=== PATIENT | male | born 1950 | race Caucasian/White ===

== ENCOUNTER → 2016-09-12 | Outpatient (CLI) | payer OTHER, BC | END | disposition home or self-care (01) | LOC: C.PATHSPEC 11:48 | PROVIDERS: ATTEND Dentist Endodontics | DX: K04.90 Unspecified diseases of pulp and periapical tissues (principal) ==

== ENCOUNTER → 2017-01-23 | Day surgery (SDC) | payer OTHER, BC ==
[2017-01-15 10:35] VITALS: BMI 19.0
[~2017-01-23] VITALS: Ht 175.3 cm; Wt 59.1 kg
[~2017-01-23] MED LIST: ASPCH81X PO; ATOR-26 PO; FERR1TAB23 PO; FURO20TA PO; LIDOCAINE HCL 2% 2 ML VIAL (20MG/ML) ONE; LOSA1TAB PO; METH2.5T PO; METO25TA56 PO; POTA10TA PO; PROPOFOL IV EMULSION 10 MG/ML 20 ML VIAL IV ONE; TAMS0.4C38 PO
[2017-01-23 13:07] VITALS: Ht 175.3 cm; Wt 59.1 kg
--- NOTE | 2017-01-23 14:59 | Endo History and Physical ---
History & Physical Date of Service: Jan 23, 2017. Chief Complaint: HX OF POLYPS Referring Physician: DR. JENNIFFER GUTIERREZ History of Present Illness h/o polyps Past Surgical History Hx Cardiac Surgery: No (HEART CATH-NO STENTS, CABG-4 VESSELS, AVR) Hx Internal Defibrillator: No Hx Pacemaker: No Hx Abdominal Surgery: No Hx of Implantable Prosthesis: No Hx Post-Op Nausea and Vomiting: No Hx Cancer Surgery: No Hx Thoracic Surgery: No Hx Orthopedic: No Hx Urinary Tract Surgery: No Family History None Social History Smoking Status: Current Every Day Smoker Hx Substance Use: No Hx Alcohol Use: Yes (OCCASIONALLY) Allergies Coded Allergies: No Known Allergies (Unverified , 01/15/17) Current Medications Reported Home Medications Medications Dose Route/Sig Max Daily Dose Days Date Category Aspirin Chewable (Aspirin) 81 Mg Chew 81 Mg PO QAM 01/15/17 Reported Iron (Ferrous Sulfate) 325 Mg Tab 1 Tab PO QAM 01/15/17 Reported Lasix (Furosemide) 20 Mg Tab 20 Mg PO QAM 01/15/17 Reported Lopressor (Metoprolol Tartrate) 25 Mg Tab 25 Mg PO BID 01/15/17 Reported Cozaar (Losartan Potassium) 25 Mg Tab 25 Mg PO QAM 01/15/17 Reported Methotrexate 2.5 Mg Tab 2.5 Tab PO WK 01/15/17 Reported K-Tabs (Potassium Chloride) 10 Meq Tab 1 Tab PO BID 01/15/17 Reported Flomax (Tamsulosin Hcl) 0.4 Mg Cap 0.4 Mg PO QAM 01/15/17 Reported Lipitor (Atorvastatin Calcium) 80 Mg Tab 80 Mg PO DAILY AFTERNOON 01/15/17 Reported Vital Signs Weight (Kilograms): 59.09 Height (Feet): 5 Height (Inches): 9 Date Time Temp Pulse Resp B/P (MAP) Pulse Ox O2 Delivery O2 Flow Rate FiO2 01/23/17 13:25 36.6 76 18 153/78 (103) 94 Room Air Physical Exam General Appearance: no apparent distress Respiratory/Chest: Auscultation: breath sounds normal Cardiovascular: Heart Auscultation: RRR Abdomen: Bowel Sounds: normal Assessment and Plan H/o polyps - cscopy
--- NOTE | 2017-01-23 15:43 | Anesthesiology Progress Note ---
Anesthesia Post Op Note Date & Time Jan 23, 2017 at 15:43 Vital Signs Pain Intensity: 0 Vital Signs Past 12 Hours Date Time Temp Pulse Resp B/P (MAP) Pulse Ox O2 Delivery O2 Flow Rate FiO2 01/23/17 13:25 36.6 76 18 153/78 (103) 94 Room Air Notes Mental Status: alert / awake / arousable, participated in evaluation Pt Amnestic to Procedure: Yes Nausea / Vomiting: adequately controlled Pain: adequately controlled Airway Patency, RR, SpO2: stable & adequate BP & HR: stable & adequate Hydration State: stable & adequate Anesthetic Complications: no major complications apparent
--- NOTE | 2017-01-23 15:58 | GI REPORT ---
Procedure Date: 01/23/2017 3:07 PM Procedure: Colonoscopy Indications: High risk colon cancer surveillance: Personal history of colonic polyps Medicines: See the Anesthesia note for documentation of the administered medications Complications: No immediate complications. Estimated Blood Loss: Estimated blood loss: none. Procedure: Pre-Anesthesia Assessment: - ASA Grade Assessment: II - A patient with mild systemic disease. After I obtained informed consent, the scope was passed under direct vision. Throughout the procedure, the patient's blood pressure, pulse, and oxygen saturations were monitored continuously. The scope was introduced through the anus and advanced to the terminal ileum. The colonoscopy was performed without difficulty. The patient tolerated the procedure well. The quality of the bowel preparation was good. Findings: The perianal and digital rectal examinations were normal. A 3 mm polyp was found in the rectum. The polyp was sessile. The polyp was removed with a cold snare. Resection and retrieval were complete. The exam was otherwise without abnormality. Impression: - One 3 mm polyp in the rectum, removed with a cold snare. Resected and retrieved. - The examination was otherwise normal. Recommendation: Repeat exam in 3 years. - Discharge patient to home. Cecille Middleton M.D. Cecille Middleton MD 01/23/2017 3:57:50 PM This report has been signed electronically. Note Initiated On: 01/23/2017 3:07 PM I attest to the content of the Intraoperative Record and orders documented therein, exceptions below
--- NOTE | 2017-01-23 15:59 | Discharge Instructions ---
Endoscopy Patient Instructions Date / Procedure(s) Performed Jan 23, 2017. Colonoscopy Allergy Information Coded Allergies: No Known Allergies (Unverified , 01/15/17) Discharge Date / Findings Jan 23, 2017. Diminutive polyp Medication Instructions Stopped Medication(s): IRON Restart Stopped Medication(s): Resume iron today Provider Instructions Activity Restrictions - No exercising or heavy lifting for 24 hours. - Do not drink alcohol the day of the procedure. - Do not drive a car or operate machinery until the day after the procedure. - Do not make any important decisions or sign important papers in 24 hours after the procedure. Following Day: - Return to full activity which may include returning to work/school. Diet Start your diet with liquids and light foods (jello, soup, juice, toast). Then eat your usual diet if not nauseated. Treatment For Common After Affects For mild abdominal pain, bloating, or excessive gas: - Rest - Eat lightly - Lie on right side Follow-Up Information Follow-up with DR. JENNIFFER GUTIERREZ as scheduled Anesthesia Information What You Should Know You have had a procedure that required some medicine to reduce anxiety and discomfort. This treatment is called moderate sedation. After receiving the treatment, you may be sleepy, but you will be able to breathe on your own. The effects of the treatment may last for several hours. Follow these instructions along with Activity/Diet recommendations noted above: * Do NOT do anything where dizziness or clumsiness would be dangerous. * Rest quietly at home today, then you can be up and about tomorrow. * Have a responsible person stay with you the rest of today. * You may have had an I.V. today. If so, you may take the dressing off later today. Recommendations Call your doctor if: * Trouble breathing * Continuous vomiting for more than 24 hours * Temperature above 101 degrees * Severe abdominal pain or bloating * Pain not relieved by pain medicine ordered * There is increased drainage or redness from any incision * A large amount of rectal bleeding greater than 2-3 tablespoons. (If you had a polyp/s removed or have hemorrhoids, a small amount of blood - from the rectum is to be expected.) * You have any unanswered questions or concerns. IN THE EVENT OF A SERIOUS EMERGENCY, GO TO THE NEAREST EMERGENCY ROOM Your discharge instructions were prepared by provider Cecille Lewis. Patient Instructions Signature Page Tarik Sales Patient (or Guardian) Signature/Date: I have read and understand the instructions given to me by my caregivers. Caregiver/RN/Doctor Signature/Date: The above-named patient and/or guardian has received patient instructions on this date. + Original Patient Signature Page (only) stays with chart. Please make copy for patient.
[2017-01-23 16:10] VITALS: BP 111/74; PULSE 73; O2SAT 100
== END | disposition home or self-care (01) ==
LOC: C.GI 12:22
PROVIDERS: ATTEND Internal Medicine Gastroenterology
DX: Z12.11 Encounter for screening for malignant neoplasm of colon (principal); K62.1 Rectal polyp; Z86.010 Personal history of colon polyps; F17.200 Nicotine dependence, unspecified, uncomplicated; Z79.82 Long term (current) use of aspirin; Z79.899 Other long term (current) drug therapy

== ENCOUNTER 2018-12-30 19:30 | Inpatient (IN) ==
--- OUTSIDE RECORDS SUMMARY | 2018-12-30 19:35 | External Medical Summary | Continuity of Care Document ---
:1950 Author Name Jose Villalpando, Provider Address Unavailable Unavailable , Care Team Providers Name Role Phone Patric Villalpando, [email or web address] Problems HTN (hypertension) (401.9) (I10) Tobacco use (305.1) (Z72.0) PAD (peripheral artery disease) (443.9) (I73.9) Dyslipidemia (272.4) (E78.5) Collagen disease (710.9) (M35.9) Weight loss (783.21) (R63.4) Diastolic dysfunction (429.9) (I51.89) Raynaud disease (443.0) (I73.00) Bicuspid aortic valve (746.4) (Q23.1) COPD (chronic obstructive pulmonary disease) (496) (J44.9) Periodontitis (523.40) (K05.30) Allergies and Adverse Reactions No Known Drug Allergies (Allergy) Medications Furosemide 20 MG Oral Tablet; 2 tablets (40mg) MWF , 1 table t all other days Refills: 0 Arava 10 MG Oral Tablet; Take 1 tablet daily Refills: 0 Methotrexate 2.5 MG Oral Tablet; 6 pills together once a wee k Refills: 0 dilTIAZem HCl ER 180 MG Oral Capsule Ext ended Release 24 Hour; TAKE 1 CAPSULE Daily Refills: 0 Folic Acid 1 MG Oral Tablet; 1 tablet da cornelia but not on the day methotrexate is taken Refills: 0 Atorvastatin Calcium 10 MG Oral Tablet; Take 1 tablet daily Refills: 0 Omeprazole 20 MG Oral Capsule Delayed Release; TAKE 1 CAPSUL E EVERY DAY Refills: 0 Aspirin 81 MG TABS; Take 1 tablet daily Refills: 0 Procedures Procedures not documented Immunizations Immunizations not documented Family History Unknown Family Member Family history of coronary artery disease Status: Active Comments: Family History (V17.3) (Z82.49) Mother No pertinent family history (V49.89) (Z78.9) Status: Active Social History - Smoking Status Current every day smoker Plan of Treatment Planned Observations Planned Goals not documented Results No Known Results Results not documented Encounters Appointment; Vascular, Studies SC1 07-Feb-2018 10:15 Encounter Diagnosis: Problem not documented
[2018-12-30] MEDS ORDERED: SODIUM CHLORIDE 0.65% NA SOLN 45 ML (OCEAN) ONE (19:42)
[2018-12-30] MEDS ORDERED: OXYMETAZOLINE 0.05% 30 ML BTL ONE (19:43)
[2018-12-30 20:52] LABS: Hematocrit (blood only) 21.2 % (42-52); Hemoglobin 7.1 g/dL (14.0-18.0); Immature Granulocytes # (auto) 0.02 K/uL (0.00-0.02); Immature Granulocytes % (auto) 0.5 %; Lymphocytes # (auto) 0.34 K/uL (1.2-3.4); Lymphocytes % (auto) 8.6 %; Mean Corpuscular Hemoglobin 30.6 pg (25-34); Mean Corpuscular Hgb Conc 33.5 g/dL (32-36); Mean Corpuscular Volume 91.4 fL (80-100); Mean Platelet Volume 9.3 fL (7.4-10.4); Monocytes # (auto) 0.02 K/uL (0.11-0.59); Monocytes % (auto) 0.5 %; Neutrophils # (auto) 3.57 K/uL (1.4-6.5); Neutrophils % (auto) 90.4 %; Platelet Count 122 K/uL (130-400); RDW Coefficient of Variation 13.3 % (11.5-14.5); RDW Standard Deviation 44.5 fL (36.4-46.3); Red Blood Count 2.32 M/uL (4.7-6.1); White Blood Count 3.95 K/uL (4.8-10.8)
[2018-12-30 21:07] LABS: INR 1.1 (0.9-1.1); Partial Thromboplastin Time 27.5 Seconds (21.0-31.0); Prothrombin Time 11.4 Seconds (9.0-12.0)
[2018-12-30 21:11] LABS: Albumin Level 2.1 gm/dl (3.4-5.0); BUN Creatinine Ratio 21.5 (10-20); Calcium 8.1 mg/dl (8.5-10.1); Creatinine Clr Calc Pharmacy 24.9 ml/min; Est GFR (African American) 29.8; Est GFR (Non-African American) 25.7; Potassium 4.9 mmol/L (3.5-5.1)
[2018-12-30 21:14] LABS: Albumin Globulin Ratio 0.4 (0.9-2); Bilirubin,Total 0.8 mg/dl (0.2-1); Globulin 4.8 gm/dl (2.5-4.0); Total Protein 6.9 gm/dl (6.4-8.2)
[2018-12-30] MEDS ORDERED: SODIUM CHLORIDE 0.9% 250 ML IV PRN (21:25)
--- NOTE | 2018-12-30 21:47 | XRay Report ---
SINGLE VIEW CHEST CLINICAL HISTORY: Dyspnea. FINDINGS: 2 AP, portable, upright chest radiographs are obtained. No prior studies are available for comparison at the time of dictation. The examination is degraded by portable technique and patient ro tation. The patient is status post midline sternotomy there is evidence of cardiac valve surgery. The heart is enlarged noting atherosclerotic calcification of the thoracic aorta. The pulmonary vasculat ure is noncongested. There is mild bibasilar scarring/atelectasis. No airspace consolidation or large pleural effusion is identified. No pneumothorax is seen. The skeletal structures are osteopenic. The re are healed left-sided rib fractures. IMPRESSION: Cardiomegaly with no acute cardiopulmonary abnormality. Electronically signed by: Jeremie Leal M.D. 12/30/2018 9:46 PM
[2018-12-30 22:01] LABS: Troponin I 0.04 ng/ml (0-0.045)
[2018-12-30] MEDS ORDERED: DOXYCYCLINE HYCLATE 100 MG CAP PO STA (22:27)
[2018-12-30] MEDS ORDERED: SODIUM CHLORIDE 0.9% 1000ML 500 ML IV ONE (22:31)
--- NOTE | 2018-12-31 00:20 | Emergency Department Note ---
Entered by Rhett Roberts acting as a scribe for History of Present Illness General Chief complaint: Nose Bleed (Minor) Stated complaint: NOSE BLEED Time Seen by Provider: 12/30/18 20:01 Source: patient History of Present Illness Onset (ago): day(s) 3 Location: face (nostril) and right Pain Consistency: + intermittent Quality: + other (bleeding) Associated symptoms: + denies other symptoms (fevers, bloody stools, black stools) and + other (increased swelling to his legs, cold legs, spots on his legs and feet); no chest pain The patient is a 68 y/o male who presents to the ED w/ CC of intermittent left sided nose bleeds beginning three days ago. The patient denies picking his nose and being sick recently. He notes for the past few months he would notice small spots of blood on the tissue after blowing his nose. The patient reports he is only on aspirin and is short of breath when queried. The patient states for the past week he has had increases swelling to his legs and cold feet, and for the past two weeks he has developed spots on his feet and lower legs. He reports he has been seeing the wound clinic for an infection on his leg previously but no longer sees them. He denies fevers, chest pain, black stool, bloody stool. The patient notes a history of a pig valve replacement and a CABGx4. Home Medications Home Medications Medication Instructions Recorded Confirmed Type aspirin 81 mg chewable tablet 81 mg PO DAILY 01/28/18 12/30/18 History atorvastatin 80 mg tablet 80 mg PO DAILY 01/28/18 12/30/18 History ferrous sulfate 325 mg (65 mg 325 mg PO BID tab 01/28/18 12/30/18 History iron) tablet folic acid 1 mg tablet 1 mg PO DAILY 01/28/18 12/30/18 History furosemide 20 mg tablet 20 mg PO DAILY 01/28/18 12/30/18 History losartan 25 mg tablet 25 mg PO DAILY 01/28/18 12/30/18 History metoprolol tartrate 50 mg tablet 25 mg PO BID tab 01/28/18 12/30/18 History potassium chloride ER 10 mEq 10 meq PO BID 01/28/18 12/30/18 History capsule,extended release tamsulosin 0.4 mg capsule 0.4 mg PO DAILY 01/28/18 12/30/18 History triamcinolone acetonide 0.5 % 1 appln TOP TID PRN 01/28/18 12/30/18 History topical cream methotrexate sodium 7.5 mg PO UD 12/30/18 12/30/18 History Allergies Allergy/AdvReac Type Severity Reaction Status Date / Time No Known Allergies Allergy Mild Unverified 12/30/18 22:39 Past Med/Surg History Medical History Anemia (Chronic) Anemia (Chronic) Aortic valve, bicuspid (Chronic) CAD (coronary artery disease) of artery bypass graft (Chronic) COPD (chronic obstructive pulmonary disease) (Chronic) Dyslipidemia (Chronic) HTN, goal to be determined (Chronic) Mitral valve regurgitation (Chronic) PAD (peripheral artery disease) (Chronic) Raynaud disease (Chronic) Surgical History S/P CABG x 4 (Chronic) S/P aortic valve replacement (Chronic) S/P tonsillectomy (Chronic) Family History Other Family history non-contributory Social History Preferred Language: [place] Visual Impairment: Diminished Hearing Ability: Normal Beliefs That Will Affect Care: None marital status: Current Living Situation: Spouse current occupational status: retired Feels Safe at Home: Yes Smoking Status: Current some day smoker Tobacco Type: cigarettes ; Cigarettes Per Day: 4 ; Hx Alcohol Use: No Hx Substance Use: No Review of Systems See HPI for pertinent positives & negatives. and A total of 10 systems reviewed and were otherwise negative Physical Exam Vital Signs Vital Signs - 24 hr 12/30/18 19:18 12/30/18 20:50 12/30/18 21:25 Temperature 35.1 C L 35.2 C L 36.1 C L Temperature Source Rectal Rectal Rectal Sepsis Recent Fever Within 48 Hours No Sepsis New/Unexplained Change in Mental Status No Sepsis Action Taken by Nursing No Action Required Pulse Rate 120 H Pulse Rate [Right Ear Lobe] 111 H 109 H Pulse Strength Respiratory Rate 14 17 23 Respiratory Effort / Characteristics Non-Labored Spontaneous Non-Labored Spontaneous Non-Labored Spontaneous Respiratory Depth Normal Normal Normal Respiratory Pattern Regular Regular Blood Pressure 135/89 Blood Pressure [Left Arm] 92/50 L 111/61 Blood Pressure Mean 104 Blood Pressure Mean [Left Arm] 64 77 Blood Pressure Position Lying Blood Pressure Position [Left Arm] Lying Lying Pulse Oximetry 81 L 100 100 Oxygen Delivery Method Room Air Oxymask Room Air Oxygen Flow Rate 5 12/30/18 22:38 12/30/18 22:48 12/30/18 23:06 Temperature 36.1 C L 36.8 C 36.5 C Temperature Source Oral Oral Oral Sepsis Recent Fever Within 48 Hours Sepsis New/Unexplained Change in Mental Status Sepsis Action Taken by Nursing Pulse Rate 109 H 106 H Pulse Rate [Right Ear Lobe] 110 H Pulse Strength Normal Respiratory Rate 20 14 20 Respiratory Effort / Characteristics Non-Labored Spontaneous Respiratory Depth Normal Respiratory Pattern Blood Pressure 99/40 L 108/62 Blood Pressure [Left Arm] 109/59 L Blood Pressure Mean 59 77 Blood Pressure Mean [Left Arm] 75 Blood Pressure Position Lying Blood Pressure Position [Left Arm] Lying Pulse Oximetry 100 100 100 Oxygen Delivery Method Room Air Oxygen Flow Rate 12/30/18 23:24 12/30/18 23:30 12/30/18 23:45 Temperature Temperature Source Sepsis Recent Fever Within 48 Hours Sepsis New/Unexplained Change in Mental Status Sepsis Action Taken by Nursing Pulse Rate 98 H 97 H Pulse Rate [Right Ear Lobe] 101 H Pulse Strength Respiratory Rate 16 4 L 2 L Respiratory Effort / Characteristics Respiratory Depth Respiratory Pattern Blood Pressure 111/56 L 124/57 L Blood Pressure [Left Arm] 111/46 L Blood Pressure Mean 74 79 Blood Pressure Mean [Left Arm] 67 Blood Pressure Position Blood Pressure Position [Left Arm] Pulse Oximetry 100 100 100 Oxygen Delivery Method Room Air Oxygen Flow Rate 12/31/18 00:00 Temperature Temperature Source Sepsis Recent Fever Within 48 Hours Sepsis New/Unexplained Change in Mental Status Sepsis Action Taken by Nursing Pulse Rate 94 H Pulse Rate [Right Ear Lobe] Pulse Strength Respiratory Rate 11 L Respiratory Effort / Characteristics Respiratory Depth Respiratory Pattern Blood Pressure 116/59 L Blood Pressure [Left Arm] Blood Pressure Mean 78 Blood Pressure Mean [Left Arm] Blood Pressure Position Blood Pressure Position [Left Arm] Pulse Oximetry 100 Oxygen Delivery Method Oxygen Flow Rate Constitutional: Vital signs reviewed. Eyes: Pupils are equal round reactive to light. Conjunctiva are noninjected. ENT: Pharynx is clear without erythema or exudate. Mucous membranes are moist. Neck supple without meningeal signs. Bleeding from the left nostril. Respiratory: Clear to auscultation bilaterally. Breath sounds are equal bilaterally. Cardiovascular: Tachycardic rate and regular rhythm. No rubs or gallops. GI: Soft, nondistended and nontender. Bowel sounds are present. Tick in the abdomen that appeared engorged. Rectal: Guaiac negative. Brown stool. Musculoskeletal: No peripheral edema. No lower extremity tenderness. Pallor and coolness to both feet with detectable pulses via Doppler. Petechia to the lower extremities bilaterally. Integumentary: No cyanosis. Neurological: The patient is awake and alert. No focal deficits. Psychiatric: Normal affect. Course 2002: Past medical records reviewed. The patient was evaluated in room A11B. A complete history and physical exam was performed. 2043: The nurse was able to get a distal pulse in both feet using a Doppler. 2056: The patient's O2Sat is now 100 on RA. His temperature went up 1 degree while on a CHAYO hugger. 2123: The patient stopped bleeding from the nose. While dabbing it with a tissue, the patient noted it is starting to bleed a little. I give the patient Afrin and put a clamp in place. I updated him of his current test results. 2133: The patient was briefly hypotensive. I performed a rectal exam. I informed the patient of the risk and benefits of a blood transfusion and obtained written consent for a transfusion of two units. The nurse discovered a tick in the abdomen that appeared engorged. It was removed with a tick twister. All of the tick was removed. There are no remaining parts of the tick. 2202: The nasal clamp was removed. There is no active bleeding. 2216: There is no active bleeding after removal of the clamp. 2227: I reevaluated the patient. He is still slightly tachycardic. His blood pressure is stable. We are still waiting for his pRBC's. He is agreeable with doxycycline for prophylactic treatment for the tick bite. 2232: I reviewed the patient's case with Dr. Parsons, [facility] Hospitalist. He will evaluate the patient for further management. Administered Medications Sodium Chloride (Nss) 250 mls @ 15 mls/hr IV .[id number] PRN PRN Reason: For Transfusion Stop: 01/29/19 21:24 Last Admin: 12/30/18 22:52 Dose: 15 mls/hr Documented by: [id number] Discontinued Medications Doxycycline Hyclate (Vibramycin) 200 mg PO NOW STA Stop: 12/30/18 22:28 Last Admin: 12/30/18 22:52 Dose: 200 mg Documented by: [id number] Sodium Chloride (Nss 1000ml) 500 mls @ 999 mls/hr IV .Q31M ONE Stop: 12/30/18 23:01 Last Infusion: 12/31/18 00:01 Dose: 0 mls/hr Documented by: [id number] Admin: 12/30/18 23:22 Dose: 999 mls/hr Documented by: [id number] Oxymetazoline HCl (Afrin 0.05%) Confirm Administered Dose 150 sprays .ROUTE .STK-MED ONE Stop: 12/30/18 19:44 Last Admin: 12/30/18 20:47 Dose: 150 sprays Documented by: [id number] Sodium Chloride (Faulk Nasal) Confirm Administered Dose 225 sprays .ROUTE .STK- MED ONE Stop: 12/30/18 19:43 Last Admin: 12/30/18 20:47 Dose: Not Given Documented by: [id number] Medical Decision Making Differential Diagnosis Differential diagnosis includes: epistaxis, thrombocytopenia, sinusitis, arterial insufficiency, anemia. Medical Records Attestation: I reviewed the patient's medical records. I did perform a limited focused review of portions of the patient's old chart on the electronic medical record. The patient was evaluated at the wound care clinic in May. He had an ischemic ulcer secondary to arterial insufficiency. Home Medications Current Medication List: was personally reviewed by me Laboratory Data Attestation: I reviewed the patient's lab results. Result diagrams: 12/30/18 20:38 12/30/18 20:38 Lab Results 12/30/18 12/30/18 12/30/18 Range/Units 20:38 20:38 20:38 WBC 3.95 L (4.8-10.8) K/uL RBC 2.32 L (4.7-6.1) M/uL Hgb 7.1 L (14.0-18.0) g/dL Hct 21.2 L (42-52) % MCV 91.4 (80-100) fL MCH 30.6 (25-34) pg MCHC 33.5 (32-36) g/dL RDW Std Deviation 44.5 (36.4-46.3) fL RDW Coeff of Renato 13.3 (11.5-14.5) % Plt Count 122 L (130-400) K/uL MPV 9.3 (7.4-10.4) fL Immature Gran % (Auto) 0.5 % Neut % (Auto) 90.4 % Lymph % (Auto) 8.6 % Gilchrist % (Auto) 0.5 % Eos % (Auto) 0.0 % Baso % (Auto) 0.0 % Immature Gran # (Auto) 0.02 (0.00-0.02) K/uL Neut # (Auto) 3.57 (1.4-6.5) K/uL Lymph # (Auto) 0.34 L (1.2-3.4) K/uL Gilchrist # (Auto) 0.02 L (0.11-0.59) K/uL Eos # (Auto) 0.00 (0-0.5) K/uL Baso # (Auto) 0.00 (0-0.2) K/uL PT 11.4 (9.0-12.0) Seconds INR 1.1 (0.9-1.1) APTT 27.5 (21.0-31.0) Seconds PTT Ratio 1.0 Sodium 139 (136-145) mmol/L Potassium 4.9 (3.5-5.1) mmol/L Chloride 106 (98-107) mmol/L Carbon Dioxide 22 (21-32) mmol/L Anion Gap 11.0 (3-11) BUN 53 H (7-18) mg/dl Creatinine 2.46 H (0.6-1.4) mg/dl Est Cr Clr Drug Dosing 24.9 ml/min Est GFR ( Amer) 29.8 Est GFR (Non-Af Amer) 25.7 BUN/Creatinine Ratio 21.5 H (10-20) Glucose 126 H (70-99) mg/dl Lactate (0.4-2.0) mmol/L Calcium 8.1 L (8.5-10.1) mg/dl Total Bilirubin 0.8 (0.2-1) mg/dl AST 113 H (15-37) U/L ALT 66 (12-78) U/L Alkaline Phosphatase 260 H (45-117) U/L Troponin I 0.040 (0-0.045) ng/ml Total Protein 6.9 (6.4-8.2) gm/dl Albumin 2.1 L (3.4-5.0) gm/dl Globulin 4.8 H (2.5-4.0) gm/dl Albumin/Globulin Ratio 0.4 L (0.9-2) Blood Type Blood Type Recheck Antibody Screen Crossmatch 12/30/18 12/30/18 12/30/18 Range/Units 20:38 20:41 21:42 WBC (4.8-10.8) K/uL RBC (4.7-6.1) M/uL Hgb (14.0-18.0) g/dL Hct (42-52) % MCV (80-100) fL MCH (25-34) pg MCHC (32-36) g/dL RDW Std Deviation (36.4-46.3) fL RDW Coeff of Renato (11.5-14.5) % Plt Count (130-400) K/uL MPV (7.4-10.4) fL Immature Gran % (Auto) % Neut % (Auto) % Lymph % (Auto) % Gilchrist % (Auto) % Eos % (Auto) % Baso % (Auto) % Immature Gran # (Auto) (0.00-0.02) K/uL Neut # (Auto) (1.4-6.5) K/uL Lymph # (Auto) (1.2-3.4) K/uL Gilchrist # (Auto) (0.11-0.59) K/uL Eos # (Auto) (0-0.5) K/uL Baso # (Auto) (0-0.2) K/uL PT (9.0-12.0) Seconds INR (0.9-1.1) APTT (21.0-31.0) Seconds PTT Ratio Sodium (136-145) mmol/L Potassium (3.5-5.1) mmol/L Chloride (98-107) mmol/L Carbon Dioxide (21-32) mmol/L Anion Gap (3-11) BUN (7-18) mg/dl Creatinine (0.6-1.4) mg/dl Est Cr Clr Drug Dosing ml/min Est GFR ( Amer) Est GFR (Non-Af Amer) BUN/Creatinine Ratio (10-20) Glucose (70-99) mg/dl Lactate 5.3 H* (0.4-2.0) mmol/L Calcium (8.5-10.1) mg/dl Total Bilirubin (0.2-1) mg/dl AST (15-37) U/L ALT (12-78) U/L Alkaline Phosphatase (45-117) U/L Troponin I (0-0.045) ng/ml Total Protein (6.4-8.2) gm/dl Albumin (3.4-5.0) gm/dl Globulin (2.5-4.0) gm/dl Albumin/Globulin Ratio (0.9-2) Blood Type O Positive Blood Type Recheck O Positive Antibody Screen NEGATIVE Crossmatch See Detail Imaging Data Radiologist's Impression: Radiology results as stated below per my review and the radiologist's interpretation: SINGLE VIEW CHEST CLINICAL HISTORY: Dyspnea. FINDINGS: 2 AP, portable, upright chest radiographs are obtained. No prior studies are available for comparison at the time of dictation. The examination i s degraded by portable technique and patient rotation. The patient is status post midline sternotomy there is evidence of cardiac valve surgery. The heart is enlarged noting atherosclerotic calcification of the thoracic aorta. The pulmonary vasculature is noncongested. There is mild bibasilar scarri ng/atelectasis. No airspace consolidation or large pleural effusion is identified. No pneumothorax is seen. The skeletal structures are osteopenic. There are healed left-sided rib fractures. IMPRESSION: Cardiomegaly with no acute cardiopulmonary abnormality. Electronically signed by: Jeremie Leal M.D. 12/30/2018 9:46 PM ECG Data Attestation: I personally reviewed and interpreted this ECG as follows: Indication: + SOB/dyspnea Rate (beats per minute): 110 Rhythm: + sinus tachycardia ECG ST segments: + ST depression (Inferior - slight); no ST elevation ECG Findings: no PVCs Comparison ECG Date: from (04/2017) Change: no significant change Blood Pressure Blood Pressure Findings: Elevated blood pressure Blood Pressure Disposition: elevated BP felt to be situational MDM Narrative I did evaluate the patient as noted above. The patient came here for an intermittent nosebleed from his left nare. On my examination he is very cool to touch and was found to be hypothermic on rectal temperature. His O2 saturations were low but he has very cool and pale extremities. He also has petechiae to his lower extremities. We were able to get pulses using a bedside Doppler. He does have a prior history of arterial insufficiency. He was placed on a chayo hugger. His nosebleed was controlled with Afrin and his nasal clamp. Rectal examination showed guaiac negative brown stool. IV access was established. The patient was placed on a continuous monitoring coordinator. I did order and personally review the patient's 12-lead EKG as described above. He has no evidence of acute ischemia. He does have ST depressions inferiorly but they were present from April 2017. I did order and personally reviewed the images of the patient's chest x-ray as described above. He has cardiomegaly but no evidence of effusion or infiltrate. I did order a urine analysis. I did order and review the patient's blood work as noted in the electronic medical record. He is anemic with a hemoglobin of 7.1. He also has acute kidney injury with a cr eatinine over 2. Troponin is negative. Lactic acid is 5.3. His white blood cell count is 3.9. Platelet count is 122. I did recommend transfusion as he is symptomatic with shortness of breath and a history of CABG and arterial insufficiency. I did order 2 units of packed RBCs after obtaining informed consent. He did develop some hypotension here and was given a normal saline bolus. Transfusion of packed RBCs was started here. Of note he did have a tick on his left abdomen which I easily removed in its entirety. He was given doxycycline 200 mg for Lyme disease prophylaxis. There is no evidence of rash. His body temperature improved with the bear hugger. His blood pressure remained stable and his tachycardia improved as well. I did discuss the case with the hospitalist and telehealth case manager. Impression & Plan MARANDA (acute kidney injury), Symptomatic anemia, Thrombocytopenia, Hypothermia, Acute anterior epistaxis, Tick bite, Leukopenia Critical Care Time Critical Care Time: Yes Total Critical Care Time: 42 I have personally spent 42 minutes of critical care time in the direct management of this patient. This includes bedside care, interpretation of diagnostic studies, and testing, discussion with consultants, patient, and family members, and other required patient management activities. This 42 minutes is in excess of all separately billable procedures. Discharge Plan Visit Data Chief Complaint: Nose Bleed (Minor) Stated Complaint: NOSE BLEED ED Provider: Douglas Young Discharge Problem: MARANDA (acute kidney injury), Symptomatic anemia, Thrombocytopenia, Hypothermia, Acute anterior epistaxis, Tick bite, Leukopenia Patient Disposition: Being Evaluated by Hospitalist Forms Stand Alone Forms: My [facility] Prescriptions Prescriptions: No Action aspirin 81 mg tablet,chewable 81 mg PO DAILY RF: 0 atorvastatin [Lipitor] 80 mg tablet 80 mg PO DAILY RF: 0 ferrous sulfate 325 mg (65 mg iron) tablet 325 mg PO BID RF: 0 furosemide [Lasix] 20 mg tablet 20 mg PO DAILY RF: 0 losartan [Cozaar] 25 mg tablet 25 mg PO DAILY RF: 0 metoprolol tartrate [Lopressor] 50 mg tablet 25 mg PO BID RF: 0 potassium chloride 10 mEq capsule, extended release 10 meq PO BID RF: 0 tamsulosin [Flomax] 0.4 mg capsule 0.4 mg PO DAILY RF: 0 folic acid 1 mg tablet 1 mg PO DAILY RF: 0 triamcinolone acetonide 0.5 % cream 1 appln TOP TID PRN (Reason: flare ups) RF: 0 methotrexate sodium 2.5 mg tablet 7.5 mg PO UD RF: 0 Referrals Referrals: Ana Carpenter DO [Primary Care Provider] - Discharge Problem: Hypothermia Qualifiers: Encounter type: initial encounter Qualified Code(s): T68.XXXA - Hypothermia, initial encounter Tick bite Qualifiers: Encounter type: initial encounter Qualified Code(s): W57.XXXA - Bitten or stung by nonvenomous insect and other nonvenomous arthropods, initial encounter Leukopenia Qualifiers: Leukopenia type: unspecified Qualified Code(s): D72.819 - Decreased white blood cell count, unspecified The scribe's documentation has been prepared under my direction and personally reviewed by me in its entirety. I confirm that the note above accurately reflects all work, treatment, procedures, and medical decision making performed by me.
[2018-12-31] MEDS ORDERED: POLYETHYLENE (MIRALAX) 17 GM PACK PO PRN (02:06)
[2018-12-31] MEDS ORDERED: NITROGLYCERIN SL 0.4 MG/TAB TAB SL PRN (02:06)
[2018-12-31] MEDS ORDERED: TRIAMCINOLONE ACET 0.5% CR 15 GM TUBE TOP PRN (02:06)
[2018-12-31] MEDS ORDERED: ONDANSETRON INJ 2 MG/ML 2 ML VIAL IV PRN (02:06)
[2018-12-31] MEDS ORDERED: ACETAMINOPHEN 325 MG TAB PO PRN (02:06)
[2018-12-31] MEDS ORDERED: PIPERACILL/TAZOBAC CONSULT ACTIVE PRN (02:06)
[2018-12-31] MEDS ORDERED: SODIUM CHLORIDE 0.9% 250 ML IV PRN ×3 (02:06→19:44)
[2018-12-31] MEDS ORDERED: SODIUM CHLORIDE 0.9% 1000ML 1,000 ML IV SCH (02:06)
[2018-12-31] MEDS ORDERED: VANCOMYCIN CONSULT ACTIVE PRN (02:06)
[2018-12-31] MEDS ORDERED: PIPERACILLIN/TAZOBACTAM 4.5 GM in DEXTROSE 5% 100 ML IV STA (02:21)
[2018-12-31] MEDS ORDERED: VANCOMYCIN HCL 1,500 MG in SODIUM CHLORIDE 0.9% 500 ML IV ONE (03:00)
--- NOTE | 2018-12-31 04:21 | History and Physical Report ---
DATE OF ADMISSION: 12/31/2018 CHIEF COMPLAINT: Epistaxis. HISTORY OF PRESENT ILLNESS: This is a 68-year-old male with past medical history significant for COPD, moderate peripheral artery disease, history of carotid arteries bilaterally, history of Raynaud's syndrome, history of aortic valve, bicuspid, status post aortic valve replacement with bioprosthetic valve, mitral regurgitation, hypertension, CAD, protein-calorie malnutrition, undifferentiated connective tissue disease, history of anemia, presents with epistaxis. The patient says since last 3 days, he was having left side nose bleeding, significant bleeding on and off, he thought it would stop by itself, but it was not getting better, so his called the ambulance and brought him here. He got Afrin spray and nasal clamp placed in Er His labs showed pancytopenia with hemoglobin of 7.1, platelets 122, white count of 3.9. His lactic acid came as 5.3. Troponin is negative. Creatinine was 2.4. In the ER, engorged tick was taken out from left abdomen. Denies any fever, chills. No headache, no dizziness, no blurred visions, no earache, no sore throat, no difficulty swallowing. Appetite is okay. No recent weight gain or weight loss, no night sweats. Sleeps okay. Was nauseous earlier, but okay now. No vomiting, no abdominal pain, no blood in the stools or black stools, no hematuria, no burning micturition. He has chronic swelling in the legs. Has petechial rash seen in the legs. hypothermic and extremities were cold when he came in Doppler done in the ER was positive for pulse and his Hemoccult stool was negative. In the ER, he was currently on Marybeth-Hugger temperature improved.. The patient is also on methotrexate for connective tissue disease. The patient is on methotrexate for 2 years. It was stopped recently, but again restarted about a month ago. ALLERGIES: No known drug allergies. PAST MEDICAL HISTORY: As mentioned above. PAST SURGICAL HISTORY: Aortic valve replacement and prosthetic valve, CABG, colonoscopy, CAD, tonsillectomy. MEDICATIONS: The patient is currently on methotrexate 2.5 mg 3 tablets with lunch and 3 tablets with dinner on Mondays only, Flomax 0.4 mg daily, folic acid 2 mg daily, ferrous sulfate 325 mg p.o. b.i.d., Lopressor 25 mg p.o. b.i.d., Lipitor 80 mg p.o. daily, Klor-Con 10 mEq p.o. b.i.d., Lasix 20 mg p.o. daily, amoxicillin 2 grams 1 hour prior to dental appointment, losartan 25 mg p.o. daily, vitamin B12 500 mcg daily, aspirin 81 mg p.o. daily. FAMILY HISTORY: Significant for: Mother had cancer. Father had [place], at 54. Paternal grandfather had heart disorder. SOCIAL HISTORY: Lives with his . Smokes half pack a day for 40 years. Alcohol rarely. No drug use. REVIEW OF SYMPTOMS: As per HPI. Rest of review of systems is negative. PHYSICAL EXAMINATION: GENERAL: The patient is thinly built, not in acute distress. VITAL SIGNS: Temperature 37, when he came in, it was 35.1, currently 37.1. Respiratory rate 20, blood pressure 112/67, pulse 97. HEENT: No pallor, no icterus. Pupils equal, round, reactive to light. Nasal clamp. NECK: No JVD, no neck masses. No carotid bruits. CARDIOVASCULAR: S1, S2 heard, regular rate and rhythm, no murmur. RESPIRATORY SYSTEM: Normal AP diameter. Diminished breath sounds. No wheezing, no crackles. ABDOMEN: Soft, bowel sounds present, nontender. No distention. CENTRAL NERVOUS SYSTEM: Alert and oriented, not in acute distress. Moves extremities. EXTREMITIES: Bilateral lower extremity edema present and some petechial rash seen in the lower extremity. LABORATORIES DATA: WBC 3.9, hemoglobin 7.1, hematocrit 21.2, platelets 122. PT 11.4, INR 1.1, APTT 27.5. Sodium 139, potassium 4.9, chloride 106, bicarbonate 22, BUN 53, creatinine 2.4, serum glucose 126, lactate 5.3, calcium 8.1, total bilirubin 0.8, AST 113, ALT 66, alkaline phosphatase 260. Chest x-ray: Cardiomegaly with no acute cardiopulmonary abnormalities seen. EKG: Sinus tachycardia, rate of 110, left axis deviation, nonspecific ST abnormalities seen. ASSESSMENT AND PLAN: This is a 68-year-old male who presents with epistaxis found to have pancytopenia, hypothermia, elevated lactic acid, elevated AST and alkaline phosphatase and acute kidney injury. 1. Epistaxis, possible from thrombocytopenia, Afrin spray and nasal clamp was done in the ER which he will continue, hold his aspirin and consult ENT in a.m. for further recommendations. 2. Pancytopenia. Labs were okay in 10/24/2018 as outpatient. At that time, his white count was 5.3, hemoglobin 10.8, platelets 263. Today, his platelets are 122, white count 3.95, hemoglobin is 7.1. He was on methotrexate for 2 years, but it was held recently and restarted a month ago. It could be the possible cause of his pancytopenia. Also, tick was found on his belly and he says that he had not noticed it in the past and denies any fevers, but apart from pancytopenia, he has also had elevated alkaline phosphatase and AST and also acute kidney injury, possible tick-borne diseases We will send lab work for anaplasmosis/ehrlichiosis . Lyme screen. peripheral smear. Empirically, started on doxycycline, getting 2 units of PRBC now. His Hemoccult was negative. We will also consult hematology/oncology for further opinion. Follow the labs. 3. Sepsis? Elevated lactic acid. Lactic acid of 5.3, probably from hypoperfusion from his anemia, was also hypothermic when he came in. We will empirically start on IV vancomycin and IV Zosyn with 48-hour stop and follow the cultures. Follow the repeat lactic acid. Also getting CT of the chest, abdomen and pelvis to rule out any underlying disease. 4. Acute kidney injury, baseline creatinine of 1-1.3, presented with creatinine of 2.4. Getting PRBC transfusions and fluids. Holding Lasix and Cozaar. We will follow the labs in a.m. 5. Coronary artery disease status post coronary artery bypass graft. Continue statin, metoprolol. Holding the aspirin. 6. Bicuspid aortic valve, status post aortic valve replacement with prosthetic valve. Has a plan for echocardiogram. We will get echocardiogram in the hospital. 7. Lower extremity edema. The patient has peripheral vascular disease. if any concerns will get arterial we will get ultrasound. We will also get echocardiogram. 8. Petechial rash, possibly from thrombocytopenia. We will monitor. 9. History of anemia. Hemoglobin baseline around 10, on iron supplements. 10. History of diffuse connective tissue disease, Raynaud's syndrome. Follows with rheumatology on methotrexate.Holding methotrexate. Question of methotrexate, possible cause of his pancytopenia. Consult rheumatology. 12. Hyperlipidemia, on statin. 13. Hypertension, Lopressor with holding parameters. Hold Cozaar. Monitor the blood pressure. 14. Tick bite. Started on doxycycline. Consult ID. 14. Deep venous thrombosis prophylaxis, sequential compression devices for now. 15. Disposition: Admit to tele floor. Expect to discharge home and follow with family doctor. Level 1 full code. MTDD
[2018-12-31] MEDS ORDERED: OXYMETAZOLINE 0.05% 30 ML BTL NAE PRN (04:58)
[2018-12-31] MEDS: DOXYCYCLINE HYCLATE 100 MG CAP PO SCH ×2 (05:15→17:00)
[2018-12-31 05:33] LABS: Hematocrit (blood only) 22.8 % (42-52); Hemoglobin 8.3 g/dL (14.0-18.0); Mean Corpuscular Hgb Conc 36.4 g/dL (32-36); RDW Coefficient of Variation 13.2 % (11.5-14.5); RDW Standard Deviation 42.6 fL (36.4-46.3); Red Blood Count 2.59 M/uL (4.7-6.1); White Blood Count 2.62 K/uL (4.8-10.8)
[2018-12-31] MEDS ORDERED: ACETAMINOPHEN 325 MG TAB PO STA (05:38)
[2018-12-31] MEDS ORDERED: PNEUMOCOCCAL ADMINISTRATION CHARGE ONE (05:45)
[2018-12-31] MEDS ORDERED: PNEUMOCOCCAL POLYSACCHARIDES 25 MCG/0.5 ML VIAL/SYR IM ONE (05:45)
[2018-12-31] MEDS ORDERED: INFLUENZA VACCINE HIGH DOSE 65+ 0.5 ML SYR IM ONE (05:45)
[2018-12-31] MEDS ORDERED: INFLUENZA ADMINISTRATION CHARGE ONE (05:45)
[2018-12-31 05:53] LABS: Mean Platelet Volume 9.5 fL (7.4-10.4); Platelet Count 86 K/uL (130-400)
[2018-12-31 06:01] LABS: Basophils # (auto) 0.01 K/uL (0-0.2); Basophils % (auto) 0.4 %; Eosinophils # (auto) 0.01 K/uL (0-0.5); Eosinophils % (auto) 0.4 %; Immature Granulocytes # (auto) 0.01 K/uL (0.00-0.02); Immature Granulocytes % (auto) 0.4 %; Lymphocytes # (auto) 0.46 K/uL (1.2-3.4); Lymphocytes % (auto) 17.6 %; Neutrophils # (auto) 2.13 K/uL (1.4-6.5); Neutrophils % (auto) 81.2 %; Platelet Estimate Decreased (Normal)
[2018-12-31 06:02] LABS: BUN Creatinine Ratio 25.8 (10-20); Calcium 7.4 mg/dl (8.5-10.1); Est GFR (Non-African American) 31.9; Magnesium 1.7 mg/dl (1.8-2.4); Potassium 4.2 mmol/L (3.5-5.1)
[2018-12-31 06:18] LABS: Lyme Ab IgG w/WB Rflx Negative (Negative)
[2018-12-31 06:19] LABS: Albumin Level 1.7 gm/dl (3.4-5.0); Bilirubin Direct 0.3 mg/dl (0-0.2); Bilirubin,Total 0.7 mg/dl (0.2-1); Total Protein 5.7 gm/dl (6.4-8.2)
--- NOTE | 2018-12-31 06:33 | CT Scan Report ---
CT SCAN OF THE ABDOMEN AND PELVIS WITHOUT CONTRAST CLINICAL HISTORY: Elevated lactic acid. Possible bowel ischemia. COMPARISON STUDY: No previous studies for comparison. TECHNIQUE: CT scan of the abdomen and pelvis was performed from the lung bases to the proximal femurs . Images are reviewed in the axial, sagittal, and coronal planes. IV contrast was not administered fo r this examination. A dose lowering technique was utilized adhering to the principles of ALARA. CT DOSE: 493.57 mGy.cm FINDINGS: Lower chest: There is mild basilar interstitial thickening. There are trace pleural effusions. There is small hiatal hernia Liver: The unenhanced liver is normal in size, contour, and attenuation. There is no intrahepatic herbert iary ductal dilatation. Gallbladder: Cholelithiasis versus gallbladder sludge. Spleen: There are multiple splenic granulomas. The spleen is normal in size. Pancreas: Unremarkable. Adrenal glands: Unremarkable. Kidneys: There is bilateral perinephric stranding. There are vascular calcifications. There is no hyd ronephrosis. There are bilateral renal cysts the largest of which measures 38 mm. Bowel: There are no transition zones indicate bowel obstruction. There is no acute diverticulitis. Th ere are no findings to indicate acute appendicitis given the limitations of the study performed witho ut intravenous or oral contrast. Peritoneum: There is trace fluid in the right paracolic gutter. There is mild diffuse mesenteric elder a. Small fat-containing left inguinal hernia. Vasculature: There is no evidence for abdominal aortic aneurysm. There are diffuse atheromatous guerra es present in the aorta and iliac vessels Adenopathy: There are calcified lilly hepatis lymph nodes. There are no enlarged lymph nodes. As susp icious for neoplasm. Pelvic viscera: There are bilateral hydroceles. No pathologic pelvic masses are visualized. Skeletal structures: There is mild generalized soft tissue edema. No destructive skeletal lesions are visualized IMPRESSION: 1. No evidence of bowel obstruction. No evidence of free air 2. Fluid-filled nondilated small bowel loops without evidence for significant wall thickening 3. No acute inflammatory changes. Electronically signed by: Jose Rodriguez M.D. 12/31/2018 6:31 AM
[2018-12-31 06:40] LABS: Lyme Ab IgM w/WB Rflx Equivocal (Negative)
--- NOTE | 2018-12-31 06:57 | XRay Report ---
XR chest 1V portable CLINICAL HISTORY: congestion dyspnea COMPARISON STUDY: 12/30/2018 FINDINGS: Prior median sternotomy. Mild stable cardiomegaly. Lungs are clear. Diaphragms are smooth. Several old left-sided rib fractures. IMPRESSION: No acute process. Lungs are considered clear. The above report was generated using voice recognition software. It may contain grammatical, syntax or spelling errors. Electronically signed by: Ramone Bartlett M.D. 12/31/2018 6:56 AM
[2018-12-31] MEDS ORDERED: MAGNESIUM SULFATE / D5W 1 GM/100 ML BAG IV ONE (07:00)
--- NOTE | 2018-12-31 07:08 | CT Scan Report ---
CT chest wo con CLINICAL HISTORY: 68 years-old Male presenting with elevated lactic acid etiology unclear? Sepsis?. TECHNIQUE: Multidetector CT imaging of the chest was performed without the use of intravenous contras t. IV contrast: None. One or more dose lowering techniques were used consistent with the principles o f ALARA (as low as reasonably achievable), including automatic exposure control, mA or kV adjustment to individual patient size, and/or use of iterative reconstruction. COMPARISON: None. CT DOSE (mGy.cm): The estimated cumulative dose is 493.57. FINDINGS: Local Tanker Truck Driver topogram: Median sternotomy wires, prosthetic aortic valve and coronary artery bypass graft rin gs. Soft tissues: Normal thyroid and thoracic inlet. Scattered calcified mediastinal and bilateral hilar lymph nodes likely indicates a history of granulomatous disease. No pathologically enlarged lymph nod es on the current exam. Scattered prominent bilateral axillary lymph nodes, nonspecific. Atherosclero sis of the aorta. Postsurgical changes of the ascending aorta with prior aortic valve replacement. Me chiquis sternotomy with coronary artery bypass grafting suspected. Patency of graft vessels cannot be as sessed. Coronary artery calcification. Papillary muscle calcification may also be present. Normal hea rt size. Trace pericardial thickening likely postsurgical. No pleural effusion. Calcifications within the spleen and upper abdominal calcified lymph nodes also relate to history of granulomatous disease . The lateral renal cysts noted. Small sliding type hiatal hernia. Mild hepatic steatosis. Lungs and airways: No pneumothorax. Minimal debris within the lower trachea. Mild diffuse bronchial w all thickening primarily in the lower lobes. Moderate centrilobular emphysema. Pulmonary arteries are not significantly enlarged relative to adjacent bronchi. No interlobular septal thickening. Mild nod ular thickening of the fissures. Minimal bibasilar opacities dependently likely atelectasis. No other focal nodule or infiltrate. Musculoskeletal: Degenerative changes of the spine. IMPRESSION: 1. No acute intrathoracic pathology. 2. Evidence of old granulomatous disease. 3. Smoking-related lung injury with emphysema and bronchitis. 4. Minimal debris in the lower trachea may represent secretions. Postsurgical changes of CABG and ao rtic valve replacement. 5. Additional findings as above. Electronically signed by: Eduardo Polk M.D. 12/31/2018 7:07 AM
[2018-12-31] MEDS: FERROUS SULFATE 325 MG TAB PO SCH ×2 (07:46→20:05)
[2018-12-31] MEDS: METOPROLOL TARTRATE 25 MG TAB PO SCH ×2 (07:47→20:06)
[2018-12-31] MEDS: TAMSULOSIN HCL 0.4 MG CAP PO SCH (07:47)
[2018-12-31] MEDS: FOLIC ACID 1 MG TAB PO SCH (07:47)
[2018-12-31] MEDS: ATORVASTATIN 40 MG TAB PO SCH (07:47)
[2018-12-31] MEDS: PIPERACILLIN/TAZOBACTAM 3.375 GM in DEXTROSE 5% 100 ML IV SCH ×3 (08:53→23:41)
--- NOTE | 2018-12-31 09:09 | Pharmacy Report ---
Pharmacy Abx Dose Short Note - Date of Service December 31, 2018 - Assessment & Plan Assessment 68 year old M receiving vancomycin and zosyn for empiric treatment X 48 hours. A loading dose was given at 0300 this morning. Will repeat a maintenance dose this evening, approximating when vancomycin level will fall between 15-20 based on current PKs. If renal function dramatically changes and/or therapy continues past 48 hours, will order vancomycin level. Day # 1 of antimicrobial therapy. Plan Vancomycin * Loading dose of 1500mg X 1 @ 0300 this morning * Redose with 1000 mg IV this evening @ 2200 * Goal trough level: 15 to 20 mcg/mL * Trough or random level will be ordered if therapy to continue past 48 hours Pharmacy will continue to follow and will adjust dose/frequency as necessary. Thank you.
[2018-12-31] MEDS ORDERED: FUROSEMIDE 20 MG in SYRINGE 0 ML IV STA (09:14)
[2018-12-31 09:57] LABS: Appearance Urine Cloudy (Clear); Bacteria Urine Automated Negative (Negative); Bilirubin Urine Negative (Negative); Blood Urine 3+ (Negative); Color Urine Dark Yellow; Glucose Urine UA Negative (Negative); Ketones Urine Negative (Negative); Leukocyte Esterase Urine 1+ (Negative); Nitrite Urine Negative (Negative); Protein Urine 2+ (Negative); RBC Urine Automated >30 /hpf (0-4); Specific Gravity Urine 1.018 (1.000-1.030); Urobilinogen Urine Negative (Negative)
--- NOTE | 2018-12-31 13:13 | Infectious Disease Consult ---
Date of Consultation December 31, 2018 Assessment & Plan (1) Pancytopenia: 68-year-old male with persistent epistaxis found to have pancytopenia as well as engorged tick on his abdomen. Certainly infection with Anaplasma in the differential diagnosis, and may not see inclusions on peripheral smear. Await PCR testing. Pancytopenia may also relate to recent use of methotrexate. Agree with empiric doxycycline, especially given equivocal Lyme serology as well. Length of doxycycline therapy yet to be determined. Will continue other antibiotics pending final culture results. Will follow. (2) Tick bite: History of Present Illness Reason for Consultation: Tick bite Attending Physician: Suri Chao MD History of Present Illness 68-year-old male with history of connective tissue disease, ray nodes, coronary artery disease, hypertension, hyperlipidemia, COPD, who was admitted to the hospital with 3-day history of persistent epistaxis. He was found to have significant pancytopenia, and was also found to have an engorged tick on his abdomen, subsequently removed. Review of peripheral smear shows no obvious inclusions consistent with Anaplasma infection. He has had had any significant fever, chills, or worsening body aches or abdominal pain. He has been started on broad-spectrum antibiotics as well as oral doxycycline,Lyme serology has returned positive for an equivocal IgM screening test. Western blot is pending. Anaplasma serology also pending as his PCR. He continues with compressive the rapy for his epistaxis, otherwise offers no major new specific complaints.Blood and urine cultures are pending. Allergies Allergy/AdvReac Type Severity Reaction Status Date / Time No Known Allergies Allergy Mild Unverified 12/30/18 22:39 Home Medications Home Medications Medication Instructions Recorded Confirmed Type aspirin 81 mg chewable tablet 81 mg PO DAILY 01/28/18 12/30/18 History atorvastatin 80 mg tablet 80 mg PO DAILY 01/28/18 12/30/18 History ferrous sulfate 325 mg (65 mg 325 mg PO BID tab 01/28/18 12/30/18 History iron) tablet folic acid 1 mg tablet 1 mg PO DAILY 01/28/18 12/30/18 History furosemide 20 mg tablet 20 mg PO DAILY 01/28/18 12/30/18 History losartan 25 mg tablet 25 mg PO DAILY 01/28/18 12/30/18 History metoprolol tartrate 50 mg tablet 25 mg PO BID tab 01/28/18 12/30/18 History potassium chloride ER 10 mEq 10 meq PO BID 01/28/18 12/30/18 History capsule,extended release tamsulosin 0.4 mg capsule 0.4 mg PO DAILY 01/28/18 12/30/18 History triamcinolone acetonide 0.5 % 1 appln TOP TID PRN 01/28/18 12/30/18 History topical cream methotrexate sodium 7.5 mg PO UD 12/30/18 12/30/18 History Patient History Medical History Anemia (Chronic) Anemia (Chronic) Aortic valve, bicuspid (Chronic) CAD (coronary artery disease) of artery bypass graft (Chronic) COPD (chronic obstructive pulmonary disease) (Chronic) Dyslipidemia (Chronic) HTN, goal to be determined (Chronic) Mitral valve regurgitation (Chronic) PAD (peripheral artery disease) (Chronic) Raynaud disease (Chronic) Surgical History S/P CABG x 4 (Chronic) S/P aortic valve replacement (Chronic) S/P tonsillectomy (Chronic) Family History Other Family history non-contributory Social History Preferred Language: Swiss Communication Ability: Effective Visual Impairment: Diminished Hearing Ability: Normal 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 Beliefs That Will Affect Care: None marital status: Current Living Situation: Spouse current occupational status: retired Feels Safe at Home: Yes Safety Concerns: Feels Safe At This Time Smoking Status: Current every day smoker Tobacco Type: cigarettes ; Cigarettes Per Day: 5 ; Do You Dip or Chew Tobacco: No ; Hx Alcohol Use: No Hx Substance Use: No Review of Systems Review of Systems: All systems reviewed & are unremarkable except as noted in HPI & below Physical Exam Constitutional: WD/WN, vitals as above + thin and comfortable; no acute distress Eyes: PERRL, conjunctivae normal, anicteric sclerae ENMT: Ears: no external ear abnormality Nose: + epistaxis Mouth: no oropharynx abnormality Neck: trachea midline, no thyromegaly neck nontender Respiratory: normal percussion; no respiratory distress, no labored breathing and does not use accessory muscles Auscultation: + diminished lung sounds Cardiovascular: Rate/Rhythm: regular rate and regular rhythm Heart Sounds: normal S1 and normal S2; no gallop, no murmur and no cardiac rub Vessels: normal peripheral pulses; no JVD Very diminished peripheral pulses Gastrointestinal (Abdomen): normal bowel sounds, soft, nontender, no hepatosplenomegaly Musculoskeletal: no cyanosis or clubbing, extremities motor strength 5/5 Spine: thoracic spine normal to inspection and lumbar spine normal to inspection; no cervical spinal tenderness Skin: no rashes, warm and dry normal turgor; no lesions Neurologic: patellar DTR's 2+ bilat, sensation intact no focal motor deficits Psychiatric: A+Ox3, euthymic affect Orientation: cooperative Lymphatic: no cervical or axillary lymphadenopathy no inguinal lymphadenopathy Results & Data Vital Signs (Past 12 Hours) Vital Signs Temp Pulse Pulse Resp BP BP Pulse Ox 12/31/18 09:18 36.7 C 100 H 18 124/78 100 12/31/18 08:14 36.6 C 102 H 16 119/70 99 12/31/18 07:14 36.5 C 113 H 18 124/67 99 12/31/18 06:44 36.6 C 110 H 16 126/72 99 12/31/18 06:29 36.6 C 108 H 18 124/69 100 12/31/18 06:13 36.4 C L 106 H 17 138/70 100 12/31/18 03:33 37 C 88 17 136/70 100 12/31/18 02:45 36.6 C 85 18 137/72 100 12/31/18 02:16 86 16 150/77 H 100 12/31/18 02:07 36.6 C 88 16 152/79 H 100 12/31/18 02:00 36.6 C 88 20 152/79 H 100 12/31/18 01:46 36.6 C 95 H 17 133/66 95 12/31/18 01:31 36.7 C 95 H 17 133/66 97 12/31/18 01:30 36.9 C 97 H 20 127/64 100 12/31/18 01:16 36.7 C 93 H 24 112/56 L 100 12/31/18 01:15 36.7 C 93 H 23 112/56 L 100 Laboratory Results Short CBC 12/30/18 12/31/18 Range/Units 20:38 05:08 WBC 3.95 L 2.62 L (4.8-10.8) K/uL Hgb 7.1 L 8.3 L (14.0-18.0) g/dL Hct 21.2 L 22.8 L (42-52) % Plt Count 122 L 86 L (130-400) K/uL BMP 12/30/18 12/31/18 20:38 05:08 Sodium 139 138 Potassium 4.9 4.2 Chloride 106 107 Carbon Dioxide 22 24 BUN 53 H 53 H Creatinine 2.46 H 2.06 H D Glucose 126 H 94 Calcium 8.1 L 7.4 L Cardiac Enzymes 12/30/18 Range/Units 20:38 Troponin I 0.040 (0-0.045) ng/ml Liver Function 12/30/18 12/31/18 Range/Units 20:38 05:08 Total Bilirubin 0.8 0.7 (0.2-1) mg/dl Direct Bilirubin 0.3 H (0-0.2) mg/dl AST 113 H 101 H (15-37) U/L ALT 66 57 (12-78) U/L Alkaline Phosphatase 260 H 200 H (45-117) U/L Albumin 2.1 L 1.7 L (3.4-5.0) gm/dl Urine 12/31/18 Range/Units 09:45 Urine Color Dark Yellow Urine Appearance Cloudy A (Clear) Urine pH 5.0 (4.5-7.5) Ur Specific [place] 1.018 (1.000-1.030) Urine Protein 2+ H (Negative) Urine Glucose (UA) Negative (Negative) PG Care Time/CCT Total # of Minutes Spent Total Time Spent with Patient: Total time spent is greater than 50% in coordination of care (as documented) at patient's floor/unit and/or counseling patient: (1) Tick bite Encounter type: initial encounter Qualified Code(s): W57.XXXA - Bitten or stung by nonvenomous insect and other nonvenomous arthropods, initial encounter
--- NOTE | 2018-12-31 13:26 | Communication Note ---
Date of Service: December 31, 2018 Pt was seen and examined Lying in bed with no distress Nurse said that he just had minimal nose bleeding Denies any chest pain, palpitation, dizziness and SOB EXAM General- No acute distress Head- atraumatic Eyes- PERRL, EOMI, ENT- Nose clamp Neck- supple, no JVD Lungs- clear to auscultation Heart- regular rhythm; no murmur Abdomen- normal bowel sounds, soft, nontender Extremities- no calf tenderness Neuro- alert, oriented x 3; PERRL, EOMI; no facial palsy; no dysarthria Skin- warm & dry A/P Epistaxis Mostly due to thrombocytopenia Continue Nasal clamp and Afrin ENT consult pending Continue monitor Monitor H/H Pancytopenia. Thrombocytopenia and anemia Possible related to Methotrexate vs tick borne pathogen Platelet on admission 122 then dropped 86 hemoglobin on admission 7.1, then increased to 8.3 after 2 units PRBC labs in 10/24/2018 as outpatient showed WBC was 5.3, hemoglobin 10.8, platelets 263. Peripheral smear done showed no abnormal finding Transfused 3 units PRBC Will discuss case with hematology Dr. Lucero Monitor CBC Elevated Lactic acid Doubt about sepsis Lactic acid 5.3 on admission, then normalize Blood cx pending ID on board Continue IV vancomycin and IV Zosyn, will d/c if cx negative Continue Doxycycline for now . Acute kidney injury Creatinine on admission above 2, baseline creatinine of 1-1.3 Received 3 unit PRBC Will continue to hold lasix Monitor BMP Coronary artery disease status post coronary artery bypass graft. Continue statin, metoprolol. Continue to holding the aspirin due to epistaxis Bicuspid aortic valve Status post aortic valve replacement with prosthetic valve. stable History of diffuse connective tissue disease Raynaud's syndrome. Methotrexate on hold for now Rheumatology consult DVT px on SCDs CODE STATUS FULL CODE
[2018-12-31 18:14] LABS: Hematocrit (blood only) 21.7 % (42-52); Hemoglobin 7.5 g/dL (14.0-18.0); Mean Corpuscular Hemoglobin 30.4 pg (25-34); Mean Corpuscular Volume 87.9 fL (80-100); RDW Coefficient of Variation 13.5 % (11.5-14.5); RDW Standard Deviation 43.6 fL (36.4-46.3); Red Blood Count 2.47 M/uL (4.7-6.1); White Blood Count 2.41 K/uL (4.8-10.8)
[2018-12-31 18:15] LABS: Mean Corpuscular Hgb Conc 34.6 g/dL (32-36); Mean Platelet Volume 9.2 fL (7.4-10.4); Platelet Count 67 K/uL (130-400)
--- NOTE | 2018-12-31 18:31 | Rheumatology Consultation ---
Rheumatology Consultation DOS December 31, 2018 Assessment & Plan (1) Pancytopenia: He has taken one dose of methotrexate which certainly could have contributed to his pancytopenia. -Recommend holding methotrexate during this acute process. Will likely have to find another immunosuppressive agent as an outpatient. - he can follow-up with me upon discharge. 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 He is followed by [facility] rheumatology and has been treated with methotrexate since 2013. He was last seen in clinic by me on 12/15/18 and had been off methotrexate for several months because he was treated for an MRSA infection of his left leg. Methotrexate had been discontinued in April 2018. His most recent labs from [facility] were on 10/24/18 and he had normal platelets and white cells. His hemoglobin was 10.8 and creatinine 1.3. He was advised to resume methotrexate due to increase joint pain and stiffness. He was admitted yesterday because of uncontrolled nosebleed that started spontaneously. Admission labs were notable for pancytopenia and acute on chroni c kidney injury and transaminitis. He informs me that he had only taken one dose of methotrexate. He and his who was present informed me that a tick had been removed from his abdomen in the ED. They have an indoor and outdoor cat who may have brought in the tick. He reports ongoing stiffness in his ankles and increase swelling of his legs. He has some dyspnea on exertion. He has not had any fevers, chills, chest pain, or noted any new rashes. He is schedule to have an echo done next week. Allergies Allergy/AdvReac Type Severity Reaction Status Date / Time No Known Allergies Allergy Mild Unverified 12/30/18 22:39 Home Medications Home Medications Medication Instructions Recorded Confirmed Type aspirin 81 mg chewable tablet 81 mg PO DAILY 01/28/18 12/30/18 History atorvastatin 80 mg tablet 80 mg PO DAILY 01/28/18 12/30/18 History ferrous sulfate 325 mg (65 mg 325 mg PO BID tab 01/28/18 12/30/18 History iron) tablet folic acid 1 mg tablet 1 mg PO DAILY 01/28/18 12/30/18 History furosemide 20 mg tablet 20 mg PO DAILY 01/28/18 12/30/18 History losartan 25 mg tablet 25 mg PO DAILY 01/28/18 12/30/18 History metoprolol tartrate 50 mg tablet 25 mg PO BID tab 01/28/18 12/30/18 History potassium chloride ER 10 mEq 10 meq PO BID 01/28/18 12/30/18 History capsule,extended release tamsulosin 0.4 mg capsule 0.4 mg PO DAILY 01/28/18 12/30/18 History triamcinolone acetonide 0.5 % 1 appln TOP TID PRN 01/28/18 12/30/18 History topical cream methotrexate sodium 7.5 mg PO UD 12/30/18 12/30/18 History Patient History Medical History Anemia (Chronic) Anemia (Chronic) Aortic valve, bicuspid (Chronic) CAD (coronary artery disease) of artery bypass graft (Chronic) COPD (chronic obstructive pulmonary disease) (Chronic) Dyslipidemia (Chronic) HTN, goal to be determined (Chronic) Mitral valve regurgitation (Chronic) PAD (peripheral artery disease) (Chronic) Raynaud disease (Chronic) Surgical History S/P CABG x 4 (Chronic) S/P aortic valve replacement (Chronic) S/P tonsillectomy (Chronic) Family History Other Family history non-contributory Social History Preferred Language: Indonesian Communication Ability: Effective Visual Impairment: Diminished Hearing Ability: Normal Crib Pad Maker Required: No Beliefs That Will Affect Care: None marital status: Current Living Situation: Spouse current occupational status: retired Feels Safe at Home: Yes Safety Concerns: Feels Safe At This Time Smoking Status: Current every day smoker Tobacco Type: cigarettes ; Cigarettes Per Day: 5 ; Do You Dip or Chew Tobacco: No ; Hx Alcohol Use: No Hx Substance Use: No Review of Systems Review of Systems: All systems reviewed & are unremarkable except as noted in HPI & below Physical Exam Constitutional: + ill appearing and comfortable Eyes: PERRL, conjunctivae normal, anicteric sclerae ENMT: dried blood in both nostrils and around his lips Neck: trachea midline, no thyromegaly Respiratory: normal respiratory effort, lungs clear to auscultation Cardiovascular: Rate/Rhythm: regular rate and regular rhythm Extremities: + pedal edema Gastrointestinal (Abdomen): Percussion/Palpation: abdomen soft and + abdomen firm Musculoskeletal: pitting LE edema Skin: scattered erythematous macules on lower legs Psychiatric: A+Ox3, euthymic affect Orientation: cooperative Results & Data Vital Signs (Past 12 Hours) Vital Signs Temp Pulse Pulse Resp BP BP Pulse Ox 12/31/18 15:32 36.6 C 70 18 102/57 L 91 12/31/18 09:18 36.7 C 100 H 18 124/78 100 12/31/18 08:14 36.6 C 102 H 16 119/70 99 12/31/18 07:14 36.5 C 113 H 18 124/67 99 12/31/18 06:44 36.6 C 110 H 16 126/72 99 12/31/18 06:29 36.6 C 108 H 18 124/69 100
--- NOTE | 2018-12-31 21:12 | Consultation Report ---
DATE OF CONSULTATION: 12/31/2018 I have been asked by Dr. Parsons to evaluate this patient with epistaxis. HISTORY OF PRESENT ILLNESS: The patient is a 68-year-old male who was admitted to [facility] from the Emergency Room yesterday with pancytopenia as well as intermittent left epistaxis. While he was in the Emergency Room, they were able to stop the epistaxis with Afrin and direct pressure with a nasal clamp. The patient reports a 3-4 day history of intermittent left-sided epistaxis as well as bloody postnasal drip and he had a hard time controlling it and went to the Emergency Room. He was only on baby aspirin as a blood thinner. He just recently started methotrexate several weeks ago which maybe the cause of his pancytopenia. He was found on laboratory examination to be anemic with a hematocrit of 21.2 and also had thrombocytopenia with a platelet count of 122. Due to his pancytopenia as well as other issues including a tick bite and possible Lyme disease and acute renal insufficiency, the patient was admitted to the hospitalist service. He states that since he has been admitted, he has had a nasal clamp on for the majority of the time and he has only had intermittent mild epistaxis and bloody postnasal drip. He states that over the past 1 hour, he has not had any bleeding. He has no prior history of easy bruising or bleeding. Despite 2 units of packed red blood cells, his hematocrit only went from 21.2 to 22.8. His platelets have actually decreased from 122 to 86 on today's examination. Coagulation profile was normal with a normal PT and PTT as well as INR. ALLERGIES: No known drug allergies. HOME MEDICATIONS: Baby aspirin, Lipitor, iron sulfate, folic acid, Lasix, Cozaar, methotrexate, metoprolol, potassium chloride, Flomax and triamcinolone cream p.r.n. PAST MEDICAL HISTORY: Chronic obstructive pulmonary disease, peripheral artery disease, coronary artery disease, Raynaud's phenomenon, aortic valve regurgitation, status post replacement with bioprosthetic valve, mitral regurgitation, hypertension, malnutrition, anemia, and undiagnosed and undifferentiated connective tissue disease. PAST SURGICAL HISTORY: 1. Status post coronary artery bypass grafting. 2. Status post aortic valve replacement. 3. Status post tonsillectomy and adenoidectomy. 4. Status post colonoscopy. FAMILY HISTORY: Noncontributory. No bleeding disorders or malignant hyperthermia. SOCIAL HISTORY: The patient lives with his . He currently smokes one half pack of cigarettes per day and has done so for 40 years. He drinks alcohol socially. He denies any illicit drug use. REVIEW OF SYSTEMS: The patient has had intermittent left-sided epistaxis and bloody postnasal drip. He denies any nasal airway obstruction. He does have some lightheadedness and dizziness, but no true rotational vertigo. He denies any shortness of breath or chest pain. PHYSICAL EXAMINATION: GENERAL: This is a thin, frail elderly white male, in no acute distress. HEENT: He has a nasal clamp that is not on properly and it is on the bridge of his nose rather than on his nostrils. There is some dried blood involving the left nasal vestibule laterally along the lateral nasal ala. The clamp was removed. He has a right septal deviation. There is no active bleeding. There are no prominent blood vessels. Oral cavity and oropharyngeal examination reveals dried blood coating his palate and posterior pharyngeal wall with no active bleeding. NECK: Reveals no lymphadenopathy, thyroid nodularity or masses. NEUROLOGIC: Cranial nerves II through XII are grossly intact. He is awake, alert and oriented x3. LUNGS: He has a normal respiratory effort with no audible wheezing. VITAL SIGNS: Currently show a blood pressure of 102/57, pulse of 70, respiratory rate of 18, oxygen saturation on room air of 91% and temperature of 36.6 degrees Celsius. LABORATORY DATA: After verbally obtaining informed consent, Fibrillar was placed into the anterior nasal cavity on the left hand side followed by topical Afrin and lidocaine. This was done because he has had intermittent oozing from what I think is the left lateral nasal ala. He admits to picking and scratching his nose. IMPRESSION AND RECOMMENDATIONS: The patient with pancytopenia with unknown etiology, but possibly from methotrexate. He is anemic, thrombocytopenic and leukopenic. I have placed an absorbable packing material name Fibrillar and I have administered Afrin and lidocaine. He should only use a nasal clamp or his fingers to close off his nostrils as needed if he has nosebleeds. I would recommend transfusion of both red blood cells and possibly platelets to help with this patient's bleeding. I would like to see this patient back in 2 weeks in my office for followup but sooner if there are any problems. If he has uncontrolled epistaxis that you cannot stop with Afrin and direct pressure, please do not hesitate to contact me.
[2018-12-31] MEDS ORDERED: VANCOMYCIN HCL 1,000 MG in SODIUM CHLORIDE 0.9% 250 ML IV SCH (22:00)
[2019-01-01] MEDS: DOXYCYCLINE HYCLATE 100 MG CAP PO SCH ×2 (05:21→17:48)
[2019-01-01 06:43] LABS: Hematocrit (blood only) 22.9 % (42-52); Hemoglobin 8.1 g/dL (14.0-18.0); Mean Corpuscular Hemoglobin 30.8 pg (25-34); Mean Corpuscular Hgb Conc 35.4 g/dL (32-36); Mean Corpuscular Volume 87.1 fL (80-100); RDW Coefficient of Variation 13.9 % (11.5-14.5); RDW Standard Deviation 44.6 fL (36.4-46.3); Red Blood Count 2.63 M/uL (4.7-6.1); White Blood Count 1.45 K/uL (4.8-10.8)
[2019-01-01 07:08] LABS: Albumin Level 1.7 gm/dl (3.4-5.0); BUN Creatinine Ratio 40.1 (10-20); Calcium 7.7 mg/dl (8.5-10.1); Creatinine Clr Calc Pharmacy 29.2 ml/min; Est GFR (Non-African American) 31.9; Mean Platelet Volume 8.8 fL (7.4-10.4); Platelet Count 55 K/uL (130-400); Platelet Estimate Decreased (Normal); Potassium 4.3 mmol/L (3.5-5.1)
[2019-01-01 07:10] LABS: Albumin Globulin Ratio 0.4 (0.9-2); Bilirubin,Total 0.6 mg/dl (0.2-1); Globulin 3.8 gm/dl (2.5-4.0); Total Protein 5.5 gm/dl (6.4-8.2)
[2019-01-01] MEDS: ATORVASTATIN 40 MG TAB PO SCH (09:20)
[2019-01-01] MEDS: METOPROLOL TARTRATE 25 MG TAB PO SCH ×2 (09:20→20:19)
[2019-01-01] MEDS: TAMSULOSIN HCL 0.4 MG CAP PO SCH (09:20)
[2019-01-01] MEDS: FERROUS SULFATE 325 MG TAB PO SCH ×2 (09:21→20:19)
[2019-01-01] MEDS: FOLIC ACID 1 MG TAB PO SCH (09:21)
[2019-01-01] MEDS: PIPERACILLIN/TAZOBACTAM 3.375 GM in DEXTROSE 5% 100 ML IV SCH ×3 (09:29→23:41)
[2019-01-01] MEDS ORDERED: SODIUM CHLORIDE 0.9% 1000ML 1,000 ML IV SCH (10:15)
--- NOTE | 2019-01-01 18:28 | Hospitalist Progress Note ---
Date of Service January 01, 2019 Assessment & Plan (1) Epistaxis: Mostly due to thrombocytopenia Continue Nasal clamp and Afrin ENT on board placed an absorbable packing on 12/31 ENT recommended If bleeding reoccurs to apply pressure and use Afrin Follow up with ENT in 2 weeks outpatient Stable Pancytopenia. Thrombocytopenia and anemia Possible related to Methotrexate vs tick borne pathogen Platelet on admission 122 then dropped 86 hemoglobin on admission 7.1, then increased to 8.1 after received 4 units PRBC yesterday labs in 10/24/2018 as outpatient showed WBC was 5.3, hemoglobin 10.8, platelets 263. Peripheral smear done showed no abnormal finding Case discussed hematology Dr. Lucero recommended to continue current management If platelet drops bellow 50 and pt develops any bleeding to transfuse platelet product Continue monitor CBC Elevated Lactic acid Doubt about sepsis Lactic acid 5.3 on admission, then normalize Blood cx no growth ID on board On IV vancomycin and IV Zosyn, will d/c after 48hrs if cx remain negative Continue Doxycycline for now . Acute kidney injury Creatinine on admission above 2.4, baseline creatinine of 1-1.3 Creatinine 2.06 today Will continue to hold lasix Will give gentle IVF Monitor BMP Coronary artery disease status post coronary artery bypass graft. Continue statin, metoprolol. Continue to holding the aspirin due to epistaxis Bicuspid aortic valve Status post aortic valve replacement with prosthetic valve. stable History of diffuse connective tissue disease Raynaud's syndrome. Methotrexate on hold for now Case discussed with Rheumatology recommended not to resume Methotrexate on discharge Follow up with Rheum on 01/16/19 DVT px on SCDs CODE STATUS FULL CODE Subjective Pt was seen and examined Lying in bed with no distress Pt said that his breathing improves Denies any chest pain, palpitation, dizziness and SOB Physical Exam Physical Exam: General- No acute distress Head- atraumatic Eyes- PERRL, EOMI, ENT- Nose clamp Neck- supple, no JVD Lungs- clear to auscultation Heart- regular rhythm; no murmur Abdomen- normal bowel sounds, soft, nontender Extremities- no calf tenderness Neuro- alert, oriented x 3; PERRL, EOMI; no facial palsy; no dysarthria Skin- warm & dry Results & Data Vital Signs (Past 12 Hours) Vital Signs Temp Pulse Pulse Resp BP Pulse Ox 01/01/19 15:32 36.8 C 73 18 135/61 92 01/01/19 11:02 36 C L 72 20 123/66 100 01/01/19 09:09 101 H 01/01/19 07:17 36.5 C 87 18 131/67 100
[2019-01-01 18:48] LABS: Hematocrit (blood only) 22.6 % (42-52); Hemoglobin 7.9 g/dL (14.0-18.0); Mean Corpuscular Hemoglobin 30.4 pg (25-34); Mean Corpuscular Volume 86.9 fL (80-100); RDW Coefficient of Variation 14.2 % (11.5-14.5); RDW Standard Deviation 45.3 fL (36.4-46.3); White Blood Count 1.56 K/uL (4.8-10.8)
[2019-01-01 18:54] LABS: Mean Platelet Volume 9.8 fL (7.4-10.4); Platelet Count 50 K/uL (130-400)
[2019-01-02] MEDS: DOXYCYCLINE HYCLATE 100 MG CAP PO SCH ×2 (05:27→17:20)
[2019-01-02 06:38] LABS: Albumin Globulin Ratio 0.4 (0.9-2); Albumin Level 1.5 gm/dl (3.4-5.0); BUN Creatinine Ratio 32.7 (10-20); Bilirubin,Total 0.6 mg/dl (0.2-1); Calcium 7.4 mg/dl (8.5-10.1); Creatinine Clr Calc Pharmacy 28.5 ml/min; Est GFR (African American) 34.5; Est GFR (Non-African American) 29.8; Globulin 3.5 gm/dl (2.5-4.0); Potassium 3.5 mmol/L (3.5-5.1)
[2019-01-02 09:30] LABS: 18KDIGG Band NONREACTIVE (NONREACTIVE); 23KDIGG Band NONREACTIVE (NONREACTIVE); 23KDIGM Band NONREACTIVE (NONREACTIVE); 28KDIGG Band NONREACTIVE (NONREACTIVE); 30KDIGG Band NONREACTIVE (NONREACTIVE); 39KDIGG Band NONREACTIVE (NONREACTIVE); 39KDIGM Band NONREACTIVE (NONREACTIVE); 41KDIGG Band NONREACTIVE (NONREACTIVE); 41KDIGM Band NONREACTIVE (NONREACTIVE); 45KDIGG Band NONREACTIVE (NONREACTIVE); 58KDIGG Band NONREACTIVE (NONREACTIVE); 66KDIGG Band NONREACTIVE (NONREACTIVE); 93KDIGG Band NONREACTIVE (NONREACTIVE); Lyme Antibodies, WB IgG NEGATIVE (NEGATIVE); Lyme Antibodies, WB IgM NEGATIVE (NEGATIVE)
[2019-01-02] MEDS: FERROUS SULFATE 325 MG TAB PO SCH ×2 (09:51→20:25)
[2019-01-02] MEDS: ATORVASTATIN 40 MG TAB PO SCH (09:52)
[2019-01-02] MEDS: METOPROLOL TARTRATE 25 MG TAB PO SCH ×2 (09:52→20:25)
[2019-01-02] MEDS: TAMSULOSIN HCL 0.4 MG CAP PO SCH (09:52)
[2019-01-02] MEDS: FOLIC ACID 1 MG TAB PO SCH (09:52)
[2019-01-02] MEDS: PIPERACILLIN/TAZOBACTAM 3.375 GM in DEXTROSE 5% 100 ML IV SCH (10:00)
[2019-01-02 10:52] LABS: Hematocrit (blood only) 18.3 % (42-52); Hemoglobin 6.5 g/dL (14.0-18.0); Mean Corpuscular Hemoglobin 30.8 pg (25-34); Mean Corpuscular Hgb Conc 35.5 g/dL (32-36); Mean Corpuscular Volume 86.7 fL (80-100); Mean Platelet Volume 9.9 fL (7.4-10.4); Platelet Count 44 K/uL (130-400); RDW Coefficient of Variation 14.2 % (11.5-14.5); Red Blood Count 2.11 M/uL (4.7-6.1)
[2019-01-02] MEDS ORDERED: SODIUM CHLORIDE 0.9% 250 ML IV PRN (11:08)
[2019-01-02 11:25] LABS: Basophils # (auto) 0.01 K/uL (0-0.2); Basophils % (auto) 0.9 %; Eosinophils # (auto) 0.02 K/uL (0-0.5); Eosinophils % (auto) 1.8 %; Lymphocytes # (auto) 0.31 K/uL (1.2-3.4); Lymphocytes % (auto) 28.2 %; Monocytes # (auto) 0.01 K/uL (0.11-0.59); Monocytes % (auto) 0.9 %; Neutrophils # (auto) 0.75 K/uL (1.4-6.5); Neutrophils % (auto) 68.2 %
[2019-01-02 12:55] LABS: Reticulocyte % < 0.5 % (0.5-2.0); Reticulocytes # < 0.02 10^6/uL (0.02-0.10)
[2019-01-02 12:57] LABS: RBC Morphology Unremarkable
--- NOTE | 2019-01-02 14:29 | Infectious Disease Progress Nt ---
Date of Service January 02, 2019 Assessment & Plan (1) Anaplasmosis: Patient with presumed Anaplasma infection with worsening pancytopenia. It is highly unusual for pancytopenia to progress over so many days after starting doxycycline, some concerned about other etiology for this process.? Developing aplastic anemia. Would recommend hematology consult. Will discuss further with all involved. (2) Pancytopenia: Subjective Patient seen in follow-up for probable Anaplasma infection. Despite doxycycline, pancytopenia continues to worsen. No new specific complaints. Cultures remain negative. Review of Systems Review of Systems: All systems reviewed & are unremarkable except as noted in HPI & below Physical Exam Constitutional: WD/WN, vitals as above + thin and comfortable; no acute distress Eyes: PERRL, conjunctivae normal, anicteric sclerae ENMT: Ears: no external ear abnormality Nose: + epistaxis Mouth: no oropharynx abnormality Neck: trachea midline, no thyromegaly neck nontender Respiratory: normal percussion; no respiratory distress, no labored breathing and does not use accessory muscles Auscultation: + diminished lung sounds Cardiovascular: Rate/Rhythm: regular rate and regular rhythm Heart Sounds: normal S1 and normal S2; no gallop, no murmur and no cardiac rub Vessels: nor mal peripheral pulses; no JVD Gastrointestinal (Abdomen): normal bowel sounds, soft, nontender, no hepatosplenomegaly Musculoskeletal: no cyanosis or clubbing, extremities motor strength 5/5 Spine: thoracic spine normal to inspection and lumbar spine normal to inspection; no cervical spinal tenderness Skin: no rashes, warm and dry normal turgor; no lesions Neurologic: patellar DTR's 2+ bilat, sensation intact no focal motor deficits Psychiatric: A+Ox3, euthymic affect Orientation: cooperative Lymphatic: no cervical or axillary lymphadenopathy no inguinal lymphadenopathy Results & Data Vital Signs (Past 12 Hours) Vital Signs Temp Pulse Pulse Pulse Resp BP BP 01/02/19 14:12 36.4 C L 69 16 123/66 01/02/19 13:42 36.3 C L 73 16 108/55 L 01/02/19 13:27 36.4 C L 71 16 109/52 L 01/02/19 13:09 36.3 C L 67 16 108/58 L 01/02/19 12:20 36.3 C L 82 18 113/81 01/02/19 07:11 36.6 C 74 17 121/59 L 01/02/19 03:19 36.6 C 70 19 108/54 L Pulse Ox 01/02/19 14:12 98 01/02/19 13:42 99 01/02/19 13:27 01/02/19 13:09 01/02/19 12:20 92 01/02/19 07:11 97 01/02/19 03:19 96 Laboratory Results Short CBC 01/01/19 01/02/19 Range/Units 18:38 05:27 WBC 1.56 L 1.10 L (4.8-10.8) K/uL Hgb 7.9 L 6.5 L* (14.0-18.0) g/dL Hct 22.6 L 18.3 L* (42-52) % Plt Count 50 L 44 L (130-400) K/uL BMP 01/02/19 05:24 Sodium 139 Potassium 3.5 D Chloride 110 H Carbon Dioxide 21 BUN 71 H Creatinine 2.18 H Glucose 79 Calcium 7.4 L Liver Function 01/02/19 Range/Units 05:24 Total Bilirubin 0.6 (0.2-1) mg/dl AST 90 H (15-37) U/L ALT 53 (12-78) U/L Alkaline Phosphatase 184 H (45-117) U/L Albumin 1.5 L (3.4-5.0) gm/dl PG Care Time/CCT Total # of Minutes Spent Total Time Spent with Patient: Total time spent is greater than 50% in coordination of care (as documented) at patient's floor/unit and/or counseling patient:
--- NOTE | 2019-01-02 15:13 | Hospitalist Progress Note ---
Date of Service January 02, 2019 Assessment & Plan (1) Pancytopenia: Pancytopenia. Thrombocytopenia and anemia Possible related to Methotrexate vs tick borne pathogen Platelet on admission 122 then dropped 44 today hemoglobin on admission 7.1, Hemoglobin 6.5 today (Recieved 4 units PRBC ) labs in 10/24/2018 as outpatient showed WBC was 5.3, hemoglobin 10.8, platelets 263. Will transfuse 2 unit PRBC today LDH 283, reticulocyte count <0.02 Peripheral smear done showed no abnormal finding, repeat peripheral smear pending Case discussed hematology Dr. Lucero today recommended to check LDH, Reticulocyte count, peripheral smear, Amadou 13 and Haptoglobin If platelet drops below 50 and pt develops any bleeding, will transfuse platelet product as per Hematology Continue monitor CBC (2) Epistaxis: Mostly due to thrombocytopenia Continue Nasal clamp and Afrin ENT on board placed an absorbable packing on 12/31 ENT recommended If bleeding reoccurs to apply pressure and use Afrin Follow up with ENT in 2 weeks outpatient Stable Elevated Lactic acid Doubt about sepsis Lactic acid 5.3 on admission, then normalize Blood cx no growth ID on board case discussed with ID and OK to discharge IV Vanco and Zosyn Continue Doxycycline for now . Acute kidney injury Creatinine on admission above 2.4, baseline creatinine of 1-1.3 Creatinine bumped to 2.18 CT abd/pelvis showed bilateral perinephric stranding of kidney. There are vascular calcifications. There is no hydronephrosis. There are bilateral renal cysts the largest of which measures 38 mm. Nephrology consult Will continue to hold lasix Monitor BMP Will transfuse 2 unit PRBC Will consider to start on gentle hydration after PRBC transfusion Coronary artery disease status post coronary artery bypass graft. Continue statin, metoprolol. Continue to holding the aspirin due to epistaxis/low platelet and hgb Bicuspid aortic valve Status post aortic valve replacement with prosthetic valve. stable History of diffuse connective tissue disease Raynaud's syndrome. Methotrexate on hold for now Case discussed with Rheumatology recommended not to resume Methotrexate on discharge Follow up with Rheum on 01/16/19 DVT px on SCDs CODE STATUS FULL CODE Subjective Pt was seen and examined Lying in bed with no distress Pt seems a little confuse today He said that he feels the same No episode of bleeding yesterday and today Denies any chest pain, palpitation, dizziness and fever Physical Exam Physical Exam: General- No acute distress Head- atraumatic Eyes- PERRL, EOMI, ENT- Nose clamp Neck- supple, no JVD Lungs- clear to auscultation Heart- regular rhythm; no murmur Abdomen- normal bowel sounds, soft, nontender Extremities- no calf tenderness Neuro- alert, oriented x 3; PERRL, EOMI; no facial palsy; no dysarthria Skin- Petechia Results & Data Vital Signs (Past 12 Hours) Vital Signs Temp Pulse Pulse Pulse Resp BP BP 01/02/19 15:04 36.4 C L 66 16 112/64 01/02/19 14:12 36.4 C L 69 16 123/66 01/02/19 13:42 36.3 C L 73 16 108/55 L 01/02/19 13:27 36.4 C L 71 16 109/52 L 01/02/19 13:09 36.3 C L 67 16 108/58 L 01/02/19 12:20 36.3 C L 82 18 113/81 01/02/19 07:11 36.6 C 74 17 121/59 L 01/02/19 03:19 36.6 C 70 19 108/54 L Pulse Ox 01/02/19 15:04 100 01/02/19 14:12 98 01/02/19 13:42 99 01/02/19 13:27 01/02/19 13:09 01/02/19 12:20 92 01/02/19 07:11 97 01/02/19 03:19 96
--- NOTE | 2019-01-02 19:28 | Nephrology Consultation ---
Date of Consultation January 02, 2019 Assessment & Plan (1) MARANDA (acute kidney injury): MARANDA w/ acceptable chemistries, volume status (though he does have some pedal edema). chemistries acceptable (though mag a bit low). no ramesh anatomic abnormalities on imaging, no obstruction or oliguria. he is about 3.5L positive since admission but minimal improvement in renal function. urine concentrated w/ blood and protein as well as budding yeast; no infection > possibly a nephritic sediment (could be c/w lupus); interstitial nephritis also a consideration. he was on losartan and daily lasix prior to admission in addition to one MTX dose; all of these have of course been held. urine sediment not c/w ATN particularly -will repeat uacm; get prot/creat; consider proteinuria w/u if indicated -will check hep B profile; HCV negative -check CPK given mm weakness -in the setting of low platelets and anemia, differential is broad though w/o evidence of hemolysis this narrows somewhat (see below) Present on Admission?: Yes (2) Pancytopenia: -getting 2 units pRBC today and platelets -no clear cause; but no evidence of hemolysis >> none on smear; LDH minimally elevated; indir bili wnl; haptoglobin pending -index of suspicion for TTP low (otherwise would need to consider urgent plasma exchange) but [id number] pending -eval for immune driven pancytopenia > will test for SLE (c3, c4, SANTI, anti DS DNA, anti histone), and (less likely) for Felty's syndrome (SANTI, antihistone; hold off on ANCA unless proteinuric); check ESR -consider blood cxs for fungus given urine findings -consider CMV, HIV testing -consider aplastic anemia -further per primary service and per heme Present on Admission?: Yes History of Present Illness Reason for Consultation: MARANDA Requesting Physician: Dr Chao Attending Physician: Suri Chao MD History of Present Illness 68 y/o M whom I'm asked to evaluate for MARANDA admitted here 12/31 w/ presumptive anaplasma infection and pancytopenia after he presented w/ a severe nosebleed. His presenting creatinine was 2.5; creatinine has been 2.1-2.2 ever since, the latter this am. CBC admission > today: WBC 4>1.1; hgb 7.1>6.5; plts 122>44. Peripheral smear w/o schistocytes; otherwise as below. Admission blood, urine cxs negative. Not oliguric. No F, no labile hemodynamics. PMH includes PAD, CAD s/p 4VCABG and AVR, active tobacco abuse, COPD, BL carotid disease, diffuse connective tissue disease, chronic anemia. 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 since being off MTX, few checks of renal function. baseline creatinine 1.0 x years through 05/2018; then next check is 10/24/18>> creat 1.3, K 5.9; K suppls were held and K improved; no f/u creatinine. 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 Allergies Allergy/AdvReac Type Severity Reaction Status Date / Time No Known Allergies Allergy Mild Unverified 12/30/18 22:39 Home Medications Home Medications Medication Instructions Recorded Confirmed Type aspirin 81 mg chewable tablet 81 mg PO DAILY 01/28/18 12/30/18 History atorvastatin 80 mg tablet 80 mg PO DAILY 01/28/18 12/30/18 History ferrous sulfate 325 mg (65 mg 325 mg PO BID tab 01/28/18 12/30/18 History iron) tablet folic acid 1 mg tablet 1 mg PO DAILY 01/28/18 12/30/18 History furosemide 20 mg tablet 20 mg PO DAILY 01/28/18 12/30/18 History losartan 25 mg tablet 25 mg PO DAILY 01/28/18 12/30/18 History metoprolol tartrate 50 mg tablet 25 mg PO BID tab 01/28/18 12/30/18 History potassium chloride ER 10 mEq 10 meq PO BID 01/28/18 12/30/18 History capsule,extended release tamsulosin 0.4 mg capsule 0.4 mg PO DAILY 01/28/18 12/30/18 History triamcinolone acetonide 0.5 % 1 appln TOP TID PRN 01/28/18 12/30/18 History topical cream methotrexate sodium 7.5 mg PO UD 12/30/18 12/30/18 History Patient History Medical History Anemia (Chronic) Anemia (Chronic) Aortic valve, bicuspid (Chronic) CAD (coronary artery disease) of artery bypass graft (Chronic) COPD (chronic obstructive pulmonary disease) (Chronic) Dyslipidemia (Chronic) HTN, goal to be determined (Chronic) Mitral valve regurgitation (Chronic) PAD (peripheral artery disease) (Chronic) Raynaud disease (Chronic) Surgical History S/P CABG x 4 (Chronic) S/P aortic valve replacement (Chronic) S/P tonsillectomy (Chronic) Family History Other Family history non-contributory Social History Preferred Language: Setswana Communication Ability: Effective Visual Impairment: Diminished Hearing Ability: Normal 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 Beliefs That Will Affect Care: None marital status: Current Living Situation: Spouse current occupational status: retired Feels Safe at Home: Yes Safety Concerns: Feels Safe At This Time Smoking Status: Current every day smoker Tobacco Type: cigarettes ; Cigarettes Per Day: 5 ; Do You Dip or Chew Tobacco: No ; Hx Alcohol Use: No Hx Substance Use: No Review of Systems Review of Systems: All systems reviewed & are unremarkable except as noted in HPI & below Constitutional: + weakness (generalized/ large mm); no fever, no anorexia, no weight loss and no weight gain Eyes: no worsening vision Ear, Nose, Mouth, Throat: no dry mouth and no dysphagia Respiratory: no cough Cardiovascular: + edema; no chest pain, no dyspnea and no palpitations Gastrointestinal: no abdominal pain, no early satiety, no vomiting and no diarrhea/loose stools Genitourinary: no dysuria, no urinary frequency, no urinary hesitancy and no hematuria Musculoskeletal: + joint pain, + stiffness and + muscle weakness Integumentary: + non-healing lesions and + changing lesions; no new lesions Neurologic: + localized weakness (large mm weakness "trouble getting up" x 6 mos) and + memory loss (see below); no paresthesia Psychiatric: + problem reported (saw pcp for memory problems late summer) Endocrine: no polyuria Hematologic / Lymphatic: + easy bleeding Physical Exam Constitutional: well developed, + thin and cooperative; no acute distress Eyes: EOM intact bilaterally ENMT: Ears: no external ear abnormality Nose: + nare abnormality (dried blood L nares); no external nose abnormality Mouth: + dry oral mucous membranes Neck: no nuchal rigidity Respiratory: normal respiratory effort and + cough (w/ deep insp) Auscultation: + diminished lung sounds and + crackles (bibasilar) Cardiovascular: Rate/Rhythm: regular rate and regular rhythm Extremities: + edema (3+ pedal, 1-2+ distal BLE); + abnormal capillary refill (whiter finger tips) Gastrointestinal (Abdomen): Inspection/Auscultation: normal bowel sounds Percussion/Palpation: abdomen soft; abdomen nontender Musculoskeletal: Extremities: + abnormal strength (needs help to sit up) and + clubbing Skin: no rashes, warm and dry + lesion (healed mostly L medial malleolus) and + ulcer (multiple small ? vascular insufficiency ulcers) jose macules BL legs Neurologic: gonzales, fluent but peculiarly mannered speech, no tremor Psychiatric: Orientation: alert and oriented x 3 Eye Contact: + fair eye contact (looks away a good bit) Speech: normal rate/rhythm/volume of speech Thought Process: + looseness of associations Insight: good insight Results & Data Vital Signs (Past 12 Hours) Vital Signs Temp Pulse Pulse Resp BP BP Pulse Ox 01/02/19 19:00 69 01/02/19 18:45 76 18 135/72 01/02/19 18:30 36.4 C L 75 16 145/80 H 01/02/19 18:15 70 20 146/81 H 01/02/19 18:00 36.4 C L 78 16 141/81 H 01/02/19 17:45 78 01/02/19 17:30 36.4 C L 74 16 118/72 99 01/02/19 17:15 36.4 C L 78 16 144/75 H 99 01/02/19 17:11 36.4 C L 89 16 127/64 99 01/02/19 17:00 79 01/02/19 16:45 88 01/02/19 16:30 74 01/02/19 16:15 36.9 C 66 16 118/59 L 99 01/02/19 16:00 75 134/63 01/02/19 15:45 81 01/02/19 15:30 36.9 C 66 16 119/55 L 99 01/02/19 15:04 36.4 C L 66 16 112/64 100 01/02/19 15:00 73 01/02/19 14:12 36.4 C L 69 16 123/66 98 01/02/19 13:42 36.3 C L 73 16 108/55 L 99 01/02/19 13:27 36.4 C L 71 16 109/52 L 01/02/19 13:09 36.3 C L 67 16 108/58 L 01/02/19 12:20 36.3 C L 82 18 113/81 92 Laboratory Results 01/02/19 01/02/19 01/02/19 Range/Units 18:15 12:16 12:16 WBC (4.8-10.8) K/uL RBC (4.7-6.1) M/uL Hgb (14.0-18.0) g/dL Hct (42-52) % MCV (80-100) fL MCH (25-34) pg MCHC (32-36) g/dL RDW Std Deviation (36.4-46.3) fL RDW Coeff of Renato (11.5-14.5) % Plt Count (130-400) K/uL MPV (7.4-10.4) fL Immature Gran % (Auto) % Neut % (Auto) % Lymph % (Auto) % [place] % (Auto) % Eos % (Auto) % Baso % (Auto) % Reticulocyte % (Auto) (0.5-2.0) % Immature Gran # (Auto) (0.00-0.02) K/uL Neut # (Auto) (1.4-6.5) K/uL Lymph # (Auto) (1.2-3.4) K/uL [place] # (Auto) (0.11-0.59) K/uL Eos # (Auto) (0-0.5) K/uL Baso # (Auto) (0-0.2) K/uL Reticulocyte # (0.02-0.10) 10^6/uL Absolute Nucleated RBC (0-0) K/uL Nucleated RBC % (auto) % RBC Morphology Peripher Smr Path Cons Haptoglobin Pending vWF Cleav Pro [id number] Pending Sodium (136-145) mmol/L Potassium (3.5-5.1) mmol/L Chloride (98-107) mmol/L Carbon Dioxide (21-32) mmol/L Anion Gap (3-11) BUN (7-18) mg/dl Creatinine (0.6-1.4) mg/dl Est Cr Clr Drug Dosing ml/min Est GFR ( Amer) Est GFR (Non-Af Amer) BUN/Creatinine Ratio (10-20) Glucose (70-99) mg/dl Calcium (8.5-10.1) mg/dl Total Bilirubin (0.2-1) mg/dl AST (15-37) U/L ALT (12-78) U/L Alkaline Phosphatase (45-117) U/L Lactate Dehydrogenase 283 H (87-241) U/L Total Protein (6.4-8.2) gm/dl Albumin (3.4-5.0) gm/dl Globulin (2.5-4.0) gm/dl Albumin/Globulin Ratio (0.9-2) Stool Occult Bld Scrn Positive A (Negative) Lyme IgG (Western Blot) (NEGATIVE) Lyme IgG 18 kDa Band (NONREACTIVE) Lyme IgG 23 kDa Band (NONREACTIVE) Lyme IgG 28 kDa Band (NONREACTIVE) Lyme IgG 30 kDa Band (NONREACTIVE) Lyme IgG 39 kDa Band (NONREACTIVE) Lyme IgG 41 kDa Band (NONREACTIVE) Lyme IgG 45 kDa Band (NONREACTIVE) Lyme IgG 58 kDa Band (NONREACTIVE) Lyme IgG 66 kDa Band (NONREACTIVE) Lyme IgG 93 kDa Band (NONREACTIVE) Lyme IgM (Western Blot) (NEGATIVE) Lyme IgM 23 kDa Band (NONREACTIVE) Lyme IgM 39 kDa Band (NONREACTIVE) Lyme IgM 41 kDa Band (NONREACTIVE) Blood Type Antibody Screen Crossmatch 01/02/19 01/02/19 01/02/19 Range/Units 12:16 11:27 05:27 WBC 1.10 L (4.8-10.8) K/uL RBC 2.11 L (4.7-6.1) M/uL Hgb 6.5 L* (14.0-18.0) g/dL Hct 18.3 L* (42-52) % MCV 86.7 (80-100) fL MCH 30.8 (25-34) pg MCHC 35.5 (32-36) g/dL RDW Std Deviation 45.0 (36.4-46.3) fL RDW Coeff of Renato 14.2 (11.5-14.5) % Plt Count 44 L (130-400) K/uL MPV 9.9 (7.4-10.4) fL Immature Gran % (Auto) 0.0 % Neut % (Auto) 68.2 % Lymph % (Auto) 28.2 % [place] % (Auto) 0.9 % Eos % (Auto) 1.8 % Baso % (Auto) 0.9 % Reticulocyte % (Auto) Cancelled < 0.5 L (0.5-2.0) % Immature Gran # (Auto) 0.00 (0.00-0.02) K/uL Neut # (Auto) 0.75 L* (1.4-6.5) K/uL Lymph # (Auto) 0.31 L (1.2-3.4) K/uL [place] # (Auto) 0.01 L (0.11-0.59) K/uL Eos # (Auto) 0.02 (0-0.5) K/uL Baso # (Auto) 0.01 (0-0.2) K/uL Reticulocyte # Cancelled < 0.02 L (0.02-0.10) 10^6/uL Absolute Nucleated RBC 0.00 (0-0) K/uL Nucleated RBC % (auto) 0.0 % RBC Morphology Unremarkable Peripher Smr Path Cons Cancelled Haptoglobin vWF Cleav Pro [id number] Sodium (136-145) mmol/L Potassium (3.5-5.1) mmol/L Chloride (98-107) mmol/L Carbon Dioxide (21-32) mmol/L Anion Gap (3-11) BUN (7-18) mg/dl Creatinine (0.6-1.4) mg/dl Est Cr Clr Drug Dosing ml/min Est GFR ( Amer) Est GFR (Non-Af Amer) BUN/Creatinine Ratio (10-20) Glucose (70-99) mg/dl Calcium (8.5-10.1) mg/dl Total Bilirubin (0.2-1) mg/dl AST (15-37) U/L ALT (12-78) U/L Alkaline Phosphatase (45-117) U/L Lactate Dehydrogenase (87-241) U/L Total Protein (6.4-8.2) gm/dl Albumin (3.4-5.0) gm/dl Globulin (2.5-4.0) gm/dl Albumin/Globulin Ratio (0.9-2) Stool Occult Bld Scrn (Negative) Lyme IgG (Western Blot) (NEGATIVE) Lyme IgG 18 kDa Band (NONREACTIVE) Lyme IgG 23 kDa Band (NONREACTIVE) Lyme IgG 28 kDa Band (NONREACTIVE) Lyme IgG 30 kDa Band (NONREACTIVE) Lyme IgG 39 kDa Band (NONREACTIVE) Lyme IgG 41 kDa Band (NONREACTIVE) Lyme IgG 45 kDa Band (NONREACTIVE) Lyme IgG 58 kDa Band (NONREACTIVE) Lyme IgG 66 kDa Band (NONREACTIVE) Lyme IgG 93 kDa Band (NONREACTIVE) Lyme IgM (Western Blot) (NEGATIVE) Lyme IgM 23 kDa Band (NONREACTIVE) Lyme IgM 39 kDa Band (NONREACTIVE) Lyme IgM 41 kDa Band (NONREACTIVE) Blood Type O Positive Antibody Screen NEGATIVE Crossmatch See Detail 01/02/19 12/31/18 Range/Units 05:24 05:08 WBC (4.8-10.8) K/uL RBC (4.7-6.1) M/uL Hgb (14.0-18.0) g/dL Hct (42-52) % MCV (80-100) fL MCH (25-34) pg MCHC (32-36) g/dL RDW Std Deviation (36.4-46.3) fL RDW Coeff of Renato (11.5-14.5) % Plt Count (130-400) K/uL MPV (7.4-10.4) fL Immature Gran % (Auto) % Neut % (Auto) % Lymph % (Auto) % [place] % (Auto) % Eos % (Auto) % Baso % (Auto) % Reticulocyte % (Auto) (0.5-2.0) % Immature Gran # (Auto) (0.00-0.02) K/uL Neut # (Auto) (1.4-6.5) K/uL Lymph # (Auto) (1.2-3.4) K/uL [place] # (Auto) (0.11-0.59) K/uL Eos # (Auto) (0-0.5) K/uL Baso # (Auto) (0-0.2) K/uL Reticulocyte # (0.02-0.10) 10^6/uL Absolute Nucleated RBC (0-0) K/uL Nucleated RBC % (auto) % RBC Morphology Peripher Smr Path Cons Haptoglobin vWF Cleav Pro [id number] Sodium 139 (136-145) mmol/L Potassium 3.5 D (3.5-5.1) mmol/L Chloride 110 H (98-107) mmol/L Carbon Dioxide 21 (21-32) mmol/L Anion Gap 8.0 (3-11) BUN 71 H (7-18) mg/dl Creatinine 2.18 H (0.6-1.4) mg/dl Est Cr Clr Drug Dosing 28.5 ml/min Est GFR ( Amer) 34.5 Est GFR (Non-Af Amer) 29.8 BUN/Creatinine Ratio 32.7 H (10-20) Glucose 79 (70-99) mg/dl Calcium 7.4 L (8.5-10.1) mg/dl Total Bilirubin 0.6 (0.2-1) mg/dl AST 90 H (15-37) U/L ALT 53 (12-78) U/L Alkaline Phosphatase 184 H (45-117) U/L Lactate Dehydrogenase (87-241) U/L Total Protein 5.0 L (6.4-8.2) gm/dl Albumin 1.5 L (3.4-5.0) gm/dl Globulin 3.5 (2.5-4.0) gm/dl Albumin/Globulin Ratio 0.4 L (0.9-2) Stool Occult Bld Scrn (Negative) Lyme IgG (Western Blot) NEGATIVE (NEGATIVE) Lyme IgG 18 kDa Band NONREACTIVE (NONREACTIVE) Lyme IgG 23 kDa Band NONREACTIVE (NONREACTIVE) Lyme IgG 28 kDa Band NONREACTIVE (NONREACTIVE) Lyme IgG 30 kDa Band NONREACTIVE (NONREACTIVE) Lyme IgG 39 kDa Band NONREACTIVE (NONREACTIVE) Lyme IgG 41 kDa Band NONREACTIVE (NONREACTIVE) Lyme IgG 45 kDa Band NONREACTIVE (NONREACTIVE) Lyme IgG 58 kDa Band NONREACTIVE (NONREACTIVE) Lyme IgG 66 kDa Band NONREACTIVE (NONREACTIVE) Lyme IgG 93 kDa Band NONREACTIVE (NONREACTIVE) Lyme IgM (Western Blot) NEGATIVE (NEGATIVE) Lyme IgM 23 kDa Band NONREACTIVE (NONREACTIVE) Lyme IgM 39 kDa Band NONREACTIVE (NONREACTIVE) Lyme IgM 41 kDa Band NONREACTIVE (NONREACTIVE) Blood Type Antibody Screen Crossmatch haptoglobin pending; LDH 283; alb 1.5 anaplasma / lyme panel negative; ehrlichiosis panel in process [facility] admission > dark yellow, 1018, 2+ prot, 3+ blood; yeast, > 30 RBC, 5-10 epis, 1+ LE Diagnostic Findings CT abd/pelvis non con Lower chest: There is mild basilar interstitial thickening. There are trace pleural effusions. There is small hiatal hernia Liver: The unenhanced liver is normal in size, contour, and attenuation. There is no intrahepatic biliary ductal dilatation. Gallbladder: Cholelithiasis versus gallbladder sludge. Spleen: There are multiple splenic granulomas. The spleen is normal in size. Pancreas: Unremarkable. Adrenal glands: Unremarkable. Kidneys: There is bilateral perinephric stranding. There are vascular calcifications. There is no hydronephrosis. There are bilateral renal cysts the largest of which measures 38 mm. Bowel: There are no transition zones indicate bowel obstruction. There is no acute diverticulitis. There are no findings to indicate acute appendicitis given the limitations of the study performed without intravenous or oral contrast. Peritoneum: There is trace fluid in the right paracolic gutter. There is mild diffuse mesenteric edema. Small fat-containing left inguinal hernia. Vasculature: There is no evidence for abdominal aortic aneurysm. There are diffuse atheromatous changes present in the aorta and iliac vessels Adenopathy: There are calcified lilly hepatis lymph nodes. There are no enlarged lymph nodes. As suspicious for neoplasm. Pelvic viscera: There are bilateral hydroceles. No pathologic pelvic masses are visualized. Skeletal structures: There is mild generalized soft tissue edema. No destructive skeletal lesions are visualized IMPRESSION: 1. No evidence of bowel obstruction. No evidence of free air 2. Fluid-filled nondilated small bowel loops without evidence for significant wall thickening 3. No acute inflammatory changes. CT CHest noncon Soft tissues: Normal thyroid and thoracic inlet. Scattered calcified mediastinal and bilateral hilar lymph nodes likely indicates a history of granulomatous disease. No pathologically enlarged lymph nodes on the current exam. Scattered prominent bilateral axillary lymph nodes, nonspecific. Atherosclerosis of the aorta. Postsurgical changes of the ascending aorta with prior aortic valve replacement. Median sternotomy with coronary artery bypass grafting suspected. Patency of graft vessels cannot be assessed. Coronary artery calcification. Papillary muscle calcification may also be present. Normal heart size. Trace pericardial thickening likely postsurgical. No pleural effusion. Calcifications within the spleen and upper abdominal calcified lymph nodes also relate to history of granulomatous disease. The lateral renal cysts noted. Small sliding type hiatal hernia. Mild hepatic steatosis. Lungs and airways: No pneumothorax. Minimal debris within the lower trachea. Mild diffuse bronchial wall thickening primarily in the lower lobes. Moderate centrilobular emphysema. Pulmonary arteries are not significantly enlarged relative to adjacent bronchi. No interlobular septal thickening. Mild nodular thickening of the fissures. Minimal bibasilar opacities dependently likely atelectasis. No other focal nodule or infiltrate. Musculoskeletal: Degenerative changes of the spine. IMPRESSION: 1. No acute intrathoracic pathology. 2. Evidence of old granulomatous disease. 3. Smoking-related lung injury with emphysema and bronchitis. 4. Minimal debris in the lower trachea may represent secretions. Postsurgical changes of CABG and aortic valve replacement. CXR admission Cardiomegaly with no acute cardiopulmonary abnormality. peripheral smear > normocytic/normochromic RBC, decreased # WBC seen; no blasts or schistocytes; no sgns of sepsis; no inclusions of erlichiosis or anaplasmosis
[2019-01-02 22:19] LABS: Appearance Urine Turbid (Clear); Bacteria Urine Automated Negative (Negative); Bilirubin Urine Negative (Negative); Blood Urine 3+ (Negative); Cast Urine Automated 0 /lpf (0-5); Color Urine Yellow; Epithelial Cell Urine Auto 0-5 /lpf (0-5); Glucose Urine UA Negative (Negative); Ketones Urine Negative (Negative); Leukocyte Esterase Urine Trace (Negative); Nitrite Urine Negative (Negative); Protein Urine 2+ (Negative); RBC Urine Automated >30 /hpf (0-4); Specific Gravity Urine 1.022 (1.000-1.030); Urobilinogen Urine Negative (Negative)
[2019-01-02 22:33] LABS: Creatinine Urine Random 76.5 mg/dl; Protein Creatinine Ratio Urine 1.6 (0-0.2); Total Protein Urine Random 120.2 mg/dl (0-11.9)
[2019-01-03 00:25] LABS: Hematocrit (blood only) 25.6 % (42-52); Hemoglobin 8.9 g/dL (14.0-18.0); Mean Corpuscular Hgb Conc 34.8 g/dL (32-36); Mean Corpuscular Volume 86.2 fL (80-100); RDW Coefficient of Variation 13.7 % (11.5-14.5); RDW Standard Deviation 42.9 fL (36.4-46.3); Red Blood Count 2.97 M/uL (4.7-6.1); White Blood Count 1.66 K/uL (4.8-10.8)
[2019-01-03 01:00] LABS: Platelet Count 57 K/uL (130-400)
[2019-01-03 02:31] LABS: Ehrlichia chaff DNA Bld Not Detected (Not Detected); Ehrlichia chaff IgG Ab <1:64 (<1:64); Ehrlichia chaff IgM Ab <1:20 (<1:20)
[2019-01-03] MEDS: DOXYCYCLINE HYCLATE 100 MG CAP PO SCH ×2 (05:49→17:06)
[2019-01-03 06:46] LABS: Hematocrit (blood only) 27.6 % (42-52); Hemoglobin 9.5 g/dL (14.0-18.0); Mean Corpuscular Hemoglobin 29.8 pg (25-34); Mean Corpuscular Hgb Conc 34.4 g/dL (32-36); Mean Corpuscular Volume 86.5 fL (80-100); RDW Coefficient of Variation 13.8 % (11.5-14.5); RDW Standard Deviation 43.8 fL (36.4-46.3); Red Blood Count 3.19 M/uL (4.7-6.1); White Blood Count 1.73 K/uL (4.8-10.8)
[2019-01-03 07:22] LABS: Albumin Level 1.7 gm/dl (3.4-5.0); Calcium 7.9 mg/dl (8.5-10.1); Creatinine Clr Calc Pharmacy 25.8 ml/min; Est GFR (African American) 31.1; Est GFR (Non-African American) 26.8; Potassium 3.4 mmol/L (3.5-5.1)
[2019-01-03 07:25] LABS: Albumin Globulin Ratio 0.4 (0.9-2); Bilirubin,Total 0.5 mg/dl (0.2-1); Globulin 4.1 gm/dl (2.5-4.0); Total Protein 5.8 gm/dl (6.4-8.2)
[2019-01-03 07:29] LABS: Mean Platelet Volume 9.2 fL (7.4-10.4); Platelet Count 55 K/uL (130-400)
[2019-01-03 07:30] LABS: Echinocytes 1+; Eosinophils # (auto) 0.04 K/uL (0-0.5); Eosinophils % (auto) 2.3 %; Immature Granulocytes # (auto) 0.01 K/uL (0.00-0.02); Immature Granulocytes % (auto) 0.6 %; Lymphocytes # (auto) 0.29 K/uL (1.2-3.4); Lymphocytes % (auto) 16.8 %; Monocytes # (auto) 0.01 K/uL (0.11-0.59); Monocytes % (auto) 0.6 %; Neutrophils # (auto) 1.38 K/uL (1.4-6.5); Neutrophils % (auto) 79.7 %
[2019-01-03] MEDS ORDERED: POTASSIUM CHLORIDE 20 MEQ TABCR PO ONE (08:15)
[2019-01-03] MEDS: METOPROLOL TARTRATE 25 MG TAB PO SCH ×2 (08:42→20:15)
[2019-01-03] MEDS: ATORVASTATIN 40 MG TAB PO SCH (08:42)
[2019-01-03] MEDS: FOLIC ACID 1 MG TAB PO SCH (08:42)
[2019-01-03] MEDS: TAMSULOSIN HCL 0.4 MG CAP PO SCH (08:42)
[2019-01-03] MEDS: FERROUS SULFATE 325 MG TAB PO SCH ×2 (08:43→21:59)
--- NOTE | 2019-01-03 13:19 | Nephrology Progress Note ---
Date of Service January 03, 2019 Assessment & Plan (1) MARANDA (acute kidney injury): MARANDA w/ acceptable chemistries, volume status (though he does have some pedal edema). chemistries acceptable (though mag a bit low). no ramesh anatomic abnormalities on imaging, no obstruction or oliguria. he is about 3.5L positive since admission but minimal improvement in renal function. urine concentrated w/ blood and protein as well as budding yeast; no infection > possibly a nephritic sediment (could be c/w lupus); interstitial nephritis also a consideration. he was on losartan and daily lasix prior to admission in addition to one MTX dose; all of these have of course been held. urine sediment not c/w ATN particularly. CK negative -1.6 gm proteinuria again on very concentrated urine w/ nephritic sediment >> though some microhematuria not surprising w/ thrombocytopenia -HBV, HCV negative; C', SANTI, anti DS DNA, antihistone pending; will add ANCA -in the setting of low platelets and anemia, differential is broad though w/o evidence of hemolysis this narrows somewhat (see below) -he is 10 L positive by I/O in past 72 hrs, though note ongoing very concentrated urine: no hypotension; consider albumin but defer for now -daily bmp (2) Pancytopenia: -on 01/02 had 2 units pRBC today and platelets -no clear cause; but no evidence of hemolysis >> none on smear; LDH minimally elevated; indir bili wnl; haptoglobin pending -index of suspicion for TTP low (otherwise would need to consider urgent plasma exchange) but [id number] pending -eval for immune driven pancytopenia > will test for SLE (c3, c4, SANTI, anti DS DNA, anti histone), and (less likely) for Felty's syndrome (SANTI, antihistone; hold off on ANCA unless proteinuric); check ESR -consider blood cxs for fungus given urine findings -consider CMV, HIV testing -consider aplastic anemia -further per primary service and per heme Subjective restless, anxious for d/c; no sob, no further bleeding; tolerating po; unchanged edema and curious about mechanism for this Review of Systems Review of Systems: All systems reviewed & are unremarkable except as noted in HPI & below Physical Exam Constitutional: well developed, + thin and cooperative; no acute distress Eyes: EOM intact bilaterally ENMT: Ears: no external ear abnormality Nose: no external nose abnormality Mouth: + dry oral mucous membranes Neck: no nuchal rigidity Respiratory: normal respiratory effort and + cough (w/ deep insp) Auscultation: + crackles (bibasilar) Cardiovascular: Rate/Rhythm: regular rate and regular rhythm Extremities: + edema (3+ pedal, 1-2+ distal BLE); + abnormal capillary refill (whiter finger tips) Gastrointestinal (Abdomen): Inspection/Auscultation: normal bowel sounds Percussion/Palpation: abdomen soft; abdomen nontender Musculoskeletal: Extremities: + abnormal strength (needs help to sit up/transfers tentatively) and + clubbing Skin: no rashes, warm and dry + lesion (healed mostly L medial malleolus) and + ulcer (multiple small ? vascular insufficiency ulcers) Psychiatric: Orientation: alert and oriented x 3 Eye Contact: + fair eye contact (looks away a good bit) Speech: normal rate/rhythm/volume of speech Thought Process: + looseness of associations Insight: good insight Results & Data Vital Signs (Past 12 Hours) Vital Signs Temp Pulse Pulse Pulse Resp BP Pulse Ox 01/03/19 10:52 36.8 C 60 18 131/75 99 01/03/19 09:00 66 01/03/19 07:13 36.8 C 73 22 135/85 96 01/03/19 03:26 36.7 C 74 19 156/92 H 97 Laboratory Results 01/03/19 06:32 01/03/19 06:32
--- NOTE | 2019-01-03 14:32 | Gastrointestinal Consultation ---
Date of Consultation January 03, 2019 Assessment & Plan (1) Symptomatic anemia: improving, likely 2/2 epistaxis. Currently feels well. Regarding his positive FOBT, given his unclear history of colon cancer screening, he could benefit from a screening colonoscopy as an outpatient. I do not think he needs urgent endoscopic intervention at this time. Dark stools likely from iron therapy. Recs: --trend H/H, supportive care, transfuse prn hgb <7 --if hgb continues to improve, would recommend that patient follow up with me in the outpatient GI clinic in 2 weeks and can discuss outpatient colonoscopy for FOBT and for CRC screening purposes --will continue to follow with you Thank you for allowing me to participate in the care of this patient History of Present Illness Attending Physician: Suri Chao MD 68 yo male with hx CAD, COPD, CABG and aortic valve replacement here with anemia/epistaxis and MARANDA. GI consulted for positive FOBT. Patient notes having significant epistaxis prior to arriving to hospital, he was treated and it has since stopped. He is noted to be pancytopenic, hgb was as low as 6.5, required multiple units of PRBC transfusion, now improved to 9.5. He notes black stools but also says he is on iron therapy. Denies n/v, hematemesis, hematochezia. CT A/P done here without significant findings. He notes that he had a colonoscopy once in the past but cannot recall when nor what the findings were. Currently he says he feels fine. Allergies Allergy/AdvReac Type Severity Reaction Status Date / Time No Known Allergies Allergy Mild Unverified 12/30/18 22:39 Home Medications Home Medications Medication Instructions Recorded Confirmed Type aspirin 81 mg chewable tablet 81 mg PO DAILY 01/28/18 12/30/18 History atorvastatin 80 mg tablet 80 mg PO DAILY 01/28/18 12/30/18 History ferrous sulfate 325 mg (65 mg 325 mg PO BID tab 01/28/18 12/30/18 History iron) tablet folic acid 1 mg tablet 1 mg PO DAILY 01/28/18 12/30/18 History furosemide 20 mg tablet 20 mg PO DAILY 01/28/18 12/30/18 History losartan 25 mg tablet 25 mg PO DAILY 01/28/18 12/30/18 History metoprolol tartrate 50 mg tablet 25 mg PO BID tab 01/28/18 12/30/18 History potassium chloride ER 10 mEq 10 meq PO BID 01/28/18 12/30/18 History capsule,extended release tamsulosin 0.4 mg capsule 0.4 mg PO DAILY 01/28/18 12/30/18 History triamcinolone acetonide 0.5 % 1 appln TOP TID PRN 01/28/18 12/30/18 History topical cream methotrexate sodium 7.5 mg PO UD 12/30/18 12/30/18 History Patient History Medical History Anemia (Chronic) Anemia (Chronic) Aortic valve, bicuspid (Chronic) CAD (coronary artery disease) of artery bypass graft (Chronic) COPD (chronic obstructive pulmonary disease) (Chronic) Dyslipidemia (Chronic) HTN, goal to be determined (Chronic) Mitral valve regurgitation (Chronic) PAD (peripheral artery disease) (Chronic) Raynaud disease (Chronic) Surgical History S/P CABG x 4 (Chronic) S/P aortic valve replacement (Chronic) S/P tonsillectomy (Chronic) Family History Other Family history non-contributory Social History Preferred Language: [place]raini Communication Ability: Effective Visual Impairment: Diminished Hearing Ability: Normal Licensing Services Clerk Required: No Beliefs That Will Affect Care: None marital status: Current Living Situation: Spouse current occupational status: retired Feels Safe at Home: Yes Safety Concerns: Feels Safe At This Time Smoking Status: Current every day smoker Tobacco Type: cigarettes ; Cigarettes Per Day: 5 ; Do You Dip or Chew Tobacco: No ; Hx Alcohol Use: No Hx Substance Use: No Review of Systems Constitutional: no fever, no chills and no weight loss Eyes: as per Subjective / HPI Ear, Nose, Mouth, Throat: as per Subjective / HPI Respiratory: no dyspnea and no dyspnea on exertion Cardiovascular: no chest pain and no palpitations Gastrointestinal: as per Subjective / HPI Musculoskeletal: no joint pain and no swelling Integumentary: no rash and no lesions Neurologic: no numbness and no paresthesia Psychiatric: no depression and no anxiety Endocrine: no fatigue Hematologic / Lymphatic: no easy bleeding and no easy bruising Physical Exam Constitutional: WD/WN, vitals as above Eyes: EOM intact bilaterally Neck: normal visual inspection Respiratory: normal respiratory effort, lungs clear to auscultation Cardiovascular: RRR, no murmur, no edema Gastrointestinal (Abdomen): Inspection/Auscultation: abdomen normal to inspection; abdomen not distended Percussion/Palpation: abdomen soft; abdomen nontender and no hepatosplenomegaly Musculoskeletal: Extremities: no cyanosis Gait: normal gait Skin: no rashes, warm and dry Neurologic: moves all extremities Psychiatric: A+Ox3, euthymic affect Results & Data Vital Signs (Past 12 Hours) Vital Signs Temp Pulse Pulse Pulse Resp BP Pulse Ox 01/03/19 10:52 36.8 C 60 18 131/75 99 01/03/19 09:00 66 01/03/19 07:13 36.8 C 73 22 135/85 96 01/03/19 03:26 36.7 C 74 19 156/92 H 97 PG Care Time/CCT Total # of Minutes Spent Total Time Spent with Patient: Total time spent is greater than 50% in coordination of care (as documented) at patient's floor/unit and/or counseling patient:
--- NOTE | 2019-01-03 19:06 | Hospitalist Progress Note ---
Date of Service January 03, 2019 Assessment & Plan (1) Pancytopenia: Pancytopenia. Thrombocytopenia and anemia Possible aplastic anemia Possible related to Methotrexate vs tick borne pathogen Platelet on admission 122 then dropped 44 today hemoglobin on admission 7.1, Hemoglobin 6.5 today (Recieved 4 units PRBC ) labs in 10/24/2018 as outpatient showed WBC was 5.3, hemoglobin 10.8, platelets 263. Will transfuse 2 unit PRBC today LDH 283, reticulocyte count <0.02 Peripheral smear done showed no abnormal finding, repeat peripheral smear pending Case discussed hematology Dr. Lucero today recommended to check LDH, Reticulocyte count, peripheral smear, Amadou 13 and Haptoglobin If platelet drops below 50 and pt develops any bleeding, will transfuse platelet product as per Hematology LDH 283, ESR 26, Plt 55, Hgb 9.5 Continue Monitor CBC (2) Epistaxis: Mostly due to thrombocytopenia Continue Nasal clamp and Afrin ENT on board placed an absorbable packing on 12/31 ENT recommended If bleeding reoccurs to apply pressure and use Afrin Follow up with ENT in 2 weeks outpatient No nose bleeding since packing was done Stable Elevated Lactic acid Doubt about sepsis Lactic acid 5.3 on admission, then normalize Blood cx no growth ID on board case discussed with ID and OK to discharge IV Vanco and Zosyn Continue Doxycycline for now . Acute kidney injury Creatinine on admission above 2.4, baseline creatinine of 1-1.3 Creatinine bumped to 2.3 CT abd/pelvis showed bilateral perinephric stranding of kidney. There are vascular calcifications. There is no hydronephrosis. There are bilateral renal cysts the largest of which measures 38 mm. Nephrology consult Continue to hold lasix, methotrexate and Losartan HBV, HCV negative; C', SANTI, anti DS DNA, antihistone, ANCA pending Monitor BMP daily GI bleed +FOBT Possible related from swallowing blood due to the nose bleeding GI on board recommended outpatient Colonoscopy Hgb stable today Monitor CBC Coronary artery disease status post coronary artery bypass graft. Continue statin, metoprolol. Continue to holding the aspirin due to epistaxis/low platelet and hgb Bicuspid aortic valve Status post aortic valve replacement with prosthetic valve. stable History of diffuse connective tissue disease Raynaud's syndrome. Methotrexate on hold for now Case discussed with Rheumatology recommended not to resume Methotrexate on discharge Follow up with Rheum on 01/16/19 DVT px on SCDs CODE STATUS FULL CODE Subjective Pt was seen and examined Lying in bed with no distress Denies any nose bleeding He said that his stool had dark stool His hemoglobin stable today Denies any chest pain, palpitation and SOB Physical Exam Physical Exam: General- No acute distress Head- atraumatic Eyes- PERRL, EOMI, ENT- No nose bleeding Neck- supple, no JVD Lungs- clear to auscultation Heart- regular rhythm; no murmur Abdomen- normal bowel sounds, soft, nontender Extremities- no calf tenderness Neuro- alert, oriented x 3; PERRL, EOMI; no facial palsy; no dysarthria Skin- Petechia Results & Data Vital Signs (Past 12 Hours) Vital Signs Temp Pulse Pulse Resp BP BP Pulse Ox 01/03/19 16:00 66 01/03/19 15:19 36.3 C L 60 22 161/76 H 98 01/03/19 10:52 36.8 C 60 18 131/75 99 01/03/19 09:00 66 01/03/19 07:13 36.8 C 73 22 135/85 96
[2019-01-03 23:02] LABS: Hematocrit (blood only) 28.6 % (42-52); Hemoglobin 9.9 g/dL (14.0-18.0); Mean Corpuscular Hemoglobin 30.2 pg (25-34); Mean Corpuscular Hgb Conc 34.6 g/dL (32-36); Mean Corpuscular Volume 87.2 fL (80-100); RDW Standard Deviation 44.7 fL (36.4-46.3); Red Blood Count 3.28 M/uL (4.7-6.1)
[2019-01-03] MEDS ORDERED: LORazepam 0.25 MG/0.5 ML VIAL IV PRN (23:02)
[2019-01-03 23:10] LABS: Mean Platelet Volume 8.2 fL (7.4-10.4); Platelet Count 53 K/uL (130-400)
[2019-01-03 23:24] LABS: Eosinophils # (auto) 0.08 K/uL (0-0.5); Eosinophils % (auto) 2.5 %; Immature Granulocytes # (auto) 0.02 K/uL (0.00-0.02); Immature Granulocytes % (auto) 0.6 %; Lymphocytes # (auto) 0.45 K/uL (1.2-3.4); Lymphocytes % (auto) 14.1 %; Neutrophils # (auto) 2.65 K/uL (1.4-6.5); Neutrophils % (auto) 82.8 %
[2019-01-04] MEDS: NICOTINE 7 MG/24 HR TDSY TD SCH ×2 (00:04→07:47)
[2019-01-04] MEDS ORDERED: HydrALAZINE HCL 20 MG/ML VIAL ONE (00:08)
[2019-01-04] MEDS ORDERED: HydrALAZINE HCL 20 MG/ML VIAL IV ONE (02:41)
[2019-01-04 04:24] LABS: Hematocrit (blood only) 24.6 % (42-52); Hemoglobin 8.5 g/dL (14.0-18.0); Mean Corpuscular Hgb Conc 34.6 g/dL (32-36); Mean Corpuscular Volume 86.9 fL (80-100); Mean Platelet Volume 7.9 fL (7.4-10.4); Platelet Count 83 K/uL (130-400); RDW Coefficient of Variation 13.9 % (11.5-14.5); RDW Standard Deviation 44.4 fL (36.4-46.3); Red Blood Count 2.83 M/uL (4.7-6.1); White Blood Count 2.52 K/uL (4.8-10.8)
[2019-01-04 04:45] LABS: BUN Creatinine Ratio 36.3 (10-20); Calcium 7.7 mg/dl (8.5-10.1); Creatinine Clr Calc Pharmacy 29.2 ml/min; Est GFR (African American) 36.1; Est GFR (Non-African American) 31.2; Potassium 4.1 mmol/L (3.5-5.1)
[2019-01-04] MEDS ORDERED: SODIUM CHLORIDE 0.9% 250 ML IV PRN (04:54)
[2019-01-04 04:56] LABS: Basophils # (auto) 0.01 K/uL (0-0.2); Basophils % (auto) 0.4 %; Eosinophils # (auto) 0.08 K/uL (0-0.5); Eosinophils % (auto) 3.2 %; Immature Granulocytes # (auto) 0.02 K/uL (0.00-0.02); Immature Granulocytes % (auto) 0.8 %; Lymphocytes # (auto) 0.37 K/uL (1.2-3.4); Lymphocytes % (auto) 14.7 %; Monocytes # (auto) 0.01 K/uL (0.11-0.59); Monocytes % (auto) 0.4 %; Neutrophils # (auto) 2.03 K/uL (1.4-6.5); Neutrophils % (auto) 80.5 %
[2019-01-04] MEDS: METOPROLOL TARTRATE 25 MG TAB PO SCH ×2 (05:34→20:40)
[2019-01-04] MEDS: DOXYCYCLINE HYCLATE 100 MG CAP PO SCH ×2 (05:34→16:57)
--- NOTE | 2019-01-04 05:48 | Consultation Report ---
DATE OF CONSULTATION: 01/03/2019 OTOLARYNGOLOGY, HEAD AND NECK SURGERY CONSULTATION FOLLOWUP I have been asked by the nursing personnel, specifically Dr. Laly Stroud to evaluate this patient with recurrent epistaxis. I saw this patient in consultation on 12/31/2018. The patient has pancytopenia related to either methotrexate use and/or tick-borne disease and he has received 6 units of packed red blood cells and 1 unit of platelets since I saw him. His last hematocrit was 28.6 and his last platelet count was 53. His hematocrit has been as low as 18.3 and his platelets have been as low as 44. He reportedly blew his nose this evening despite being counseled to refrain from blowing or instrumenting his nose and he developed left greater than right epistaxis. They appropriately administered Afrin and direct pressure, but he still had some significant bleeding and asked for my help. Upon my arrival to the room, the patient had significant blood on a towel as well as on his bed sheets. Estimated blood loss was 1 cup. He had a large clot within the left nasal cavity. He has a right septal deviation with no oozing from the right side initially. After administration of topical lidocaine and Afrin to the bilateral nasal cavities, the large clot was removed from the left nasal cavity using a 12 Wray suction. Further Afrin and lidocaine was administered. An absorbable Gelfoam pack reinforced with fibrillar was administered into the left nasal cavity. Fibrillar was also placed into the right nasal cavity. Further Afrin and lidocaine was then administered and I applied direct pressure for 10 minutes. This resulted in cessation of the epistaxis. He did have some dried bloody postnasal drip without any active bleeding after I had stopped the epistaxis. IMPRESSION AND RECOMMENDATIONS: A 68-year-old male with pancytopenia with unknown etiology at this time who has required 6 units of packed red blood cells and 1 unit of platelets. I implored him not to instrument his nose or blow his nose due to the severity of his condition. There is no identifiable bleeding source, but more of a diffuse ooze likely related to his thrombocytopenia. The above-mentioned measures resulted in cessation of bleeding. Assuming that he has no other significant epistaxis as explained before, I would like to see him in follow up as an outpatient in approximately 2 weeks after discharge. If you have any further assistance in this patient, please do not hesitate to contact me.
--- NOTE | 2019-01-04 05:53 | Consultation Report ---
DATE OF CONSULTATION: 01/04/2019 OTOLARYNGOLOGY, HEAD AND NECK SURGERY CONSULTATION FOLLOWUP I have been asked by nurse, Laly Stroud to evaluate this patient with recurrent epistaxis. The patient was just seen late last evening with recurrent epistaxis for which I placed Gelfoam and fibrillar as well as Afrin and lidocaine. Despite counseling, due to the patient's confusion, the patient unfortunately blew his nose several times and started to have some more bleeding. His nurse states that he has bled for several hours despite Afrin and direct pressure. His hematocrit dropped from 28.6-24.6. Upon my arrival, the patient was not actively bleeding. He had a blood clot within the left nasal cavity. There was some dried blood within his oral cavity and oropharynx. After administration of topical lidocaine and Afrin, the left nasal cavity was cleared of blood clot. The right nasal cavity was clear of any blood; however, there was no fibrillar that I placed last evening. Due to the recurrent epistaxis, an 8 cm Merocel sponge was then placed into the left nasal cavity followed by further Afrin and lidocaine. This was followed by direct pressure for 10 minutes. Hemostasis was confirmed. A sterile gauze dressing was placed as a nasal drip pad. Once again, the patient was counseled to refrain from instrumenting his nose or blowing his nose whatsoever. My plan is to keep this Merocel sponge in until Saturday as long as he does well clinically. Continue to provide blood products as necessary given his pancytopenia. Please do not hesitate to call me if he has any further problems prior to Saturday's pack removal.
[2019-01-04] MEDS: FOLIC ACID 1 MG TAB PO SCH (07:46)
[2019-01-04] MEDS: ATORVASTATIN 40 MG TAB PO SCH (07:46)
[2019-01-04] MEDS: TAMSULOSIN HCL 0.4 MG CAP PO SCH (07:46)
[2019-01-04] MEDS: FERROUS SULFATE 325 MG TAB PO SCH ×2 (07:47→20:40)
[2019-01-04] MEDS ORDERED: OXYMETAZOLINE 0.05% 30 ML BTL PRN (08:48)
[2019-01-04] MEDS ORDERED: OXYMETAZOLINE 0.05% 30 ML BTL ONE (09:00)
[2019-01-04 12:26] LABS: Hematocrit (blood only) 27.3 % (42-52); Hemoglobin 9.6 g/dL (14.0-18.0)
--- NOTE | 2019-01-04 17:59 | Hospitalist Progress Note ---
Date of Service January 04, 2019 Assessment & Plan (1) Pancytopenia: Pancytopenia. Thrombocytopenia and anemia Possible aplastic anemia Possible related to Methotrexate vs tick borne pathogen Platelet on admission 122 then dropped 44 today hemoglobin on admission 7.1, Hemoglobin 9.6 and platelet 83 today (Received a total of 7 units PRBC and 2 platelet ) Labs in 10/24/2018 as outpatient showed WBC was 5.3, hemoglobin 10.8, platelets 263. LDH 283, reticulocyte count <0.02 Peripheral smear done showed no abnormal finding, repeat peripheral smear pending Case discussed hematology Dr. Lucero today recommended to check LDH, Reticulocyte count, peripheral smear, Amadou 13 and Haptoglobin If platelet drops below 50 and pt develops any bleeding, will transfuse platelet product as per Hematology LDH 283, ESR 26, Plt 83, Hgb 9.6 Continue Monitor CBC (2) Epistaxis: Mostly due to thrombocytopenia Had recurrent nose bleeding last night after pt pulled the packing Continue Nose clamp and Afrin If bleeding reoccurs to apply pressure and use Afrin, if bleeding do not stop, please notify ENT Follow up with ENT in 2 weeks outpatient Stable Elevated Lactic acid Doubt about sepsis Lactic acid 5.3 on admission, then normalize Blood cx no growth ID on board case discussed with ID and OK to discharge IV Vanco and Zosyn Continue Doxycycline for now . Acute kidney injury Creatinine on admission above 2.4, baseline creatinine of 1-1.3 Creatinine slightly improved to 2.1 CT abd/pelvis showed bilateral perinephric stranding of kidney. There are vascular calcifications. There is no hydronephrosis. There are bilateral renal cysts the largest of which measures 38 mm. Nephrology consult Continue to hold lasix, methotrexate and Losartan HBV, HCV negative; C', SANTI, anti DS DNA, antihistone, ANCA pending Monitor BMP daily GI bleed +FOBT Possible related from swallowing blood due to the nose bleeding GI on board recommended outpatient Colonoscopy Hgb stable today Monitor CBC Coronary artery disease status post coronary artery bypass graft. Continue statin, metoprolol. Continue to holding the aspirin due to epistaxis/low platelet and hgb Bicuspid aortic valve Status post aortic valve replacement with prosthetic valve. stable History of diffuse connective tissue disease Raynaud's syndrome. Methotrexate on hold for now Case discussed with Rheumatology recommended not to resume Methotrexate on discharge Follow up with Rheum on 01/16/19 DVT px on SCDs CODE STATUS FULL CODE Subjective Pt was seen and examined. Lying in bed with no distress He had recurrent noise bleeding last night where ENT had to come twice to pack him He has been walking in the hallway with assistance Denies any chest pain, palpitation , dizziness and SOB Physical Exam Physical Exam: General- No acute distress Head- atraumatic Eyes- PERRL, EOMI, ENT- Nose Clamp Neck- supple, no JVD Lungs- clear to auscultation Heart- regular rhythm; no murmur Abdomen- normal bowel sounds, soft, nontender Extremities- no calf tenderness Neuro- alert, oriented x 3; PERRL, EOMI; no facial palsy; no dysarthria Skin- Petechia Results & Data Vital Signs (Past 12 Hours) Vital Signs Temp Pulse Pulse Pulse Resp BP BP 01/04/19 15:13 36.9 C 99 H 20 133/87 01/04/19 10:43 36.4 C L 80 15 136/79 01/04/19 06:31 80 20 169/92 H 01/04/19 06:01 36.4 C L 78 19 169/86 H Pulse Ox 01/04/19 15:13 98 01/04/19 10:43 100 01/04/19 06:31 99 01/04/19 06:01 100
[2019-01-04 18:13] LABS: Hematocrit (blood only) 24.7 % (42-52); Hemoglobin 8.9 g/dL (14.0-18.0)
--- NOTE | 2019-01-05 05:59 | Ears,Nose,Throat Progress Note ---
Date of Service January 05, 2019 Subjective OF 8AM ON 01/05/19, I AM NO LONGER WEIGHT RECORDER FOR ENT. IF THIS PATIENT REDEVELOPS SIGNIFICANT EPISTAXIS REQUIRING ENT ASSISTANCE AFTER 8AM TODAY, THEN PLEASE CALL DR. STEFF MENDOZA WHO IS WEIGHT RECORDER THIS WEEK. IN ADDITION, THIS PATIENT DOES NOT NEED TO SEE ME 2 WEEKS AFTER DISCHARGE SINCE ANY AND ALL PACKING PLACED (ABSORBABLE AND NON-ABSORBABLE) HAS BEEN REMOVED BY THIS PATIENT. HIGHLY SUGGEST THAT IF ENT IS CALLED ON THIS PATIENT AND HE REQUIRES PACKING, THAT HE BE PLACED IN RESTRAINTS FOR THE DURATION OF THE PACKING. SINCE HE PULLED OUT HIS LEFT MEROCEL SPONGE AROUND 8AM YESTERDAY MORNING, HE REPORTEDLY HAS NOT HAD ANY SEVERE EPISTAXIS BUT IF HE REDEVELOPS IT, THEN I WOULD RECOMMEND RESTRAINTS/SEDATION FOR THE DURATION OF THE PACKING. I WILL SIGN OFF ON THIS CONSULT OF 8AM TODAY. Results & Data Vital Signs (Past 12 Hours) Vital Signs Temp Pulse Resp BP BP Pulse Ox 01/05/19 03:08 36.5 C 78 22 140/62 98 01/04/19 23:20 36.7 C 71 22 167/76 H 97 01/04/19 20:14 36.9 C 74 20 147/99 H 98 PG Care Time/CCT Total # of Minutes Spent Total Time Spent with Patient: Total time spent is greater than 50% in coordination of care (as documented) at patient's floor/unit and/or counseling patient:
[2019-01-05 06:10] LABS: Hematocrit (blood only) 20.6 % (42-52); Hemoglobin 7.2 g/dL (14.0-18.0); Mean Corpuscular Hemoglobin 29.8 pg (25-34); Mean Corpuscular Volume 85.1 fL (80-100); Mean Platelet Volume 8.1 fL (7.4-10.4); Platelet Count 44 K/uL (130-400); RDW Coefficient of Variation 13.8 % (11.5-14.5); RDW Standard Deviation 43.2 fL (36.4-46.3); Red Blood Count 2.42 M/uL (4.7-6.1); White Blood Count 1.71 K/uL (4.8-10.8)
[2019-01-05 06:25] LABS: BUN Creatinine Ratio 46.3 (10-20); Calcium 7.7 mg/dl (8.5-10.1); Creatinine Clr Calc Pharmacy 32.4 ml/min; Est GFR (African American) 37.9; Est GFR (Non-African American) 32.7; Potassium 4.2 mmol/L (3.5-5.1)
[2019-01-05] MEDS ORDERED: SODIUM CHLORIDE 0.9% 250 ML IV PRN (06:43)
[2019-01-05] MEDS: DOXYCYCLINE HYCLATE 100 MG CAP PO SCH ×2 (06:50→18:42)
--- NOTE | 2019-01-05 08:23 | Nephrology Progress Note ---
Date of Service January 05, 2019 Assessment & Plan (1) MARANDA (acute kidney injury): MARANDA w/ acceptable chemistries, volume status (though he does have some pedal edema). chemistries acceptable (though mag a bit low). no ramesh anatomic abnormalities on imaging, no obstruction or oliguria. he is about 3.5L positive since admission but minimal improvement in renal function: non oliguric ATN stable in somewhat atypical case. urine concentrated w/ blood and protein as well as budding yeast; no infection > possibly a nephritic sediment (could be c/w lupus); interstitial nephritis also a consideration. he was on losartan and daily lasix prior to admission in addition to one MTX dose; all of these have of course been held. urine sediment not c/w ATN particularly. CK negative -1.6 gm proteinuria again on very concentrated urine w/ nephritic sediment >> though some microhematuria not surprising w/ thrombocytopenia -HBV, HCV negative; C', SANTI, anti DS DNA, antihistone pending; will add ANCA -in the setting of low platelets and anemia, differential is broad though w/o evidence of hemolysis this narrows somewhat (see below) -he is 10 L positive by I/O in past 72 hrs, though note ongoing very concentrated urine: no hypotension; consider albumin but defer for now -daily bmp -complete proteinuria w/u by checking ANCA; SANTI, C' pending; ESR, hepatitis panels essentially negative (2) Pancytopenia: -on 01/02 had 2 units pRBC and platelets; all 3 lines down some again today. ESR 26; -no clear cause; but no evidence of hemolysis >> none on smear; LDH minimally elevated; indir bili wnl; haptoglobin pending; heme recommends repeating these tests -index of suspicion for TTP low (otherwise would need to consider urgent plasma exchange) but [id number] pending -eval for immune driven pancytopenia > will test for SLE (c3, c4, SANTI, anti DS DNA, anti histone -- all still pending), and (less likely) for Felty's syndrome (SANTI, antihistone (still pending); hold off on ANCA unless proteinuric); -consider blood cxs for fungus given urine findings -consider CMV, HIV testing -consider anaplasma PCR if not already ordered -consider aplastic anemia -further per primary service and per heme Subjective put on 1:1 since he pulled out packing 3x and not eating. no sob, no change in edema per him. no uncontrolled pain. Review of Systems Review of Systems: All systems reviewed & are unremarkable except as noted in HPI & below Physical Exam Constitutional: well developed, + thin and cooperative; no acute distress Eyes: EOM intact bilaterally ENMT: Ears: no external ear abnormality Nose: no external nose abnormality Mouth: + dry oral mucous membranes Neck: no nuchal rigidity Respiratory: normal respiratory effort Auscultation: + diminished lung sounds Cardiovascular: Rate/Rhythm: regular rate and regular rhythm Extremities: + edema (3+ pedal, 1-2+ distal BLE); + abnormal capillary refill (whiter finger tips) Gastrointestinal (Abdomen): Inspection/Auscultation: normal bowel sounds Percussion/Palpation: abdomen soft; abdomen nontender Musculoskeletal: Extremities: + abnormal strength (needs help to sit up/transfers tentatively) and + clubbing Skin: no rashes, warm and dry + lesion (healed mostly L medial malleolus) and + ulcer (multiple small ? vascular insufficiency ulcers) Psychiatric: Orientation: alert and oriented x 3 Eye Contact: + fair eye contact (looks away a good bit) Speech: normal rate/rhythm/volume of speech Thought Process: + looseness of associations Results & Data Vital Signs (Past 12 Hours) Vital Signs Temp Pulse Resp BP Pulse Ox 01/05/19 03:08 36.5 C 78 22 140/62 98 01/04/19 23:20 36.7 C 71 22 167/76 H 97 Laboratory Results 01/05/19 05:22 01/05/19 05:22
[2019-01-05] MEDS: TAMSULOSIN HCL 0.4 MG CAP PO SCH (08:41)
[2019-01-05] MEDS: ATORVASTATIN 40 MG TAB PO SCH (08:41)
[2019-01-05] MEDS: METOPROLOL TARTRATE 25 MG TAB PO SCH ×2 (08:41→21:31)
[2019-01-05] MEDS: FERROUS SULFATE 325 MG TAB PO SCH ×2 (08:41→21:32)
[2019-01-05] MEDS: FOLIC ACID 1 MG TAB PO SCH (08:41)
[2019-01-05] MEDS: NICOTINE 7 MG/24 HR TDSY TD SCH (08:42)
[2019-01-05 11:05] LABS: Basophils # (auto) 0.01 K/uL (0-0.2); Basophils % (auto) 0.5 %; Lymphocytes # (auto) 0.51 K/uL (1.2-3.4); Lymphocytes % (auto) 27.3 %; Monocytes # (auto) 0.02 K/uL (0.11-0.59); Monocytes % (auto) 1.1 %; Neutrophils # (auto) 1.33 K/uL (1.4-6.5); Neutrophils % (auto) 71.1 %; RBC Morphology Unremarkable
[2019-01-05] MEDS ORDERED: Nursing to Pharmacy Communication ONE (12:22)
--- NOTE | 2019-01-05 15:02 | Infectious Disease Progress Nt ---
Date of Service January 05, 2019 Assessment & Plan (1) Pancytopenia: Patient with pancytopenia which failed to respond to doxycycline therapy making anaplasmosis unlikely. More likely from prior methotrexate therapy. Would hold further doxycycline, likely has received adequate course anyway. Discussed with hospitalist. Will follow. Subjective Patient seen in follow-up for possible diagnosis of Anaplasma infection. No obvious response to doxycycline therapy, platelets down to 44,000 today. Continues with epistaxis. Physical Exam Constitutional: + ill appearing and + thin; no acute distress Eyes: PERRL, conjunctivae normal, anicteric sclerae ENMT: Ears: no external ear abnormality Nose: + turbinate abnormality (Nasal packing in place) Mouth: no oropharynx abnormality Neck: trachea midline, no thyromegaly neck nontender Respiratory: normal respiratory effort, lungs clear to auscultation no respiratory distress Cardiovascular: Rate/Rhythm: regular rate Heart Sounds: normal S1 and normal S2; no murmur Extremities: + edema Gastrointestinal (Abdomen): normal bowel sounds, soft, nontender, no hepatosplenomegaly Percussion/Palpation: no abdominal mass Musculoskeletal: Head/Neck/Chest: normocephalic, head atraumatic and neck supple Skin: normal turgor and + ulcer (Few small superficial ulcerations lower extremity); no rashes Neurologic: moves all extremities and awake; no meningeal signs Psychiatric: Orientation: alert and oriented x 3 Lymphatic: no cervical or axillary lymphadenopathy + inguinal lymphadenopathy Results & Data Vital Signs (Past 12 Hours) Vital Signs Temp Pulse Pulse Resp BP BP Pulse Ox 01/05/19 13:31 36.9 C 71 16 158/74 H 98 01/05/19 12:31 36.7 C 68 16 148/72 H 97 01/05/19 11:31 36.5 C 70 16 133/69 98 01/05/19 10:31 36.8 C 65 16 134/66 98 01/05/19 09:31 36.6 C 69 16 138/70 98 01/05/19 09:01 36.7 C 70 16 121/62 98 01/05/19 08:46 36.8 C 69 99 H 139/69 16 L 01/05/19 08:30 36.9 C 75 18 150/77 H 98 01/05/19 03:08 36.5 C 78 22 140/62 98 Laboratory Results Short CBC 01/04/19 01/05/19 Range/Units 17:52 05:22 WBC 1.71 L (4.8-10.8) K/uL Hgb 8.9 L 7.2 L (14.0-18.0) g/dL Hct 24.7 L 20.6 L* (42-52) % Plt Count 44 L (130-400) K/uL BMP 01/05/19 05:22 Sodium 141 Potassium 4.2 Chloride 113 H Carbon Dioxide 20 L BUN 94 H Creatinine 2.02 H Glucose 87 Calcium 7.7 L Diagnostic Findings Microbiology 12/30/18 20:38 Blood Aerobic Blood Culture - Final No growth in Aerobic bottle after 5 days. 12/30/18 20:38 Blood Anaerobic Blood Culture - Final No growth in Anaerobic bottle after 5 days. 12/30/18 20:45 Blood Aerobic Blood Culture - Final No growth in Aerobic bottle after 5 days. 12/30/18 20:45 Blood Anaerobic Blood Culture - Final 12/31/18 09:45 Urine,Clean Catch Urine Culture - Final No growth - less than 1,000 colonies/mL. PG Care Time/CCT Total # of Minutes Spent Total Time Spent with Patient: Total time spent is greater than 50% in coordination of care (as documented) at patient's floor/unit and/or counseling patient:
[2019-01-05 18:19] LABS: Haptoglobin 222 MG/DL (43-212)
--- NOTE | 2019-01-05 18:24 | Hospitalist Progress Note ---
Date of Service January 05, 2019 Assessment & Plan (1) Pancytopenia: Pancytopenia. Thrombocytopenia and anemia Possible aplastic anemia Possible related to Methotrexate vs tick borne pathogen Platelet on admission 122 then dropped 44 today hemoglobin on admission 7.1 Hemoglobin dropped to 7.2 today and platelet 44 today. received 1 unit PRBC today (Received a total of 8 units PRBC and 2 platelet ) Labs in 10/24/2018 as outpatient showed WBC was 5.3, hemoglobin 10.8, platelets 263. LDH 283, reticulocyte count <0.02 Peripheral smear done showed no abnormal finding, repeat peripheral smear showed no schistocytes and anaplasmosis inclusion Amadou 13 assay within normal limit. Haptoglobin pending Case discussed hematology Dr. Lucero today recommended to check Methotrexate level If platelet drops below 50 and pt develops any bleeding, will transfuse platelet product as per Hematology Work up for SLE pending LDH 283, ESR 26, Plt 44 ang Hgb 7.1 Continue Monitor CBC (2) Epistaxis: Mostly due to thrombocytopenia Had recurrent nose bleeding last night after pt pulled the packing Continue Nose clamp and Afrin If bleeding reoccurs to apply pressure and use Afrin, if bleeding do not stop, please notify ENT ENT signed off because pt refused to keep packing in his nose Stable Elevated Lactic acid Doubt about sepsis Lactic acid 5.3 on admission, then normalize Blood cx no growth ID on board Case discussed with ID Will discontinue abx doxycycline. Vanco and Zosyn were d/c few days ago . Acute kidney injury Creatinine on admission above 2.4, baseline creatinine of 1-1.3 Creatinine slightly improved from 2.[address] abd/pelvis showed bilateral perinephric stranding of kidney. There are vascular calcifications. There is no hydronephrosis. There are bilateral renal cysts the largest of which measures 38 mm. Nephrology consult Continue to hold lasix, methotrexate and Losartan HBV negative, HCV negative; SANTI, anti DS DNA, antihistone, ANCA pending Monitor BMP daily GI bleed +FOBT Possible related from swallowing blood due to the nose bleeding GI on board recommended outpatient Colonoscopy Hgb stable today Monitor CBC Coronary artery disease status post coronary artery bypass graft. Continue statin, metoprolol. Continue to holding the aspirin due to epistaxis/low platelet and hgb Bicuspid aortic valve Status post aortic valve replacement with prosthetic valve. stable History of diffuse connective tissue disease Raynaud's syndrome. Methotrexate on hold for now Case discussed with Rheumatology recommended not to resume Methotrexate on discharge Follow up with Rheum on 01/16/19 DVT px on SCDs CODE STATUS FULL CODE Subjective Pt was seen and examined Lying in bed with no distress with at bedside Pt said that he feels ok He said that his stool is not dark anymore No nose bleeding today Update provided to the Denies any chest pain, palpitation dizziness and SOB Physical Exam Physical Exam: General- No acute distress Head- atraumatic Eyes- PERRL, EOMI, ENT- Nose Clamp Neck- supple, no JVD Lungs- clear to auscultation Heart- regular rhythm; no murmur Abdomen- normal bowel sounds, soft, nontender Extremities- no calf tenderness Neuro- alert, oriented x 3; PERRL, EOMI; no facial palsy; no dysarthria Skin- Petechia Results & Data Vital Signs (Past 12 Hours) Vital Signs Temp Pulse Pulse Resp BP BP Pulse Ox 01/05/19 17:22 80 01/05/19 15:47 36.9 C 77 18 140/65 94 01/05/19 13:31 36.9 C 71 16 158/74 H 98 01/05/19 12:31 36.7 C 68 16 148/72 H 97 01/05/19 11:31 36.5 C 70 16 133/69 98 01/05/19 10:31 36.8 C 65 16 134/66 98 01/05/19 09:31 36.6 C 69 16 138/70 98 01/05/19 09:01 36.7 C 70 16 121/62 98 01/05/19 08:46 36.8 C 69 99 H 139/69 16 L 01/05/19 08:30 36.9 C 75 18 150/77 H 98
[2019-01-05 18:44] LABS: Hematocrit (blood only) 25.2 % (42-52); Hemoglobin 8.8 g/dL (14.0-18.0); Mean Corpuscular Hemoglobin 29.2 pg (25-34); Mean Corpuscular Hgb Conc 34.9 g/dL (32-36); Mean Corpuscular Volume 83.7 fL (80-100); RDW Coefficient of Variation 15.5 % (11.5-14.5); RDW Standard Deviation 47.3 fL (36.4-46.3); Red Blood Count 3.01 M/uL (4.7-6.1); White Blood Count 1.72 K/uL (4.8-10.8)
[2019-01-05 18:58] LABS: Mean Platelet Volume 8.8 fL (7.4-10.4); Platelet Count 41 K/uL (130-400)
[2019-01-05 19:35] LABS: Platelet Estimate Decreased (Normal)
[2019-01-06 06:01] LABS: Hematocrit (blood only) 22.2 % (42-52); Mean Corpuscular Hemoglobin 29.9 pg (25-34); Mean Corpuscular Volume 82.8 fL (80-100); Mean Platelet Volume 8.1 fL (7.4-10.4); Platelet Count 37 K/uL (130-400); RDW Coefficient of Variation 15.8 % (11.5-14.5); Red Blood Count 2.68 M/uL (4.7-6.1); White Blood Count 1.39 K/uL (4.8-10.8)
[2019-01-06 06:11] LABS: Albumin Level 1.6 gm/dl (3.4-5.0); BUN Creatinine Ratio 38.7 (10-20); Calcium 7.8 mg/dl (8.5-10.1); Creatinine Clr Calc Pharmacy 30.7 ml/min; Est GFR (African American) 35.5; Est GFR (Non-African American) 30.6
[2019-01-06 06:14] LABS: Albumin Globulin Ratio 0.4 (0.9-2); Bilirubin,Total 0.5 mg/dl (0.2-1); Eosinophils # (auto) 0.09 K/uL (0-0.5); Eosinophils % (auto) 6.5 %; Globulin 3.6 gm/dl (2.5-4.0); Lymphocytes # (auto) 0.47 K/uL (1.2-3.4); Lymphocytes % (auto) 33.8 %; Monocytes # (auto) 0.03 K/uL (0.11-0.59); Monocytes % (auto) 2.2 %; Neutrophils % (auto) 57.5 %; Total Protein 5.2 gm/dl (6.4-8.2)
[2019-01-06] MEDS: TAMSULOSIN HCL 0.4 MG CAP PO SCH (08:34)
[2019-01-06] MEDS: FERROUS SULFATE 325 MG TAB PO SCH ×2 (08:34→20:50)
[2019-01-06] MEDS: FOLIC ACID 1 MG TAB PO SCH (08:35)
[2019-01-06] MEDS: METOPROLOL TARTRATE 25 MG TAB PO SCH ×2 (08:35→20:51)
[2019-01-06] MEDS: NICOTINE 7 MG/24 HR TDSY TD SCH (08:35)
[2019-01-06] MEDS: ATORVASTATIN 40 MG TAB PO SCH (08:35)
[2019-01-06] MEDS ORDERED: SODIUM CHLORIDE 0.9% 250 ML IV PRN (10:14)
--- NOTE | 2019-01-06 17:24 | Hospitalist Progress Note ---
Date of Service January 06, 2019 Assessment & Plan (1) Pancytopenia: Pancytopenia. Thrombocytopenia and anemia Possible aplastic anemia Possible related to Methotrexate vs tick borne pathogen Platelet on admission 122 then dropped 44 today hemoglobin on admission 7.1 Hemoglobin 8 and platelet 37 today. Received 1 unit PRBC and 1 unit platelet today (Received a total of 9 units PRBC and 3 platelet ) Labs in 10/24/2018 as outpatient showed WBC was 5.3, hemoglobin 10.8, platelets 263. LDH 283, reticulocyte count <0.02 Peripheral smear done showed no abnormal finding, repeat peripheral smear showed no schistocytes and anaplasmosis inclusion Amadou 13 assay within normal limit. Haptoglobin elevated at 222 Case has been discussed with hematology Dr. Lucero If platelet drops below 50 and pt develops any bleeding, will transfuse platelet product as per Hematology Work up for SLE and Methotrexate level pending LDH 283, ESR 26, Plt 37 and Hgb 8 Continue Monitor CBC (2) Epistaxis: Mostly due to thrombocytopenia Had recurrent nose bleeding last night after pt pulled the packing Continue Nose clamp and Afrin If bleeding reoccurs to apply pressure and use Afrin, if bleeding do not stop, please notify ENT ENT signed off because pt refused to keep packing in his nose Stable Elevated Lactic acid Doubt about sepsis Lactic acid 5.3 on admission, then normalize Blood cx no growth ID on board Case discussed with ID Will discontinue abx doxycycline. Vanco and Zosyn were d/c few days ago . Acute kidney injury Creatinine on admission above 2.4, baseline creatinine of 1-1.3 Creatinine slightly increased from 2.[address] abd/pelvis showed bilateral perinephric stranding of kidney. There are vascular calcifications. There is no hydronephrosis. There are bilateral renal cysts the largest of which measures 38 mm. Nephrology consult Continue to hold lasix, methotrexate and Losartan HBV negative, HCV negative; SANTI, anti DS DNA, antihistone, ANCA pending Monitor BMP daily GI bleed +FOBT Possible related from swallowing blood due to the nose bleeding GI on board recommended outpatient Colonoscopy Hgb stable today Monitor CBC Coronary artery disease status post coronary artery bypass graft. Continue statin, metoprolol. Continue to holding the aspirin due to epistaxis/low platelet and hgb Bicuspid aortic valve Status post aortic valve replacement with prosthetic valve. stable History of diffuse connective tissue disease Raynaud's syndrome. Methotrexate on hold for now Case discussed with Rheumatology recommended not to resume Methotrexate on discharge Follow up with Rheum on 01/16/19 DVT px on SCDs CODE STATUS FULL CODE Subjective Pt was seen and examined. Lying in bed with no distress Nurse said that early today pt had a brief episode of nose bleeding Nurse said that bleeding stopped shortly after applying the clamp on his nose Pt said that he did not put any finger in his nose He said that the only thing he did was to wipe his nose Denies any chest pain, palpitation and SOB Physical Exam Physical Exam: General- No acute distress Head- atraumatic Eyes- PERRL, EOMI, ENT- Nose Clamp Neck- supple, no JVD Lungs- clear to auscultation Heart- regular rhythm; no murmur Abdomen- normal bowel sounds, soft, nontender Extremities- no calf tenderness Neuro- alert, oriented x 3; PERRL, EOMI; no facial palsy; no dysarthria Skin- Petechia Results & Data Vital Signs (Past 12 Hours) Vital Signs Temp Pulse Pulse Resp BP BP BP 01/06/19 15:49 68 01/06/19 15:38 36.8 C 65 21 156/75 H 01/06/19 13:55 36.0 C L 72 16 157/75 H 01/06/19 12:55 36.8 C 66 16 142/77 H 01/06/19 12:25 36.8 C 75 16 136/88 01/06/19 12:10 36.5 C 68 16 138/70 01/06/19 11:54 36.4 C L 71 18 145/71 H 01/06/19 11:22 36.7 C 72 18 143/77 H 01/06/19 11:12 36.6 C 66 16 162/82 H 01/06/19 10:56 36.4 C L 72 20 162/82 H 01/06/19 08:14 36.9 C 66 18 164/75 H Pulse Ox 01/06/19 15:49 01/06/19 15:38 97 01/06/19 13:55 99 01/06/19 12:55 99 01/06/19 12:25 99 01/06/19 12:10 99 01/06/19 11:54 99 01/06/19 11:22 99 01/06/19 11:12 99 01/06/19 10:56 98 01/06/19 08:14 97
[2019-01-06 18:53] LABS: Hematocrit (blood only) 25.1 % (42-52); Mean Corpuscular Hemoglobin 29.7 pg (25-34); Mean Corpuscular Hgb Conc 35.9 g/dL (32-36); Mean Corpuscular Volume 82.8 fL (80-100); RDW Standard Deviation 45.7 fL (36.4-46.3); Red Blood Count 3.03 M/uL (4.7-6.1); White Blood Count 1.22 K/uL (4.8-10.8)
[2019-01-06 19:22] LABS: Mean Platelet Volume 8.3 fL (7.4-10.4); Platelet Count 42 K/uL (130-400); Platelet Estimate Decreased (Normal)
[2019-01-06] MEDS ORDERED: OXYMETAZOLINE 0.05% 30 ML BTL ONE (20:24)
[2019-01-07 07:39] LABS: Hematocrit (blood only) 25.2 % (42-52); Hemoglobin 8.8 g/dL (14.0-18.0); Mean Corpuscular Hgb Conc 34.9 g/dL (32-36); Mean Corpuscular Volume 83.2 fL (80-100); Mean Platelet Volume 8.2 fL (7.4-10.4); Platelet Count 87 K/uL (130-400); RDW Coefficient of Variation 15.1 % (11.5-14.5); RDW Standard Deviation 45.9 fL (36.4-46.3); Red Blood Count 3.03 M/uL (4.7-6.1); White Blood Count 1.06 K/uL (4.8-10.8)
[2019-01-07 07:55] LABS: Albumin Level 1.7 gm/dl (3.4-5.0); BUN Creatinine Ratio 38.9 (10-20); Calcium 8.2 mg/dl (8.5-10.1); Creatinine Clr Calc Pharmacy 33.2 ml/min; Est GFR (African American) 39.8; Est GFR (Non-African American) 34.3; Potassium 4.2 mmol/L (3.5-5.1)
[2019-01-07 07:58] LABS: Albumin Globulin Ratio 0.4 (0.9-2); Bilirubin,Total 0.5 mg/dl (0.2-1); Globulin 3.8 gm/dl (2.5-4.0); Total Protein 5.5 gm/dl (6.4-8.2)
[2019-01-07 08:07] LABS: Basophils # (auto) 0.01 K/uL (0-0.2); Basophils % (auto) 0.9 %; Eosinophils # (auto) 0.19 K/uL (0-0.5); Eosinophils % (auto) 17.9 %; Lymphocytes # (auto) 0.43 K/uL (1.2-3.4); Lymphocytes % (auto) 40.6 %; Monocytes # (auto) 0.06 K/uL (0.11-0.59); Monocytes % (auto) 5.7 %; Neutrophils # (auto) 0.37 K/uL (1.4-6.5); Neutrophils % (auto) 34.9 %
[2019-01-07] MEDS: FOLIC ACID 1 MG TAB PO SCH (08:29)
[2019-01-07] MEDS: ATORVASTATIN 40 MG TAB PO SCH (08:29)
[2019-01-07] MEDS: NICOTINE 7 MG/24 HR TDSY TD SCH (08:29)
[2019-01-07] MEDS: TAMSULOSIN HCL 0.4 MG CAP PO SCH (08:29)
[2019-01-07] MEDS: METOPROLOL TARTRATE 25 MG TAB PO SCH ×2 (08:29→20:40)
[2019-01-07] MEDS: FERROUS SULFATE 325 MG TAB PO SCH ×2 (08:29→20:40)
[2019-01-07 16:18] LABS: Anti Nuclear Antibody Screen POSITIVE (NEGATIVE); Anti-Histone Ab 3.4 U (<1.0); Anti-dsDNA Recombinant 1 IU/ML; Complement C3 29 MG/DL (82-185)
--- NOTE | 2019-01-07 16:48 | Hospitalist Progress Note ---
Date of Service January 07, 2019 Assessment & Plan (1) Pancytopenia: presented with symptomatic anemia , epistaxis due to profound low platelets Pancytopenia: Thrombocytopenia and anemia Possible related to Methotrexate ; appreciate input from Rheumatology MTx D/pancho Hemoglobin 8 and platelet improved to 87 Received a total of 9 units PRBC and 3 platelet Labs in 10/24/2018 as outpatient showed WBC was 5.3, hemoglobin 10.8, platelets 263. LDH 283, reticulocyte count <0.02 Peripheral smear done showed no abnormal finding, repeat peripheral smear showed no schistocytes and anaplasmosis inclusion Amadou 13 assay within normal limit( no evidence of TTP ) . Haptoglobin elevated at 222 Per Compare : Case has been discussed with hematology Dr. Lucero If platelet drops below 50 and pt develops any bleeding, will transfuse platelet product as per Hematology cont to monitor daily CBC tx for hb < 7 /platelet count < 50 cont Neutropenic precaution (2) Epistaxis: resolved, no further episode for past 2 days ( as per pt ) Mostly due to thrombocytopenia Elevated Lactic acid Doubt about sepsis Lactic acid 5.3 on admission, then normalize Blood cx no growth ID on board Case discussed with ID no evidence of infection or Tick bourne disease -Antibiotics d/pancho . Acute kidney injury Creatinine on admission above 2.4, baseline creatinine of 1-1.3 Creatinine slightly increased from 2.[address] abd/pelvis showed bilateral perinephric stranding of kidney. There are vascular calcifications. There is no hydronephrosis. There are bilateral renal cysts the largest of which measures 38 mm. Nephrology consult appreciated Continue to hold lasix, and Losartan GI bleed +FOBT Possible related from swallowing blood due to the nose bleeding GI on board recommended outpatient screening Colonoscopy -as no evidence of active GI bleed Coronary artery disease status post coronary artery bypass graft. Continue statin, metoprolol. Continue to holding the aspirin due to epistaxis/low platelet and hgb Bicuspid aortic valve Status post aortic valve replacement with prosthetic valve. History of diffuse connective tissue disease Raynaud's syndrome. Methotrexate discontinued due to pancytopenia Case discussed with Rheumatology recommended not to resume Methotrexate on discharge Follow up with Rheum on 01/16/19 DVT px on SCDs CODE STATUS FULL CODE DISPOSITION : expected to be discharged home when pancytopenia improves pt will need Heme Onc follow up on discharge Subjective has not had any nose bleeding for past 2 days no cough or fever or chills feels fine no blood in urine or stool no SOB , no chest pain , no nausea /vomiting or abdominal pain Physical Exam Constitutional: + ill appearing and + thin; no acute distress Eyes: PERRL, conjunctivae normal, anicteric sclerae ENMT: external ear and nose normal, oropharynx normal Neck: trachea midline, no thyromegaly Respiratory: no respiratory distress Auscultation: + crackles; no rales and no wheezes bibasilar Cardiovascular: RRR, no murmur, no edema Gastrointestinal (Abdomen): normal bowel sounds, soft, nontender, no hepatosplenomegaly Musculoskeletal: no cyanosis or clubbing, extremities motor strength 5/5 Skin: no rashes, warm and dry Neurologic: PERRL, EOMI, accommodation nl, no face palsy, no dysarthria Psychiatric: A+Ox3, euthymic affect Results & Data Vital Signs (Past 12 Hours) Vital Signs Temp Pulse Resp BP BP Pulse Ox 01/07/19 16:00 36.6 C 87 18 139/84 96 01/07/19 11:05 36.4 C L 89 20 141/68 H 93 01/07/19 07:53 37.0 C 85 21 137/75 91 01/07/19 04:50 36.6 C 66 20 145/97 H 93
--- NOTE | 2019-01-07 19:07 | Nephrology Progress Note ---
Date of Service January 07, 2019 Assessment & Plan (1) MARANDA (acute kidney injury): MARANDA w/ acceptable chemistries, volume status (though he does have some pedal edema). chemistries acceptable (though mag a bit low). no ramesh anatomic abnormalities on imaging, no obstruction or oliguria. after 4+ L fluid resuscitation, minimal improvement in renal function: non oliguric ATN stable in somewhat atypical case. urine concentrated w/ blood and protein as well as budding yeast; no infection > possibly a nephritic sediment (could be c/w lupus); interstitial nephritis also a consideration. he was on losartan and daily lasix prior to admission in addition to one MTX dose; all of these have of course been held. urine sediment not c/w ATN particularly. CK negative -1.6 gm proteinuria again on very concentrated urine w/ nephritic sediment >> though some microhematuria not surprising w/ thrombocytopenia -HBV, HCV negative; see below re complement, ABs; will add ANCA -in the setting of low platelets and anemia, differential is broad though w/o evidence of hemolysis this narrows somewhat (see below) -daily bmp -complete proteinuria w/u by checking ANCA; ESR, hepatitis panels essentially negative (2) Pancytopenia: -on 01/02 had 2 units pRBC and platelets; all 3 lines down some again today. ESR 26; -no clear cause; but no evidence of hemolysis >> none on smear; LDH minimally elevated; indir bili wnl; haptoglobin pending; heme recommends repeating these tests -index of suspicion for TTP low (otherwise would need to consider urgent plasma exchange) but [id number] pending -eval for immune driven pancytopenia > will test for SLE (C3, C4 both low; daniel screen + as is antihistone AB; f/u pending anti DS DNA), and (less likely) for Felty's syndrome (DANIEL, antihistone (still pending); will send ANCA in am -consider blood cxs for fungus given urine findings -consider CMV, HIV testing -consider anaplasma PCR if not already ordered -consider aplastic anemia -further per primary service and per heme Subjective no complaints except of still being in house. no sob, edema w/o much change ; denies difficulty voiding or gross hematuria; no cough; no further bleeding Review of Systems Review of Systems: All systems reviewed & are unremarkable except as noted in HPI & below Physical Exam Constitutional: well developed, + thin and cooperative; no acute distress Eyes: EOM intact bilaterally ENMT: Ears: no external ear abnormality Nose: no external nose abnormality Mouth: + dry oral mucous membranes Neck: no nuchal rigidity Respiratory: normal respiratory effort Auscultation: + diminished lung sounds Cardiovascular: Rate/Rhythm: regular rate and regular rhythm Extremities: + edema (2+ pedal, 1+ distal BLE); + abnormal capillary refill (whiter finger tips) Gastrointestinal (Abdomen): Inspection/Auscultation: normal bowel sounds Percussion/Palpation: abdomen soft; abdomen nontender Musculoskeletal: Extremities: + abnormal strength (needs help to sit up/transfers tentatively) and + clubbing Skin: no rashes, warm and dry + lesion (healed mostly L medial malleolus) and + ulcer (multiple small ? vascular insufficiency ulcers) Psychiatric: Orientation: alert and oriented x 3 Eye Contact: + fair eye contact (looks away a good bit) Speech: normal rate/rhythm/volume of speech Thought Process: + looseness of associations Insight: good insight Results & Data Vital Signs (Past 12 Hours) Vital Signs Temp Pulse Pulse Resp BP BP Pulse Ox 01/07/19 18:17 36.4 C L 71 18 156/82 H 96 01/07/19 16:00 36.6 C 87 18 139/84 96 01/07/19 11:05 36.4 C L 89 20 141/68 H 93 01/07/19 07:53 37.0 C 85 21 137/75 91 Laboratory Results 01/07/19 07:01 01/07/19 07:01
[2019-01-08 05:55] LABS: Hematocrit (blood only) 24.7 % (42-52); Hemoglobin 8.8 g/dL (14.0-18.0); Mean Corpuscular Hemoglobin 29.8 pg (25-34); Mean Corpuscular Hgb Conc 35.6 g/dL (32-36); Mean Corpuscular Volume 83.7 fL (80-100); Mean Platelet Volume 8.3 fL (7.4-10.4); Platelet Count 62 K/uL (130-400); RDW Coefficient of Variation 15.1 % (11.5-14.5); RDW Standard Deviation 46.5 fL (36.4-46.3); Red Blood Count 2.95 M/uL (4.7-6.1); White Blood Count 0.69 K/uL (4.8-10.8)
[2019-01-08] MEDS: FERROUS SULFATE 325 MG TAB PO SCH ×2 (08:17→21:32)
[2019-01-08] MEDS: TAMSULOSIN HCL 0.4 MG CAP PO SCH (08:18)
[2019-01-08] MEDS: FOLIC ACID 1 MG TAB PO SCH (08:18)
[2019-01-08] MEDS: ATORVASTATIN 40 MG TAB PO SCH (08:18)
[2019-01-08] MEDS: METOPROLOL TARTRATE 25 MG TAB PO SCH ×2 (08:18→20:45)
[2019-01-08] MEDS: NICOTINE 7 MG/24 HR TDSY TD SCH (08:20)
--- NOTE | 2019-01-08 17:12 | Hospitalist Progress Note ---
Date of Service January 08, 2019 Assessment & Plan (1) Pancytopenia: presented with symptomatic anemia , epistaxis due to profound low platelets Pancytopenia: Thrombocytopenia and anemia Possible related to Methotrexate ; appreciate input from Rheumatology MTx D/pancho Hemoglobin remains stable 8.8 and platelet 87 -62 Received a total of 9 units PRBC(received 4 units of PRBC transfusion on 12/30/2018, 3 units of PRBC on 01/02/2019 last transfusion was on 03/07/2018-2 un its of PRBC) and 3 units of platelet Labs in 10/24/2018 as outpatient showed WBC was 5.3, hemoglobin 10.8, platelets 263. Worsening of neutropenia WBC 1.060.69, ANC 0.37 2 panic precaution continued LDH 283, reticulocyte count <0.02 Peripheral smear done showed no abnormal finding, repeat peripheral smear showed no schistocytes and anaplasmosis inclusion Amadou 13 assay within normal limit( no evidence of TTP ) . Haptoglobin elevated at 222 Per Compare : Case has been discussed with hematology Dr. Lucero If platelet drops below 50 and pt develops any bleeding, will transfuse platelet product as per Hematology cont to monitor daily CBC tx for hb < 7 /platelet count < 50 cont Neutropenic precaution (2) Epistaxis: resolved, no further episode for past few days Mostly due to thrombocytopenia avoid antiplatelets and anticoagulants Elevated Lactic acid Doubt about sepsis Lactic acid 5.3 on admission, then normalize Blood cx no growth ID on board Case discussed with ID no evidence of infection or Tick bourne disease -Antibiotics d/pancho . Acute kidney injury Creatinine on admission above 2.4, baseline creatinine of 1-1.3 Creatinine 2.02 to 2.13->1.9 CT abd/pelvis showed bilateral perinephric stranding of kidney. There are vascular calcifications. There is no hydronephrosis. There are bilateral renal cysts the largest of which measures 38 mm. Nephrology consult appreciated Continue to hold lasix, and Losartan Ordered for repeat BMP in a.m. GI bleed +FOBT Possible related from swallowing blood due to the nose bleeding GI on board recommended outpatient screening Colonoscopy -as no evidence of active GI bleed Coronary artery disease status post coronary artery bypass graft. Continue statin, metoprolol. Continue to holding the aspirin due to epistaxis/low platelet and hgb Bicuspid aortic valve Status post aortic valve replacement with prosthetic valve. History of diffuse connective tissue disease Raynaud's syndrome. Methotrexate discontinued due to pancytopenia Case discussed with Rheumatology recommended not to resume Methotrexate on discharge Follow up with Rheum on 01/16/19 DVT px on SCDs CODE STATUS FULL CODE DISPOSITION : appreciate input from PT recommends rehab will update CM Subjective patient denies any discomfort, no fever or chills No further episode of nosebleed/epistaxis, No cough no shortness of breath, appetite fair Physical Exam Constitutional: + ill appearing and + thin; no acute distress Eyes: PERRL, conjunctivae normal, anicteric sclerae ENMT: external ear and nose normal, oropharynx normal Neck: trachea midline, no thyromegaly Respiratory: no respiratory distress Auscultation: + crackles; no rales and no wheezes Cardiovascular: RRR, no murmur, no edema Gastrointestinal (Abdomen): normal bowel sounds, soft, nontender, no hepatosplenomegaly Musculoskeletal: no cyanosis or clubbing, extremities motor strength 5/5 Skin: no rashes, warm and dry Neurologic: PERRL, EOMI, accommodation nl, no face palsy, no dysarthria Psychiatric: A+Ox3, euthymic affect Results & Data Vital Signs (Past 12 Hours) Vital Signs Temp Pulse Pulse Resp BP Pulse Ox 01/08/19 15:34 35.9 C L 67 18 149/75 H 98 01/08/19 11:24 36.3 C L 68 18 119/67 98 01/08/19 08:03 36.3 C L 64 18 163/73 H 99
[2019-01-09 00:31] LABS: Appearance Urine Clear (Clear); Bacteria Urine Automated Negative (Negative); Bilirubin Urine Negative (Negative); Blood Urine 3+ (Negative); Color Urine Yellow; Epithelial Cell Urine Auto 0-5 /lpf (0-5); Glucose Urine UA Negative (Negative); Ketones Urine Negative (Negative); Leukocyte Esterase Urine Negative (Negative); Nitrite Urine Negative (Negative); Protein Urine 2+ (Negative); Specific Gravity Urine 1.021 (1.000-1.030); Urobilinogen Urine Negative (Negative)
[2019-01-09 00:44] LABS: Sperm Urine Present (None Prsent)
[2019-01-09 00:45] LABS: RBC Urine Automated >30 /hpf (0-4)
[2019-01-09 00:52] LABS: Protein Creatinine Ratio Urine 1.9 (0-0.2); Total Protein Urine Random 124.3 mg/dl (0-11.9)
[2019-01-09 06:54] LABS: Hematocrit (blood only) 26.7 % (42-52); Hemoglobin 9.2 g/dL (14.0-18.0); Mean Corpuscular Hemoglobin 29.2 pg (25-34); Mean Corpuscular Hgb Conc 34.5 g/dL (32-36); Mean Corpuscular Volume 84.8 fL (80-100); Mean Platelet Volume 9.2 fL (7.4-10.4); Platelet Count 66 K/uL (130-400); RDW Coefficient of Variation 15.1 % (11.5-14.5); RDW Standard Deviation 46.4 fL (36.4-46.3); Red Blood Count 3.15 M/uL (4.7-6.1); White Blood Count 0.72 K/uL (4.8-10.8)
[2019-01-09 07:05] LABS: BUN Creatinine Ratio 32.3 (10-20); Calcium 8.6 mg/dl (8.5-10.1); Creatinine Clr Calc Pharmacy 33.1 ml/min; Est GFR (African American) 41.3; Est GFR (Non-African American) 35.6; Potassium 4.5 mmol/L (3.5-5.1)
[2019-01-09] MEDS: FERROUS SULFATE 325 MG TAB PO SCH ×2 (07:26→21:11)
[2019-01-09] MEDS: TAMSULOSIN HCL 0.4 MG CAP PO SCH (07:26)
[2019-01-09] MEDS: ATORVASTATIN 40 MG TAB PO SCH (07:27)
[2019-01-09] MEDS: METOPROLOL TARTRATE 25 MG TAB PO SCH ×2 (07:27→21:11)
[2019-01-09] MEDS: NICOTINE 7 MG/24 HR TDSY TD SCH (07:27)
[2019-01-09] MEDS: FOLIC ACID 1 MG TAB PO SCH (07:27)
--- NOTE | 2019-01-09 15:40 | Nephrology Progress Note ---
Date of Service January 09, 2019 Assessment & Plan (1) MARANDA (acute kidney injury): MARANDA w/ acceptable chemistries, volume status (though he does have some pedal edema). chemistries acceptable (though mag a bit low). no ramesh anatomic abnormalities on imaging, no obstruction or oliguria. after 4+ L fluid resuscitation, minimal improvement in renal function: non oliguric ATN stable in somewhat atypical case. not clear what his baseline is>> had been 1.0 x years as of 05/2018; then 09/2018 creat was 1.3 and no f/u lab until presentation w/ creatinine 2.5, hovering at about 2 ever since. urine concentrated w/ blood and protein as well as budding yeast; no infection > possibly a nephritic sediment (could be c/w lupus); interstitial nephritis also a consideration. he was on losartan and daily lasix prior to admission in addition to one MTX dose; all of these have of course been held. urine sediment not c/w ATN particularly. CK negative -1.6 - 1.9 gm proteinuria again on very concentrated urine w/ nephritic sediment >> though some microhematuria not surprising w/ thrombocytopenia -HBV, HCV negative; see below re complement, ABs; f/u pending ANCA -in the setting of low platelets and anemia, differential is broad though w/o evidence of hemolysis this narrows somewhat (see below) >> could in future consider renal bx but w/ steady renal function and plts at current levels would defer this -daily bmp -complete proteinuria w/u by checking ANCA; ESR, hepatitis panels essentially negative (2) Pancytopenia: -on 01/02 had 2 units pRBC and platelets; all 3 lines down some again today. ESR 26; on 01/09 w/ more bleeding -no clear cause; but no evidence of hemolysis >> none on smear; LDH minimally elevated; indir bili wnl; haptoglobin pending; heme recommends repeating these tests -index of suspicion for TTP low (otherwise would need to consider urgent plasma exchange) but [id number] pending -eval for immune driven pancytopenia > will test for SLE (C3, C4 both low; daniel screen + as is antihistone AB; negative for anti DS DNA>>>concern for drug induced lupus and would d/w rheum, w/ heme), and (less likely) for Felty's syndrome (DANIEL, antihistone (still pending); ANCA pending -consider blood cxs for fungus given urine findings -consider CMV, HIV testing -consider aplastic anemia -further per primary service and per heme Subjective seen this evening on rounds>> has nosebleed ongoing (per RN, Dr Helena bey); no sob, no new rash, no cough, no voiding issues no pain Review of Systems Review of Systems: All systems reviewed & are unremarkable except as noted in HPI & below Hematologic / Lymphatic: + easy bleeding Physical Exam Constitutional: well developed, + thin and cooperative; no acute distress (on RA ) Eyes: EOM intact bilaterally ENMT: Ears: no external ear abnormality Nose: + epistaxis; no external nose abnormality Mouth: + dry oral mucous membranes Neck: no nuchal rigidity Respiratory: normal respiratory effort Auscultation: + diminished lung sounds Cardiovascular: Rate/Rhythm: regular rate and regular rhythm Extremities: + edema (2+ pedal, 1+ distal BLE); + abnormal capillary refill (whiter finger tips) Gastrointestinal (Abdomen): Inspection/Auscultation: normal bowel sounds Percussion/Palpation: abdomen soft; abdomen nontender Musculoskeletal: Extremities: + clubbing Skin: no rashes, warm and dry + lesion (healed mostly L medial malleolus) and + ulcer (multiple small ? vascular insufficiency ulcers) Psychiatric: Orientation: alert and oriented x 3 Eye Contact: + fair eye contact (looks away a good bit) Speech: normal rate/rhythm/volume of speech Thought Process: + looseness of associations Insight: good insight Results & Data Vital Signs (Past 12 Hours) Vital Signs Temp Pulse Resp BP BP Pulse Ox 01/09/19 15:27 36.7 C 60 20 167/85 H 97 01/09/19 06:46 36.6 C 60 17 159/75 H 95 01/09/19 03:42 36.7 C 60 19 150/75 H 95 Laboratory Results 01/09/19 06:15 01/09/19 06:15
--- NOTE | 2019-01-09 16:29 | Hospitalist Progress Note ---
Date of Service January 09, 2019 Assessment & Plan (1) Epistaxis: secondary to thrombocytopenia Admitted on 12/31/18 with significant nosebleed/epistaxis for 3 days, Given Afrin spray and nasal clamp in ER ENT was consulted-nasal packing was placed /recommended continue on nasal packing and application of pressure pt was given Platelet transfusion given PRBC tx for acute blood loss anemia due to above last episode of significant Epistaxis was on 01/05/19 AM this Noon developed scant nose bleed , stopped after applying pressure platelets : 66 today cont to monitor if any episode of brisk epistaxis , will transfuse 1 unit of platelets -given the seriousness of Epistaxis on admission -requiring multiple PRBC transfusion Elevated Lactic acid: no evidence of sepsis possible due to low perfusion in setting of severe symptomatic anemia given multiple Units of PRBC transfusion Lactic acid 5.3 on admission-normalized after correction of anemia Blood cx no growth ID on board Case discussed with ID no evidence of infection or Tick bourne disease -Antibiotics d/pancho . Acute kidney injury improved Creatinine on admission above 2.4, baseline creatinine of 1-1.3 Creatinine 2.02 to 2.13->1.9 CT abd/pelvis showed bilateral perinephric stranding of kidney. There are vascular calcifications. There is no hydronephrosis. There are bilateral renal cysts the largest of which measures 38 mm. Nephrology consult appreciated Continue to hold lasix, and Losartan +FOBT Possible related from swallowing blood due to the nose bleeding GI on board recommended outpatient screening Colonoscopy -as no evidence of active GI bleed Coronary artery disease status post coronary artery bypass graft. Continue statin, metoprolol. Continue to holding the aspirin due to epistaxis/low platelet and hgb Bicuspid aortic valve Status post aortic valve replacement with prosthetic valve. (2) Pancytopenia: presented with symptomatic anemia , epistaxis due to profound low platelets Pancytopenia: Thrombocytopenia and anemia Possible related to Methotrexate ; appreciate input from Rheumatology MTx D/pancho Hemoglobin remains stable 8.8 and platelet 87 -62 Received a total of 9 units PRBC(received 4 units of PRBC transfusion on 12/30/2018, 3 units of PRBC on 01/02/2019 last transfusion was on 03/07/2018-2 units of PRBC) and 3 units of platelet Labs in 10/24/2018 as outpatient showed WBC was 5.3, hemoglobin 10.8, platelets 263. Worsening of neutropenia WBC 1.060.69, ANC 0.37 2 panic precaution continued LDH 283, reticulocyte count <0.02 Peripheral smear done showed no abnormal finding, repeat peripheral smear showed no schistocytes and anaplasmosis inclusion Amadou 13 assay within normal limit( no evidence of TTP ) . Haptoglobin elevated at [address] Compare : Case has been discussed with hematology Dr. Lucero If platelet drops below 50 and pt develops any bleeding, will transfuse platelet product as per Hematology cont to monitor daily CBC tx for hb < 7 /platelet count < 50 ( we may transfuse at at higher level ~60 if there is evidence of active bleeding /significant epistaxis cont Neutropenic precaution History of diffuse connective tissue disease Raynaud's syndrome. Methotrexate discontinued due to pancytopenia Case discussed with Rheumatology recommended not to resume Methotrexate on discharge Follow up with Rheum on 01/16/19 Per Nephrology note : -eval for immune driven pancytopenia :C3, C4 both low; daniel screen + as is antihistone AB; negative for anti DS DNA concern for SLE and (less likely) for Felty's syndrome (DANIEL, antihistone (still pending); ordered for ANCA in will Discuss lab findings with Rhumatology DVT px on SCDs no anticoagulation due to anemia /thrombocytopenia , bleeding risk CODE STATUS FULL CODE DISPOSITION : appreciate input from PT recommends rehab social service consulted for discharge planning Subjective Had episode of nosebleed around noon today, Pressure was applied, Nosebleed stopped after ice packs and nasal pressure Patient seen at bedside, No active epistaxis noted Reports of feeling fine No complaint of shortness of breath, no fever or chills, No report of hematuria, no melanotic stool No abdominal pain, no nausea vomiting tolerating diet Physical Exam Constitutional: + ill appearing and + thin; no acute distress Eyes: PERRL, conjunctivae normal, anicteric sclerae ENMT: external ear and nose normal, oropharynx normal Neck: trachea midline, no thyromegaly Respiratory: no respiratory distress Auscultation: + crackles; no rales and no wheezes Cardiovascular: RRR, no murmur, no edema Gastrointestinal (Abdomen): normal bowel sounds, soft, nontender, no hepatosplenomegaly Musculoskeletal: no cyanosis or clubbing, extremities motor strength 5/5 Skin: no rashes, warm and dry Neurologic: PERRL, EOMI, accommodation nl, no face palsy, no dysarthria Psychiatric: A+Ox3, euthymic affect Results & Data Vital Signs (Past 12 Hours) Vital Signs Temp Pulse Resp BP BP Pulse Ox 01/09/19 15:27 36.7 C 60 20 167/85 H 97 01/09/19 06:46 36.6 C 60 17 159/75 H 95
[2019-01-09] MEDS ORDERED: SODIUM CHLORIDE 0.9% 250 ML IV PRN (18:44)
[2019-01-10 06:48] LABS: Hematocrit (blood only) 24.1 % (42-52); Hemoglobin 8.4 g/dL (14.0-18.0); Mean Corpuscular Hemoglobin 29.9 pg (25-34); Mean Corpuscular Hgb Conc 34.9 g/dL (32-36); Mean Corpuscular Volume 85.8 fL (80-100); Mean Platelet Volume 9.3 fL (7.4-10.4); Platelet Count 112 K/uL (130-400); Red Blood Count 2.81 M/uL (4.7-6.1); White Blood Count 0.68 K/uL (4.8-10.8)
[2019-01-10 06:54] LABS: Creatinine Clr Calc Pharmacy 33.1 ml/min; Est GFR (African American) 40.3; Est GFR (Non-African American) 34.7
[2019-01-10 06:59] LABS: Eosinophils # (auto) 0.11 K/uL (0-0.5); Eosinophils % (auto) 16.2 %; Giant Platelets 1+; Lymphocytes # (auto) 0.29 K/uL (1.2-3.4); Lymphocytes % (auto) 42.6 %; Monocytes # (auto) 0.22 K/uL (0.11-0.59); Monocytes % (auto) 32.4 %; Neutrophils # (auto) 0.06 K/uL (1.4-6.5); Neutrophils % (auto) 8.8 %
[2019-01-10] MEDS: TAMSULOSIN HCL 0.4 MG CAP PO SCH (08:51)
[2019-01-10] MEDS: FERROUS SULFATE 325 MG TAB PO SCH ×2 (08:51→20:54)
[2019-01-10] MEDS: FOLIC ACID 1 MG TAB PO SCH (08:51)
[2019-01-10] MEDS: NICOTINE 7 MG/24 HR TDSY TD SCH (08:51)
[2019-01-10] MEDS: ATORVASTATIN 40 MG TAB PO SCH (08:52)
[2019-01-10] MEDS: METOPROLOL TARTRATE 25 MG TAB PO SCH ×2 (08:52→20:56)
--- NOTE | 2019-01-10 16:00 | Hospitalist Progress Note ---
Date of Service January 10, 2019 Assessment & Plan (1) Epistaxis: given 1 unit of platelet tx last night for episode of epistaxis Platelet count improved to 112 secondary to thrombocytopenia Admitted on 12/31/18 with significant nosebleed/epistaxis for 3 days, Given Afrin spray and nasal clamp in ER ENT was consulted-nasal packing was placed /recommended continue on nasal packing and application of pressure pt was given Platelet transfusion given PRBC tx for acute blood loss anemia due to above last episode of significant Epistaxis was on 01/05/19 AM Elevated Lactic acid: no evidence of sepsis possible due to low perfusion in setting of severe symptomatic anemia given multiple Units of PRBC transfusion Lactic acid 5.3 on admission-normalized after correction of anemia Blood cx no growth ID on board Case discussed with ID no evidence of infection or Tick bourne disease -Antibiotics d/pancho . Acute kidney injury improved Creatinine on admission above 2.4, baseline creatinine of 1-1.3 Creatinine 2.02 to 2.13->1.9 CT abd/pelvis showed bilateral perinephric stranding of kidney. There are vascular calcifications. There is no hydronephrosis. There are bilateral renal cysts the largest of which measures 38 mm. Nephrology consult appreciated Continue to hold lasix, and Losartan +FOBT Possible related from swallowing blood due to the nose bleeding GI on board recommended outpatient screening Colonoscopy -as no evidence of active GI bleed Coronary artery disease status post coronary artery bypass graft. Continue statin, metoprolol. Continue to holding the aspirin due to epistaxis/low platelet and hgb Bicuspid aortic valve Status post aortic valve replacement with prosthetic valve. (2) Pancytopenia: presented with symptomatic anemia , epistaxis due to profound low platelets Pancytopenia: Thrombocytopenia and anemia Possible related to Methotrexate ; appreciate input from Rheumatology MTx D/pancho Hemoglobin remains stable 8.8 and platelet 87 -62 Received a total of 9 units PRBC(received 4 units of PRBC transfusion on 12/30/2018, 3 units of PRBC on 01/02/2019 last transfusion was on 03/07/2018-2 units of PRBC) and 4 units of platelet Labs in 10/24/2018 as outpatient showed WBC was 5.3, hemoglobin 10.8, platelets 263. Worsening of neutropenia WBC 1.060.69, ANC 0.37 2 panic precaution continued LDH 283, reticulocyte count <0.02 Peripheral smear done showed no abnormal finding, repeat peripheral smear showed no schistocytes and anaplasmosis inclusion Amadou 13 assay within normal limit( no evidence of TTP ) . Haptoglobin elevated at [address] Compare : Case has been discussed with hematology Dr. Lucero If platelet drops below 50 and pt develops any bleeding, will transfuse platelet product as per Hematology cont to monitor daily CBC tx for hb < 7 /platelet count < 50 ( we may transfuse at at higher level ~60 if there is evidence of active bleeding /significant epistaxis cont Neutropenic precaution History of diffuse connective tissue disease Raynaud's syndrome. Methotrexate discontinued due to pancytopenia Case discussed with Rheumatology recommended not to resume Methotrexate on discharge Follow up with Rheum on 01/16/19 Per Nephrology note : -eval for immune driven pancytopenia :C3, C4 both low; daniel screen + as is antihistone AB; negative for anti DS DNA concern for SLE and (less likely) for Felty's syndrome (DANIEL, antihistone (still pending); ordered for ANCA in will Discuss lab findings with Rhumatology DVT px on SCDs no anticoagulation due to anemia /thrombocytopenia , bleeding risk CODE STATUS FULL CODE DISPOSITION : appreciate input from PT recommends rehab social service consulted for discharge planning Subjective no further episode of nose blood given 1 unit of Platelet transfusion yesterday no fever or chills offers no other complain Physical Exam Constitutional: + ill appearing and + thin; no acute distress Eyes: PERRL, conjunctivae normal, anicteric sclerae ENMT: external ear and nose normal, oropharynx normal Neck: trachea midline, no thyromegaly Respiratory: no respiratory distress Auscultation: + crackles; no rales and no wheezes Cardiovascular: RRR, no murmur, no edema Gastrointestinal (Abdomen): normal bowel sounds, soft, nontender, no hepatosplenomegaly Musculoskeletal: no cyanosis or clubbing, extremities motor strength 5/5 Skin: no rashes, warm and dry Neurologic: PERRL, EOMI, accommodation nl, no face palsy, no dysarthria Psychiatric: A+Ox3, euthymic affect Results & Data Vital Signs (Past 12 Hours) Vital Signs Temp Pulse Pulse Resp BP Pulse Ox 01/10/19 15:52 36.3 C L 71 18 142/84 H 97 01/10/19 07:17 36.4 C L 69 18 150/77 H 96 01/10/19 04:06 36.7 C 71 18 134/75 96
[2019-01-11 06:32] LABS: Hematocrit (blood only) 26.2 % (42-52); Hemoglobin 8.8 g/dL (14.0-18.0); Mean Corpuscular Hemoglobin 29.2 pg (25-34); Mean Corpuscular Hgb Conc 33.6 g/dL (32-36); Mean Platelet Volume 9.6 fL (7.4-10.4); Platelet Count 117 K/uL (130-400); RDW Coefficient of Variation 15.1 % (11.5-14.5); RDW Standard Deviation 47.6 fL (36.4-46.3); Red Blood Count 3.01 M/uL (4.7-6.1); White Blood Count 0.79 K/uL (4.8-10.8)
[2019-01-11 06:33] LABS: Basophils # (auto) 0.01 K/uL (0-0.2); Basophils % (auto) 1.3 %; Eosinophils # (auto) 0.13 K/uL (0-0.5); Eosinophils % (auto) 16.5 %; Lymphocytes # (auto) 0.34 K/uL (1.2-3.4); Monocytes # (auto) 0.23 K/uL (0.11-0.59); Monocytes % (auto) 29.1 %; Neutrophils # (auto) 0.08 K/uL (1.4-6.5); Neutrophils % (auto) 10.1 %
[2019-01-11 06:50] LABS: Creatinine Clr Calc Pharmacy 34.8 ml/min; Est GFR (African American) 42.7; Est GFR (Non-African American) 36.8
[2019-01-11] MEDS: ATORVASTATIN 40 MG TAB PO SCH (08:54)
[2019-01-11] MEDS: FOLIC ACID 1 MG TAB PO SCH (08:55)
[2019-01-11] MEDS: TAMSULOSIN HCL 0.4 MG CAP PO SCH (08:55)
[2019-01-11] MEDS: METOPROLOL TARTRATE 25 MG TAB PO SCH ×2 (08:55→21:32)
[2019-01-11] MEDS: FERROUS SULFATE 325 MG TAB PO SCH ×2 (08:55→21:32)
[2019-01-11] MEDS: NICOTINE 7 MG/24 HR TDSY TD SCH (08:55)
--- NOTE | 2019-01-11 10:59 | Hospitalist Progress Note ---
Date of Service January 11, 2019 Assessment & Plan (1) Epistaxis: no further episode of nose bleed given 1 unit of platelet tx on Saturday01/09/19 for episode of epistaxis Platelet count improved to 112 ->117 with no evidence of bleeding Admitted on 12/31/18 with significant nosebleed/epistaxis for 3 days, secondary to thrombocytopenia Given Afrin spray and nasal clamp in ER ENT was consulted-nasal packing was placed /recommended continue on nasal packing and application of pressure ACUTE BLOOD LOSS ANEMIA: due to severe epistaxis received multiple units of PRBC tx HB remains stable at 8.8 no further bleeding episode Elevated Lactic acid: resolved no evidence of sepsis possible due to low perfusion in setting of severe symptomatic anemia given multiple Units of PRBC transfusion Lactic acid 5.3 on admission-normalized after correction of anemia Blood cx no growth ID on board Case discussed with ID no evidence of infection or Tick bourne disease -Antibiotics d/pancho . Acute kidney injury resolved car at [facility] Creatinine on admission above 2.4, baseline creatinine of 1-1.3 Creatinine 2.02 to 2.13->1.9 CT abd/pelvis showed bilateral perinephric stranding of kidney. There are vascular calcifications. There is no hydronephrosis. There are bilateral renal cysts the largest of which measures 38 mm. Nephrology consult appreciated Continue to hold lasix, and Losartan +FOBT Possible related from swallowing blood due to the nose bleeding GI on board recommended outpatient screening Colonoscopy -as no evidence of active GI bleed Coronary artery disease status post coronary artery bypass graft. Continue statin, metoprolol. Continue to holding the aspirin due to epistaxis/low platelet and hgb Bicuspid aortic valve Status post aortic valve replacement with prosthetic valve. (2) Pancytopenia: presented with symptomatic anemia , epistaxis due to profound low platelets Pancytopenia: Thrombocytopenia and anemia Possible related to Methotrexate ; appreciate input from Rheumatology MTx D/pancho Hemoglobin remains stable 8.8 and platelet 87 -62 Received a total of 9 units PRBC(received 4 units of PRBC transfusion on 12/30/2018, 3 units of PRBC on 01/02/2019 last transfusion was on 03/07/2018-2 units of PRBC) and 4 units of platelet Labs in 10/24/2018 as outpatient showed WBC was 5.3, hemoglobin 10.8, platelets 263. Worsening of neutropenia WBC 1.060.69, ANC 0.37 2 panic precaution continued LDH 283, reticulocyte count <0.02 Peripheral smear done showed no abnormal finding, repeat peripheral smear showed no schistocytes and anaplasmosis inclusion Amadou 13 assay within normal limit( no evidence of TTP ) . Haptoglobin elevated at [address] Compare : Case has been discussed with hematology Dr. Lucero If platelet drops below 50 and pt develops any bleeding, will transfuse platelet product as per Hematology cont to monitor daily CBC tx for hb < 7 /platelet count < 50 ( we may transfuse at at higher level ~60 if there is evidence of active bleeding /significant epistaxis cont Neutropenic precaution History of diffuse connective tissue disease Raynaud's syndrome. Methotrexate discontinued due to pancytopenia Case discussed with Rheumatology recommended not to resume Methotrexate on discharge Follow up with Rheum on 01/16/19 Per Nephrology note : -eval for immune driven pancytopenia :C3, C4 both low; daniel screen + as is antihistone AB; negative for anti DS DNA concern for SLE and (less likely) for Felty's syndrome (DANIEL, antihistone (still pending); ordered for ANCA will Discuss lab findings with Rheumatology DVT px on SCDs no anticoagulation due to anemia /thrombocytopenia , bleeding risk CODE STATUS FULL CODE DISPOSITION : pt been ambulating independently at home spoke with pt and both of them feels strongly to return home with home health and Home PT plan to discharged home with services when medically stable Subjective feels fine , no nose bleed no cough or SOB comfortable ambulating independently in room complains of feeling tired and fatigued -but symptoms has improved since admission inquiring about when he can be discharged home no fever or chills Physical Exam Constitutional: + ill appearing and + thin; no acute distress Eyes: PERRL, conjunctivae normal, anicteric sclerae ENMT: external ear and nose normal, oropharynx normal Neck: trachea midline, no thyromegaly Respiratory: no respiratory distress Auscultation: + crackles; no rales and no wheezes Cardiovascular: RRR, no murmur, no edema Gastrointestinal (Abdomen): normal bowel sounds, soft, nontender, no hepatos plenomegaly Musculoskeletal: no cyanosis or clubbing, extremities motor strength 5/5 Skin: no rashes, warm and dry Neurologic: PERRL, EOMI, accommodation nl, no face palsy, no dysarthria Psychiatric: A+Ox3, euthymic affect Results & Data Vital Signs (Past 12 Hours) Vital Signs Temp Pulse Pulse Resp BP BP Pulse Ox 01/11/19 07:07 36.6 C 88 18 151/87 H 95 01/11/19 04:04 36.8 C 87 18 145/83 H 97 01/10/19 23:06 37.0 C 75 18 149/83 H
--- NOTE | 2019-01-12 07:00 | XRay Report ---
XR chest 1V portable CLINICAL HISTORY: sob dyspnea COMPARISON STUDY: 12/31/2018 FINDINGS: Myocardial megaly. Prior median sternotomy. Slight increase in prominence of pulmonary vasculature. A trace pleural effusion right lung base. Min imal right basilar atelectasis. IMPRESSION: Mild congestive heart failure. Small right pleural effusion. The above report was generated using voice recognition software. It may contain grammatical, syntax or spelling errors. Electronically signed by: Ramone Bartlett M.D. 01/12/2019 6:58 AM
--- NOTE | 2019-01-12 08:15 | CT Scan Report ---
CT head/brain wo con CLINICAL HISTORY: 68 years-old Male with changed mental status. Acutely altered mental status TECHNIQUE: Multiple axial CT images of the head were obtained without contrast. A dose lowering tech nique was utilized adhering to the principles of ALARA. CT DOSE: 537.48 mGy.cm COMPARISON: None. FINDINGS: No acute intracranial hemorrhage, midline shift, intracranial mass, hydrocephalus, territorial ischem ia or abnormal extra-axial collection. Age-related involutional changes with ex vacuo ventriculomegal y. Patchy white matter hypodensities suggest chronic microvascular ischemic disease. Senescent calcif ications of the lentiform nuclei are noted. The calvarium is intact. The paranasal sinuses, mastoid air cells, and middle ear cavities are clear . IMPRESSION: No acute intracranial abnormality. The above report was generated using voice recognition software. It may contain grammatical, syntax o r spelling errors. Electronically signed by: Christian Soto M.D. 01/12/2019 8:14 AM
[2019-01-12] MEDS: FERROUS SULFATE 325 MG TAB PO SCH ×2 (08:25→20:59)
[2019-01-12] MEDS: TAMSULOSIN HCL 0.4 MG CAP PO SCH (08:25)
[2019-01-12] MEDS: METOPROLOL TARTRATE 25 MG TAB PO SCH ×2 (08:26→20:59)
[2019-01-12] MEDS: ATORVASTATIN 40 MG TAB PO SCH (08:26)
[2019-01-12] MEDS: FOLIC ACID 1 MG TAB PO SCH (08:26)
[2019-01-12] MEDS: NICOTINE 7 MG/24 HR TDSY TD SCH (08:26)
[2019-01-12] MEDS ORDERED: methylPREDNISolone 1,000 MG in DEXTROSE 5% 250 ML IV STA (08:31)
[2019-01-12 09:04] LABS: Base Excess ABG -1.7 mEq/L (-9-1.8); HCO3 ABG 21 mmol/L (19-24); Oxygen Saturation ABG 96.3 % (90-95); PCO2 ABG 27 mmHg (35-46); PO2 ABG 88 mm/Hg (80-95)
[2019-01-12 09:05] LABS: Allen Test Pos (Pos)
[2019-01-12 09:07] LABS: Hematocrit (blood only) 26.5 % (42-52); Mean Corpuscular Hemoglobin 29.3 pg (25-34); Mean Corpuscular Volume 86.3 fL (80-100); Mean Platelet Volume 9.3 fL (7.4-10.4); Platelet Count 119 K/uL (130-400); RDW Coefficient of Variation 15.6 % (11.5-14.5); Red Blood Count 3.07 M/uL (4.7-6.1); White Blood Count 0.64 K/uL (4.8-10.8)
[2019-01-12 09:28] LABS: BUN Creatinine Ratio 23.9 (10-20); Calcium 8.5 mg/dl (8.5-10.1); Creatinine Clr Calc Pharmacy 31.7 ml/min; Est GFR (African American) 37.6; Est GFR (Non-African American) 32.5; Magnesium 1.6 mg/dl (1.8-2.4); Potassium 4.8 mmol/L (3.5-5.1)
[2019-01-12 09:31] LABS: Albumin Globulin Ratio 0.4 (0.9-2); Bilirubin,Total 0.5 mg/dl (0.2-1); Globulin 4.5 gm/dl (2.5-4.0); Total Protein 6.5 gm/dl (6.4-8.2)
[2019-01-12 09:44] LABS: Basophils # (auto) 0.02 K/uL (0-0.2); Basophils % (auto) 3.1 %; Eosinophils # (auto) 0.05 K/uL (0-0.5); Eosinophils % (auto) 7.8 %; Immature Granulocytes # (auto) 0.04 K/uL (0.00-0.02); Immature Granulocytes % (auto) 6.3 %; Lymphocytes # (auto) 0.27 K/uL (1.2-3.4); Lymphocytes % (auto) 42.2 %; Monocytes # (auto) 0.22 K/uL (0.11-0.59); Monocytes % (auto) 34.4 %; Neutrophils # (auto) 0.04 K/uL (1.4-6.5); Neutrophils % (auto) 6.2 %
[2019-01-12] MEDS ORDERED: MAGNESIUM SULFATE / D5W 1 GM/100 ML BAG IV ONE (09:45)
--- NOTE | 2019-01-12 11:52 | Hospitalist Progress Note ---
Date of Service January 12, 2019 Assessment & Plan (1) Epistaxis: ACUTE CONFUSIONAL STATE/METABOLIC ENCEPHALOPATHY: pt had acute change in mental status last evening and continued till this AM no acute CVA noted in CT head no evidence of infection , stable vitals D/w Rheumatology pts lab works suggestive of possible Drug induced Lupus does not feel pt has Neuro involvement of Lupus -causing the acute symptom _neuro Lupus ; usually presented with Seizure , brain imaging change -suggestive of vasculitis in agreement with high dose IV Solu Medrol : 1 gm daily X 3 days -which is standard for any form of Lupus flare added PO PPI for Gi prophylaxis pt clinically much improved later this day improvement of cognition resolution of delirium will cont to monitor pt is high risk for " sundowning " -delirium in the evening observe fall precaution , bed alarm q 15 mins Nursing check -can be changed to 1: 1 observation if indicated PRN low dose PO ativan ordered for anxiety /restlessness which could occur with high dose IV Solu Medrol DRUG INDUCED LUPUS : spoke with Rheumatololgy pts' Lab work /Immune studies suggestive of Drug induced Lupus : + anti Histone Ab( specific for drug induced Lupus ) with + SANTI , low C3/C4 which could be due to -Doxycycline pt was treated with IV Doxycycline on admission for suspicion of Lyme /Anaplasmosis causing pancytopenia /severe thrombocytopenia which can explain persisted Neutropenia , anemia , thrombocytopenia pt ordered IV Solu Medrol 1 gm daily for total 3 days ( will be treated like any SLE flare ) then transition to PO Prednisone 20 mg daily and follow up with Rheum in office DO NOT GIVE IV HYDRALAZINE -WILL PRECIPITATE DRUG INDUCED LUPUS EPISTAXIS no further episode of nose bleed given 1 unit of platelet tx on Saturday01/09/19 for episode of epistaxis Platelet count remains elevated > 100 K with no evidence of bleeding Admitted on 12/31/18 with significant nosebleed/epistaxis for 3 days, secondary to thrombocytopenia Given Afrin spray and nasal clamp in ER ENT was consulted-nasal packing was placed /recommended continue on nasal packing and application of pressure ACUTE BLOOD LOSS ANEMIA: due to severe epistaxis received multiple units of PRBC tx HB remains stable at 8.8 no further bleeding episode Elevated Lactic acid: resolved no evidence of sepsis possible due to low perfusion in setting of severe symptomatic anemia given multiple Units of PRBC transfusion Lactic acid 5.3 on admission-normalized after correction of anemia Blood cx no growth ID on board Case discussed with ID no evidence of infection or Tick bourne disease -Antibiotics d/pancho . Acute kidney injury Creatinine on admission above 2.4, baseline creatinine of 1-1.3 Creatinine 2.02 to 2.13->1.9 CT abd/pelvis showed bilateral perinephric stranding of kidney. There are vascular calcifications. There is no hydronephrosis. There are bilateral renal cysts the largest of which measures 38 mm. Nephrology consult appreciated Continue to hold lasix, and Losartan pt will need out clinic work for Lupus nephritis +FOBT Possible related from swallowing blood due to the nose bleeding GI on board recommended outpatient screening Colonoscopy -as no evidence of active GI bleed Coronary artery disease status post coronary artery bypass graft. Continue statin, metoprolol. Continue to hold the aspirin due to epistaxis/low platelet and hgb Bicuspid aortic valve Status post aortic valve replacement with prosthetic valve. Recent EDUAR shows normal functionin of valve (2) Pancytopenia: persistent Neutropenia due to Drug induced Lupus ? presented with symptomatic anemia , epistaxis due to profound low platelets Pancytopenia: Thrombocytopenia and anemia recent tx with Methotrexate ; appreciate input from Rheumatology MTx D/pancho Hemoglobin remains stable 8.8 and platelet improved > 100k Received a total of 9 units PRBC(received 4 units of PRBC transfusion on 2018, 3 units of PRBC on 01/02/2019 last transfusion was on 03/07/2018-2 units of PRBC) and 4 units of platelet Labs in 10/24/2018 as outpatient showed WBC was 5.3, hemoglobin 10.8, platelets 263. worsening of Neutropenia WBC in 0.69 cont neutropenic no evidence of hemolytic anemia : LDH 283, reticulocyte count <0.02 Peripheral smear done showed no abnormal finding, repeat peripheral smear showed no schistocytes and anaplasmosis inclusion Amadou 13 assay within normal limit( no evidence of TTP ) . Haptoglobin elevated at [address] Compare : Case has been discussed with hematology Dr. 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 Methotrexate discontinued due to pancytopenia Case discussed with Rheumatology started on high dose of IV SOlu Medrol for possible drug induced Lupus follow CBC closely Follow up appointment scheduled with Rheum on 01/16/19 DVT px on SCDs no anticoagulation due to anemia /thrombocytopenia , bleeding risk CODE STATUS FULL CODE DISPOSITION : cont Fall precaution PT/OT eval both of them feels strongly to return home with home health and Home PT plan to discharged home with services when medically stable Subjective pt was seen at 8 am -as nursing reports pt being confused ,agitated refused vitals and lab draw developed acute confusional state last evening disturbance in gait , urinary incontinence ( new ) confusion with delirium -was trying to eat plastic was noted to be hypoxic over night night speech therapist early intervention physician was updated -cxray shows mild pulm vascular congestion ABG shows alkalosis with low C02 suggestive of hyperventilation stat CT head done -shows no evidence of acute CVA ordered for fall precaution , bed alarm REVISIT AT 5 PM : pt is alert and awake , very pleasant no delirium or psychosis does not recall any events form last night or this AM Pt's present at bedside -updated regarding the events Physical Exam Constitutional: + ill appearing and + thin; no acute distress Eyes: PERRL, conjunctivae normal, anicteric sclerae ENMT: external ear and nose normal, oropharynx normal Neck: trachea midline, no thyromegaly Respiratory: no respiratory distress Auscultation: no crackles, no rales and no wheezes Cardiovascular: RRR, no murmur, no edema Gastrointestinal (Abdomen): normal bowel sounds, soft, nontender, no hepatosplenomegaly Musculoskeletal: no cyanosis or clubbing, extremities motor strength 5/5 Skin: no rashes, warm and dry Neurologic: PERRL, EOMI, accommodation nl, no face palsy, no dysarthria Psychiatric: Orientation: alert and oriented to person (very forgetful /no psychosis or delusion ) Results & Data Vital Signs (Past 12 Hours) Vital Signs Temp Pulse Pulse Resp BP Pulse Ox 01/12/19 11:10 37.4 C 75 18 114/64 95 01/12/19 07:42 36.6 C 100 H 22 171/80 H 91 01/12/19 04:11 37.4 C 87 22 173/73 H 100
[2019-01-12] MEDS ORDERED: LORazepam 0.5 MG TAB PO PRN (17:08)
[2019-01-12] MEDS: PANTOprazole 40 MG TAB PO SCH (17:51)
[2019-01-13 07:29] LABS: Hematocrit (blood only) 23.7 % (42-52); Mean Corpuscular Hemoglobin 29.1 pg (25-34); Mean Corpuscular Hgb Conc 33.8 g/dL (32-36); Mean Corpuscular Volume 86.2 fL (80-100); Mean Platelet Volume 10.6 fL (7.4-10.4); Platelet Count 129 K/uL (130-400); RDW Coefficient of Variation 15.6 % (11.5-14.5); RDW Standard Deviation 48.3 fL (36.4-46.3); Red Blood Count 2.75 M/uL (4.7-6.1); White Blood Count 0.73 K/uL (4.8-10.8)
[2019-01-13 07:43] LABS: Basophils # (auto) 0.01 K/uL (0-0.2); Basophils % (auto) 1.4 %; Immature Granulocytes # (auto) 0.07 K/uL (0.00-0.02); Immature Granulocytes % (auto) 9.6 %; Lymphocytes # (auto) 0.28 K/uL (1.2-3.4); Lymphocytes % (auto) 38.4 %; Monocytes # (auto) 0.17 K/uL (0.11-0.59); Monocytes % (auto) 23.3 %; Neutrophils % (auto) 27.3 %
[2019-01-13 07:47] LABS: Albumin Level 1.6 gm/dl (3.4-5.0); BUN Creatinine Ratio 24.9 (10-20); Calcium 7.7 mg/dl (8.5-10.1); Creatinine Clr Calc Pharmacy 27.8 ml/min; Est GFR (African American) 32.5; Est GFR (Non-African American) 28.1; Magnesium 1.8 mg/dl (1.8-2.4); Potassium 4.2 mmol/L (3.5-5.1)
[2019-01-13 07:50] LABS: Albumin Globulin Ratio 0.4 (0.9-2); Bilirubin,Total 0.3 mg/dl (0.2-1); Globulin 3.9 gm/dl (2.5-4.0); Total Protein 5.5 gm/dl (6.4-8.2)
[2019-01-13] MEDS: methylPREDNISolone 1,000 MG in DEXTROSE 5% 250 ML IV SCH (08:40)
[2019-01-13] MEDS: FOLIC ACID 1 MG TAB PO SCH (08:42)
[2019-01-13] MEDS: METOPROLOL TARTRATE 25 MG TAB PO SCH ×2 (08:42→20:11)
[2019-01-13] MEDS: TAMSULOSIN HCL 0.4 MG CAP PO SCH (08:42)
[2019-01-13] MEDS: ATORVASTATIN 40 MG TAB PO SCH (08:42)
[2019-01-13] MEDS: FERROUS SULFATE 325 MG TAB PO SCH ×2 (08:42→20:10)
[2019-01-13] MEDS: NICOTINE 7 MG/24 HR TDSY TD SCH (08:43)
[2019-01-13] MEDS: PANTOprazole 40 MG TAB PO SCH (08:43)
--- NOTE | 2019-01-13 11:55 | Hospitalist Progress Note ---
Date of Service January 13, 2019 Assessment & Plan (1) Epistaxis: ACUTE CONFUSIONAL STATE/METABOLIC ENCEPHALOPATHY: pt had acute change in mental status -improved , resolved after starting on high dose IV Solu Medrol no acute CVA noted in CT head no evidence of infection , stable vitals D/w Rheumatology Dr Garza pts lab works suggestive of possible Drug induced Lupus does not feel pt has Neuro involvement of Lupus -causing the acute symptom _neuro Lupus ; usually presented with Seizure , brain imaging change -suggestive of vasculitis in agreement with high dose IV Solu Medrol : 1 gm daily X 3 days -which is standard for any form of Lupus flare added PO PPI for Gi prophylaxis can be discharged on PO Prednisone daily scheduled to see Rheum in office on 01/16/19Saturday pt clinically improved improvement of cognition resolution of delirium will cont to monitor pt is high risk for " ing " -delirium in the evening observe fall precaution , bed alarm noted significant decline in gait and ambulation , will benefit with rehab DRUG INDUCED LUPUS : spoke with Rheumatololgy pts' Lab work /Immune studies suggestive of Drug induced Lupus : + anti Histone Ab( specific for drug induced Lupus ) with + SANTI , low C3/C4 which could be due to -Doxycycline pt was treated with IV Doxycycline on admission for suspicion of Lyme /Anaplasmosis causing pancytopenia /severe thr ombocytopenia which can explain persisted Neutropenia , anemia , thrombocytopenia pt ordered IV Solu Medrol 1 gm daily for total 3 days ( will be treated like any SLE flare ) then transition to PO Prednisone 20 mg daily and follow up with Rheum in office DO NOT GIVE IV HYDRALAZINE -WILL PRECIPITATE DRUG INDUCED LUPUS EPISTAXIS no further episode of nose bleed given 1 unit of platelet tx on Saturday01/09/19 for episode of epistaxis Platelet count remains elevated > 100 K with no evidence of bleeding Admitted on 12/31/18 with significant nosebleed/epistaxis for 3 days, secondary to thrombocytopenia Given Afrin spray and nasal clamp in ER ENT was consulted-nasal packing was placed /recommended continue on nasal packing and application of pressure ACUTE BLOOD LOSS ANEMIA: due to severe epistaxis received multiple units of PRBC tx HB remains stable at 8.8 no further bleeding episode Elevated Lactic acid: resolved no evidence of sepsis possible due to low perfusion in setting of severe symptomatic anemia given multiple Units of PRBC transfusion Lactic acid 5.3 on admission-normalized after correction of anemia Blood cx no growth ID on board Case discussed with ID no evidence of infection or Tick bourne disease -Antibiotics d/pancho . Acute kidney injury Creatinine on admission above 2.4, baseline creatinine of 1-1.3 Creatinine 2.02 to 2.13->1.9-> 2 CT abd/pelvis showed bilateral perinephric stranding of kidney. There are vascular calcifications. There is no hydronephrosis. There are bilateral renal cysts the largest of which measures 38 mm. Nephrology consult appreciated Continue to hold lasix, and Losartan pt will need out clinic work for Lupus nephritis +FOBT Possible related from swallowing blood due to the nose bleeding GI on board recommended outpatient screening Colonoscopy -as no evidence of active GI bleed Coronary artery disease status post coronary artery bypass graft. Continue statin, metoprolol. Continue to hold the aspirin due to epistaxis/low platelet and hgb Bicuspid aortic valve Status post aortic valve replacement with prosthetic valve. Recent EDUAR shows normal function of valve (2) Pancytopenia: persistent Neutropenia due to Drug induced Lupus ? presented with symptomatic anemia , epistaxis due to profound low platelets Pancytopenia: Thrombocytopenia and anemia-count remains stable and platelet count cont to improve recent tx with Methotrexate ; appreciate input from Rheumatology MTx D/pancho Hemoglobin remains stable 8.8 and platelet improved > 100k Received a total of 9 units PRBC(received 4 units of PRBC transfusion on 12/30/2018, 3 units of PRBC on 01/02/2019 last transfusion was on 03/07/2018-2 units of PRBC) and 4 units of platelet Labs in 10/24/2018 as outpatient showed WBC was 5.3, hemoglobin 10.8, platelets 263. worsening of Neutropenia WBC in 0.69 cont neutropenic precuation WBC 0.79 today no evidence of hemolytic anemia : LDH 283, reticulocyte count <0.02 Peripheral smear done showed no abnormal finding, repeat peripheral smear showed no schistocytes and anaplasmosis inclusion Amadou 13 assay within normal limit( no evidence of TTP ) . Haptoglobin elevated at [address] Rio : Case has been discussed with hematology Dr. Lucero If platelet drops below 50 and pt develops any bleeding, will transfuse platelet product as per Hematology cont to monitor daily CBC tx for hb < 7 /platelet count < 50 ( we may transfuse at at higher level ~60 if there is evidence of active bleeding /significant epistaxis cont Neutropenic precaution will need follow up with Hemeatology in clinic History of diffuse connective tissue disease with Raynaud's syndrome. Methotrexate discontinued due to pancytopenia Case discussed with Rheumatology started on high dose of IV SOlu Medrol for possible drug induced Lupus follow CBC closely Follow up appointment scheduled with Rheum on 01/16/19 DVT px on SCDs no anticoagulation due to anemia /thrombocytopenia , bleeding risk CODE STATUS FULL CODE DISPOSITION : cont Fall precaution PT/OT eval appreciated recommends rehab social service following for dc planning Subjective awake and alert appropriate no nose bleed , no fever of chills per nursing -pt noted have significant gait disturbance /weakness , requiring 1 person assistance with walker to walk to bathroom -which is significant decline from his baseline functional status at home pt remains high fall risk asked for PT/OT to re evaluate the pt today previously plan was to return home with support and home hela , home pt given pt's clinical decline -rehab would be appropriate Physical Exam Constitutional: + ill appearing and + thin; no acute distress Eyes: PERRL, conjunctivae normal, anicteric sclerae ENMT: external ear and nose normal, oropharynx normal Neck: trachea midline, no thyromegaly Respiratory: no respiratory distress Auscultation: no crackles, no rales and no wheezes Cardiovascular: RRR, no murmur, no edema Gastrointestinal (Abdomen): normal bowel sounds, soft, nontender, no hepatosplenomegaly Musculoskeletal: no cyanosis or clubbing, extremities motor strength 5/5 Skin: no rashes, warm and dry Neurologic: PERRL, EOMI, accommodation nl, no face palsy, no dysarthria Psychiatric: A+Ox3, euthymic affect Orientation: alert and oriented to person (very forgetful /no psychosis or delusion ) Results & Data Vital Signs (Past 12 Hours) Vital Signs Temp Pulse Resp BP Pulse Ox 01/13/19 10:48 60 20 118/64 96 01/13/19 09:32 36.0 C L 01/13/19 08:26 35.0 C L 54 L 16 162/83 H 98 01/13/19 03:39 36.3 C L 65 16 138/69 96
--- NOTE | 2019-01-13 15:38 | Nephrology Progress Note ---
Date of Service January 13, 2019 Assessment & Plan (1) MARANDA (acute kidney injury): MARANDA w/ acceptable chemistries, volume status (though he does have some pedal edema). chemistries acceptable (though new slight acidosis today). no ramesh anatomic abnormalities on imaging, no obstruction or oliguria. after 4+ L fluid resuscitation, minimal improvement in renal function: non oliguric ATN s table in somewhat atypical case. not clear what his baseline is>> had been 1.0 x years as of 05/2018; then 09/2018 creat was 1.3 and no f/u lab until presentation w/ creatinine 2.5, hovering at about 2 ever since. urine concentrated w/ blood and protein as well as budding yeast; no infection > possibly a nephritic sediment (could be c/w lupus); interstitial nephritis also a consideration. he was on losartan and daily lasix prior to admission in addition to one MTX dose; all of these have of course been held. urine sediment not c/w ATN particularly. CK negative -1.6 - 1.9 gm proteinuria again on very concentrated urine w/ nephritic sediment >> though some microhematuria not surprising w/ thrombocytopenia -HBV, HCV negative; see below re complement, ABs; f/u pending ANCA -in the setting of low platelets (though these are finally imporving) and anemia, differential is broad though w/o evidence of hemolysis this narrows somewhat (see below) >> could in future consider renal bx but w/ steady renal function and plts at current levels would defer this -daily bmp -complete proteinuria w/u by checking ANCA; ESR, hepatitis panels essentially negative (2) Pancytopenia: -on 01/02 had 2 units pRBC and platelets; anemia and plts improving but marked leukopenia persists. ESR 26; on 01/09 w/ more bleeding -no clear cause; but no evidence of hemolysis >> none on smear; LDH minimally elevated; indir bili wnl; haptoglobin pending; heme recommends repeating these tests -index of suspicion for TTP low (otherwise would need to consider urgent plasma exchange) but [id number] pending -eval for immune driven pancytopenia > will test for SLE (C3, C4 both low; daniel screen + as is antihistone AB; negative for anti DS DNA>>>concern for drug induced lupus and would d/w rheum, w/ heme), and (less likely) for Felty's syndrome (DANIEL, antihistone (still pending); ANCA and and anti kelley/seo professional abs pending>>AB c/w 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cycline (only had one dose hydralazine) >> however pt pancytopenic on arrival; after stopping doxy, plts improved, anemia stable; leukopenia celio neutropenia worsened; -consider blood cxs for fungus given urine findings -consider CMV, HIV testing -consider aplastic anemia -further per primary service and per heme/rheum Subjective seen on round sthis am > pleasant, appropriate; denies musculoskeletal pain, further bleeding, voiding difficulties; no abd pain; denies further bleeding Review of Systems Review of Systems: All systems reviewed & are unremarkable except as noted in HPI & below Physical Exam Constitutional: well developed, + thin and cooperative; no acute distress (on RA ) Eyes: EOM intact bilaterally ENMT: Ears: no external ear abnormality Nose: no external nose abnormality Mouth: + dry oral mucous membranes Neck: no nuchal rigidity Respiratory: normal respiratory effort Auscultation: + diminished lung sounds Cardiovascular: Rate/Rhythm: regular rate and regular rhythm Extremities: + edema (2+ pedal, 1+ distal BLE) Gastrointestinal (Abdomen): Inspection/Auscultation: normal bowel sounds Percussion/Palpation: abdomen soft; abdomen nontender Musculoskeletal: Extremities: + clubbing Skin: no rashes, warm and dry + lesion (healed mostly L medial malleolus) and + ulcer (multiple small ? vascular insufficiency ulcers) Neurologic: gonzales, fluen tspeech Psychiatric: Orientation: alert and oriented x 3 Eye Contact: + fair eye contact (looks away a good bit) Speech: normal rate/rhythm/volume of speech Thought Process: + looseness of associations Insight: + limited insight Judgement: + limited judgement Results & Data Vital Signs (Past 12 Hours) Vital Signs Temp Pulse Resp BP Pulse Ox 01/13/19 15:12 37.0 C 57 L 18 109/67 97 01/13/19 10:48 60 20 118/64 96 01/13/19 09:32 36.0 C L 01/13/19 08:26 35.0 C L 54 L 16 162/83 H 98 01/13/19 03:39 36.3 C L 65 16 138/69 96 Laboratory Results 01/13/19 06:57 01/13/19 06:57
[2019-01-14 06:13] LABS: Hematocrit (blood only) 24.9 % (42-52); Hemoglobin 8.4 g/dL (14.0-18.0); Mean Corpuscular Hemoglobin 29.1 pg (25-34); Mean Corpuscular Hgb Conc 33.7 g/dL (32-36); Mean Corpuscular Volume 86.2 fL (80-100); Mean Platelet Volume 11.1 fL (7.4-10.4); Platelet Count 154 K/uL (130-400); RDW Coefficient of Variation 15.5 % (11.5-14.5); RDW Standard Deviation 48.7 fL (36.4-46.3); Red Blood Count 2.89 M/uL (4.7-6.1); White Blood Count 1.53 K/uL (4.8-10.8)
[2019-01-14 06:42] LABS: BUN Creatinine Ratio 26.7 (10-20); Calcium 7.9 mg/dl (8.5-10.1); Creatinine Clr Calc Pharmacy 27.8 ml/min; Est GFR (African American) 31.9; Est GFR (Non-African American) 27.5; Potassium 4.8 mmol/L (3.5-5.1)
[2019-01-14 06:54] LABS: Basophils # (auto) 0.01 K/uL (0-0.2); Basophils % (auto) 0.7 %; Immature Granulocytes # (auto) 0.11 K/uL (0.00-0.02); Immature Granulocytes % (auto) 7.2 %; Lymphocytes # (auto) 0.22 K/uL (1.2-3.4); Lymphocytes % (auto) 14.4 %; Monocytes # (auto) 0.53 K/uL (0.11-0.59); Monocytes % (auto) 34.6 %; Neutrophils # (auto) 0.66 K/uL (1.4-6.5); Neutrophils % (auto) 43.1 %
[2019-01-14 06:55] LABS: Giant Platelets 1+
[2019-01-14] MEDS: FERROUS SULFATE 325 MG TAB PO SCH ×2 (07:51→20:54)
[2019-01-14] MEDS: METOPROLOL TARTRATE 25 MG TAB PO SCH ×2 (07:52→20:54)
[2019-01-14] MEDS: TAMSULOSIN HCL 0.4 MG CAP PO SCH (07:52)
[2019-01-14] MEDS: PANTOprazole 40 MG TAB PO SCH (07:52)
[2019-01-14] MEDS: ATORVASTATIN 40 MG TAB PO SCH (07:52)
[2019-01-14] MEDS: FOLIC ACID 1 MG TAB PO SCH (07:52)
[2019-01-14] MEDS: NICOTINE 7 MG/24 HR TDSY TD SCH (07:53)
[2019-01-14] MEDS: methylPREDNISolone 1,000 MG in DEXTROSE 5% 250 ML IV SCH (09:32)
--- NOTE | 2019-01-14 18:30 | Hospitalist Progress Note ---
Date of Service January 14, 2019 Assessment & Plan (1) Epistaxis: Acute Confusional State/Metabolic Encephalopathy CT head:No acute intracranial abnormality. ? Delirium Mental status improved Monitor Drug-induced lupus Pancytopenia Serological Work up : Positive SANTI, histone antibody, low C3, C4 Lyme Screen:Negative ? Could be due to Doxycycline Prior hospitalist discussed with rheumatology Dr Garza Received high dose IV Solu Medrol : 1 gm daily X 3 days Transition to prednisone 20 mg daily Has follow-up with rheumatology as outpatient on 01/16/19 Pancytopenia improving Monitor CBC Avoid medications which can precipitate drug-induced lupus (Eg:Hydralazine) Epistaxis ENT was consulted-nasal packing was placed /recommended continue on nasal packing and application of pressure--as per prior hospitalist Resolved S/P 1 unit of platelet tx on 01/09/19 for episode of epistaxis Platelet count improved monitor Acute Blood Loss Anemia due to severe epistaxis received multiple units of PRBCs Hb now stable Monitor Elevated Lactic acid: resolved possible due to Hypoperfusion in setting of severe symptomatic anemia Received multiple Units of PRBC transfusion Lactic acid normalized after correction of anemia Blood/Urine Cx: No growth Case discussed with ID by Prior Hospitalist Antibiotics discontinued Acute Kidney Injury Likely nonoliguric ATN ? Lupus nephritis Unclear baseline creatinine Received multiple blood transfusions CT abd/pelvis showed bilateral perinephric stranding of kidney. There are vascular calcifications. There is no hydronephrosis. There are bilateral renal cysts the largest of which measures 38 mm. Appreciate Nephrology Input Hold lasix, Losartan for now Needs follow up with Nephrology upon discharge Positive Fecal Occult Likely due to nose bleeding GI consulted Needs screening colonoscopy as outpatient CAD S/P CABG Continue statin, metoprolol. Aspirin held due to epistaxis/thrombocytopenia /anemia Bicuspid aortic valve S/P AVR with prosthetic valve. Recent EDUAR shows normal function of valve (2) Pancytopenia: Pancytopenia likely due to drug-induced lupus Recently received multiple blood transfusions and platelet transfusions Work-up negative for hemolytic anemia Management as above Monitor CBC Needs follow-up with hematology as outpatient As per Prior Hospitalist: no evidence of hemolytic anemia : LDH 283, reticulocyte count <0.02 Peripheral smear done showed no abnormal finding, repeat peripheral smear showed no schistocytes and anaplasmosis inclusion Amadou 13 assay within normal limit( no evidence of TTP ) Haptoglobin elevated at 222 Case has been discussed with hematology Dr. Nic Plan to transfuse if hemoglobin less than 7, platelet count less than 50 K/or active bleeding H/O diffuse connective tissue disease with ray nods syndrome Methotrexate discontinued secondary to pancytopenia Needs follow-up with rheumatology upon discharge DVT Px: SCDs Re: Anemia/thrombocytopenia/bleeding risk CODE STATUS FULL CODE DISPOSITION : Needs acute rehab placement Subjective Patient is seen and examined at bedside No bleeding issues Pancytopenia improving Has generalized weakness PT recommends rehab placement Denies any chest pain, shortness of breath, dizziness, nausea, abdominal pain No family at bedside Review of Systems Review of Systems: All systems reviewed & are unremarkable except as noted in HPI & below Physical Exam Physical Exam: Physical Exam: Vitals signs as noted above General Appearance: Chronically ill-appearing, no apparent distress Head: normocephalic, Atraumatic Eyes: normal inspection, EOMI Neck: supple, Trachea midline Respiratory/Chest: Decreased breath sounds, CTA Cardiovascular: S1, S2, No murmur Abdomen/GI:Soft, Non tender, Bowel sounds present Extremities/Musculoskelatal:normal inspection, B/L LE edema Neurologic/Psych:AAOX3, grossly no focal neurological deficits Skin: normal color, warm Results & Data Vital Signs (Past 12 Hours) Vital Signs Temp Pulse Resp BP BP Pulse Ox 01/14/19 15:38 36.5 C 01/14/19 15:12 57 L 16 107/58 L 96 01/14/19 07:16 36.3 C L 107 H 16 128/61 92 Laboratory Results Short CBC 01/14/19 Range/Units 05:50 WBC 1.53 L (4.8-10.8) K/uL Hgb 8.4 L (14.0-18.0) g/dL Hct 24.9 L (42-52) % Plt Count 154 (130-400) K/uL BMP 01/14/19 05:50 Sodium 139 Potassium 4.8 Chloride 111 H Carbon Dioxide 18 L BUN 62 H Creatinine 2.33 H Glucose 113 H Calcium 7.9 L
[2019-01-15 06:50] LABS: Hematocrit (blood only) 25.3 % (42-52); Hemoglobin 8.5 g/dL (14.0-18.0); Mean Corpuscular Hemoglobin 28.9 pg (25-34); Mean Corpuscular Hgb Conc 33.6 g/dL (32-36); Mean Corpuscular Volume 86.1 fL (80-100); Mean Platelet Volume 11.1 fL (7.4-10.4); Platelet Count 171 K/uL (130-400); RDW Coefficient of Variation 15.6 % (11.5-14.5); RDW Standard Deviation 48.2 fL (36.4-46.3); Red Blood Count 2.94 M/uL (4.7-6.1)
[2019-01-15 07:19] LABS: BUN Creatinine Ratio 32.7 (10-20); Calcium 7.9 mg/dl (8.5-10.1); Creatinine Clr Calc Pharmacy 29.1 ml/min; Est GFR (African American) 33.6; Potassium 4.8 mmol/L (3.5-5.1)
[2019-01-15 07:45] LABS: Basophils # (auto) 0.02 K/uL (0-0.2); Basophils % (auto) 0.8 %; Echinocytes 1+; Giant Platelets 1+; Immature Granulocytes # (auto) 0.17 K/uL (0.00-0.02); Immature Granulocytes % (auto) 6.8 %; Lymphocytes # (auto) 0.49 K/uL (1.2-3.4); Lymphocytes % (auto) 19.6 %; Monocytes # (auto) 0.28 K/uL (0.11-0.59); Monocytes % (auto) 11.2 %; Neutrophils # (auto) 1.54 K/uL (1.4-6.5); Neutrophils % (auto) 61.6 %
[2019-01-15] MEDS: PANTOprazole 40 MG TAB PO SCH (08:04)
[2019-01-15] MEDS: TAMSULOSIN HCL 0.4 MG CAP PO SCH (08:04)
[2019-01-15] MEDS: FOLIC ACID 1 MG TAB PO SCH (08:05)
[2019-01-15] MEDS: ATORVASTATIN 40 MG TAB PO SCH (08:05)
[2019-01-15] MEDS: FERROUS SULFATE 325 MG TAB PO SCH (08:05)
[2019-01-15] MEDS: NICOTINE 7 MG/24 HR TDSY TD SCH (08:06)
[2019-01-15] MEDS: METOPROLOL TARTRATE 25 MG TAB PO SCH (08:42)
[2019-01-15] MEDS ORDERED: predniSONE 20 MG TAB PO SCH (09:00)
--- NOTE | 2019-01-15 11:34 | Nephrology Progress Note ---
Date of Service January 15, 2019 Assessment & Plan (1) MARANDA (acute kidney injury): MARANDA w/ acceptable chemistries, volume status (though he does have some pedal edema). chemistries acceptable. no ramesh anatomic abnormalities on imaging (some simple cysts), no obstruction or oliguria. after 4+ L fluid resuscitation, minimal improvement in renal function: non oliguric ATN stable in somewhat atypical case versus drug induced lupus affecting kidney. not clear what his baseline is>> had been 1.0 x years as of 05/2018; then 09/2018 creat was 1.3 and no f/u lab until presentation w/ creatinine 2.5, hovering at about 2 ever since. urine concentrated w/ blood and protein as well as budding yeast; no infection > possibly a nephritic sediment (could be c/w lupus); interstitial nephritis also a consideration. he was on losartan and daily lasix prior to admission in addition to one MTX dose; all of these have of course been held. urine sediment not c/w ATN particularly. CK negative -1.6 - 1.9 gm proteinuria again on very concentrated urine w/ nephritic sediment >> though some microhematuria not surprising w/ thrombocytopenia -HBV, HCV negative; see below re complement, ABs; f/u pending ANCA -in the setting of low platelets (though these are finally imporving) and anemia, differential is broad though w/o evidence of hemolysis this narrows somewhat (see below) >> could in future consider renal bx but w/ steady renal function and plts at current levels would defer this -daily bmp -complete proteinuria w/u by checking ANCA; ESR, hepatitis panels essentially negative >>>>>needs weekly bmp, cbc/d at d/c x 4 and to see any nephro MD in 4-6 wks in [facility] [place] >> renal nurses placing lab orders, workign on appt (2) Pancytopenia: 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 to 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 >>>hydralazine (had only one dose of this) -no evidence of hemolysis >> none on smear; LDH minimally elevated; indir bili wnl; haptoglobin pending; heme recommends repeating these tests -index of suspicion for TTP low but [id number] pending -immune driven pancytopenia > most c/w drug induced lupus >> C3, C4 both low; daniel screen + as is antihistone AB; negative for anti DS DNA>>>concern (less likely) for Felty's syndrome (DANIEL, antihistone (still pending); ANCA and and anti kelley/pack puller abs pending>>AB c/w 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cycline (only had one dose hydralazine) >>>>>>however pt already pancytopenic on arrival; after stopping doxy, plts improved, anemia stable; leukopenia celio neutropenia worsened; -further per primary service and per heme/rheum Subjective feels better; eating, looking out window. no voiding concerns; BLE edema unchanged; no sob. no furthe rbleeding. sees rheum as OP tomorrow Review of Systems Review of Systems: All systems reviewed & are unremarkable except as noted in HPI & below Physical Exam Constitutional: well developed, + thin and cooperative; no acute distress (on RA sitting up in chair) Eyes: EOM intact bilaterally ENMT: Ears: no external ear abnormality Nose: no external nose abnormality Mouth: + dry oral mucous membranes Neck: no nuchal rigidity Respiratory: normal respiratory effort Auscultation: + diminished lung sounds Cardiovascular: Rate/Rhythm: regular rate and regular rhythm Extremities: + edema (2+ pedal, 1+ distal BLE) Gastrointestinal (Abdomen): Inspection/Auscultation: normal bowel sounds Percussion/Palpation: abdomen soft; abdomen nontender Musculoskeletal: Extremities: + clubbing Skin: no rashes, warm and dry + lesion (healed mostly L medial malleolus) and + ulcer (multiple small ? vascular insufficiency ulcers) Psychiatric: Orientation: alert and oriented x 3 Eye Contact: + fair eye contact (looks away a good bit) Speech: normal rate/rhythm/volume of speech Thought Process: + looseness of associations Insight: + limited insight Judgement: + limited judgement Results & Data Vital Signs (Past 12 Hours) Vital Signs Temp Pulse Resp BP Pulse Ox 01/15/19 08:31 36.4 C L 59 L 20 135/69 99 Laboratory Results 01/15/19 06:27 01/15/19 06:27
--- NOTE | 2019-01-15 14:28 | Hospitalist Progress Note ---
Date of Service January 15, 2019 Assessment & Plan (1) Epistaxis: Acute Confusional State/Metabolic Encephalopathy CT head:No acute intracranial abnormality. ? Delirium Mental status improved but not to baseline yet Monitor Drug-induced lupus Pancytopenia Serological Work up : Positive SANTI, histone antibody, low C3, C4 Lyme Screen:Negative ? Could be due to Doxycycline Prior hospitalist discussed with rheumatology Dr Garza Received high dose IV Solu Medrol : 1 gm daily X 3 days Transitioned to prednisone 20 mg daily Has follow-up with rheumatology as outpatient on 01/16/19 Pancytopenia improved Neutropenia resolved Monitor CBC Avoid medications which can precipitate drug-induced lupus (Eg:Hydralazine) Epistaxis ENT was consulted-nasal packing was placed /recommended continue on nasal packing and application of pressure--as per prior hospitalist Resolved S/P 1 unit of platelet tx on 01/09/19 for episode of epistaxis Platelet count improved monitor Acute Blood Loss Anemia due to severe epistaxis received multiple units of PRBCs Hb now stable Monitor Elevated Lactic acid: resolved possible due to Hypoperfusion in setting of severe symptomatic anemia Received multiple Units of PRBC transfusion Lactic acid normalized after correction of anemia Blood/Urine Cx: No growth Case discussed with ID by Prior Hospitalist Antibiotics discontinued Acute Kidney Injury Likely nonoliguric ATN ? Lupus nephritis Unclear baseline creatinine Received multiple blood transfusions CT abd/pelvis showed bilateral perinephric stranding of kidney. There are vascular calcifications. There is no hydronephrosis. There are bilateral renal cysts the largest of which measures 38 mm. Appreciate Nephrology Input Hold lasix, Losartan for now Needs follow up with Nephrology upon discharge Positive Fecal Occult Likely due to nose bleeding GI consulted Needs screening colonoscopy as outpatient CAD S/P CABG Continue statin, metoprolol. Aspirin held due to epistaxis/thrombocytopenia /anemia Bicuspid aortic valve S/P AVR with prosthetic valve. Recent EDUAR shows normal function of valve (2) Pancytopenia: Pancytopenia likely due to drug-induced lupus Recently received multiple blood transfusions and platelet transfusions Work-up negative for hemolytic anemia Management as above Monitor CBC Needs follow-up with hematology as outpatient As per Prior Hospitalist: no evidence of hemolytic anemia : LDH 283, reticulocyte count <0.02 Peripheral smear done showed no abnormal finding, repeat peripheral smear showed no schistocytes and anaplasmosis inclusion Amadou 13 assay within normal limit( no evidence of TTP ) Haptoglobin elevated at 222 Case has been discussed with hematology Dr. 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 Methotrexate discontinued secondary to pancytopenia Needs follow-up with rheumatology upon discharge DVT Px: SCDs Re: Anemia/thrombocytopenia/bleeding risk CODE STATUS FULL CODE DISPOSITION : Plan to discharge to Rehab Facility Subjective Patient is seen and examined at bedside Has intermittent confusion--unchanged No bleeding issues Pancytopenia improved Denies any chest pain, shortness of breath, dizziness, nausea, abdominal pain Plan to discharge to rehab facility today Review of Systems Review of Systems: All systems reviewed & are unremarkable except as noted in HPI & below Physical Exam Physical Exam: Physical Exam: Vitals signs as noted above General Appearance: Chronically ill-appearing, no apparent distress Head: normocephalic, Atraumatic Eyes: normal inspection, EOMI Neck: supple, Trachea midline Respiratory/Chest: Decreased breath sounds, CTA Cardiovascular: S1, S2, No murmur Abdomen/GI:Soft, Non tender, Bowel sounds present Extremities/Musculoskelatal:normal inspection, B/L LE edema Neurologic/Psych:AAOX3, grossly no focal neurological deficits Skin: normal color, warm Results & Data Vital Signs (Past 12 Hours) Vital Signs Temp Pulse Pulse Pulse Resp BP Pulse Ox 01/15/19 14:04 36.2 C L 100 H 20 126/64 97 01/15/19 12:30 36.2 C L 01/15/19 11:55 34.9 C L 54 L 20 126/64 97 01/15/19 08:31 36.4 C L 59 L 20 135/69 99 Laboratory Results Short CBC 01/15/19 Range/Units 06:27 WBC 2.50 L (4.8-10.8) K/uL Hgb 8.5 L (14.0-18.0) g/dL Hct 25.3 L (42-52) % Plt Count 171 (130-400) K/uL BMP 01/15/19 06:27 Sodium 138 Potassium 4.8 Chloride 110 H Carbon Dioxide 21 BUN 73 H Creatinine 2.23 H Glucose 100 H Calcium 7.9 L
--- NOTE | 2019-01-15 14:42 | Discharge Summary ---
Date of Service January 15, 2019 Admission HPI Per Admitting Provider CHIEF COMPLAINT: Epistaxis. HISTORY OF PRESENT ILLNESS: This is a 68-year-old male with past medical history significant for COPD, moderate peripheral artery disease, history of carotid arteries bilaterally, history of Raynaud's syndrome, history of aortic valve, bicuspid, status post aortic valve replacement with bioprosthetic valve, mitral regurgitation, hypertension, CAD, protein-calorie malnutrition, undifferentiated connective tissue disease, history of anemia, presents with epistaxis. The patient says since last 3 days, he was having left side nose bleeding, significant bleeding on and off, he thought it would stop by itself, but it was not getting better, so his called the ambulance and brought him here. He got Afrin spray and nasal clamp placed in Er His labs showed pancytopenia with hemoglobin of 7.1, platelets 122, white count of 3.9. His lactic acid came as 5.3. Troponin is negative. Creatinine was 2.4. In the ER, engorged tick was taken out from left abdomen. Denies any fever, chills. No headache, no dizziness, no blurred visions, no earache, no sore throat, no difficulty swallowing. Appetite is okay. No recent weight gain or weight loss, no night sweats. Sleeps okay. Was nauseous earlier, but okay now. No vomiting, no abdominal pain, no blood in the stools or black stools, no hematuria, no burning micturition. He has chronic swelling in the legs. Has petechial rash seen in the legs. hypothermic and extremities were cold when he came in Doppler done in the ER was positive for pulse and his Hemoccult stool was negative. In the ER, he was currently on Marybeth-Hugger temperature improved.. The patient is also on methotrexate for connective tissue disease. The patient is on methotrexate for 2 years. It was stopped recently, but again restarted about a month ago. Admission Exam Per Admitting Provider PHYSICAL EXAMINATION: GENERAL: The patient is thinly built, not in acute distress. VITAL SIGNS: Temperature 37, when he came in, it was 35.1, currently 37.1. Respiratory rate 20, blood pressure 112/67, pulse 97. HEENT: No pallor, no icterus. Pupils equal, round, reactive to light. Nasal clamp. NECK: No JVD, no neck masses. No carotid bruits. CARDIOVASCULAR: S1, S2 heard, regular rate and rhythm, no murmur. RESPIRATORY SYSTEM: Normal AP diameter. Diminished breath sounds. No wheezing, no crackles. ABDOMEN: Soft, bowel sounds present, nontender. No distention. CENTRAL NERVOUS SYSTEM: Alert and oriented, not in acute distress. Moves extremities. EXTREMITIES: Bilateral lower extremity edema present and some petechial rash seen in the lower extremity. Principal Diagnosis Drug-induced lupus Epistaxis Metabolic encephalopathy Acute blood loss anemia Acute kidney injury Pancytopenia Discharge Data Allergies Allergy/AdvReac Type Severity Reaction Status Date / Time doxycycline AdvReac Severe Unknown Verified 01/13/19 15:45 hydralazine AdvReac Intermediate Unknown Verified 01/13/19 15:45 Consultations 12/30/18 22:21 ED Decision to Admit Stat 12/31/18 02:06 Consult Case Management - Discharge Planning Routine 12/31/18 08:00 Consult Hematology Routine Consult Otolaryngology (Head and Neck) Routine Consult Rheumatology Routine 12/31/18 08:40 Consult Infectious Diseases Routine 01/02/19 10:19 Consult Nephrology Routine 01/02/19 19:54 Consult Gastroenterology Routine Procedures Performed CT head:No acute intracranial abnormality. CT ABD: 1. No evidence of bowel obstruction. No evidence of free air 2. Fluid-filled nondilated small bowel loops without evidence for significant wall thickening 3. No acute inflammatory changes. CXR: Cardiomegaly with no acute cardiopulmonary abnormality. CT Chest: 1. No acute intrathoracic pathology. 2. Evidence of old granulomatous disease. 3. Smoking-related lung injury with emphysema and bronchitis. 4. Minimal debris in the lower trachea may represent secretions. Postsurgical changes of CABG and aortic valve replacement. 5. Additional findings as above. Ordered Studies 12/31/18 00:37 CT abd pelvis wo con Urgent CT chest wo con Urgent 01/12/19 07:27 CT head/brain wo con Stat Hospital Course (1) Epistaxis: Acute Confusional State/Metabolic Encephalopathy CT head:No acute intracranial abnormality. ? Delirium Mental status improved but not to baseline yet Monitor Drug-induced lupus Pancytopenia Serological Work up : Positive SANTI, histone antibody, low C3, C4 Lyme Screen:Negative ? Could be due to Doxycycline Prior hospitalist discussed with rheumatology Dr Garza Received high dose IV Solu Medrol : 1 gm daily X 3 days Transitioned to prednisone 20 mg daily Has follow-up with rheumatology as outpatient on 01/16/19 Pancytopenia improved Neutropenia resolved Monitor CBC Avoid medications which can precipitate drug-induced lupus (Eg:Hydralazine) Epistaxis ENT was consulted-nasal packing was placed /recommended continue on nasal packing and application of pressure--as per prior hospitalist Resolved S/P 1 unit of platelet tx on 01/09/19 for episode of epistaxis Platelet count improved monitor Acute Blood Loss Anemia due to severe epistaxis received multiple units of PRBCs Hb now stable Monitor Elevated Lactic acid: resolved possible due to Hypoperfusion in setting of severe symptomatic anemia Received multiple Units of PRBC transfusion Lactic acid normalized after correction of anemia Blood/Urine Cx: No growth Case discussed with ID by Prior Hospitalist Antibiotics discontinued Acute Kidney Injury Likely nonoliguric ATN ? Lupus nephritis Unclear baseline creatinine Received multiple blood transfusions CT abd/pelvis showed bilateral perinephric stranding of kidney. There are vascular calcifications. There is no hydronephrosis. There are bilateral renal cysts the largest of which measures 38 mm. Appreciate Nephrology Input Hold lasix, Losartan for now Needs follow up with Nephrology upon discharge Positive Fecal Occult Likely due to nose bleeding GI consulted Needs screening colonoscopy as outpatient CAD S/P CABG Continue statin, metoprolol. Aspirin held due to epistaxis/thrombocytopenia /anemia Bicuspid aortic valve S/P AVR with prosthetic valve. Recent EDUAR shows normal function of valve (2) Pancytopenia: Pancytopenia likely due to drug-induced lupus Recently received multiple blood transfusions and platelet transfusions Work-up negative for hemolytic anemia Management as above Monitor CBC Needs follow-up with hematology as outpatient As per Prior Hospitalist: no evidence of hemolytic anemia : LDH 283, reticulocyte count <0.02 Peripheral smear done showed no abnormal finding, repeat peripheral smear showed no schistocytes and anaplasmosis inclusion Amadou 13 assay within normal limit( no evidence of TTP ) Haptoglobin elevated at 222 Case has been discussed with hematology Dr. 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 Methotrexate discontinued secondary to pancytopenia Needs follow-up with rheumatology upon discharge DVT Px: SCDs Re: Anemia/thrombocytopenia/bleeding risk CODE STATUS FULL CODE DISPOSITION : Plan to discharge to Rehab Facility Total Time Total Time Spent Total Time Spent (In Minutes): 45 Total Time Includes: Examination of the Patient, Discharge Planning, Medication Reconciliation, Communication With Other Providers and Other Discharge Plan Discharge Items Patient Disposition: Transfer Inpatient Rehab Fac Reason For Visit: NOSE BLEED Discharge Diagnosis: Drug-induced lupus Epistaxis Metabolic encephalopathy Acute blood loss anemia Acute kidney injury Pancytopenia Activity: Resume your previous activity Exercise/Sports: Gradually increase as tolerated Non-emergency contact: Primary Care Provider, Specialist and Hot Repairman Call non-emergency contact if: you have any medication questions, your symptoms worsen, your pain is not controlled, your pain is worsening and your pain is unusual for you Follow-up/Referrals: Germaine Foley MD, PhD [Physician] - Zara Mora [Physician] - Ana Carpenter DO [Primary Care Provider] - Sybil Kevin MD, PhD [Physician] - Tomas Corona MD [Hospitalist] - (FOLLOW UP IN 2-3 WEEKS ) Diet: Regular Ambulatory Orders: Basic Metabolic Panel (Routine) Timeframe: 1 Week Location: Determined by Patient Ordered By: Mary Escalera Complete Blood Count with Diff (Routine) Timeframe: 1 Week Location: Determined by Patient Ordered By: Mary Escalera Addtl Attending Provider Instructions: FOLLOW UP WITH HEMATOLOGY /ONCOLOGY DR CORONA IN 2 WEEK FOR LOW BLOOD COUNT ADVISED FOLLOW UP WITH RHEUMATOLOGY DR MOSHER on 01/16/19 SCHEDULED FOLLOW UP WITH GASTROENTEROLOGY AT [facility] TO SCHEDULE SCREENING COLONOSCOPY FOLLOW UP WITH KIDNEY SPECIALIST DR GOLDMAN FOR CHRONIC KIDNEY DISEASE IN 4-6 WEEKS FOLLOW UP WITH YOUR PRIMARY CARE PHYSICIAN IN 1 WEEK UPON DISCHARGE FROM REHAB FACILITY Take prednisone 20 mg daily as instructed by your pile driver operator. Duration of the course to be determined by your pile driver operator Dr. Mosher Get weekly blood test including complete blood count, basic metabolic panel and follow-up with the physician with results. Your Lasix, losartan is discontinued secondary to worsening renal function. Do not take these medications until further recommendations by your music composition teacher. Your methotrexate is discontinued secondary to low blood cell count. Further recommendations as per your pile driver operator. Do not take Aspirin FOR NOW -can cause you further bleeding and lower your platelet count. Further recommendations as per your primary care physician. DO NOT TAKE ADVIL, ALEVE , MOTRIN , MOBIC , NAPROXEN -THESE ARE THE OVER THE COUNTER PAIN MEDICATIONS CAN CAUSE YOU TO BLEED AND WORSEN YOUR KIDNEY FUNCTION Pending Studies at Discharge: Yes Studies:: LAB WORK : COMPLETE BLOOD COUNT /BASIC METABOLIC PANEL IN 1 WEEK /NEXT PHYSICIAN VISIT Stand-Alone Forms: My [facility] [email or web address], Smoking Cessation Skilled Items Patient informed of condition?: Yes DNR: No Discharge Level of Care: Acute rehab Communicable Disease: No Discharge Prognosis: Improving Lines: None Urinary Catheter: No Medications and DC Order Prescriptions: New prednisone 20 mg tablet 20 mg PO DAILY 7 Days Qty: 7 RF: 0 omeprazole 20 mg capsule,delayed release(DR/EC) 20 mg PO DAILY 28 Days Qty: 28 RF: 0 Continued atorvastatin [Lipitor] 80 mg tablet 80 mg PO DAILY RF: 0 ferrous sulfate 325 mg (65 mg iron) tablet 325 mg PO BID RF: 0 metoprolol tartrate [Lopressor] 50 mg tablet 25 mg PO BID RF: 0 tamsulosin [Flomax] 0.4 mg capsule 0.4 mg PO DAILY RF: 0 folic acid 1 mg tablet 1 mg PO DAILY RF: 0 triamcinolone acetonide 0.5 % cream 1 appln TOP TID PRN (Reason: flare ups) RF: 0 Discontinued aspirin 81 mg tablet,chewable 81 mg PO DAILY RF: 0 furosemide [Lasix] 20 mg tablet 20 mg PO DAILY RF: 0 losartan [Cozaar] 25 mg tablet 25 mg PO DAILY RF: 0 potassium chloride 10 mEq capsule, extended release 10 meq PO BID RF: 0 methotrexate sodium 2.5 mg tablet 7.5 mg PO UD RF: 0 Discharge Orders: Discharge Order (Routine); Ordered 01/15/19 Ordered By: Tavo Hilton Admission Data Admit Date/Time: 12/31/18 00:25 Attending Provider: Tavo Hilton Admit Provider: Kian Parsons Primary Care Provider: Ana Carpenter Other Providers: Kian Parsons ; José Warner ; Tomas Corona ; Luca Maguire ; Ari Villeda ; Abdelrahman Mccarthy ; Germaine Foley ; Roverto Bob ; [facility] Other Interventions: Discharge Summary Assessment (RN) Last Done: 01/15/19 14:04 DC Date/Time DO NOT enter until pt leaves facility: 01/15/19 16:29
[2019-01-16 18:47] LABS: B2 Glycoprotein IgA 21 SAU (<=20); B2 Glycoprotein IgG 49 SGU (<=20); B2 Glycoprotein IgM <9 SMU (<=20); Phosphatidylserine IgG 16 U/mL (<10); Phosphatidylserine IgM <25 U/mL (<25); Sm Antibody <1.0 NEG AI (<1.0 NEG)
== END 2019-01-15 16:29 | DRG 545 ==
LOC: ED 19:30 → 2E 12-31 00:25 → SUATTDRO 12-31 00:25 → 2E 12-31 01:46 → 4W 01-07 17:20

== ENCOUNTER 2019-01-23 22:58 | Inpatient (IN) ==
[2019-01-24 00:10] LABS: Mean Corpuscular Hemoglobin 29.4 pg (25-34); Mean Corpuscular Hgb Conc 33.3 g/dL (32-36); Mean Corpuscular Volume 88.2 fL (80-100); Platelet Count 209 K/uL (130-400); RDW Coefficient of Variation 17.3 % (11.5-14.5); RDW Standard Deviation 54.7 fL (36.4-46.3); Red Blood Count 2.72 M/uL (4.7-6.1); White Blood Count 15.61 K/uL (4.8-10.8)
[2019-01-24 00:12] LABS: HCO3 ABG 19 mmol/L (19-24); PCO2 ABG 30 mmHg (35-46); PO2 ABG 114 mm/Hg (80-95); pH ABG 7.43 (7.35-7.45)
[2019-01-24 00:24] LABS: INR 1.1 (0.9-1.1); Prothrombin Time 11.4 Seconds (9.0-12.0)
[2019-01-24 00:30] LABS: Alanine Aminotransferase 77 U/L (12-78); Albumin Level 2.1 gm/dl (3.4-5.0); Aspartate Aminotransferase 48 U/L (15-37); Blood Urea Nitrogen 80 mg/dl (7-18); Calcium 7.8 mg/dl (8.5-10.1); Carbon Dioxide 18 mmol/L (21-32); Chloride 110 mmol/L (98-107); Creatinine Clr Calc Pharmacy 24.4 ml/min; Est GFR (African American) 24.8; Est GFR (Non-African American) 21.4; Glucose 88 mg/dl (70-99); Lipase 660 U/L (73-393); Magnesium 1.3 mg/dl (1.8-2.4); Potassium 4.5 mmol/L (3.5-5.1); Sodium 138 mmol/L (136-145)
[2019-01-24 00:43] LABS: Albumin Globulin Ratio 0.5 (0.9-2); Alkaline Phosphatase 159 U/L (45-117); Bilirubin,Total 0.4 mg/dl (0.2-1); Globulin 3.9 gm/dl (2.5-4.0); NT Pro B Type Natriuretic Pept > 35000 pg/ml (0-900); Troponin I 0.134 ng/ml (0-0.045)
[2019-01-24 00:54] LABS: ALC (manual) 0.14 K/uL (1.2-3.4); Lymphocytes # (manual) 0.14 K/uL (1.2-3.4); Lymphocytes % (manual) 0.9 %; Metamyelocytes # (manual) 0.41 K/uL (0-0); Metamyelocytes % (manual) 2.6 %; Myelocytes # (manual) 0.27 K/uL (0-0); Myelocytes % (manual) 1.7 %; Neutrophils % (manual) 94.8 %; RBC Morphology Unremarkable
[2019-01-24 00:56] LABS: Allen Test Pos (Pos)
[2019-01-24 00:57] LABS: Phosphorus 4.2 mg/dl (2.5-4.9); T4 Free Thyroxine 1.05 ng/dl (0.8-1.6)
[2019-01-24] MEDS: MAGNESIUM SULFATE / D5W 1 GM/100 ML BAG IV SCH ×2 (01:47→03:31)
[2019-01-24] MEDS ORDERED: IPRATROPIUM BROMIDE NEB SOLN 0.02% 2.5 ML VIAL INH PRN ×2 (03:20→08:00)
[2019-01-24] MEDS ORDERED: TRIAMCINOLONE ACET 0.5% CR 15 GM TUBE TOP PRN (03:20)
[2019-01-24] MEDS ORDERED: DOCUSATE SODIUM/SENNA 50/8.6MG TAB PO PRN (03:20)
[2019-01-24] MEDS ORDERED: ONDANSETRON INJ 2 MG/ML 2 ML VIAL IV PRN (03:20)
[2019-01-24] MEDS ORDERED: VANCOMYCIN HCL 1,000 MG in SODIUM CHLORIDE 0.9% 250 ML IV SCH (03:20)
[2019-01-24] MEDS ORDERED: NITROGLYCERIN SL 0.4 MG/TAB TAB SL PRN (03:20)
[2019-01-24] MEDS ORDERED: VANCOMYCIN CONSULT ACTIVE PRN (03:20)
[2019-01-24] MEDS ORDERED: LEVALBUTEROL 1.25MG/0.5ML NEB INH PRN (03:20)
[2019-01-24] MEDS ORDERED: MAGNESIUM SULFATE / D5W 1 GM/100 ML BAG IV ONE (03:20)
[2019-01-24] MEDS ORDERED: TRAMADOL HCL 50 MG TABLET PO PRN (03:20)
[2019-01-24] MEDS ORDERED: XOPENEX/ATROVENT 1.25mg/0.5MG NEB COMBO NEB PRN ×2 (03:20→07:54)
[2019-01-24] MEDS ORDERED: POLYETHYLENE (MIRALAX) 17 GM PACK PO PRN (03:20)
[2019-01-24] MEDS ORDERED: ACETAMINOPHEN 325 MG TAB PO PRN (03:20)
[2019-01-24] MEDS ORDERED: LEVOFLOXACIN/D5W 750 MG/150 ML BAG IV SCH (04:00)
--- NOTE | 2019-01-24 05:05 | History and Physical Report ---
DATE OF ADMISSION: 01/24/2019 CHIEF COMPLAINT: Fall. HISTORY OF PRESENT ILLNESS: This is a 68-year-old male with past medical history significant for COPD, not on any inhalers, history of peripheral artery disease, history of carotid arteries bilaterally, history of Raynaud's syndrome, history of bicuspid aortic valve status post aortic valve replacement with bioprosthetic valve, mitral regurgitation, hypertension, CAD, protein-calorie malnutrition, undifferentiated diffuse connective disease. The patient was recently in the hospital, admitted on on 12/31/2018 with epistaxis and pancytopenia requiring several PRBC transfusions and platelet transfusions during that admission. There is also a question of tick bite, but the studies came back negative. Hemolytic Anemia studies came back negative. Initially, it was thought to be methotrexate induced, which is held and he was also started on antibiotics at that time for sepsis and later it was determined he l might have had possible doxycycline drug-induced lupus. We do not know his baseline creatinine, but it looks like his creatinine is above 2 during the hospitalization and discharge creatinine of 2.2. He was discharged on prednisone 20 mg daily and supposed to follow with rheumatology for further continuation and tapering of the steroids and also supposed to follow hematology/oncology, discharged to [facility]. As per [facility] looks like he is going to have appointments in January with rheumatology and hematology/oncology. Last admission, he was also seen by ID, ENT and nephrology. Currently at [facility] rehab, he was brought in because he had a fall and hit his head, no loss of consciousness. The patient says felt he was slightly dizzy. Initial CAT scan was unremarkable. Hemodynamics are okay. Currently, his white count is 15K and hemoglobin is 8 and his platelets are 209. ABGs are okay. Creatinine is 2.8, discharge creatinine was 2.2, BUN is 80, troponin is 0.134, BNP was greater than 35,000. TSH 8.3, but free T4 is normal. Lipase is 660. Currently resting comfortably and hemodynamically stable. The patient seemed somewhat confused. He thinks he went to [place] and came back 2-3 days ago, the body was not adjusted and that caused him dizziness and he fell today. He can tell his name, knows his date of , knows this is December but could not tell year and also could not tell that he is in the hospital, obeys simple commands. Alert and awake. Denies any headache, no blurred visions, no runny nose, no sore throat. Denies any cough, denies any fever or chills. Denies chest pain, no shortness of breath, no nausea, no vomiting, no abdominal pain. He says his bowels and bladder are moving okay. Denies any blood in the stools or hematuria. No swelling in the legs. He says that he ambulates okay. He says his appetite is okay. Denies any difficulty swallowing. ALLERGIES: DOXYCYCLINE, HYDRALAZINE. PAST MEDICAL HISTORY: As mentioned above. PAST SURGICAL HISTORY: Aortic valve replacement and bypass with allograft, porcelain heart valve, CABG, colonoscopy, colonoscopy with biopsy, CAD, tonsillectomy. MEDICATIONS: Currently, he is on medications, Tylenol 1000 mg p.o. t.i.d., atorvastatin 80 mg p.o. daily, Colace 100 mg p.o. b.i.d., ferrous sulfate 325 mg p.o. b.i.d., folic acid 1 mg p.o. daily, Lasix 20 mg p.o. daily, hydrochlorothiazide 12.5 mg p.o. daily, metoprolol tartrate 25 mg p.o. b.i.d., Protonix 40 mg p.o. daily, MiraLax 17 g daily p.r.n., Senokot-S 1 tablet p.o. daily p.r.n., Flomax 0.4 mg p.o. daily, tramadol 50 mg p.o. b.i.d. p.r.n., triamcinolone topical cream t.i.d. p.r.n. FAMILY HISTORY: Significant for: Father had ID at age 54, mother had cancer. Paternal grandfather had heart disorder. SOCIAL HISTORY: , currently living at [facility]. Smoker, last around quit was 2016. Smoked half pack a day for 40 years. Alcohol rarely. No drug use. REVIEW OF SYMPTOMS: As per HPI. Rest of review of symptoms is negative. PHYSICAL EXAMINATION: GENERAL: The patient is alert and oriented to name only, remote memory intact. VITAL SIGNS: Temperature 36.5, pulse 96, respiratory rate 16, blood pressure 142/95, oxygen 99% on 2 liters. HEENT: No pallor, no icterus. Pupils equal, round, and reactive to light. NECK: No JVD, no neck masses, no carotid bruits. CARDIOVASCULAR: S1, S2 heard, regular rate and rhythm, no murmur, no gallop. RESPIRATORY SYSTEM: Normal AP diameter. No accessory muscle use. Mild occasional wheezing, no crackles. ABDOMEN: Soft, bowel sounds present, nontender. No distention. CENTRAL NERVOUS SYSTEM: Cranial nerves II-XII grossly nonfocal. EXTREMITIES: Bilateral lower extremity +2 edema present, no erythema seen. LABORATORIES DATA: WBC 15.6, hemoglobin 8, hematocrit 24, platelets 209. PT 11.5, INR 1.1. ABG, pH 7.4, pCO2 of 30, pO2 of 114, bicarb 19, oxygen 98% on 2 liters. Sodium 138, potassium 4.5, chloride 110, bicarbonate 18, BUN 80, creatinine 2.87, serum glucose 88, lactate 0.8, calcium 7.8, phosphorus 4.2, magnesium 1.3, total bilirubin 0.4, AST 48, ALT 76, alkaline phosphatase is 159. Troponin I 0.134. BNP greater than 35,000. Lipase 650. TSH 8.3, free T4 1.05. IMAGING: Chest x-ray: No acute process seen. EKG: Normal sinus rhythm, rate of 85, poor quality EKG. ASSESSMENT AND PLAN: This 68-year-old male who presents with fall. 1. Fall, could be from deconditioning and hypoxia. The patient also was saturating 85% on room air when he came in, requiring 2 liters, has mild occasional wheezing on exam. Chest x-ray does not look like any volume overload. 2. History of chronic obstructive pulmonary disease, but not on any inhalers. We will follow the official reports of the CAT scan, so we will empirically place on continuous oxygen saturations. We will place him on nebs around the clock q. 8 hours and q. 4 hours p.r.n. May need 2-step study prior to discharge.Continue prednisone 20mg daily. 3. Encephalopathy, possibly metabolic. CT, no acute findings, Mental status not back to baseline at the time of discharge to [facility]?, possibly from drug-induced lupus or possibly from uremic encephalopathy. Consider neurology consultation. Monitor in the med/surg tele. 4. Acute kidney injury on chronic kidney disease stage III, baseline creatinine unclear, last discharge was 2.2, questionable lupus nephritis. Lasix and losartan was stopped at the time of discharge, but currently it looks like he is back on Lasix and hydrochlorothiazide which we will hold. We will consult nephrology in a.m. for further recommendations and follow the repeat labs. 5. History of pancytopenia, seemed to be resolved. Hemoglobin is stable at 8, platelets back to normal. White count is elevated, thought to be from drug-induced lupus. Follow the repeat labs. 6. 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 Supposed to follow with senior firmware engineer, Dr. Garza, supposed to follow in coming January. Received high-dose steroids iv 1 gram daily for 3 days last admission and transitioned to prednisone 20 mg daily, discharged for 1 week supply and supposed to follow with rheumatology for further duration of prednisone, but I think he was done with his prednisone for 1 week, so we will place him back on 20 daily, Can call rheumatology on Saturday for any guidance regarding the steroids. To avoid the drug which can precipitate the drug-induced lupus like hydralazine. 7. Coronary artery disease status post coronary artery bypass graft. Continue simvastatin, metoprolol, aspirin held for recent epistaxis, thrombocytopenia, anemia, may consider restarting it. 8. History of bicuspid valve status post AVR with prosthetic valve. Recent echo was fine. 9. History of diffuse connective tissue disease with Raynaud's syndrome. Methotrexate was stopped in last admission secondary to pancytopenia. Currently on prednisone. Needs to follow up with rheumatology. 10. Leukocytosis, possibly from steroid use. We will follow the repeat labs. Follow the imaging studies for any ongoing infectious process. 11. Lower extremity edema. From malnutrition? diastolic chf? Holding diuretics currently. Will follow Doppler. 12. Elevated lipase. Mostly non specific. Will follow repeat labs. 13. Mild elevation of troponin. Mostly demand ischemia from hypoxia. Will follow the trend. 14. Deep venous thrombosis prophylaxis, sequential compression devices for now. 15. Code status: Full code. 16. Disposition: To be determined. PT and OT prior to discharge. Social Service to help with discharge planning. Addendum: ct chest possible pneumonia. Started on iv Levaquin and iv vancomycin. follow cultures. MTDD
[2019-01-24] MEDS ORDERED: VANCOMYCIN HCL 1,500 MG in SODIUM CHLORIDE 0.9% 500 ML IV SCH (06:00)
--- NOTE | 2019-01-24 06:03 | CT Scan Report ---
CT head/brain wo con CT DOSE: HISTORY: Mental status change chi, trauma, ams TECHNIQUE: Multiaxial CT images of the head were performed without the use of intravenous contrast. A dose lowering technique was utilized adhering to the principles of ALARA. Comparison: 01/12/2019 Findings: The paranasal sinuses and mastoid air cells are clear. The calvarium and skull base are int act. The ventricles and sulci are within normal limits. There is no mass, hematoma, midline shift, or acute infarct. Impression: No acute intracranial abnormality. Age-related atrophy and chronic small vessel change The above report was generated using voice recognition software. It may contain grammatical, syntax or spelling errors. Electronically signed by: Ramone Bartlett M.D. 01/24/2019 6:02 AM
--- NOTE | 2019-01-24 06:08 | CT Scan Report ---
CT cervical spine wo con CT DOSE: 965.59 mGy.cm HISTORY: Trauma trauma TECHNIQUE: Multiaxial CT images of the cervical spine were performed and reformatted in the sagittal and coronal plane without the use of contrast. A dose lowering technique was utilized adhering to th e principles of ALARA. COMPARISON: None. FINDINGS: Moderate generalized degenerative change. Vertebral body stature is normal. No evidence for compression deformity. No significant subluxation. IMPRESSION: Moderate generalized degenerative change. No acute process. The above report was generated using voice recognition software. It may contain grammatical, syntax or spelling errors. Electronically signed by: Ramone Bartlett M.D. 01/24/2019 6:06 AM
--- NOTE | 2019-01-24 06:20 | XRay Report ---
XR pelvis 1-2V routine CLINICAL HISTORY: trauma pain COMPARISON: None. DISCUSSION: The bones and joint spaces appear intact. There is no evidence of fracture, dislocation o r bony disease. There is no evidence for soft tissue swelling. IMPRESSION: Negative study. The above report was generated using voice recognition software. It may contain grammatical, syntax or spelling errors. Electronically signed by: Ramone Bartlett M.D. 01/24/2019 6:18 AM
--- NOTE | 2019-01-24 06:22 | XRay Report ---
XR chest 1V portable CLINICAL HISTORY: trauma pain COMPARISON STUDY: 01/12/2019 FINDINGS: Mild cardiomegaly. Interstitial prominence and bronchovascular prominence bilaterally. This is unchanged. Trace bilateral pleural effusions. No evidence pneumothorax. IMPRESSION: Mild stable cardiomegaly. Pulmonary vascular congestion similar to the prior exam. The above report was generated using voice recognition software. It may contain grammatical, syntax or spelling errors. Electronically signed by: Ramone Bartlett M.D. 01/24/2019 6:21 AM
--- NOTE | 2019-01-24 06:23 | Emergency Department Note ---
Entered by Selina Quiros acting as a scribe for Hansa Zhao DO History of Present Illness General Chief complaint: Fall Stated complaint: FALL Time Seen by Provider: 01/23/19 23:12 Source: patient Mode of arrival: ambulatory Limitations: altered mental status History of Present Illness Onset (ago): hour(s) less than 1 Location: head Severity: similar to prior episodes Pain Consistency: + now resolved Associated symptoms: + denies other symptoms, + syncope and + other (double vision/spinning) Treatments prior to arrival: none The patient is a 68 year old male who presents to the Emergency Room after a fall for evaluation. The patient states that he experienced a dizzy spell tonight when he was watching TV. He notes that he was standing when this occurred, which caused him to fall. The patient states that this has happened before, and that it starts when he experiences double vision and spinning eyesight. The patient is not sure how he fell, and reports that he may have blacked out. He notes that he does not usually have this much fluid in his legs, but they are not painful no move. He denies chest pressure, sweating, palpitations. The patient reports that he is on a blood thinner, and that he does have a history of heart issues. He denies history of a blood clot. He has a history of Lupus, COPD, hypertension, and hyperlipidemia per [facility] records. Home Medications Home Medications Medication Instructions Recorded Confirmed Type atorvastatin 80 mg tablet 80 mg PO DAILY 01/28/18 01/23/19 History ferrous sulfate 325 mg (65 mg 325 mg PO BID tab 01/28/18 01/23/19 History iron) tablet folic acid 1 mg tablet 1 mg PO DAILY 01/28/18 01/23/19 History tamsulosin 0.4 mg capsule 0.4 mg PO DAILY 01/28/18 01/23/19 History triamcinolone acetonide 0.5 % 1 appln TOP TID PRN 01/28/18 01/23/19 History topical cream acetaminophen [Acetaminophen Extra 1,000 mg PO TID 01/23/19 01/23/19 History Strength] docusate sodium 100 mg PO BID 01/23/19 01/23/19 History furosemide 20 mg PO DAILY 01/23/19 01/23/19 History hydrochlorothiazide 12.5 mg PO DAILY 01/23/19 01/23/19 History metoprolol tartrate 25 mg PO Q12 01/23/19 01/23/19 History pantoprazole 40 mg PO DAILY 01/23/19 01/23/19 History polyethylene glycol 3350 [Miralax] 17 g PO QDL PRN 01/23/19 01/23/19 History sennosides-docusate sodium 1 tab-cap PO QDL PRN 01/23/19 01/23/19 History [Senokot-S] tramadol 50 mg PO Q12 PRN 01/23/19 01/23/19 History Allergies Allergy/AdvReac Type Severity Reaction Status Date / Time doxycycline AdvReac Severe Unknown Verified 01/23/19 23:27 hydralazine AdvReac Intermediate Unknown Verified 01/23/19 23:27 Past Med/Surg History Medical History Anemia (Chronic) Anemia (Chronic) Aortic valve, bicuspid (Chronic) CAD (coronary artery disease) of artery bypass graft (Chronic) COPD (chronic obstructive pulmonary disease) (Chronic) Dyslipidemia (Chronic) HTN, goal to be determined (Chronic) Mitral valve regurgitation (Chronic) PAD (peripheral artery disease) (Chronic) Raynaud disease (Chronic) Surgical History S/P aortic valve replacement (Chronic) S/P CABG x 4 (Chronic) S/P tonsillectomy (Chronic) Family History Other Family history non-contributory Social History Preferred Language: Hungarian Communication Ability: Effective Visual Impairment: Diminished Hearing Ability: Normal 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 and A total of 6 systems reviewed and were otherwise negative Physical Exam Vital Signs Vital Signs - 24 hr 01/23/19 23:03 01/23/19 23:07 01/23/19 23:08 Temperature Temperature Source Pulse Rate 90 89 Pulse Rate [Forehead] Pulse Rate from SpO2 Sensor 95 H Respiratory Rate 18 17 Respiratory Effort / Characteristics Respiratory Depth Respiratory Pattern Blood Pressure 138/91 Blood Pressure [Right Arm] Blood Pressure Mean 104 Blood Pressure Mean [Right Arm] Blood Pressure Position Blood Pressure Position [Right Arm] Pulse Oximetry 85 L 98 Oxygen Delivery Method Nasal Cannula Oxygen Flow Rate 3 Sepsis Recent Fever Within 48 Hours Sepsis New/Unexplained Change in Mental Status Sepsis Action Taken by Nursing 01/23/19 23:15 01/23/19 23:30 01/24/19 00:00 Temperature 36.5 C Temperature Source Oral Pulse Rate 89 81 86 Pulse Rate [Forehead] Pulse Rate from SpO2 Sensor 82 86 Respiratory Rate 18 17 19 Respiratory Effort / Characteristics Non-Labored Spontaneous Respiratory Depth Normal Respiratory Pattern Regular Blood Pressure 138/91 Blood Pressure [Right Arm] Blood Pressure Mean 106 Blood Pressure Mean [Right Arm] Blood Pressure Position Lying Blood Pressure Position [Right Arm] Pulse Oximetry 100 100 100 Oxygen Delivery Method Nasal Cannula Oxygen Flow Rate 2 Sepsis Recent Fever Within 48 Hours No Sepsis New/Unexplained Change in Mental Status No Sepsis Action Taken by Nursing No Action Required 01/24/19 01:37 Temperature Temperature Source Pulse Rate Pulse Rate [Forehead] 96 H Pulse Rate from SpO2 Sensor Respiratory Rate 16 Respiratory Effort / Characteristics Respiratory Depth Respiratory Pattern Blood Pressure Blood Pressure [Right Arm] 142/95 H Blood Pressure Mean Blood Pressure Mean [Right Arm] 110 Blood Pressure Position Blood Pressure Position [Right Arm] Sitting Pulse Oximetry 99 Oxygen Delivery Method Nasal Cannula Oxygen Flow Rate 2 Sepsis Recent Fever Within 48 Hours Sepsis New/Unexplained Change in Mental Status Sepsis Action Taken by Nursing GENERAL: alert, well appearing, well nourished, no distress, non-toxic HEAD: normal cephalic. Evolving ecchymosis to central forehead, no edema. No salas sign, no raccoon eyes. EYE EXAM: normal conjunctiva, PERRL and EOM's grossly intact OROPHARYNX: no exudate, no erythema, lips, buccal mucosa, and tongue normal and mucous membranes are moist EARS: TMs clear b/l without hemotympanum, no edema along the canals NECK: supple, no nuchal rigidity, no adenopathy, non-tender CHEST: stable to compression anteriorly and posteriorly LUNGS: clear to auscultation. Normal chest wall mechanics, no w/r/r HEART: no murmurs, S1 normal and S2 normal ABDOMEN: abdomen soft, non-tender, normo-active bowel sounds, no masses, no rebound or guarding. PELVIS: stable to compression anteriorly and posteriorly BACK: Back is symmetrical on inspection and there is no deformity, no midline tenderness, no CVA tenderness. UPPER EXTREMITIES: Normal distal pulses bilaterally. Full active and passive range of motion of all joints without tenderness to palpation LOWER EXTREMITIES: full active and passive range of motion of all joints without tenderness to palpation, 3+ pitting edema in bilateral lower extremities. Nml distal pulses b/l. NEURO EXAM: Normal sensorium, cranial nerves II-XII grossly intact, normal speech, no gross weakness of arms, no gross weakness of legs. Patient oriented to person and place, had some difficulty with the year and month. GCS: 15. Course Course 2314: The patient was evaluated in room B07. A complete history and physical exam was performed. 2330: I called and spoke with the patient's regarding his condition. She states patient was well until his recent hospitalization for a severe nosebleed. 0025: I rechecked on the patient. He is resting comfortably in bed. Vital signs stable. 0052: I updated the patient on his imaging results and suggested staying in the hospital for further evaluation. The patient was agreeable. 0054: I spoke to Dr. Parsons, [facility] hospitalist, regarding the patient. He a greed to take over care of the patient for further evaluation. Administered Medications Levofloxacin/Dextrose (Levaquin/D5w) 750 mg in 150 mls @ 100 mls/hr IV Q48H KATHERINE Stop: 01/31/19 03:59 Last Admin: 01/24/19 05:27 Dose: 100 mls/hr Documented by: [id number] Discontinued Medications Magnesium Sulfate/Dextrose (Magnesium Sulfate / D5w) 1 gm in 100 mls @ 100 mls/hr IV Q1H KATHERINE Stop: 01/24/19 02:44 Last Infusion: 01/24/19 04:32 Dose: 0 mls/hr Documented by: [id number] Admin: 01/24/19 03:31 Dose: 100 mls/hr Documented by: [id number] Infusion: 01/24/19 02:47 Dose: 100 mls/hr Documented by: [id number] Admin: 01/24/19 01:47 Dose: 100 mls/hr Documented by: [id number] Magnesium Sulfate/Dextrose (Magnesium Sulfate / D5w) 1 gm in 100 mls @ 100 mls/hr IV ONE ONE Stop: 01/24/19 04:19 Last Infusion: 01/24/19 05:33 Dose: 0 mls/hr Documented by: [id number] Admin: 01/24/19 04:30 Dose: 100 mls/hr Documented by: [id number] Medical Decision Making Differential Diagnosis Differential diagnosis includes: fracture, dislocation, intra-abdominal, pneumothorax, intrathoracic , intracranial, neurologic, benign positional vertigo, dehydration, hypovolemia, anemia, tumor, infection, hypoglycemia, electrolyte abnormalities, cardiac sources, intracerebral event, toxicologic, neurologic, as well as others were entertained. Medical Records Attestation: I reviewed the patient's medical records. The patient was discharged from the hospital 8 days ago to a rehab facility. He had a blood transfusion when last in the hospital, and the medical note states that his mental state was not completely at baseline upon departure. Home Medications Current Medication List: was personally reviewed by me Laboratory Data Attestation: I reviewed the patient's lab results. Result diagrams: 01/23/19 23:54 01/23/19 23:54 Lab Results 01/23/19 01/23/19 01/23/19 Range/Units 23:54 23:54 23:54 WBC 15.61 H (4.8-10.8) K/uL RBC 2.72 L (4.7-6.1) M/uL Hgb 8.0 L (14.0-18.0) g/dL Hct 24.0 L (42-52) % MCV 88.2 (80-100) fL MCH 29.4 (25-34) pg MCHC 33.3 (32-36) g/dL RDW Std Deviation 54.7 H (36.4-46.3) fL RDW Coeff of Renato 17.3 H (11.5-14.5) % Plt Count 209 (130-400) K/uL MPV 11.0 H (7.4-10.4) fL Neutrophils % (Manual) 94.8 % Lymphocytes % (Manual) 0.9 % Metamyelocytes % (Man) 2.6 % Myelocytes % (Man) 1.7 % Neutrophils # (Manual) 14.80 H (1.4-6.5) K/uL Total Absolute Neuts 14.80 H (1.4-6.5) K/uL Lymphocytes # (Manual) 0.14 L (1.2-3.4) K/uL Total Abs Lymphocytes 0.14 L (1.2-3.4) K/uL Metamyelocytes # (Man) 0.41 H (0-0) K/uL Myelocytes # (Manual) 0.27 H (0-0) K/uL RBC Morphology Unremarkable PT 11.4 (9.0-12.0) Seconds INR 1.1 (0.9-1.1) ABG pH (7.35-7.45) ABG pCO2 (35-46) mmHg ABG pO2 (80-95) mm/Hg ABG HCO3 (19-24) mmol/L ABG O2 Saturation (90-95) % ABG Base Excess (-9-1.8) mEq/L Melvin Test (Pos) Barometric Pressure mm/Hg Oxygen Given Sodium 138 (136-145) mmol/L Potassium 4.5 (3.5-5.1) mmol/L Chloride 110 H (98-107) mmol/L Carbon Dioxide 18 L (21-32) mmol/L Anion Gap 10.0 (3-11) BUN 80 H (7-18) mg/dl Creatinine 2.87 H (0.6-1.4) mg/dl Est Cr Clr Drug Dosing 24.4 ml/min Est GFR ( Amer) 24.8 Est GFR (Non-Af Amer) 21.4 BUN/Creatinine Ratio 28.0 H (10-20) Glucose 88 (70-99) mg/dl Lactate (0.4-2.0) mmol/L Calcium 7.8 L (8.5-10.1) mg/dl Phosphorus 4.2 (2.5-4.9) mg/dl Magnesium 1.3 L (1.8-2.4) mg/dl Total Bilirubin 0.4 (0.2-1) mg/dl AST 48 H (15-37) U/L ALT 77 (12-78) U/L Alkaline Phosphatase 159 H (45-117) U/L Troponin I 0.134 H* (0-0.045) ng/ml NT-Pro-B Natriuret Pep > 53315 H (0-900) pg/ml Total Protein 6.0 L (6.4-8.2) gm/dl Albumin 2.1 L (3.4-5.0) gm/dl Globulin 3.9 (2.5-4.0) gm/dl Albumin/Globulin Ratio 0.5 L (0.9-2) Lipase 660 H (73-393) U/L TSH 8.330 H (0.300-4.500) uIu/ml Free T4 1.05 (0.8-1.6) ng/dl 01/23/19 01/23/19 Range/Units 23:54 23:54 WBC (4.8-10.8) K/uL RBC (4.7-6.1) M/uL Hgb (14.0-18.0) g/dL Hct (42-52) % MCV (80-100) fL MCH (25-34) pg MCHC (32-36) g/dL RDW Std Deviation (36.4-46.3) fL RDW Coeff of Renato (11.5-14.5) % Plt Count (130-400) K/uL MPV (7.4-10.4) fL Neutrophils % (Manual) % Lymphocytes % (Manual) % Metamyelocytes % (Man) % Myelocytes % (Man) % Neutrophils # (Manual) (1.4-6.5) K/uL Total Absolute Neuts (1.4-6.5) K/uL Lymphocytes # (Manual) (1.2-3.4) K/uL Total Abs Lymphocytes (1.2-3.4) K/uL Metamyelocytes # (Man) (0-0) K/uL Myelocytes # (Manual) (0-0) K/uL RBC Morphology PT (9.0-12.0) Seconds INR (0.9-1.1) ABG pH 7.43 (7.35-7.45) ABG pCO2 30 L (35-46) mmHg ABG pO2 114 H (80-95) mm/Hg ABG HCO3 19 (19-24) mmol/L ABG O2 Saturation 98.0 H (90-95) % ABG Base Excess -4.0 (-9-1.8) mEq/L Melvin Test Pos (Pos) Barometric Pressure 734.9 mm/Hg Oxygen Given 2L Sodium (136-145) mmol/L Potassium (3.5-5.1) mmol/L Chloride (98-107) mmol/L Carbon Dioxide (21-32) mmol/L Anion Gap (3-11) BUN (7-18) mg/dl Creatinine (0.6-1.4) mg/dl Est Cr Clr Drug Dosing ml/min Est GFR ( Amer) Est GFR (Non-Af Amer) BUN/Creatinine Ratio (10-20) Glucose (70-99) mg/dl Lactate 0.8 (0.4-2.0) mmol/L Calcium (8.5-10.1) mg/dl Phosphorus (2.5-4.9) mg/dl Magnesium (1.8-2.4) mg/dl Total Bilirubin (0.2-1) mg/dl AST (15-37) U/L ALT (12-78) U/L Alkaline Phosphatase (45-117) U/L Troponin I (0-0.045) ng/ml NT-Pro-B Natriuret Pep (0-900) pg/ml Total Protein (6.4-8.2) gm/dl Albumin (3.4-5.0) gm/dl Globulin (2.5-4.0) gm/dl Albumin/Globulin Ratio (0.9-2) Lipase (73-393) U/L TSH (0.300-4.500) uIu/ml Free T4 (0.8-1.6) ng/dl Imaging Data Attestation: I personally reviewed and interpreted this imaging study as follows: My Impression: Chest X-Ray - read by me No cardiomegaly. No pleural effusion. Sternotomy wires noted. No focal consolidation. No acute pulmonary edema. Pelvis X-Ray - read by me No acute fracture or dislocation. read at 00:51 om 01/24/19 Radiologist's Impression: Radiology results as stated below per my review and the radiologist's interpretation: CT HEAD: Impression: No intracranial hemorrhage or other acute intracranial abnormality. Global parenchymal volume loss with chronic microvascular ischemic changes. No mass lesion or mass effect. Skull base and calvarium appear normal. CT C SPINE: Impression: No fracture or traumatic malalignment the cervical spine. Multilevel degenerative disc disese and facet arthrosis is seen throughout the cervical spine which yields varying degrees of foraminal narrowing. There is no high-grade spinal canal stenosis. Chronic degenerative grade 1 anterolisthesis of C4 and C5. Scarring is seen in the lung apices. Atherosclerotic calcification in the carotid bifurcations. radiologist: mony Ornelas MD study ready at 00:25 and initial results transmitted at 00:39 CT CHEST Without Contrast Impression: Opacity in the left upper lobe is new from prior CT ches 12/31/2018 and may represent pneumonia in the appropriate clinical scenario. Severe emphysematous change of the lungs. Small bilateral pleural effusions. Extensive coronary artery atherosclerotic calcifications. Calcified mediastinal and hilar lymph nodes as well as calcified granulomas in the lungs and spleen. Ascites. Radiologist: Mony Ornelas MD Study ready at 01:38 and initial results transmitted at 02:27 ECG Data Attestation: I personally reviewed and interpreted this ECG as follows: Indication: + altered mental status Rate (beats per minute): 85 Rhythm: + sinus rhythm ECG Intervals/blocks: + Normal QRS ECG Bagley: + Left axis deviation ECG ST segments: + Normal ST segments ECG Findings: + Other (baseline artifact noted) Blood Pressure Blood Pressure Findings: Elevated blood pressure Blood Pressure Disposition: further management by hospitalist SONYA Narrative Patient with complicated past medical history including recent admission, sent in now from [facility] due to ground-level fall. Patient with mild ecchymosis noted to the central forehead, however no other physical exam findings of acute traumatic injury. CT of the head and C-spine were reassuring, x-rays did not reveal any other acute injury. Patient mildly confused which per review of our records here is similar to his discharge, however states prior to the recent admission he was mentating normally and oriented. Patient has not had any recurrent nosebleeds since discharge. Patient's anemia appears stable compared to prior, thrombocytopenia has since resolved. Patient previously had a leukopenia, now with a new leukocytosis. While patient had been on steroids previously due to COPD, this was stopped during the hospitalization initially due to thrombocytopenia and concern for bleeding. One note to suggest these were restarted, however I cannot find this on the [facility] medication records at this time. Unclear if leukocytosis more stress reaction, however given my concern for leukocytosis plus his initial hypoxia, and despite a reassuring chest x-ray, patient sent for CT of the chest which did reveal an infiltrate. Patient had already been seen and evaluated by the hosp italist by this time, we did call and update them and defer choice of antibiotics to the hospitalist. Patient did not appear septic, had no increased work of breathing or hypoxia while in the emergency room. Patient's renal functioning appears worse compared to that of discharge. He did have new acute kidney injury during last admission. His medications for blood pressure were changed. Given increased lower extremity edema, it is unclear if this is due to the recent cessation of his Lasix due to acute kidney injury, versus worsening kidney dysfunction now. Patient did have an elevated troponin, however no symptoms of chest pain or trouble breathing and no new EKG changes. I feel ACS is less likely and this abnormality is more likely secondary to his renal dysfunction. I feel BNP elevated due to renal dysfunction also. TSH mildly abnormal, however no evidence of life-threatening thyroid abnormality. Patient with mildly elevated lipase, however no clinical evidence of pancreatitis. Patient afebrile here, continues to take antibiotics for anaplasmosis which was discovered during last admission also. At this time I am less suspicious of an occult bacterial meningitis/encephalitis contributing to altered mentation. It is possible patient is encephalopathic get from renal dysfunction versus acute infection. I discussed the case at length with the hospitalist who came and saw the patient at bedside. Additional orders placed by him. Urine was pending at the time of our initial discussion. Patient remained hemodynamically stable in the emergency room. Impression & Plan Pneumonia, MARANDA (acute kidney injury), Closed head injury, Dizziness, Confusion, Hypomagnesemia, Anemia, Leukocytosis, Elevated troponin, PVC (premature ventricular contraction), Bilateral lower extremity edema, Hypoxia, Fall, Contusion of face Discharge Plan Visit Data *Final* Discharge Date/Time: 01/24/19 02:58 Chief Complaint: Fall Stated Complaint: FALL ED Provider: Hansa Zhao Discharge Problem: Pneumonia, MARANDA (acute kidney injury), Closed head injury, Dizziness, Confusion, Hypomagnesemia, Anemia, Leukocytosis, Elevated troponin, PVC (premature ventricular contraction), Bilateral lower extremity edema, Hypoxia, Fall, Contusion of face Patient Disposition: Admitted As Inpatient Discharge Instructions Interventions: ED Discharge Assessment Last Done: 01/24/19 02:58 Discharge Problem: Pneumonia Qualifiers: Pneumonia type: due to unspecified organism Laterality: left Lung location: upper lobe of lung Qualified Code(s): J18.9 - Pneumonia, unspecified organism Closed head injury Qualifiers: Encounter type: initial encounter Qualified Code(s): S09.90XA - Unspecified injury of head, initial encounter Anemia Qualifiers: Anemia type: unspecified type Qualified Code(s): D64.9 - Anemia, unspecified Leukocytosis Qualifiers: Leukocytosis type: unspecified Qualified Code(s): D72.829 - Elevated white blood cell count, unspecified Fall Qualifiers: Encounter type: initial encounter Qualified Code(s): W19.XXXA - Unspecified fall, initial encounter Contusion of face Qualifiers: Encounter type: initial encounter Qualified Code(s): S00.83XA - Contusion of other part of head, initial encounter The scribe's documentation has been prepared under my direction and personally reviewed by me in its entirety. I confirm that the note above accurately reflects all work, treatment, procedures, and medical decision making performed by me.
--- NOTE | 2019-01-24 06:29 | CT Scan Report ---
CT chest wo con CT DOSE: 262.01 mGy.cm HISTORY: Dyspnea hypoxia TECHNIQUE: Multiaxial CT images of the chest were performed without contrast. A dose lowering techni que was utilized adhering to the principles of ALARA. COMPARISON: 12/31/2018 FINDINGS: Stable emphysematous change. Small developing 2 cm poorly defined parenchymal focus left pulmonary apex. This potentially is infla mmatory. Mildly progressive interstitial change bilaterally and again most likely inflammatory. Slight thicken ing of the mid and inferior aspects of the major fissures. Small bilateral pleural effusions with mil d bibasilar atelectatic change. IMPRESSION: 1. Slightly progressive interstitial prominence bilaterally with a small parenchymal infiltrate left pulmonary apex. 2. Small bilateral pleural effusions. 3. Stable moderate cardiac enlargement. The above report was generated using voice recognition software. It may contain grammatical, syntax or spelling errors. Electronically signed by: Ramone Bartlett M.D. 01/24/2019 6:27 AM
--- NOTE | 2019-01-24 06:43 | Ultrasound Report ---
US venous doppler LE BI HISTORY: Pain. Edema. dvt? COMPARISON STUDY: None. FINDINGS: There is normal compressibility, flow, and augmentation within the bilateral lower extremit y deep venous systems. IMPRESSION: No DVT within the right or left lower extremity. The above report was generated using voice recognition software. It may contain grammatical, syntax or spelling errors. Electronically signed by: Ramone Bartlett M.D. 01/24/2019 6:42 AM
[2019-01-24] MEDS ORDERED: IPRATROPIUM BROMIDE NEB SOLN 0.02% 2.5 ML VIAL INH SCH ×2 (07:00→13:00)
[2019-01-24] MEDS ORDERED: LEVALBUTEROL HCL 0.63 MG/3 ML NEB NEB SCH (07:00)
[2019-01-24 07:12] LABS: Hemoglobin 8.3 g/dL (14.0-18.0); Mean Corpuscular Hemoglobin 29.3 pg (25-34); Mean Corpuscular Hgb Conc 33.2 g/dL (32-36); Mean Corpuscular Volume 88.3 fL (80-100); Mean Platelet Volume 10.4 fL (7.4-10.4); Nucleated RBC # (auto) 0.02 K/uL (0-0); Nucleated RBC % (auto) 0.1 %; Platelet Count 214 K/uL (130-400); RDW Coefficient of Variation 17.3 % (11.5-14.5); RDW Standard Deviation 54.5 fL (36.4-46.3); Red Blood Count 2.83 M/uL (4.7-6.1)
[2019-01-24 07:43] LABS: BUN Creatinine Ratio 28.2 (10-20); Calcium 8.1 mg/dl (8.5-10.1); Creatinine Clr Calc Pharmacy 23.3 ml/min; Est GFR (African American) 24.6; Est GFR (Non-African American) 21.2; Magnesium 2.2 mg/dl (1.8-2.4); Potassium 4.3 mmol/L (3.5-5.1)
[2019-01-24] MEDS ORDERED: methylPREDNISolone 125 MG in SYRINGE 0 ML IV ONE (07:45)
[2019-01-24 07:52] LABS: ALC (manual) 0.24 K/uL (1.2-3.4); ANC (manual) 12.91 K/uL (1.4-6.5); Lymphocytes # (manual) 0.24 K/uL (1.2-3.4); Lymphocytes % (manual) 1.7 %; Metamyelocytes # (manual) 0.36 K/uL (0-0); Metamyelocytes % (manual) 2.6 %; Monocytes # (manual) 0.36 K/uL (0.11-0.59); Monocytes % (manual) 2.6 %; Myelocytes # (manual) 0.13 K/uL (0-0); Myelocytes % (manual) 0.9 %; Neutrophils # (manual) 12.91 K/uL (1.4-6.5); Neutrophils % (manual) 92.2 %; RBC Morphology Unremarkable
--- NOTE | 2019-01-24 08:04 | Hospitalist Progress Note ---
Date of Service January 24, 2019 Assessment & Plan (1) COPD exacerbation: ACUTE HYPOXEMIC RESPIRATORY FAILURE : due to combination of COPD exacerbation and decompensated CHF with diastolic dysfunciton developed respiratory distress with audible wheeze cont Neb tx Scheduled q4 hrs/Q 2 hrs PRN IV solu Medrol ACUTE CHF WITH DIASTOLIC DYSFUNCTION : recent echo : EF > 70 % with diastolic grade 1 dysfunction evidence of vol overload pulmonary congestion noted in Cxray /bilateral lower ext edema ProBNP > 2000 will order Lasix 20 mg IV X1 now monitor renal function closely MILD ELEVATION OF TROPONIN possible due to demand ischemia with CHF decompensation , respiratory distress no evidence of acute coronary event troponin level trending down monitor in tele ACUTE KIDNEY DISEASE : Cr elevated 2.89 IV lasix ordered for decompensated CHF Acute kidney injury on chronic kidney disease stage III, baseline creatinine unclear, last discharge was 2.2, questionable lupus nephritis. will follow BMP closely avoid NSAID's /IV contrast recent decline noted with renal function -was concern for possible lupus Nephritis nephrology consulted -was seen by [facility] Neph[facility] in last admission POSSIBLE PNEUMONIA : rt lower lobe infiltrate noted no cough , afebrile /Leukocytosis 14 -on chronic prednisone will D/c Levaquin /vancomycin monitor closely high risk for aspiration , given pts marked deconditioning and cognition decline aspiration precaution speech pathology eval PANCYTOPENIA : resolved -normal platelet counts /resolution of neutoropneia 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 ( due to doxycycline ) treated with Steroids follows with rheum (2) Fall: sustained fall at the rehab /[facility] health report of hitting head CT head negative for acute trauma no laceration injury noted on scalp pt is at baseline dementia with forgetfulness was more confused last night possible due to metabolic encephalopathy , more oriented to -place and person able to answer questions appropriately cont to monitor pt had delirum /sun downing at evening -during last admission a weeks back fall precaution PT/OT FULL CODE Subjective pt was in respiratory distress this am Audible wheeze, tachycardic @ 122 ,tachypnic pt able to talk in sentences , complains of having SOB , difficult breathing no cough , afebrile ordered for stat Neb tx IV Solu Medrol 125 mg X1 stat re evaluate pt after 15 min breathing much improved after neb tx less wheeze HR in low 90's cont respiratory support telemetry monitoring Physical Exam Constitutional: + acute distress (for sob /wheeze ), + ill appearing and + thin Eyes: + scleral abnormality ENMT: Mouth: + oral mucosal abnormality (Dry oral mucosa) Neck: trachea midline, no thyromegaly Respiratory: + respiratory distress, + labored breathing and + uses accessory muscles; no cough Auscultation: + diminished lung sounds and + wheezes Cardiovascular: Rate/Rhythm: regular rate, regular rhythm and + tachycardic Extremities: + edema (+ 2 bilateral pitting edema R> L ) Gastrointestinal (Abdomen): Inspection/Auscultation: normal bowel sounds Percussion/Palpation: abdomen soft; abdomen nontender Neurologic: PERRL, EOMI, accommodation nl, no face palsy, no dysarthria Psychiatric: Orientation: alert; + not oriented x 3 (oriented to place and person , with occasional forgetfulness noted ) Results & Data Vital Signs (Past 12 Hours) Vital Signs Temp Pulse Pulse Pulse Resp BP BP 01/24/19 07:34 112 H 18 01/24/19 07:20 36.4 C L 108 H 22 121/69 01/24/19 03:55 92 H 01/24/19 03:15 36.7 C 99 H 18 132/80 01/24/19 01:37 96 H 16 01/24/19 00:00 86 19 01/23/19 23:30 81 17 01/23/19 23:15 36.5 C 89 18 138/91 01/23/19 23:08 01/23/19 23:07 89 17 01/23/19 23:03 90 18 138/91 BP Pulse Ox Pulse Ox 01/24/19 07:34 98 01/24/19 07:20 96 01/24/19 03:55 01/24/19 03:15 96 01/24/19 01:37 142/95 H 99 01/24/19 00:00 100 01/23/19 23:30 100 01/23/19 23:15 100 01/23/19 23:08 98 01/23/19 23:07 85 L 01/23/19 23:03 (1) Fall Encounter type: initial encounter Qualified Code(s): W19.XXXA - Unspecified fall, initial encounter
[2019-01-24] MEDS: LEVALBUTEROL 1.25MG/0.5ML NEB INH PRN (08:12)
[2019-01-24] MEDS ORDERED: DOCUSATE SODIUM 100 MG CAP PO SCH (09:00)
[2019-01-24] MEDS ORDERED: METOPROLOL TARTRATE 25 MG TAB PO SCH (09:00)
[2019-01-24] MEDS ORDERED: predniSONE 20 MG TAB PO SCH (09:00)
[2019-01-24] MEDS ORDERED: FOLIC ACID 1 MG TAB PO SCH (09:00)
[2019-01-24] MEDS ORDERED: PANTOprazole 40 MG TAB PO SCH (09:00)
[2019-01-24] MEDS ORDERED: ATORVASTATIN 40 MG TAB PO SCH (09:00)
[2019-01-24] MEDS ORDERED: TAMSULOSIN HCL 0.4 MG CAP PO SCH (09:00)
[2019-01-24] MEDS ORDERED: FERROUS SULFATE 325 MG TAB PO SCH (09:00)
[2019-01-24] MEDS ORDERED: ACETAMINOPHEN 500 MG TAB PO SCH (09:00)
[2019-01-24] MEDS ORDERED: XOPENEX/ATROVENT 0.63mg/0.5MG NEB COMBO NEB SCH (09:00)
[2019-01-24] MEDS ORDERED: PIPERACILL/TAZOBAC CONSULT ACTIVE PRN (09:01)
[2019-01-24] MEDS ORDERED: ASPIRIN 81 MG ECTAB PO SCH (09:15)
[2019-01-24] MEDS ORDERED: FUROSEMIDE 20 MG in SYRINGE 0 ML IV ONE (09:15)
[2019-01-24] MEDS ORDERED: PIPERACILLIN/TAZOBACTAM 2.25 GM in DEXTROSE 5% 100 ML IV SCH (09:15)
[2019-01-24] MEDS ORDERED: PIPERACILLIN/TAZOBACTAM 4.5 GM in DEXTROSE 5% 100 ML IV ONE (09:30)
[2019-01-24] MEDS: HEPARIN SOD 5,000 UNIT/0.5 ML VIAL SQ SCH ×2 (10:06→20:45)
[2019-01-24] MEDS: LEVALBUTEROL 1.25MG/0.5ML NEB INH SCH ×4 (10:54→23:02)
[2019-01-24] MEDS: IPRATROPIUM BROMIDE NEB SOLN 0.02% 2.5 ML VIAL INH SCH ×4 (10:54→23:02)
[2019-01-24] MEDS ORDERED: LEVALBUTEROL 1.25MG/0.5ML NEB INH SCH (13:00)
[2019-01-24] MEDS ORDERED: XOPENEX/ATROVENT 1.25mg/0.5MG NEB COMBO NEB SCH (13:00)
--- NOTE | 2019-01-24 13:45 | Hospitalist Progress Note ---
Date of Service January 24, 2019 Subjective CODE PURPLE WAS CALLED : Pt was found unresponsive , for brief episode was hypotensive SBP in 91 , hypoxic 78% in 2 L pt recovered spontaneously after few mins on 4 L 02 spo2 improved to 90% now back in 2 L 02 with spo2 99% seen at bedside eyes open able to talk , does not remember what happened no complain of chest pain , or SOB denies of any dizzy spell or lightheadedness pt been hypotensive after getting IV LAsix 20 mg in am lungs sounds much improved with /respirtaroy distress resolved possible vasovagal episode due to hypotension ? ordered NSS 150 ml bolus in 1 hr transfer to PCU for close monitoring of hemodynamics family Tyra Sales updated over phone Mary Escalera MD Results & Data Vital Signs (Past 12 Hours) Vital Signs Temp Pulse Pulse Pulse Resp BP BP 01/24/19 12:00 92/68 L 89/62 L 01/24/19 11:49 36.4 C L 94 H 22 90/62 L 77/41 L 01/24/19 11:34 92 H 01/24/19 10:57 94 H 18 01/24/19 08:08 98 H 18 01/24/19 07:34 112 H 18 01/24/19 07:20 36.4 C L 108 H 22 121/69 01/24/19 03:55 92 H 01/24/19 03:15 36.7 C 99 H 18 132/80 Pulse Ox Pulse Ox 01/24/19 12:00 01/24/19 11:49 97 01/24/19 11:34 01/24/19 10:57 95 01/24/19 08:08 98 01/24/19 07:34 98 01/24/19 07:20 96 01/24/19 03:55 01/24/19 03:15 96
[2019-01-24 13:49] LABS: Appearance Urine Cloudy (Clear); Bacteria Urine Automated Negative (Negative); Bilirubin Urine Negative (Negative); Blood Urine 3+ (Negative); Color Urine Yellow; Epithelial Cell Urine Auto 0-5 /lpf (0-5); Glucose Urine UA Negative (Negative); Ketones Urine Negative (Negative); Leukocyte Esterase Urine Trace (Negative); Nitrite Urine Negative (Negative); Protein Urine 3+ (Negative); RBC Urine Automated >30 /hpf (0-4); Specific Gravity Urine 1.022 (1.000-1.030); Urobilinogen Urine Negative (Negative)
[2019-01-24 13:50] LABS: Hematocrit (blood only) 23.2 % (42-52); Hemoglobin 7.7 g/dL (14.0-18.0); Mean Corpuscular Hemoglobin 29.8 pg (25-34); Mean Corpuscular Hgb Conc 33.2 g/dL (32-36); Mean Corpuscular Volume 89.9 fL (80-100); Mean Platelet Volume 10.9 fL (7.4-10.4); Platelet Count 184 K/uL (130-400); RDW Coefficient of Variation 17.7 % (11.5-14.5); RDW Standard Deviation 56.7 fL (36.4-46.3); Red Blood Count 2.58 M/uL (4.7-6.1); White Blood Count 23.74 K/uL (4.8-10.8)
--- NOTE | 2019-01-24 13:51 | XRay Report ---
XR chest 1V portable CLINICAL HISTORY: CHF dyspnea COMPARISON STUDY: 01/24/2019 at 1240 hours FINDINGS: Mild cardiac enlargement. Prior median sternotomy. Prominent pulmonary vasculature. Trace f luid within the right interlobar fissure. There is slight blunting lateral calcifications. IMPRESSION: Components of congestive heart failure. This finding is unchanged from the prior exam wi th no interval process. The above report was generated using voice recognition software. It may contain grammatical, syntax or spelling errors. Electronically signed by: Ramone Bartlett M.D. 01/24/2019 1:50 PM
[2019-01-24 13:59] LABS: Albumin Level 1.8 gm/dl (3.4-5.0); BUN Creatinine Ratio 25.2 (10-20); Calcium 7.9 mg/dl (8.5-10.1); Creatinine Clr Calc Pharmacy 20.8 ml/min; Est GFR (African American) 21.4; Est GFR (Non-African American) 18.5; Potassium 4.2 mmol/L (3.5-5.1)
[2019-01-24] MEDS ORDERED: methylPREDNISolone 40 MG in SYRINGE 0 ML IV SCH (14:00)
[2019-01-24] MEDS ORDERED: SODIUM CHLORIDE 0.9% 250 ML IV ONE (14:00)
[2019-01-24 14:02] LABS: Albumin Globulin Ratio 0.5 (0.9-2); Bilirubin,Total 0.5 mg/dl (0.2-1); Globulin 3.6 gm/dl (2.5-4.0); Total Protein 5.4 gm/dl (6.4-8.2)
[2019-01-24] MEDS: PIPERACILLIN/TAZOBACTAM 3.375 GM in DEXTROSE 5% 100 ML IV SCH ×2 (14:30→23:07)
[2019-01-24] MEDS ORDERED: SODIUM CHLORIDE 0.9% 1000ML 1,000 ML IV SCH (15:00)
--- NOTE | 2019-01-24 15:38 | Hospitalist Progress Note ---
Date of Service January 24, 2019 Subjective pr is transferred to PCU room 222 seen at bedside awake , remains confused SBP 92/66 , HR 92 Stat lab reviewed : marked leukocytosis noted 23,000/was 14,000 this morning(patient was given 125 IV Solu-Medrol for severe respiratory distress/COPD exacerbation) Metabolic acidosis with bicarb 17/anion gap 13, creatinine worsened 3.24/was 2.89 in a.m. Given Lasix 20 mg IV this morning Lactic acid 5.4 noted Severe sepsis, possible secondary to pulmonary cause, pneumonia Patient ordered normal saline bolus 150 ml, then continued 100 mL/h Mont[place] catheter inserted for accurate evaluation of intake and output Patient already had blood cultures drawn And Zosyn empirically Given worsening of kidney function we will avoid vancomycin for now, not knowing source of infection Around 3 PM, patient had an another episode of unresponsiveness for a few seconds, On the monitor heart rate dropped down to low 30s Heart rate improved to low 80s, patient recovered within few seconds Beta-marita already discontinued Ordered for bedside atropine Pacer pads [facility] cardiology consulted Continue to monitor and telemetry Results & Data Vital Signs (Past 12 Hours) Vital Signs Temp Pulse Pulse Pulse Resp BP BP 01/24/19 15:20 36.8 C 92 H 22 92/66 L 01/24/19 15:16 92 H 18 01/24/19 14:35 86 20 92/64 L 01/24/19 14:02 36.4 C L 94 H 24 88/59 L 01/24/19 12:00 92/68 L 89/62 L 01/24/19 11:49 36.4 C L 94 H 22 90/62 L 77/41 L 01/24/19 11:34 92 H 01/24/19 10:57 94 H 18 01/24/19 08:08 98 H 18 01/24/19 07:34 112 H 18 01/24/19 07:20 36.4 C L 108 H 22 121/69 01/24/19 03:55 92 H Pulse Ox Pulse Ox 01/24/19 15:20 100 01/24/19 15:16 01/24/19 14:35 99 01/24/19 14:02 100 01/24/19 12:00 01/24/19 11:49 97 01/24/19 11:34 01/24/19 10:57 95 01/24/19 08:08 98 01/24/19 07:34 98 01/24/19 07:20 96 01/24/19 03:55
--- NOTE | 2019-01-24 16:53 | Cardiology Consultation ---
Date of Consultation January 24, 2019 Assessment & Plan (1) Symptomatic bradycardia: Patient admitted with a fall which occurred at rehab. He has had a long illness, and has multiple derangements including elevation his lactate, and worsening renal function. Electrolytes were stable as checked earlier this morning when he had his change in condition. His most recent echocardiogram had been earlier this month on 12/31/2018 revealing hyperdynamic LV systolic function with moderate concentric left ventricular hypertrophy, and normal prosthetic aortic valve function. Calcified mitral valve apparatus was noted without mitral valve stenosis or regurgitation. At this time, the patient has had 3 transient episodes of symptomatic bradycardia down to approximately the upper 30 to 40 bpm range. The most recent telemetry strip and suggestive of intermittent high-grade AV block, although it is difficult to map out the P waves precisely. At this time, I have recommended holding his metoprolol and Keeping him in bed. I do not think a temporary transvenous pacemaker is necessary at present as a sinus rhythm at 80 bpm is currently his rhythm. Transcutaneous pacer pads have been placed in case he has recurrent, more substantial bradycardia episode, and atropine is available at the bedside. Pacemaker implantation during this hospital stay may be indicated, given his leukocytosis, I recommend empiric treatment for suspected sepsis first. Blood cultures were already drawn earlier this morning. He is on antibiotics with Pipracil /tazobactam. We will continue to follow. History of Present Illness Attending Physician: Mary Escalera MD History of Present Illness Tarik Sales is a 68 year old year old male seen in cardiology consultation per the request of Dr. Dueñas for the evaluation of transient symptomatic bradycardia. The patient is well-known to the undersigned as I have followed him for years as an outpatient. He has a history of coronary heart disease as well as valvular heart disease as outlined below. The patient has had a progressive illness recently. He was hospitalized for almost a month last month. This is caused him to miss his most recent outpatient cardiology follow- up visit. There are concerns that he perhaps had pancytopenia related to methotrexate use. He was also treated for sepsis. He was transferred from [facility] back to [facility] yesterday after a fall with preceding dizziness. CT of the head was unremarkable. His renal function has worsened compared to prior admission. This morning he was on 2 N, not on telemetry, when he had a code purple becoming transiently unresponsive when he was rolled on his side during a bath. He was transferred to the PCU and it 1513 he was noted to have transient bradycardia down to the 40 bpm range. This occurred again at 1548. And a third episode was just noted at 1617. Most recent episode included the telemetry strips that are most helpful, and appears the patient had a transient episode of high-grade AV block with ventricular escape in the range of 37 to 40 bpm, and then reverted back to normal sinus rhythm in the 80 bpm range which is a now. During 1 of these episodes, a respiratory therapist was in his room, and noted that the patient's eyes rolled into the back of his head and he became momentarily unresponsive during 1 of the brief bradycardic episodes. Patient certainly is not himself today. He is unable to describe to me his recent medical problems, and therefore his history is obtained from review of his records and from discussion with Dr. Escalera. Past Cardiology Problem List as outpatient: 1.Bicuspid aortic valve 2.ASCVD. 3.Status post CABG x4 with MURPHY to LAD, SVG to OM, SVG to D1, SVG to PDA, b ioprosthetic AVR, Dr Hernández [facility] 12/12/15 4.Single papillary muscle calcified subcordal apparatus 5.Hypertension 6.Dyslipidemia 7.Elevated LFT's , s/p liver biopsy 8.Moderate carotid disease 9.Peripheral arterial disease-moderate to severe on duplex of lower extremities in November 2013. Previously evaluated by Dr. Candelaria. 10.Tobacco abuse. 11.COPD 12.Diffuse connective tissue disease 13.Raynauds 14.Anemia Allergies Allergy/AdvReac Type Severity Reaction Status Date / Time doxycycline AdvReac Severe Unknown Verified 01/23/19 23:27 hydralazine AdvReac Intermediate Unknown Verified 01/23/19 23:27 Home Medications Home Medications Medication Instructions Recorded Confirmed Type atorvastatin 80 mg tablet 80 mg PO DAILY 01/28/18 01/23/19 History ferrous sulfate 325 mg (65 mg 325 mg PO BID tab 01/28/18 01/23/19 History iron) tablet folic acid 1 mg tablet 1 mg PO DAILY 01/28/18 01/23/19 History tamsulosin 0.4 mg capsule 0.4 mg PO DAILY 01/28/18 01/23/19 History triamcinolone acetonide 0.5 % 1 appln TOP TID PRN 01/28/18 01/23/19 History topical cream acetaminophen [Acetaminophen Extra 1,000 mg PO TID 01/23/19 01/23/19 History Strength] docusate sodium 100 mg PO BID 01/23/19 01/23/19 History furosemide 20 mg PO DAILY 01/23/19 01/23/19 History hydrochlorothiazide 12.5 mg PO DAILY 01/23/19 01/23/19 History metoprolol tartrate 25 mg PO Q12 01/23/19 01/23/19 History pantoprazole 40 mg PO DAILY 01/23/19 01/23/19 History polyethylene glycol 3350 [Miralax] 17 g PO QDL PRN 01/23/19 01/23/19 History sennosides-docusate sodium 1 tab-cap PO QDL PRN 01/23/19 01/23/19 History [Senokot-S] tramadol 50 mg PO Q12 PRN 01/23/19 01/23/19 History Patient History Medical History Anemia (Chronic) Anemia (Chronic) Aortic valve, bicuspid (Chronic) CAD (coronary artery disease) of artery bypass graft (Chronic) COPD (chronic obstructive pulmonary disease) (Chronic) Dyslipidemia (Chronic) HTN, goal to be determined (Chronic) Mitral valve regurgitation (Chronic) PAD (peripheral artery disease) (Chronic) Raynaud disease (Chronic) Surgical History S/P aortic valve replacement (Chronic) S/P CABG x 4 (Chronic) S/P tonsillectomy (Chronic) Family History Other Family history non-contributory Social History Preferred Language: [place] Communication Ability: Impaired Visual Impairment: Diminished Hearing Ability: Normal Generator Mechanic Required: No Beliefs That Will Affect Care: None marital status: Current Living Situation: Rehab current occupational status: retired Feels Safe at Home: Yes Smoking Status: Current every day smoker Tobacco Type: cigarettes ; Cigarettes Per Day: 5 ; Do You Dip or Chew Tobacco: No ; Hx Alcohol Use: No Hx Substance Use: No Review of Systems Review of Systems: Unobtainable due to cognitive status Physical Exam Physical Exam: Temp Pulse Resp BP Pulse Ox 36.8 C 92 H 22 92/66 L 100 01/24/19 15:20 01/24/19 15:20 01/24/19 15:20 01/24/19 15:20 01/24/19 15:20 Constitutional: Chronically ill in appearance without acute distress Respiratory: normal respiratory effort, lungs clear to auscultation Cardiovascular: RRR, no murmur, no edema Vessels: no JVD Extremities: + edema (1+ ankle and lower extremity/pedal edema) Gastrointestinal (Abdomen): normal bowel sounds, soft, nontender, no hepatosplenomegaly Neurologic: PERRL, EOMI, accommodation nl, no face palsy, no dysarthria Results & Data Vital Signs (Past 12 Hours) Vital Signs Temp Pulse Pulse Pulse Resp BP BP 01/24/19 15:20 36.8 C 92 H 22 92/66 L 01/24/19 15:16 92 H 18 01/24/19 14:35 86 20 92/64 L 01/24/19 14:02 36.4 C L 94 H 24 88/59 L 01/24/19 12:00 92/68 L 89/62 L 01/24/19 11:49 36.4 C L 94 H 22 90/62 L 77/41 L 01/24/19 11:34 92 H 01/24/19 10:57 94 H 18 01/24/19 08:08 98 H 18 01/24/19 07:34 112 H 18 01/24/19 07:20 36.4 C L 108 H 22 121/69 Pulse Ox Pulse Ox 01/24/19 15:20 100 01/24/19 15:16 01/24/19 14:35 99 01/24/19 14:02 100 01/24/19 12:00 01/24/19 11:49 97 01/24/19 11:34 01/24/19 10:57 95 01/24/19 08:08 98 01/24/19 07:34 98 01/24/19 07:20 96 Laboratory Results WBC 23.74 up from 14 yesterday, hemoglobin 7.7, hematocrit 23.7, platelet count 184 Sodium 139, potassium 4.2, chloride 109, CO2 17, BUN 82, creatinine 3.24 up from 2.89 Lactate level 5.4 calcium 7.9 Troponin 0 0.134, 0.133, 0.150 ng/ ml respectively from 01/23/1923 54-12 50 to day. Diagnostic Findings EKG performed today at 1459: Sinus rhythm 86 bpm with occasional PVCs. The GA interval is normal.
[2019-01-24] MEDS ORDERED: SODIUM BICARB 8.4% INJ 50 MEQ/50 ML SYR ONE (17:10)
[2019-01-24] MEDS ORDERED: SODIUM BICARB 8.4% INJ 50 MEQ/50 ML SYR IV STA ×2 (17:17→18:48)
--- NOTE | 2019-01-24 17:52 | Critical Care Consultation ---
Date of Consultation January 24, 2019 Assessment & Plan (1) Symptomatic bradycardia: Impression: 68-year-old male with history of obstructive lung disease admitted after falls likely related to symptomatic bradycardia (querry profound vagal response). His prior echocardiogram from 2 months ago showed no evidence of right ventricular dysfunction or pulmonary hypertension. He was recently diagnosed with lupus potentially felt to be related to doxycycline. He is pending follow-up with a offline cutter. He did have significant proteinuria which has persisted and has an active urine sediment suspicious for renal involvement of his connective tissue disease. Recommendations: 1. Symptomatic bradycardia: Continue to follow patient in the ICU. Will use atropine as needed. If it becomes a more permanent issue, isoproterenol may be warranted as a bridge to a temporary pacing wire. Management per cardiology. Will hold metoprolol and other AV sandie blocking agents for now. 2. Acute kidney injury: Significant proteinuria on urine dipstick. Will check 24-hour urine. Check for urine eosinophils as well. He did have a active urinary sediment with blood in the urine as well. In light of this we will increase his steroids to 125 mg IV every 6. Pending nephrology consultation. Hold additional diuretics for now given his hemodynamics. Kidney biopsy may be warranted. 3. Confusion: Secondary to poor perfusion when heart rate decreases. Continue to follow for now. 4. Lactic acidosis: Unclear etiology. Patient does not relate a history of extensive alcohol abuse. He does not appear significantly underperfused. Will check LDH and uric acid as well as ferritin level for other potential etiologies. Trend over time. Patient has received bicarb and is pending a repeat blood gas. 5. Elevated troponin: Suspect supply demand mismatch. No EKG G evidence of acute ischemia and no indication for cardiac catheterization currently. 6. Suspected pneumonia: The patient is currently on Zosyn but his chest radiographic findings are not conclusive. Procalcitonin is pending. He does have a significant leukocytosis. We will continue Zosyn for now. 7. Anemia: Unclear etiology. Will check reticulocyte count, haptoglobin, and Jeramie. Will follow in ICU. Remains critically ill. (2) Lactic acidosis: (3) Acute kidney failure: History of Present Illness Attending Physician: Mary Escalera MD History of Present Illness Asked by hospitalist service to assist in management of this patient transferred to the ICU for symptomatic bradycardia. History is obtained from review the electronic medical record as well as discussion with patient and hospitalist. Patient is a 68-year-old male with a history of nonspecific connective tissue disease who was recently admitted to the facility for cytopenia. He was discharged on prednisone to rehab. He had several syncopal events at rehab and was brought back to the hospital. He was admitted to the hospitalist service and again had an episode which was captured on telemetry with the patient was found to be significantly bradycardic with heart rates down in the 30s. This appeared to be a junctional rhythm. These episodes lasted less than 20 seconds and terminated spontaneously. He was transferred to the ICU after cardiology consultation was obtained. He was not felt to require a temporary pacing wire as his current heart rate is up in the 80s and his blood pressure is okay but these episodes of decreased mentation definitely are associated with this. He was also found to be acidotic with an elevated lactate of unclear etiology. Allergies Allergy/AdvReac Type Severity Reaction Status Date / Time doxycycline AdvReac Severe Unknown Verified 01/23/19 23:27 hydralazine AdvReac Intermediate Unknown Verified 01/23/19 23:27 Home Medications Home Medications Medication Instructions Recorded Confirmed Type atorvastatin 80 mg tablet 80 mg PO DAILY 01/28/18 01/23/19 History ferrous sulfate 325 mg (65 mg 325 mg PO BID tab 01/28/18 01/23/19 History iron) tablet folic acid 1 mg tablet 1 mg PO DAILY 01/28/18 01/23/19 History tamsulosin 0.4 mg capsule 0.4 mg PO DAILY 01/28/18 01/23/19 History triamcinolone acetonide 0.5 % 1 appln TOP TID PRN 01/28/18 01/23/19 History topical cream acetaminophen [Acetaminophen Extra 1,000 mg PO TID 01/23/19 01/23/19 History Strength] docusate sodium 100 mg PO BID 01/23/19 01/23/19 History furosemide 20 mg PO DAILY 01/23/19 01/23/19 History hydrochlorothiazide 12.5 mg PO DAILY 01/23/19 01/23/19 History metoprolol tartrate 25 mg PO Q12 01/23/19 01/23/19 History pantoprazole 40 mg PO DAILY 01/23/19 01/23/19 History polyethylene glycol 3350 [Miralax] 17 g PO QDL PRN 01/23/19 01/23/19 History sennosides-docusate sodium 1 tab-cap PO QDL PRN 01/23/19 01/23/19 History [Senokot-S] tramadol 50 mg PO Q12 PRN 01/23/19 01/23/19 History Patient History Medical History Anemia (Chronic) Anemia (Chronic) Aortic valve, bicuspid (Chronic) CAD (coronary artery disease) of artery bypass graft (Chronic) COPD (chronic obstructive pulmonary disease) (Chronic) Dyslipidemia (Chronic) HTN, goal to be determined (Chronic) Mitral valve regurgitation (Chronic) PAD (peripheral artery disease) (Chronic) Raynaud disease (Chronic) Surgical History S/P aortic valve replacement (Chronic) S/P CABG x 4 (Chronic) S/P tonsillectomy (Chronic) Family History Other Family history non-contributory Social History Preferred Language: Iranian Communication Ability: Impaired Visual Impairment: Diminished Hearing Ability: Normal Advertising Inserter Required: No Beliefs That Will Affect Care: None marital status: Current Living Situation: Rehab current occupational status: retired Feels Safe at Home: Yes Smoking Status: Current every day smoker Tobacco Type: cigarettes ; Cigarettes Per Day: 5 ; Do You Dip or Chew Tobacco: No ; Hx Alcohol Use: No Hx Substance Use: No Review of Systems Review of Systems: Please refer to admission H&P. I have no changes Physical Exam Constitutional: well developed and average body habitus; not ill appearing and not in distress ENMT: external ear and nose normal, oropharynx normal Neck: trachea midline, no thyromegaly Respiratory: Diminished breath sounds bilaterally without wheezing. Cardiovascular: Rate/Rhythm: regular rate Heart Sounds: normal S1, normal S2 and + murmur Extremities: + edema 2+ pitting lower extremity edema Gastrointestinal (Abdomen): normal bowel sounds, soft, nontender, no hepatosplenomegaly Musculoskeletal: no cyanosis or clubbing, extremities motor strength 5/5 Skin: Few ecchymoses bilateral Psychiatric: Mentation appears appropriate but somewhat slowed. Results & Data Vital Signs (Past 12 Hours) Vital Signs Temp Pulse Pulse Pulse Resp BP BP 01/24/19 15:20 36.8 C 92 H 22 92/66 L 01/24/19 15:16 92 H 18 01/24/19 14:35 86 20 92/64 L 01/24/19 14:02 36.4 C L 94 H 24 88/59 L 01/24/19 12:00 92/68 L 89/62 L 01/24/19 11:49 36.4 C L 94 H 22 90/62 L 77/41 L 01/24/19 11:34 92 H 01/24/19 10:57 94 H 18 01/24/19 08:08 98 H 18 01/24/19 07:34 112 H 18 01/24/19 07:20 36.4 C L 108 H 22 121/69 Pulse Ox Pulse Ox 01/24/19 15:20 100 01/24/19 15:16 01/24/19 14:35 99 01/24/19 14:02 100 01/24/19 12:00 01/24/19 11:49 97 01/24/19 11:34 01/24/19 10:57 95 01/24/19 08:08 98 01/24/19 07:34 98 01/24/19 07:20 96 Laboratory Results 01/24/19 13:32 Previous serologies including SANTI of 1-1 60 with elevated histone antibodies. ANCA negative Complements were low. Urinalysis from 01/24 showed 3+ protein with 3+ blood. Blood gas pending Diagnostic Findings Chest x-ray from today was independently reviewed. Mild cardiomegaly is noted. Previous sternotomy. Pulmonary vascular markings are mildly prominent with a small pleural effusion. CT of the chest from 01/24/2019 was independently reviewed. Significant splenic calcifications are noted as well as calcified mediastinal and hilar lymph nodes. Emphysematous changes are identified. There are some slight areas of increased interstitial prominence most specifically within the left lung apex. Coding Level of Care Code Critical Care 1st 30-74 mins Diagnoses Symptomatic bradycardia R00.1 Lactic acidosis E87.2 Acute kidney failure N17.9
[2019-01-24] MEDS ORDERED: CALCIUM CHLORIDE 10% 1,000 MG in SODIUM CHLORIDE 0.9% 50 ML IV STA (18:06)
[2019-01-24 18:22] LABS: BUN Creatinine Ratio 24.2 (10-20); Calcium 7.9 mg/dl (8.5-10.1); Est GFR (African American) 20.3; Est GFR (Non-African American) 17.5; Magnesium 1.9 mg/dl (1.8-2.4); Potassium 4.8 mmol/L (3.5-5.1)
[2019-01-24] MEDS: SODIUM BICARBONATE 8.4% 150 MEQ in DEXTROSE 5% 1,000 ML IV SCH (18:25)
[2019-01-24] MEDS: ATROPINE SULFATE 0.1 MG/ML 10ML SYR IV PRN ×3 (18:25→22:57)
[2019-01-24 18:49] LABS: Ferritin 2319.6 ng/ml (8-388)
[2019-01-24 18:55] LABS: iSTAT Allen Test Pass; iSTAT Arterial Blood Gas HCO3 14 meg/L (19-24); iSTAT Arterial Blood Gas pCO2 25 mmHg (35-46); iSTAT Arterial Blood Gas pH 7.35 (7.35-7.45); iSTAT Arterial Blood Gas pO2 117 mmHg (80-95); iSTAT Carbon Dioxide 15 mEq/l (24-31); iSTAT Site R Radial
--- NOTE | 2019-01-24 19:03 | Hospitalist Progress Note ---
Date of Service January 24, 2019 Subjective ATTENDING ADDENDUM : pt is transferred to ICU for intermittent high grade av block /symptomatic bradycardia appreciate input form Cardiology and it trainer called [employer] # [phone] regarding pt's clinical status change Mary Escalera MD Results & Data Vital Signs (Past 12 Hours) Vital Signs Temp Pulse Pulse Pulse Resp BP BP 01/24/19 15:20 36.8 C 92 H 22 92/66 L 01/24/19 15:16 92 H 18 01/24/19 14:35 86 20 92/64 L 01/24/19 14:02 36.4 C L 94 H 24 88/59 L 01/24/19 12:00 92/68 L 89/62 L 01/24/19 11:49 36.4 C L 94 H 22 90/62 L 77/41 L 01/24/19 11:34 92 H 01/24/19 10:57 94 H 18 01/24/19 08:08 98 H 18 01/24/19 07:34 112 H 18 01/24/19 07:20 36.4 C L 108 H 22 121/69 Pulse Ox Pulse Ox 01/24/19 15:20 100 01/24/19 15:16 01/24/19 14:35 99 01/24/19 14:02 100 01/24/19 12:00 01/24/19 11:49 97 01/24/19 11:34 01/24/19 10:57 95 01/24/19 08:08 98 01/24/19 07:34 98 01/24/19 07:20 96
[2019-01-24] MEDS: cefTRIAXone SODIUM 2,000 MG in DEXTROSE 5% 50 ML IV SCH (20:44)
[2019-01-24] MEDS: methylPREDNISolone 125 MG in SYRINGE 0 ML IV SCH (20:44)
[2019-01-24 21:52] LABS: Reticulocytes # 0.03 10^6/uL (0.02-0.10)
[2019-01-24 22:10] LABS: BUN Creatinine Ratio 24.8 (10-20); Calcium 8.6 mg/dl (8.5-10.1); Creatinine Clr Calc Pharmacy 19.2 ml/min; Est GFR (African American) 19.4; Est GFR (Non-African American) 16.7; Potassium 5.1 mmol/L (3.5-5.1)
[2019-01-25] MEDS: ATROPINE SULFATE 0.1 MG/ML 10ML SYR IV PRN ×2 (02:57→07:22)
[2019-01-25] MEDS: LEVALBUTEROL 1.25MG/0.5ML NEB INH PRN (03:02)
[2019-01-25] MEDS: IPRATROPIUM BROMIDE NEB SOLN 0.02% 2.5 ML VIAL INH SCH ×2 (03:02→07:28)
[2019-01-25] MEDS: LEVALBUTEROL 1.25MG/0.5ML NEB INH SCH ×2 (03:04→07:28)
[2019-01-25 05:09] LABS: Albumin Level 1.9 gm/dl (3.4-5.0); Calcium 8.4 mg/dl (8.5-10.1); Creatinine Clr Calc Pharmacy 18.4 ml/min; Est GFR (African American) 18.5; Est GFR (Non-African American) 15.9; Magnesium 1.9 mg/dl (1.8-2.4); Potassium 5.1 mmol/L (3.5-5.1)
[2019-01-25 05:13] LABS: Bilirubin Direct 0.2 mg/dl (0-0.2); Bilirubin,Total 0.4 mg/dl (0.2-1); Phosphorus 6.9 mg/dl (2.5-4.9); Total Protein 5.6 gm/dl (6.4-8.2)
[2019-01-25 05:41] LABS: Hematocrit (blood only) 20.5 % (42-52); Hemoglobin 6.9 g/dL (14.0-18.0); Mean Corpuscular Hemoglobin 29.6 pg (25-34); Mean Corpuscular Hgb Conc 33.7 g/dL (32-36); Mean Platelet Volume 10.3 fL (7.4-10.4); Platelet Count 172 K/uL (130-400); RDW Coefficient of Variation 17.7 % (11.5-14.5); RDW Standard Deviation 56.1 fL (36.4-46.3); Red Blood Count 2.33 M/uL (4.7-6.1); White Blood Count 17.33 K/uL (4.8-10.8)
[2019-01-25 05:43] LABS: iSTAT Allen Test Pass; iSTAT Arterial Blood Gas HCO3 15 meg/L (19-24); iSTAT Arterial Blood Gas pCO2 22 mmHg (35-46); iSTAT Arterial Blood Gas pH 7.44 (7.35-7.45); iSTAT Arterial Blood Gas pO2 109 mmHg (80-95); iSTAT Carbon Dioxide 16 mEq/l (24-31); iSTAT Site R Radial
[2019-01-25] MEDS: SODIUM BICARBONATE 8.4% 150 MEQ in DEXTROSE 5% 1,000 ML IV SCH (05:49)
[2019-01-25] MEDS: PIPERACILLIN/TAZOBACTAM 3.375 GM in DEXTROSE 5% 100 ML IV SCH (05:49)
[2019-01-25] MEDS: methylPREDNISolone 125 MG in SYRINGE 0 ML IV SCH (05:49)
[2019-01-25] MEDS ORDERED: SODIUM CHLORIDE 0.9% 250 ML IV PRN ×2 (06:03→08:50)
--- NOTE | 2019-01-25 09:34 | Cardiology Progress Note ---
Date of Service January 25, 2019 Assessment & Plan (1) Symptomatic bradycardia: (2) Acute kidney failure: (3) Lactic acidosis: (4) Anemia: Hgb down to 6.9 g/dl this am. Haptoglobin pending, other indices suggestive of possible hemolysis. Lactate 8.6. Electrolytes stable. Favor etiology of intermittent bradycardia is high vagal tone in the setting of acute multisystem illness. Recommend ongoing supportive care off of beta marita with PRN atropine for prolonged episodes. Temporary transvenous pacemaker , not indicated at present. with HR of 101 , BP of 123/73. Subjective CC: follow up bradycardia Subjective: Patient remains acutely ill. Transferred to the first floor ICU after I had seen him yesterday afternoon for closer monitoring. Pt received several doses of atropine overnight for heart rate support. Metoprolol remains on hold. Sinus tachycardia present on telemetry this am. Most recent bradycardic episode was at 7:19 am , with sinus bradycardia at 43 bpm, lasted 45 seconds. Patient's mental status is worse. Does not recognize me or his spouse this am. Review of Systems Review of Systems: Unobtainable due to reduced consciousness Physical Exam Physical Exam: Temp Pulse Resp BP Pulse Ox 36.7 C 101 H 16 113/67 100 01/25/19 09:13 01/25/19 09:13 01/25/19 09:13 01/25/19 09:13 01/25/19 09:13 Constitutional: + ill appearing Respiratory: Auscultation: breath sounds present and no diminished lung sounds decreased breath sounds at the bases Cardiovascular: Rate/Rhythm: + tachycardic Heart Sounds: no murmur Extremities: + edema (1-2+ pedal, ankle edema) Results & Data Vital Signs (Past 12 Hours) Vital Signs Temp Pulse Pulse Pulse Pulse Resp BP 01/25/19 09:13 36.7 C 101 H 16 113/67 01/25/19 07:28 108 H 15 01/25/19 06:00 101 H 16 90/63 L 01/25/19 05:31 101 H 18 108/65 01/25/19 05:00 111 H 29 H 109/77 01/25/19 04:30 107 H 27 H 104/59 L 01/25/19 04:00 107 H 16 101/71 01/25/19 03:30 110 H 17 108/63 01/25/19 03:02 114 H 20 01/25/19 03:00 114 H 16 106/78 01/25/19 02:31 104 H 22 96/72 L 01/25/19 02:01 107 H 20 101/72 01/25/19 02:00 36.9 C 109 H 105 H 105 H 28 H 01/25/19 01:00 108 H 25 H 91/85 L 01/25/19 00:30 102 H 17 93/67 L 01/25/19 00:01 105 H 19 108/65 01/25/19 00:00 36.6 C 104 H 17 108/65 01/24/19 23:31 109 H 19 87/66 L 01/24/19 23:00 113 H 29 H 112/74 01/24/19 22:30 105 H 27 H 102/66 01/24/19 22:01 102 H 19 101/69 01/24/19 22:00 104 H 19 01/24/19 21:30 105 H 19 110/73 BP BP Pulse Ox 01/25/19 09:13 100 01/25/19 07:28 97 01/25/19 06:00 99 01/25/19 05:31 100 01/25/19 05:00 91 01/25/19 04:30 86 L 01/25/19 04:00 100 01/25/19 03:30 100 01/25/19 03:02 100 01/25/19 03:00 100 01/25/19 02:31 92 01/25/19 02:01 100 01/25/19 02:00 101/72 101/72 88 L 01/25/19 01:00 77 L 01/25/19 00:30 100 01/25/19 00:01 95 01/25/19 00:00 100 01/24/19 23:31 100 01/24/19 23:00 100 01/24/19 22:30 100 01/24/19 22:01 89 L 01/24/19 22:00 92 01/24/19 21:30 Laboratory Results Cardiac Enzymes 01/24/19 01/24/19 01/24/19 Range/Units 12:50 13:32 17:51 AST 33 (15-37) U/L Lactate Dehydrogenase 345 H (87-241) U/L Troponin I 0.150 H* (0-0.045) ng/ml 01/25/19 01/25/19 Range/Units 04:43 04:43 AST 37 (15-37) U/L Lactate Dehydrogenase (87-241) U/L Troponin I 0.179 H* (0-0.045) ng/ml CBC 01/24/19 01/25/19 Range/Units 13:32 04:43 WBC 23.74 H 17.33 H (4.8-10.8) K/uL RBC 2.58 L 2.33 L (4.7-6.1) M/uL Hgb 7.7 L 6.9 L* (14.0-18.0) g/dL Hct 23.2 L 20.5 L* (42-52) % Plt Count 184 172 (130-400) K/uL Comprehensive Metabolic Panel 01/24/19 01/24/19 01/24/19 Range/Units 13:32 17:51 21:38 Sodium 139 141 140 (136-145) mmol/L Potassium 4.2 4.8 5.1 (3.5-5.1) mmol/L Chloride 109 H 108 H 107 (98-107) mmol/L Carbon Dioxide 17 L 19 L 17 L (21-32) mmol/L BUN 82 H 82 H 87 H (7-18) mg/dl Creatinine 3.24 H D 3.38 H 3.52 H (0.6-1.4) mg/dl Glucose 123 H 155 H 150 H (70-99) mg/dl Calcium 7.9 L 7.9 L 8.6 (8.5-10.1) mg/dl Direct Bilirubin (0-0.2) mg/dl AST 33 (15-37) U/L ALT 61 (12-78) U/L Alkaline Phosphatase 133 H (45-117) U/L Total Protein 5.4 L (6.4-8.2) gm/dl Albumin 1.8 L (3.4-5.0) gm/dl 01/25/19 Range/Units 04:43 Sodium 140 (136-145) mmol/L Potassium 5.1 (3.5-5.1) mmol/L Chloride 106 (98-107) mmol/L Carbon Dioxide 18 L (21-32) mmol/L BUN 88 H (7-18) mg/dl Creatinine 3.66 H (0.6-1.4) mg/dl Glucose 139 H (70-99) mg/dl Calcium 8.4 L (8.5-10.1) mg/dl Direct Bilirubin 0.2 (0-0.2) mg/dl AST 37 (15-37) U/L ALT 64 (12-78) U/L Alkaline Phosphatase 122 H (45-117) U/L Total Protein 5.6 L (6.4-8.2) gm/dl Albumin 1.9 L (3.4-5.0) gm/dl Intake and Output 01/24/19 01/25/19 01/25/19 22:59 06:59 14:59 Intake Total 763.733 / 2618.733 1255 / 2618.733 Output Total 50 / Balance 753.733 / 2258.733 1205 / 2258.733 Intake: IV 763.733 / 2618.733 1255 / 2618.733 Calcium Chloride 10% 1,000 mg 60 / 60 In Nss 50 ml @ 240 mls/hr IV NOW STA Rx#:[id number] Zosyn 3.375 gm In D5 100 ml @ 110.4 / 225.4 115 / 225.4 28.75 mls/hr IV Q8H KATHERINE Rx#: [id number] Sodium Bicarbonate 8.4% 150 Meq 1140 / 1140 In D5w 1,000 ml @ 100 mls/hr IV .[id number] KATHERINE Rx#:[id number] Nss 1000ML 1,000 ml @ 100 mls/ 273.333 / 273.333 hr IV .Q10H KATHERINE Rx#:[id number] Nss 250 ml @ 150 mls/hr IV . 250 / 250 Q1H40M ONE Rx#:[id number] Rocephin 2,000 mg In D5w 50 ml 70 / 70 @ 100 mls/hr IV DAILY KATHERINE Rx#: [id number] Oral 0 / 0 0 / 0 Output: Urine Amount (Catheter) Montague/Indwelling (1) Anemia Anemia type: unspecified type Qualified Code(s): D64.9 - Anemia, unspecified
--- NOTE | 2019-01-25 09:35 | Critical Care Progress Note ---
Date of Service January 25, 2019 Assessment & Plan (1) Symptomatic bradycardia: Impression: 68-year-old male with history of obstructive lung disease admitted after falls likely related to symptomatic bradycardia (querry profound vagal response). His prior echocardiogram from 2 months ago showed no evidence of right ventricular dysfunction or pulmonary hypertension. He was recently diagnosed with lupus potentially felt to be related to doxycycline. He is pending follow-up with a spice cleaner. He did have significant proteinuria which has persisted and has an active urine sediment suspicious for renal involvement of his connective tissue disease. 24-hour events: The patient was transferred to the ICU. He received multiple doses of atropine overnight for symptomatic bradycardia. These were successful in aborting his episodes. In between the episodes he is hemodynamically stable with a normal blood pressure. He has had some stridorous breathing associated with these episodes as well which resolves with atropine. Recommendations: 1. Symptomatic bradycardia: Will use atropine as needed. Discussed with cardiology. They would like to hold off on temporary pacing wire for now. Will hold metoprolol and other AV sandie blocking agents for now. 2. Acute kidney injury: Significant proteinuria on urine dipstick. Pending 24- hour urine. Urine eosinophils also pending. He did have a active urinary sediment with blood in the urine as well. currently on Solu-Medrol 125 mg IV every 6. Pending nephrology consultation. Hold additional diuretics for now given his hemodynamics. Kidney biopsy may be warranted but is not available at our institution. is unsure whether the patient would run renal replacement therapy 3. Confusion: Appears progressive now. Will likely need lumbar puncture at some point 4. Lactic acidosis: Unclear etiology. Continue bicarb for now. Given elevation in LDH uric acid and ferritin, concern for underlying hematologic pr ocess such as hemophagocytic syndrome or rheumatologic process such as adult onset stills disease would be in the differential. 5. Elevated troponin: Suspect supply demand mismatch. No EKG G evidence of acute ischemia and no indication for cardiac catheterization currently. 6. Suspected pneumonia: The patient is currently on Zosyn but his chest radiographic findings are not conclusive. Procalcitonin is pending. He does have a significant leukocytosis. We will continue Zosyn for now. 7. Anemia: Jeramie negative. Reticulocyte count appropriate and haptoglobin pending. Will transfuse now. Would recommend a bone marrow biopsy which is not available at our institution. Extensive discussion with the hospitalist, cardiology, and patient and spouse at bedside. 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 Given the diagnostic uncertainty I think he needs a tertiary care facility and recommended the patient be transferred in [place] where rheumatology and hematology consults are available. In addition he may require invasive procedures such as kidney biopsy or bone marrow biopsy which are not available at our institution. I recommended that the patient and his consider aggressive care until we have been able to make a formal diagnosis and determine prognosis. Earlier discussions with the hospitalist lead to changing the patient to DNR status and they were unsure that he would want dialysis. Again I strongly encouraged them that until we have a definitive diagnosis and can provide some prognosis we should continue to be aggressive. They have taken this under consideration. (2) Lactic acidosis: (3) Acute kidney failure: Subjective Patient more obtunded this morning. He can intermittently answer questions but does not Frear encephalopathic and confused. Review of Systems Review of Systems: Unobtainable due to cognitive status Physical Exam Constitutional: + ill appearing, average body habitus and + in distress Eyes: PERRL, conjunctivae normal, anicteric sclerae ENMT: external ear and nose normal, oropharynx normal Neck: trachea midline, no thyromegaly Respiratory: Occasional stridor during episodes however clear this morning Cardiovascular: Rate/Rhythm: regular rate Heart Sounds: normal S1, normal S2 and + murmur Extremities: + edema Gastrointestinal (Abdomen): Inspection/Auscultation: abdomen normal to inspection Percussion/Palpation: abdomen soft Musculoskeletal: no cyanosis or clubbing, extremities motor strength 5/5 Results & Data Vital Signs (Past 12 Hours) Vital Signs Temp Pulse Pulse Pulse Pulse Resp BP 01/25/19 09:13 36.7 C 101 H 16 113/67 01/25/19 07:28 108 H 15 01/25/19 06:00 101 H 16 90/63 L 01/25/19 05:31 101 H 18 108/65 01/25/19 05:00 111 H 29 H 109/77 01/25/19 04:30 107 H 27 H 104/59 L 01/25/19 04:00 107 H 16 101/71 01/25/19 03:30 110 H 17 108/63 01/25/19 03:02 114 H 20 01/25/19 03:00 114 H 16 106/78 01/25/19 02:31 104 H 22 96/72 L 01/25/19 02:01 107 H 20 101/72 01/25/19 02:00 36.9 C 109 H 105 H 105 H 28 H 01/25/19 01:00 108 H 25 H 91/85 L 01/25/19 00:30 102 H 17 93/67 L 01/25/19 00:01 105 H 19 108/65 01/25/19 00:00 36.6 C 104 H 17 108/65 01/24/19 23:31 109 H 19 87/66 L 01/24/19 23:00 113 H 29 H 112/74 01/24/19 22:30 105 H 27 H 102/66 01/24/19 22:01 102 H 19 101/69 01/24/19 22:00 104 H 19 01/24/19 21:30 105 H 19 110/73 BP BP Pulse Ox 01/25/19 09:13 100 01/25/19 07:28 97 01/25/19 06:00 99 01/25/19 05:31 100 01/25/19 05:00 91 01/25/19 04:30 86 L 01/25/19 04:00 100 01/25/19 03:30 100 01/25/19 03:02 100 01/25/19 03:00 100 01/25/19 02:31 92 01/25/19 02:01 100 01/25/19 02:00 101/72 101/72 88 L 01/25/19 01:00 77 L 01/25/19 00:30 100 01/25/19 00:01 95 01/25/19 00:00 100 01/24/19 23:31 100 01/24/19 23:00 100 01/24/19 22:30 100 01/24/19 22:01 89 L 01/24/19 22:00 92 01/24/19 21:30 Laboratory Results 01/25/19 04:43 01/25/19 04:43 01/23/19 23:54 ABG pH 7.43 ABG pCO2 30 L ABG pO2 114 H ABG HCO3 19 ABG O2 Saturation 98.0 H ABG Base Excess -4.0 Reticulocyte count 0.03 Haptoglobin pending Lactate increasing to 8.6 this morning Uric acid elevated at 8.0 Ferritin 2319 LDH 345 Procalcitonin 2.2 Diagnostic Findings No new imaging Coding Level of Care Code Critical Care 1st 30-74 mins Diagnoses Symptomatic bradycardia R00.1 Lactic acidosis E87.2 Acute kidney failure N17.9 Time Spent (min) 68
[2019-01-25] MEDS ORDERED: LORazepam 1 MG/2 ML VIAL IV PRN (10:01)
[2019-01-25] MEDS ORDERED: ATROPINE SULFATE 1% OP SOLN 2 ML BTL SL PRN (10:02)
[2019-01-25] MEDS ORDERED: MoRPHine SULFATE 2 MG/ML CARP IV PRN (10:03)
[2019-01-25] MEDS: cefTRIAXone SODIUM 2,000 MG in DEXTROSE 5% 50 ML IV SCH (10:29)
--- NOTE | 2019-01-25 11:45 | Hospitalist Progress Note ---
Date of Service January 25, 2019 Assessment & Plan (1) Bradycardia: Symptomatic bradycardia: Patient developed 10-15 seconds of intermittent bradycardia, leading to obtundation and hypotension, hypoxia Lopressor discontinued yesterday, was transferred to ICU, Patient input from instructor watch assembly and cardiology Patient required multiple episodes of atropine overnight for symptomatic bradycardia Patient evaluated by cardiology at bedside, Patient's heart rate recovers within few seconds sinus with rate controlled, Bradycardia was thought to be secondary to acute electrolyte imbalance lactic acidosis metabolic acidosis, Temporary trans-venous pacemaker was not indicated Given multiorgan failure with/concern for possible hemophagocytic syndrome ICU team recommended patient should be cared for at a tertiary care facility Patient was accepted be transferred to [facility] ICU Family decided to withhold the transfer, patient has progressive decline in the past several months leading to extremely poor quality of life multiple prolonged hospital admissions, with steady cognitive decline Per patient's , Mr. Sales mentioned multiple times he does not want to prolong his life if there is no quality Mrs. Sales once goal of care to be transitions to provide comfort only Patient's is updated by myself instructor watch assembly that without any treatment patient has very high mortality Family is aware and care is transition to hospice palliative care Transferred out of ICU, Patient will be on medical floor with intermittent IV morphine, Ativan, symptomatic drugs for pain discomfort or shortness of breath Palliative care consulted ANEMIA, Since admission with pancytopenia, neutropenic( WBC with 0.69) , anemia profound thrombocytopenia leading to severe epistaxis Required multiple units of PRBC, and platelet transfusion 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 Given the diagnostic uncertainty recommends patient needs a tertiary care facility and recommended the patient be transferred in [place] where rheumatology and hematology consults are available. In addition he may require invasive procedures such as kidney biopsy or bone marrow biopsy -to confirm diagnosis Family requested to transition care to comfort measure hospice early Given extremely poor overall prognosis, will continue palliative/comfort care with control of symptoms LACTIC ACIDOSIS Unclear etiology No evidence of infection/sepsis, transient episode of hypotension, which was corrected with IV fluid bolus No suggestion of persistent hypoxemia She has been on bicarb drip, lactic acid continues to elevate in spite of that: 4.5 -> 8 Per instructor watch assembly: Given elevation in LDH uric acid and ferritin, concern for underlying hematologic process such as hemophagocytic syndrome or rheumatologic process such as adult onset stills disease would be in the differential. Patient's care transition to hospice comfort care given poor prognosis, Dana did not want to proceed with more invasive procedure/treatment and transfer to tertiary care CODE STATUS: DNR/DNI Subjective Patient's goal of care changed to comfort care hospice as per patient's wish Patient has stated clinical decline in the past several months, Patient's Gudelia Sales mentions Mr. Sales in the past as numerous times does not want to be kept alive but for artificial measures, does not want to continue if there is prolong suffering deconditioning Patient is made DNR DNI as per discussion, no dialysis, no heroic or aggressive procedures Given patient's rapid decline in status, plan was to transfer to intensive care unit in [facility], Patient was accepted under service of instructor watch assembly Dr. Cody Benites Prior to transfer, patient's approached me and instructor watch assembly, wants to cancel the transfer, And transition care to comfort only She is counseled numerous times by Dr. Fitzgerald (instructor watch assembly) and myself, We do not have a definite diagnosis, Needs higher level of care, keeping patient in [facility] without appropriate care lead to his possibly 8 hoursdays Mrs. Sales understands, Wants to proceed for palliative care, comfort care transfer to [place] was cancelled , [facility] updated pt is changed to comfort care only will be transferred out of ICU to medical floor transitioned to Hospice /comfort care DNR .DNI ordered for IV morphine prn for discomfort can be changed to IV morphine if indicated PRN IV ativan cont comfort care pt's prognosis is extremely poor 50% mortality without treatment for Hemophagocytic syndrome -Dx could not be confirmed due to lack of liver /kidney biopsy Pt's Only son -driving in to [place] from [place] Pt's contacted him over the phone -son also agrees with decision to keep to comfortable only -no aggresive tx or procedure Mary Escalera MD Physical Exam Constitutional: + ill appearing and + altered mental status (very lathergic , unable to arouse with voice) Eyes: + anicteric sclerae ENMT: Very dry oral mucous membrane Gastrointestinal (Abdomen): Inspection/Auscultation: abdomen not distended Percussion/Palpation: abdomen soft Neurologic: Very lethargic and stuporous Results & Data Vital Signs (Past 12 Hours) Vital Signs Temp Pulse Pulse Pulse Pulse Resp BP 01/25/19 10:00 91 H 16 98/61 L 01/25/19 09:40 97 H 16 101/71 01/25/19 09:31 36.7 C 99 H 15 111/65 01/25/19 09:20 36.7 C 101 H 16 123/73 01/25/19 09:13 36.7 C 101 H 16 113/67 01/25/19 09:00 107 H 18 113/67 01/25/19 08:30 97 H 16 100/64 01/25/19 08:00 36.7 C 97 H 21 113/75 01/25/19 07:30 107 H 20 105/73 01/25/19 07:28 108 H 15 01/25/19 07:00 100 H 21 96/71 L 01/25/19 06:00 101 H 16 90/63 L 01/25/19 05:31 101 H 18 108/65 01/25/19 05:00 111 H 29 H 109/77 01/25/19 04:30 107 H 27 H 104/59 L 01/25/19 04:00 107 H 16 101/71 01/25/19 03:30 110 H 17 108/63 01/25/19 03:02 114 H 20 01/25/19 03:00 114 H 16 106/78 01/25/19 02:31 104 H 22 96/72 L 01/25/19 02:01 107 H 20 101/72 01/25/19 02:00 36.9 C 109 H 105 H 105 H 28 H 01/25/19 01:00 108 H 25 H 91/85 L 01/25/19 00:30 102 H 17 93/67 L 01/25/19 00:01 105 H 19 108/65 01/25/19 00:00 36.6 C 104 H 17 108/65 BP BP Pulse Ox 01/25/19 10:00 100 01/25/19 09:40 100 01/25/19 09:31 99 01/25/19 09:20 100 01/25/19 09:13 100 01/25/19 09:00 99 01/25/19 08:30 100 01/25/19 08:00 100 01/25/19 07:30 93 01/25/19 07:28 97 01/25/19 07:00 100 01/25/19 06:00 99 01/25/19 05:31 100 01/25/19 05:00 91 01/25/19 04:30 86 L 01/25/19 04:00 100 01/25/19 03:30 100 01/25/19 03:02 100 01/25/19 03:00 100 01/25/19 02:31 92 01/25/19 02:01 100 01/25/19 02:00 101/72 101/72 88 L 01/25/19 01:00 77 L 01/25/19 00:30 100 01/25/19 00:01 95 01/25/19 00:00 100
[2019-01-25] MEDS ORDERED: ONDANSETRON INJ 2 MG/ML 2 ML VIAL IV PRN (16:58)
[2019-01-25] MEDS ORDERED: ONDANSETRON INJ 2 MG/ML 2 ML VIAL ONE (17:01)
[2019-01-25] MEDS ORDERED: PROMETHAZINE HCL 25 MG in SODIUM CHLORIDE 0.9% 50 ML IV PRN (17:34)
[2019-01-25] MEDS ORDERED: PIPERACILLIN/TAZOBACTAM 3.375 GM in DEXTROSE 5% 100 ML IV SCH (18:00)
[2019-01-25] MEDS: MoRPHine SULFATE 2 MG/ML CARP IV PRN (20:26)
[2019-01-26 09:44] LABS: Bacteria Urine Automated Negative (Negative)
[2019-01-26 09:58] LABS: RBC Urine Automated >30 /hpf (0-4)
--- NOTE | 2019-01-26 17:42 | Hospitalist Progress Note ---
Date of Service January 26, 2019 Assessment & Plan (1) COPD exacerbation: ACUTE HYPOXEMIC RESPIRATORY FAILURE : due to combination of COPD exacerbation and decompensated CHF with diastolic dysfunciton developed respiratory distress with audible wheeze cont Neb tx Scheduled q4 hrs/Q 2 hrs PRN IV solu Medrol ACUTE CHF WITH DIASTOLIC DYSFUNCTION : recent echo : EF > 70 % with diastolic grade 1 dysfunction evidence of vol overload pulmonary congestion noted in Cxray /bilateral lower ext edema ProBNP > 2000 will order Lasix 20 mg IV X1 now monitor renal function closely MILD ELEVATION OF TROPONIN possible due to demand ischemia with CHF decompensation , respiratory distress no evidence of acute coronary event troponin level trending down monitor in tele ACUTE KIDNEY DISEASE : Cr elevated 2.89 IV lasix ordered for decompensated CHF Acute kidney injury on chronic kidney disease stage III, baseline creatinine unclear, last discharge was 2.2, questionable lupus nephritis. will follow BMP closely avoid NSAID's /IV contrast recent decline noted with renal function -was concern for possible lupus Nephritis nephrology consulted -was seen by [facility] in last admission POSSIBLE PNEUMONIA : rt lower lobe infiltrate noted no cough , afebrile /Leukocytosis 14 -on chronic prednisone will D/c Levaquin /vancomycin monitor closely high risk for aspiration , given pts marked deconditioning and cognition decline aspiration precaution speech pathology eval PANCYTOPENIA : resolved -normal platelet counts /resolution of neutoropneia 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 ( due to doxycycline ) treated with Steroids follows with rheum (2) Fall: sustained fall at the rehab /[facility] health report of hitting head CT head negative for acute trauma no laceration injury noted on scalp pt is at baseline dementia with forgetfulness was more confused last night possible due to metabolic encephalopathy , more oriented to -place and person able to answer questions appropriately cont to monitor pt had delirum /sun downing at evening -during last admission a weeks back fall precaution PT/OT FULL CODE Subjective Patient's goal of care changed to comfort care hospice as per patient's wish Patient has stated clinical decline in the past several months, Patient's Gudelia Sales mentions Mr. Sales in the past as numerous times does not want to be kept alive but for artificial measures, does not want to continue if there is prolong suffering deconditioning Patient is made DNR DNI as per discussion, no dialysis, no heroic or aggressive procedures Given patient's rapid decline in status, plan was to transfer to intensive care unit in [facility], Patient was accepted under service of crown and bridge technician Dr. Cody Benites Prior to transfer, patient's approached me and crown and bridge technician, wants to cancel the transfer, And transition care to comfort only She is counseled numerous times by Dr. Fitzgerald (crown and bridge technician) and myself, We do not have a definite diagnosis, Needs higher level of care, keeping patient in [facility] without appropriate care lead to his possibly 8 hoursdays Mrs. Sales understands, Wants to proceed for palliative care, comfort care transfer to [place] was cancelled , [facility] updated pt is changed to comfort care only will be transferred out of ICU to medical floor transitioned to Hospice /comfort care DNR .DNI ordered for IV morphine prn for discomfort can be changed to IV morphine if indicated PRN IV ativan cont comfort care pt's prognosis is extremely poor 50% mortality without treatment for Hemophagocytic syndrome -Dx could not be confirmed due to lack of liver /kidney biopsy Pt's Only son -driving in to [place] from [place] Pt's contacted him over the phone -son also agrees with decision to keep to comfortable only -no aggresive tx or procedure Mary Escalera MD Physical Exam Constitutional: + acute distress (for sob /wheeze ), + ill appearing and + thin Eyes: + scleral abnormality ENMT: Mouth: + oral mucosal abnormality (Dry oral mucosa) Neck: trachea midline, no thyromegaly Respiratory: + respiratory distress, + labored breathing and + uses accessory muscles; no cough Auscultation: + diminished lung sounds and + wheezes Cardiovascular: Rate/Rhythm: regular rate, regular rhythm and + tachycardic Extremities: + edema (+ 2 bilateral pitting edema R> L ) Gastrointestinal (Abdomen): Inspection/Auscultation: normal bowel sounds Percussion/Palpation: abdomen soft; abdomen nontender Neurologic: PERRL, EOMI, accommodation nl, no face palsy, no dysarthria Psychiatric: Orientation: alert; + not oriented x 3 (oriented to place and person , with occasional forgetfulness noted ) (1) Fall Encounter type: initial encounter Qualified Code(s): W19.XXXA - Unspecified fall, initial encounter
[2019-01-26] MEDS ORDERED: HYDROCODONE/HOMATROPINE SYRUP 5MG/1.5MG 5ML UDP PO PRN (18:34)
[2019-01-26] MEDS: MoRPHine SULFATE 2 MG/ML CARP IV PRN (20:59)
--- NOTE | 2019-01-27 12:29 | Hospitalist Progress Note ---
Date of Service January 26, 2019 LATE ENTRY PT WAS SEEN ON 01/26/19 AT 6; 45 PM Assessment & Plan (1) Bradycardia: COMFORT CARE /HOSPICE : Cont comfort measure Palliative care consulted cont PRN Morphine , Ativan for symptoms of discomfort /SOB Symptomatic Bradycardia: Patient developed 10-15 seconds of intermittent bradycardia, leading to obtundation and hypotension, hypoxia Lopressor discontinued yesterday, was transferred to ICU, Patient input from project manager senior and cardiology Patient required multiple episodes of atropine overnight for symptomatic bradycardia Patient evaluated by cardiology at bedside, Patient's heart rate recovers within few seconds sinus with rate controlled, Bradycardia was thought to be secondary to acute electrolyte imbalance lactic acidosis metabolic acidosis, Temporary trans-venous pacemaker was not indicated Given multiorgan failure with/concern for possible hemophagocytic syndrome ICU team recommended patient should be cared for at a tertiary care facility Patient was accepted be transferred to [facility] ICU Family decided to withhold the transfer, patient has progressive decline in the past several months leading to extremely poor quality of life multiple prolonged hospital admissions, with steady cognitive decline Per patient's , Mr. Sales mentioned multiple times he does not want to prolong his life if there is no quality Mrs. Sales once goal of care to be transitions to provide comfort only Patient's is updated by myself project manager senior that without any treatment patient has very high mortality Family is aware and care is transition to hospice palliative care Transferred out of ICU, Patient will be on medical floor with intermittent IV morphine, Ativan, symptomatic drugs for pain discomfort or shortness of breath Palliative care consulted ANEMIA, Since admission with pancytopenia, neutropenic( WBC with 0.69) , anemia profound thrombocytopenia leading to severe epistaxis Required multiple units of PRBC, and platelet transfusion 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 Given the diagnostic uncertainty recommends patient needs a tertiary care facility and recommended the patient be transferred in [place] where rheumatology and hematology consults are available. In addition he may require invasive procedures such as kidney biopsy or bone marrow biopsy -to confirm diagnosis Family requested to transition care to comfort measure hospice early Given extremely poor overall prognosis, will continue palliative/comfort care with control of symptoms LACTIC ACIDOSIS Unclear etiology No evidence of infection/sepsis, transient episode of hypotension, which was corrected with IV fluid bolus No suggestion of persistent hypoxemia She has been on bicarb drip, lactic acid continues to elevate in spite of that: 4.5 -> 8 Per project manager senior: Given elevation in LDH uric acid and ferritin, concern for underlying hematologic process such as hemophagocytic syndrome or rheumatologic process such as adult onset stills disease would be in the differential. Patient's care transition to hospice comfort care given poor prognosis, Dana did not want to proceed with more invasive procedure/treatment and transfer to tertiary care CODE STATUS: DNR/DNI Subjective more awake and alert today very confused , oriented to person only SOn present at bedside on comfort care /hospice so far only requiring intermittent IV morphine for SOB Physical Exam Constitutional: + altered mental status (awake , confused ) Eyes: + anicteric sclerae Gastrointestinal (Abdomen): Inspection/Auscultation: abdomen not distended Neurologic: Speech / Cognition: + abnormal cognition (confused , awake , oriented to person )
--- NOTE | 2019-01-27 19:52 | Hospitalist Progress Note ---
Date of Service January 27, 2019 Assessment & Plan (1) Bradycardia: COMFORT CARE /HOSPICE : Cont comfort measure Palliative care consulted cont PRN Morphine , Ativan for symptoms of discomfort /SOB Symptomatic Bradycardia: Patient developed 10-15 seconds of intermittent bradycardia, leading to obtundation and hypotension, hypoxia Lopressor discontinued yesterday, was transferred to ICU, Patient input from brancher and cardiology Patient required multiple episodes of atropine overnight for symptomatic bradycardia Patient evaluated by cardiology at bedside, Patient's heart rate recovers within few seconds sinus with rate controlled, Bradycardia was thought to be secondary to acute electrolyte imbalance lactic acidosis metabolic acidosis, Temporary trans-venous pacemaker was not indicated Given multiorgan failure with/concern for possible hemophagocytic syndrome ICU team recommended patient should be cared for at a tertiary care facility Patient was accepted be transferred to [facility] ICU Family decided to withhold the transfer, patient has progressive decline in the past several months leading to extremely poor quality of life multiple prolonged hospital admissions, with steady cognitive decline Per patient's , Mr. Sales mentioned multiple times he does not want to prolong his life if there is no quality Mrs. Sales once goal of care to be transitions to provide comfort only Patient's is updated by myself brancher that without any treatment patient has very high mortality Family is aware and care is transition to hospice palliative care Transferred out of ICU, Patient will be on medical floor with intermittent IV morphine, Ativan, symptomatic drugs for pain discomfort or shortness of breath Palliative care consulted ANEMIA, Since admission with pancytopenia, neutropenic( WBC with 0.69) , anemia profound thrombocytopenia leading to severe epistaxis Required multiple units of PRBC, and platelet transfusion 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 Given the diagnostic uncertainty recommends patient needs a tertiary care facility and recommended the patient be transferred in [place] where rheumatology and hematology consults are available. In addition he may require invasive procedures such as kidney biopsy or bone marrow biopsy -to confirm diagnosis Family requested to transition care to comfort measure hospice early Given extremely poor overall prognosis, will continue palliative/comfort care with control of symptoms LACTIC ACIDOSIS Unclear etiology No evidence of infection/sepsis, transient episode of hypotension, which was corrected with IV fluid bolus No suggestion of persistent hypoxemia She has been on bicarb drip, lactic acid continues to elevate in spite of that: 4.5 -> 8 Per brancher: Given elevation in LDH uric acid and ferritin, concern for underlying hematologic process such as hemophagocytic syndrome or rheumatologic process such as adult onset stills disease would be in the differential. Patient's care transition to hospice comfort care given poor prognosis, Dana did not want to proceed with more invasive procedure/treatment and transfer to tertiary care CODE STATUS: DNR/DNI Subjective on comfort care /hospice Physical Exam Constitutional: + altered mental status (awake , confused ) Eyes: + anicteric sclerae Gastrointestinal (Abdomen): Inspection/Auscultation: abdomen not distended Neurologic: Speech / Cognition: + abnormal cognition (confused , awake , oriented to person )
[2019-01-28] MEDS ORDERED: MoRPHine SULFATE 10 MG/0.5 ML UDP PO PRN (15:12)
--- NOTE | 2019-01-28 15:31 | Hospitalist Progress Note ---
Date of Service January 28, 2019 Assessment & Plan (1) Bradycardia: Pt has been stable for past 2 days today more awake and alert , able to be out of bed family wants to pursue his treatment if he cont do well and able to tolerate which can all be done as out patient if pt's remains stable and participate in PT/OT plan is to have PT/OT eval and have pt move to Skilled rehab at [facility] case management aware Hospice revocked (updated social service and palliative care team ) PT/OT consulted Symptomatic Bradycardia: Patient developed 10-15 seconds of intermittent bradycardia, leading to obtundation and hypotension, hypoxia Lopressor discontinued yesterday, was transferred to ICU, Patient input from clock and watch hands painter and cardiology Patient required multiple episodes of atropine overnight for symptomatic bradycardia Patient evaluated by cardiology at bedside, Patient's heart rate recovers within few seconds sinus with rate controlled, Bradycardia was thought to be secondary to acute electrolyte imbalance lactic acidosis metabolic acidosis, Temporary trans-venous pacemaker was not indicated Given multiorgan failure with/concern for possible hemophagocytic syndrome ICU team recommended patient should be cared for at a tertiary care facility Patient was accepted be transferred to [facility] ICU Family decided to withhold the transfer, patient has progressive decline in the past several months leading to extremely poor quality of life multiple prolonged hospital admissions, with steady cognitive decline Per patient's , Mr. Sales mentioned multiple times he does not want to prolong his life if there is no quality Mrs. Sales once goal of care to be transitions to provide comfort only Patient's is updated by myself clock and watch hands painter that without any treatment patient has very high mortality Family is aware and care is transition to hospice palliative care Transferred out of ICU, PT HAS REMAINED STABLE IN PAST 2 DAYS ON MEDICAL FLOOR FAMILY WILLING TO PERSUE TO TRANSITION TO SNF AND LATER IF PT DECLINES WILL SEEK FOR HOSPICE CARE CODE STATUS: DNR/DNI DISPOSITION; TRANSITION TO SNF IF PT REMAINS STABLE AND IMPROVES CLINICALLY Subjective pt has been stable for past 2 days today alert and awake was able to get out of bed , walk few steps seen at bedside , pt is able to have a conversation , no confusion or hallucination noted present at bedside as pt is clinically stable and getting better , family is interested to revock hospice Have pt go to Skilled rehab and possible continued treatment and tests needed for disease We have not been able to get a clear cut diagnosis due to lack of Liver and kidney biopsy to clarify whether it is a Hemophagocytic disorder vs other Rheumotogical disease Physical Exam Constitutional: WD/WN, vitals as above + ill appearing (awake and alert , no sign of distress ), + thin and + cachectic; no acute distress Eyes: + anicteric sclerae ENMT: Mouth: + lip abnormality (dry oral mucosa ) Respiratory: normal respiratory effort; no respiratory distress and no cough Auscultation: no wheezes Cardiovascular: Rate/Rhythm: regular rate and regular rhythm Gastrointestinal (Abdomen): Inspection/Auscultation: abdomen not distended Neurologic: PERRL, EOMI, accommodation nl, no face palsy, no dysarthria Speech / Cognition: + abnormal cognition (short time memory loss /forgetfulness ) Psychiatric: Orientation: alert, oriented to person and oriented to place
--- NOTE | 2019-01-28 16:10 | Palliative Care Progress Note ---
Date of Service January 28, 2019 Subjective New consult discussed with Hospitalist. Patient was admitted from [facility] s/p fall hitting his head. Additionally he has a PMH of COPD, MARANDA, lactic acidosis, anemia and atypical PNA. Palliative Care was consulted for goals of care as the family had decided to transition to WATCH ASSEMBLY INSPECTOR and was obtunded. The patient has been waking up more over the past 2 days and today was ambulating in the hallway. The family has decided to revoke WATCH ASSEMBLY INSPECTOR and plan to pursue rehabilitation, PT/OT ordered. Per the hospitalist, the family is informed of their options and a formal consult is not necessary. Plan is to transfer to SNF and based on outcome or progress, transition to hospice if necessary. Consult to be cancelled in computer. Please contact Palliative Care if we can be of assistance. Results & Data Vital Signs (Past 12 Hours) Vital Signs Temp Pulse Resp BP Pulse Ox 01/28/19 16:04 36.4 C L 114 H 16 121/77 94 PG Care Time/CCT Total # of Minutes Spent Total Time Spent with Patient: Total time spent is greater than 50% in coordination of care (as documented) at patient's floor/unit and/or counseling patient:
[2019-01-28] MEDS: FOLIC ACID 1 MG TAB PO SCH (16:26)
[2019-01-29] MEDS: FOLIC ACID 1 MG TAB PO SCH (08:56)
[2019-01-29] MEDS: PANTOprazole 40 MG TAB PO SCH (08:56)
[2019-01-29] MEDS ORDERED: predniSONE 20 MG TAB PO SCH (09:00)
[2019-01-29 09:22] LABS: Hematocrit (blood only) 27.4 % (42-52); Hemoglobin 8.9 g/dL (14.0-18.0); Mean Corpuscular Hemoglobin 30.1 pg (25-34); Mean Corpuscular Hgb Conc 32.5 g/dL (32-36); Mean Corpuscular Volume 92.6 fL (80-100); Platelet Count 127 K/uL (130-400); RDW Coefficient of Variation 17.9 % (11.5-14.5); RDW Standard Deviation 56.5 fL (36.4-46.3); Red Blood Count 2.96 M/uL (4.7-6.1); White Blood Count 11.47 K/uL (4.8-10.8)
[2019-01-29 09:38] LABS: BUN Creatinine Ratio 25.9 (10-20); Calcium 8.4 mg/dl (8.5-10.1); Creatinine Clr Calc Pharmacy 20.1 ml/min; Est GFR (African American) 19.7; Potassium 3.5 mmol/L (3.5-5.1)
[2019-01-29 09:47] LABS: ALC (manual) 0.31 K/uL (1.2-3.4); ANC (manual) 10.14 K/uL (1.4-6.5); Eosinophils % (manual) 0.9 %; Lymphocytes # (manual) 0.31 K/uL (1.2-3.4); Lymphocytes % (manual) 2.7 %; Metamyelocytes # (manual) 0.21 K/uL (0-0); Metamyelocytes % (manual) 1.8 %; Monocytes # (manual) 0.21 K/uL (0.11-0.59); Monocytes % (manual) 1.8 %; Myelocytes % (manual) 4.4 %; Neutrophils # (manual) 10.14 K/uL (1.4-6.5); Neutrophils % (manual) 88.4 %
--- NOTE | 2019-01-29 13:27 | Hospitalist Progress Note ---
Date of Service January 29, 2019 Assessment & Plan (1) Acute kidney failure: ACUTE RENAL FAILURE Nephro consulted felt to be from hypotension, bradycardia crea still at 3.4 IV fluid discontinued secondary to #1 VOLUME OVERLOAD IV Lasix ordered will order repeat Echo BRADYCARDIA Metoprolol discontinued HR stable so far, continue Telemetry monitoring LACTIC ACIDOSIS resolved unknown etiology HISTORY OF CONNECTIVE TISSUE DISEASE based on presentation, sports fitness and wellness director entertaining possible Adult Still's Disease consulted Ssrs Developer, discussed with Dr. Kevin POSSIBLE DRUG INDUCED LUPUS on last month's admission, from Doxycycline? Prednisone 20mg po daily continued DVT prophylaxis SCDs for now in light of anemia, fall risk Disposition PT/OT in progress, will need Rehab/SNF case discussed with patient and his Gudelia she confirmed with me that she is reversing comfort measure status only and would like to pursue diagnostic testing and treatment she is understanding, agreeable and comfortable with plan of care Subjective ff up for bradycardia, acute renal failure, anemia seen resting in bed, oriented x 2, answers most questions appropriately states he feels fine overall, had breakfast then felt tired no headache, chest pain, dyspnea, abdominal pain no nausea/vomiting no other symptoms Review of Systems Review of Systems: All systems reviewed & are unremarkable except as noted in HPI & below Physical Exam Physical Exam: General- oriented x 2, not in distress, speaks in sentences with no effort or accessory muscle use Head- atraumatic Eyes- PERRL, EOMI, anicteric ENT- oropharynx clear Neck- supple, no JVD, no adenopathy, no thyromegaly; carotids +2/2, no bruits appreciated Lungs- diminished to auscultation bilaterally at the bases, no rales/wheezes Heart- normal rate, regular rhythm; no murmur, no gallop, no rub appreciated Abdomen- normal bowel sounds, nondistended, soft, nontender, no masses or hepatosplenomegaly Extremities- mild lower leg pretibial edema, no calf tenderness; peripheral pulses intact Neuro- alert, oriented x 2; CN 2-12 grossly intact; motor 5/5 bilaterally;sensation 100% on all extremities; no other gross focal neurologic deficits Skin- warm & dry Results & Data Vital Signs (Past 12 Hours) Vital Signs Temp Pulse Resp BP Pulse Ox 01/29/19 07:10 36.5 C 74 19 119/75 98 Laboratory Results Laboratory Results - last 24 hr 01/29/19 01/29/19 01/29/19 09:07 09:07 09:07 WBC 11.47 H RBC 2.96 L Hgb 8.9 L Hct 27.4 L MCV 92.6 MCH 30.1 MCHC 32.5 RDW Std Deviation 56.5 H RDW Coeff of Renato 17.9 H Plt Count 127 L MPV 11.0 H Neutrophils % (Manual) 88.4 Lymphocytes % (Manual) 2.7 Monocytes % (Manual) 1.8 Eosinophils % (Manual) 0.9 Metamyelocytes % (Man) 1.8 Myelocytes % (Man) 4.4 Neutrophils # (Manual) 10.14 H Total Absolute Neuts 10.14 H Lymphocytes # (Manual) 0.31 L Total Abs Lymphocytes 0.31 L Monocytes # (Manual) 0.21 Eosinophils # (Manual) 0.10 Metamyelocytes # (Man) 0.21 H Myelocytes # (Manual) 0.50 H Peripher Smr Path Cons Pending Sodium 142 Potassium 3.5 Chloride 108 H Carbon Dioxide 25 Anion Gap 9.0 BUN 90 H Creatinine 3.47 H Est Cr Clr Drug Dosing 20.1 Est GFR ( Amer) 19.7 Est GFR (Non-Af Amer) 17.0 BUN/Creatinine Ratio 25.9 H Glucose 109 H Lactate Calcium 8.4 L Phosphorus Magnesium 2.0 01/29/19 01/29/19 09:55 09:55 WBC RBC Hgb Hct MCV MCH MCHC RDW Std Deviation RDW Coeff of Renato Plt Count MPV Neutrophils % (Manual) Lymphocytes % (Manual) Monocytes % (Manual) Eosinophils % (Manual) Metamyelocytes % (Man) Myelocytes % (Man) Neutrophils # (Manual) Total Absolute Neuts Lymphocytes # (Manual) Total Abs Lymphocytes Monocytes # (Manual) Eosinophils # (Manual) Metamyelocytes # (Man) Myelocytes # (Manual) Peripher Smr Path Cons Sodium Potassium Chloride Carbon Dioxide Anion Gap BUN Creatinine Est Cr Clr Drug Dosing Est GFR ( Amer) Est GFR (Non-Af Amer) BUN/Creatinine Ratio Glucose Lactate 1.5 Calcium Phosphorus 5.5 H Magnesium
--- NOTE | 2019-01-29 13:50 | XRay Report ---
XR chest 1V portable HISTORY: 68 years-old Male r/o pleura effusion follow-up study in a patient with possible pleural ef fusion COMPARISON: Chest radiograph 01/24/2019, chest CT 01/24/2019 TECHNIQUE: Portable AP view the chest FINDINGS: Cardiac silhouette is enlarged, unchanged. Prior median sternotomy. Emphysema with chronic interstiti al coarsening. Pulmonary vascular congestion with pulmonary edema. Trace pleural effusions. No pneumo thorax. Ovoid 5.7 cm opacity of the right perihilar distribution has progressed from comparison. Dege nerative changes of the shoulders and spine. Multiple healed remote left-sided rib fractures. IMPRESSION: 1. Cardiomegaly with pulmonary edema. 2. Emphysema with chronic fibrotic change. 3. Trace pleural effusions. 4. 5.7 cm ovoid opacity of the right perihilar distribution has progressed from comparison and may re flect loculated pleural fluid versus summation density. Attention at follow-up recommended. The above report was generated using voice recognition software. It may contain grammatical, syntax o r spelling errors. Electronically signed by: Christian Soto M.D. 01/29/2019 1:48 PM
[2019-01-29] MEDS ORDERED: SODIUM CHLORIDE 0.9% 1000ML 1,000 ML IV SCH (14:00)
--- NOTE | 2019-01-29 15:33 | Nephrology Consultation ---
Date of Consultation January 29, 2019 Assessment & Plan (1) Acute kidney failure: Patient with acute kidney injury likely due to ischemic ATN in setting of recurrent episodes of hypotension and bradycardia. Baseline creatinine appears to be around 2 of recent. His creatinine is 3.4 today slightly better than 3 days ago. He is making some urine. Electrolytes are stable. No indication for dialysis although I cannot rule out need during this admission. Management is supportive. -Monitor input and output. -Stop IV fluids as patient is volume overloaded -Avoid contrast unless lifesaving. (2) Anemia: Unclear etiology. Patient has received multiple units of blood transfusion. Hemoglobin of 8.9. We will give Epogen. (3) Volume overload: Chest x-ray showing pulmonary edema as well as physical exam consistent with volume overload. We will give IV Lasix 40 mg once and monitor response. -Monitor daily weight -Maintain a 2 g salt diet. History of Present Illness Reason for Consultation: Acute kidney injury Requesting Physician: Lm Null MD Attending Physician: Lm Null MD History of Present Illness This is a 68-year-old male with past medical history of COPD, peripheral arterial disease, and differentiated diffuse connective tissue disease, hypertension, coronary disease and CKD stage III with unclear baseline but likely in the twos of recent who was readmitted on 01/24/2019 after fall at rehab. I have been asked to evaluate him for etiology and management of worsening renal function. Patient was initially admitted on 12/31/2018 with pancytopenia status post transfusion with multiple units of blood and platelets. Creatinine during that admission was 2.4 but improved to 2.2 at the time of discharge. [facility]. He was readmitted on 01/24/2019 with a creatinine of 2.4 which peaked to 3.6 on 01/25/2019. His recent admission was complicated by episodes of bradycardia requiring several rounds of atropine. Transfer to tertiary center was suggested but family decided to make the patient MODULAR HOME CREW MEMBER. Patient has gradually improved and the MODULAR HOME CREW MEMBER status was rescinded. Today he feels better denying any shortness of breath although he is propped up. He has leg swelling. He has a Montague catheter. Chest x-ray this morning showed pulmonary edema. Allergies Allergy/AdvReac Type Severity Reaction Status Date / Time doxycycline AdvReac Severe Unknown Verified 01/23/19 23:27 hydralazine AdvReac Intermediate Unknown Verified 01/23/19 23:27 Home Medications Home Medications Medication Instructions Recorded Confirmed Type atorvastatin 80 mg tablet 80 mg PO DAILY 01/28/18 01/23/19 History ferrous sulfate 325 mg (65 mg 325 mg PO BID tab 01/28/18 01/23/19 History iron) tablet folic acid 1 mg tablet 1 mg PO DAILY 01/28/18 01/23/19 History tamsulosin 0.4 mg capsule 0.4 mg PO DAILY 01/28/18 01/23/19 History triamcinolone acetonide 0.5 % 1 appln TOP TID PRN 01/28/18 01/23/19 History topical cream acetaminophen [Acetaminophen Extra 1,000 mg PO TID 01/23/19 01/23/19 History Strength] docusate sodium 100 mg PO BID 01/23/19 01/23/19 History furosemide 20 mg PO DAILY 01/23/19 01/23/19 History hydrochlorothiazide 12.5 mg PO DAILY 01/23/19 01/23/19 History metoprolol tartrate 25 mg PO Q12 01/23/19 01/23/19 History pantoprazole 40 mg PO DAILY 01/23/19 01/23/19 History polyethylene glycol 3350 [Miralax] 17 g PO QDL PRN 01/23/19 01/23/19 History sennosides-docusate sodium 1 tab-cap PO QDL PRN 01/23/19 01/23/19 History [Senokot-S] tramadol 50 mg PO Q12 PRN 01/23/19 01/23/19 History atropine 0.5 mg IV UD PRN #10 ml 01/25/19 Rx Patient History Medical History Anemia (Chronic) Anemia (Chronic) Aortic valve, bicuspid (Chronic) CAD (coronary artery disease) of artery bypass graft (Chronic) COPD (chronic obstructive pulmonary disease) (Chronic) Dyslipidemia (Chronic) HTN, goal to be determined (Chronic) Mitral valve regurgitation (Chronic) PAD (peripheral artery disease) (Chronic) Raynaud disease (Chronic) Surgical History S/P aortic valve replacement (Chronic) S/P CABG x 4 (Chronic) S/P tonsillectomy (Chronic) Family History Other Family history non-contributory Social History Preferred Language: Romansh Communication Ability: Impaired Visual Impairment: Diminished Hearing Ability: Normal Loss Mitigation Specialist Required: No Beliefs That Will Affect Care: None marital status: Current Living Situation: Rehab current occupational status: retired Feels Safe at Home: Yes Smoking Status: Current every day smoker Tobacco Type: cigarettes ; Cigarettes Per Day: 5 ; Do You Dip or Chew Tobacco: No ; Hx Alcohol Use: No Hx Substance Use: No Review of Systems Review of Systems: All systems reviewed & are unremarkable except as noted in HPI & below Physical Exam Physical Exam: General exam: Appears comfortable, no acute distress HEENT: Pupils are equal and reactive to light Neck: No JVD, neck is supple trachea is midline Respiratory system: Crackles bilaterally. Gastrointestinal: Abdomen is soft, non distended, non tender, bowel sounds are present CVS: Regular rate and rhythm. No murmurs, rubs or gallops Musculoskeletal: No joint or muscle tenderness Extremities: Non tender, 2+ edema, peripheral pulses are present Neuro: Oriented, no tremors, no focal neurological deficits Skin: No rashes Results & Data Vital Signs (Past 12 Hours) Vital Signs Temp Pulse Resp BP Pulse Ox 01/29/19 15:16 36.4 C L 115 H 20 126/77 98 01/29/19 07:10 36.5 C 74 19 119/75 98 Laboratory Results Laboratory Results - last 24 hr 01/29/19 01/29/19 01/29/19 09:07 09:07 09:07 WBC 11.47 H RBC 2.96 L Hgb 8.9 L Hct 27.4 L MCV 92.6 MCH 30.1 MCHC 32.5 RDW Std Deviation 56.5 H RDW Coeff of Renato 17.9 H Plt Count 127 L MPV 11.0 H Neutrophils % (Manual) 88.4 Lymphocytes % (Manual) 2.7 Monocytes % (Manual) 1.8 Eosinophils % (Manual) 0.9 Metamyelocytes % (Man) 1.8 Myelocytes % (Man) 4.4 Neutrophils # (Manual) 10.14 H Total Absolute Neuts 10.14 H Lymphocytes # (Manual) 0.31 L Total Abs Lymphocytes 0.31 L Monocytes # (Manual) 0.21 Eosinophils # (Manual) 0.10 Metamyelocytes # (Man) 0.21 H Myelocytes # (Manual) 0.50 H Peripher Smr Path Cons Pending Sodium 142 Potassium 3.5 Chloride 108 H Carbon Dioxide 25 Anion Gap 9.0 BUN 90 H Creatinine 3.47 H Est Cr Clr Drug Dosing 20.1 Est GFR ( Amer) 19.7 Est GFR (Non-Af Amer) 17.0 BUN/Creatinine Ratio 25.9 H Glucose 109 H Lactate Calcium 8.4 L Phosphorus Magnesium 2.0 01/29/19 01/29/19 09:55 09:55 WBC RBC Hgb Hct MCV MCH MCHC RDW Std Deviation RDW Coeff of Renato Plt Count MPV Neutrophils % (Manual) Lymphocytes % (Manual) Monocytes % (Manual) Eosinophils % (Manual) Metamyelocytes % (Man) Myelocytes % (Man) Neutrophils # (Manual) Total Absolute Neuts Lymphocytes # (Manual) Total Abs Lymphocytes Monocytes # (Manual) Eosinophils # (Manual) Metamyelocytes # (Man) Myelocytes # (Manual) Peripher Smr Path Cons Sodium Potassium Chloride Carbon Dioxide Anion Gap BUN Creatinine Est Cr Clr Drug Dosing Est GFR ( Amer) Est GFR (Non-Af Amer) BUN/Creatinine Ratio Glucose Lactate 1.5 Calcium Phosphorus 5.5 H Magnesium (1) Anemia Anemia type: unspecified type Qualified Code(s): D64.9 - Anemia, unspecified
[2019-01-29] MEDS ORDERED: FUROSEMIDE 40 MG in SYRINGE 0 ML IV ONE (15:45)
[2019-01-30] MEDS ORDERED: XOPENEX/ATROVENT 1.25mg/0.5MG NEB COMBO NEB STA (00:19)
[2019-01-30] MEDS ORDERED: LEVALBUTEROL 1.25MG/0.5ML NEB INH STA (00:26)
[2019-01-30] MEDS ORDERED: IPRATROPIUM BROMIDE NEB SOLN 0.02% 2.5 ML VIAL INH STA (00:26)
[2019-01-30] MEDS ORDERED: methylPREDNISolone 20 MG in SYRINGE 0 ML IV STA (00:45)
[2019-01-30] MEDS ORDERED: FUROSEMIDE 80 MG in SYRINGE 0 ML IV ONE (00:46)
[2019-01-30] MEDS ORDERED: ALBUMIN 25% 50 ML with FUROSEMIDE 80 MG IV ONE (00:47)
[2019-01-30] MEDS ORDERED: POTASSIUM CHLORIDE 10 MEQ TABCR PO STA (00:53)
[2019-01-30] MEDS ORDERED: MAGNESIUM SULFATE / D5W 1 GM/100 ML BAG IV ONE (01:00)
[2019-01-30] MEDS ORDERED: OLANZapine 10 MG/2.1 ML SDV IM PRN (01:02)
[2019-01-30 01:09] LABS: Hematocrit (blood only) 29.4 % (42-52); Hemoglobin 9.4 g/dL (14.0-18.0); Mean Corpuscular Hemoglobin 29.9 pg (25-34); Mean Corpuscular Volume 93.6 fL (80-100); Mean Platelet Volume 11.6 fL (7.4-10.4); Platelet Count 166 K/uL (130-400); RDW Coefficient of Variation 18.4 % (11.5-14.5); RDW Standard Deviation 58.8 fL (36.4-46.3); Red Blood Count 3.14 M/uL (4.7-6.1); White Blood Count 13.89 K/uL (4.8-10.8)
[2019-01-30 01:27] LABS: Basophils # (auto) 0.04 K/uL (0-0.2); Basophils % (auto) 0.3 %; Eosinophils # (auto) 0.01 K/uL (0-0.5); Eosinophils % (auto) 0.1 %; Immature Granulocytes % (auto) 7.2 %; Lymphocytes # (auto) 0.78 K/uL (1.2-3.4); Lymphocytes % (auto) 5.6 %; Monocytes # (auto) 0.38 K/uL (0.11-0.59); Monocytes % (auto) 2.7 %; Neutrophils # (auto) 11.68 K/uL (1.4-6.5); Neutrophils % (auto) 84.1 %; RBC Morphology Unremarkable
[2019-01-30 01:29] LABS: BUN Creatinine Ratio 24.6 (10-20); Calcium 8.3 mg/dl (8.5-10.1); Creatinine Clr Calc Pharmacy 19.4 ml/min; Est GFR (African American) 18.8; Est GFR (Non-African American) 16.2; Potassium 3.6 mmol/L (3.5-5.1)
[2019-01-30] MEDS ORDERED: METOPROLOL TARTRATE 25 MG TAB PO SCH (05:35)
--- NOTE | 2019-01-30 06:23 | XRay Report ---
XR chest 1V portable HISTORY: 68 years-old Male sob acute shortness of breath COMPARISON: Chest radiograph 01/29/2019, chest CT 01/24/2019 TECHNIQUE: Portable AP view of the chest FINDINGS: Unchanged cardiomegaly. Prior median sternotomy. Calcified plaque of the thoracic aortic arch. Emphys justen with chronic fibrotic change. Pulmonary vascular congestion with interstitial coarsening persists . Stable pulmonary edema. Ovoid opacity of the right midlung measuring over 5 cm is redemonstrated. T race pleural effusions with mild bibasilar opacities. Degenerative changes of the shoulders and spine . IMPRESSION: 1. Cardiomegaly with unchanged pulmonary edema and trace pleural effusions. 2. Emphysema with chronic fibrotic change. 3. Unchanged ovoid opacity of the right hilum. The above report was generated using voice recognition software. It may contain grammatical, syntax o r spelling errors. Electronically signed by: Christian Soto M.D. 01/30/2019 6:22 AM
[2019-01-30] MEDS: PANTOprazole 40 MG TAB PO SCH (07:23)
[2019-01-30] MEDS: FOLIC ACID 1 MG TAB PO SCH (07:23)
--- NOTE | 2019-01-30 08:36 | Rheumatology Consultation ---
Rheumatology Consultation DOS January 30, 2019 Assessment & Plan (1) Volume overload: IV fluids discontinued. Received lasix yesterday. Nephrology following Present on Admission?: Yes (2) Bradycardia: Has been tachycardic since beta blockade has been held. Beta blockers exacerbate his Raynaud's (3) Acute kidney failure: Slow improvement. 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 The diagnosis was made in 2010 with onset of joint swelling in 2009. 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 Past treatments have included high dose steroids and methotrexate 20 mg once weekly. He had been maintained on methotrexate 15 mg since 2013 although he was briefly on 8 pills from 05/09-08/09 and Arava 10 mg daily from 2011-05/12. He was taken off methotrexate earlier this year while he was being treated for MRSA infection of slow healing ischemic ulcer of his left leg and heal. Although he had a follow- up with rheumatology in May, methotrexate was not resumed until he was seen by me in follow-up on 12/15/18. He took one dose of methotrexate before he was admitted in early December for epitaxis and was found to be pancytopenic and in acute renal failure. He had no prior history of renal disease until a drop in his kidney function was noted on 10/24/18 with creatinine of 1.3. Immune serology labs during his last admission were highly suggestive of drug induced lupus thought secondary to doxycycline +/- hydralazine. He was treated with IV steroids and the offending agents were discontinued. He was sent to rehab on 20 of prednisone. I tried to secure an outpatient follow-up appointment but family wanted to wait until he completed rehab. 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 He has no features suggestive of AOS as he has not had any documented fevers, rashes, arthralgias or other features suggestive of AOS. The elevated ferritin is likely due to his chronic disease state and renal dysfunction. The worsening anemia would not be explained just by his inflammatory disease especially since he remained on moderate doses of steroids. 1. Continue current dose of steroids and can switch to medrol 16 mg daily for better bioavailability 2. Optimize fluid status 3. Consider further workup of his anemia such as bone marrow biopsy 4. Appreciate any further recommendations from nephrology and cardiology History of Present Illness Attending Physician: Lm Null MD History of Present Illness Mr. Sales was readmitted from rehab after a fall. He informs me that he passed out and fell. He was brought by EMS and found to have low heart rate, acute on chronic renal failure and worsening anemia. He received blood products and then placed on comfort measures. His beta marita was held and he continued on his outpatient prednisone of 20 mg daily. His condition slowly improved, and he was transferred back to the medicine floor on day 4 of hospitalization. He informs me that he has not had any joint pain, fevers, or rashes. His breathing remains difficult. Chest imaging showing pulmonary edema. IV fluids were discontinued and he received lasix yesterday. Nephrology is following as is cardiology. He has not had any documented fevers or rashes. There was concern for possible adult onset still's disease and HGH raised during this admission. Allergies Allergy/AdvReac Type Severity Reaction Status Date / Time doxycycline AdvReac Severe Unknown Verified 01/23/19 23:27 hydralazine AdvReac Intermediate Unknown Verified 01/23/19 23:27 Home Medications Home Medications Medication Instructions Recorded Confirmed Type atorvastatin 80 mg tablet 80 mg PO DAILY 01/28/18 01/23/19 History ferrous sulfate 325 mg (65 mg 325 mg PO BID tab 01/28/18 01/23/19 History iron) tablet folic acid 1 mg tablet 1 mg PO DAILY 01/28/18 01/23/19 History tamsulosin 0.4 mg capsule 0.4 mg PO DAILY 01/28/18 01/23/19 History triamcinolone acetonide 0.5 % 1 appln TOP TID PRN 01/28/18 01/23/19 History topical cream acetaminophen [Acetaminophen Extra 1,000 mg PO TID 01/23/19 01/23/19 History Strength] docusate sodium 100 mg PO BID 01/23/19 01/23/19 History furosemide 20 mg PO DAILY 01/23/19 01/23/19 History hydrochlorothiazide 12.5 mg PO DAILY 01/23/19 01/23/19 History metoprolol tartrate 25 mg PO Q12 01/23/19 01/23/19 History pantoprazole 40 mg PO DAILY 01/23/19 01/23/19 History polyethylene glycol 3350 [Miralax] 17 g PO QDL PRN 01/23/19 01/23/19 History sennosides-docusate sodium 1 tab-cap PO QDL PRN 01/23/19 01/23/19 History [Senokot-S] tramadol 50 mg PO Q12 PRN 01/23/19 01/23/19 History atropine 0.5 mg IV UD PRN #10 ml 01/25/19 Rx Patient History Medical History Anemia (Chronic) Anemia (Chronic) Aortic valve, bicuspid (Chronic) CAD (coronary artery disease) of artery bypass graft (Chronic) COPD (chronic obstructive pulmonary disease) (Chronic) Dyslipidemia (Chronic) HTN, goal to be determined (Chronic) Mitral valve regurgitation (Chronic) PAD (peripheral artery disease) (Chronic) Raynaud disease (Chronic) Surgical History S/P aortic valve replacement (Chronic) S/P CABG x 4 (Chronic) S/P tonsillectomy (Chronic) Family History Other Family history non-contributory Social History Preferred Language: [place] Communication Ability: Impaired Visual Impairment: Diminished Hearing Ability: Normal Yarn Weight And Strength Tester Required: No Beliefs That Will Affect Care: None marital status: Current Living Situation: Rehab current occupational status: retired Feels Safe at Home: Yes Smoking Status: Current every day smoker Tobacco Type: cigarettes ; Cigarettes Per Day: 5 ; Do You Dip or Chew Tobacco: No ; Hx Alcohol Use: No Hx Substance Use: No Review of Systems Review of Systems: Positive for fatigue, shortness of breath, decreased appetite Physical Exam Physical Exam: GEN: he was sitting at the side of his bed with his head down. Alert and answered questions appropriately but displayed increase work of breathing CV: regular rate, no murmur noted Resp: poor air movement, coarse breath sounds at the bases Ext: pitting lower extremity edema Skin: active Raynaud's affecting hands; no rashes; dressing on left flank. MSK: no joint tenderness; LE swelling Results & Data Vital Signs (Past 12 Hours) Vital Signs Temp Pulse Pulse Pulse Resp BP Pulse Ox 01/30/19 07:41 36.8 C 124 H 18 127/90 100 01/30/19 06:00 127 H 125/84 95 01/30/19 03:50 36.2 C L 128 H 19 119/78 91 01/30/19 01:25 120 H 18 97 01/29/19 23:03 36.6 C 129 H 17 126/83 95 01/29/19 22:20 127 H
[2019-01-30] MEDS ORDERED: FUROSEMIDE 40 MG in SYRINGE 0 ML IV SCH (10:00)
--- NOTE | 2019-01-30 10:08 | Nephrology Progress Note ---
Date of Service January 30, 2019 Assessment & Plan (1) Acute kidney failure: Patient with acute kidney injury likely due to ischemic ATN in setting of recurrent episodes of hypotension and bradycardia. Urine microscopy reviewed by myself on 01/30/2019 shows numerous normomorphic red blood cells, baseline creatinine appears to be around 2 of recent. His creatinine is 3.6 today. He is making some urine. Electrolytes are stable. No indication for dialysis although I cannot rule out need during this admission. Management is supportive. -Monitor input and output. -Avoid contrast unless lifesaving. (2) Anemia: Unclear etiology. Patient has received multiple units of blood transfusion. Hemoglobin of 8.9. He might require Epogen. (3) Volume overload: Chest x-ray showing pulmonary edema as well as physical exam consistent with volume overload. We will give IV Lasix 40 mg daily and monitor response. -Monitor daily weight -Maintain a 2 g salt diet. Subjective He is complaining of shortness of breath. He also has lower extremity swelling. He has dry mouth and eyes. He was seen by rheumatology this morning. No vomiting or diarrhea Review of Systems Review of Systems: All systems reviewed & are unremarkable except as noted in HPI & below Physical Exam Physical Exam: General exam: Appears comfortable, no acute distress HEENT: Pupils are equal and reactive to light Neck: No JVD, neck is supple trachea is midline Respiratory system: Clear breath sounds bilaterally. Gastrointestinal: Abdomen is soft, non distended, non tender, bowel sounds are present CVS: Regular rate and rhythm. No murmurs, rubs or gallops Musculoskeletal: No joint or muscle tenderness Extremities: Non tender, 2+ edema, warm Neuro: Oriented, no tremors, no focal neurological deficits Skin: No rashes Results & Data Vital Signs (Past 12 Hours) Vital Signs Temp Pulse Pulse Pulse Resp BP Pulse Ox 01/30/19 09:24 122 H 01/30/19 07:41 36.8 C 124 H 18 127/90 100 01/30/19 06:00 127 H 125/84 95 01/30/19 03:50 36.2 C L 128 H 19 119/78 91 01/30/19 01:25 120 H 18 97 01/29/19 23:03 36.6 C 129 H 17 126/83 95 01/29/19 22:20 127 H Laboratory Results Laboratory Results - last 24 hr 01/29/19 01/29/1919 09:07 09:55 09:55 WBC RBC Hgb Hct MCV MCH MCHC RDW Std Deviation RDW Coeff of Renato Plt Count MPV Immature Gran % (Auto) Neut % (Auto) Lymph % (Auto) Canyon % (Auto) Eos % (Auto) Baso % (Auto) Immature Gran # (Auto) Neut # (Auto) Lymph # (Auto) Canyon # (Auto) Eos # (Auto) Baso # (Auto) RBC Morphology Peripher Smr Path Cons Pending Sodium Potassium Chloride Carbon Dioxide Anion Gap BUN Creatinine Est Cr Clr Drug Dosing Est GFR ( Amer) Est GFR (Non-Af Amer) BUN/Creatinine Ratio Glucose Lactate 1.5 Calcium Phosphorus 5.5 H Magnesium 01/30/19 01/30/19 00:59 00:59 WBC 13.89 H RBC 3.14 L Hgb 9.4 L Hct 29.4 L MCV 93.6 MCH 29.9 MCHC 32.0 RDW Std Deviation 58.8 H RDW Coeff of Renato 18.4 H Plt Count 166 MPV 11.6 H Immature Gran % (Auto) 7.2 Neut % (Auto) 84.1 Lymph % (Auto) 5.6 Canyon % (Auto) 2.7 Eos % (Auto) 0.1 Baso % (Auto) 0.3 Immature Gran # (Auto) 1.00 H Neut # (Auto) 11.68 H Lymph # (Auto) 0.78 L Canyon # (Auto) 0.38 Eos # (Auto) 0.01 Baso # (Auto) 0.04 RBC Morphology Unremarkable Peripher Smr Path Cons Sodium 141 Potassium 3.6 Chloride 107 Carbon Dioxide 23 Anion Gap 11.0 BUN 88 H Creatinine 3.60 H Est Cr Clr Drug Dosing 19.4 Est GFR ( Amer) 18.8 Est GFR (Non-Af Amer) 16.2 BUN/Creatinine Ratio 24.6 H Glucose 125 H Lactate Calcium 8.3 L Phosphorus Magnesium 2.0 (1) Anemia Anemia type: unspecified type Qualified Code(s): D64.9 - Anemia, unspecified
--- NOTE | 2019-01-30 11:02 | Hospitalist Progress Note ---
Date of Service delayed entry date of service as noted below January 30, 2019 Assessment & Plan (1) Acute kidney failure: ACUTE RENAL FAILURE Nephro consulted felt to be from hypotension, bradycardia crea still at 3.[address] Us- likely ATN secondary to above recommend continue present management, monitor for improvement in the next few days VOLUME OVERLOAD IV Lasix ordered leg edema improved repeat Echo ordered BRADYCARDIA Metoprolol discontinued mild tachycardia noted, but asymptomatic requested re-evaluation from Dr. Contreras continue Telemetry monitoring LACTIC ACIDOSIS resolved HISTORY OF CONNECTIVE TISSUE DISEASE based on presentation, field sampling technician entertaining possible Adult Still's Disease consulted Lockstitch Machine Operator, discussed with Dr. Kevin- Still's Disease unlikely recommend to continue Prednisone 20mg po daily POSSIBLE DRUG INDUCED LUPUS on last month's admission, from Doxycycline? Prednisone 20mg po daily continued DVT prophylaxis SCDs for now in light of anemia, fall risk Disposition PT/OT in progress, will need Rehab/SNF case discussed with patient and his Gudelia again over the phone- in detail and at length all questions answered she is comfortable with continuation of care in [facility] she is understanding, agreeable and comfortable with plan of care At around 245 pm, code [place] called Patient seen by RN at the bathroom, sitting down, had fallen, awake- led to bed while sitting up in bed, patient noted to be dyspneic, "gasping" when laid in bed, patient ceased breathing, was pulseless patient is DNR, hence no resuscitation efforts performed I called patient's immediately, she did confirm patient's DNR status offered condolences to her and the family in the evening, i have met with patient's Gudelia at the bedside again again offered condolences she was grateful for the care. Subjective ff for acute renal failure, etc. seen resting in bedside chair, alert, comfortable oriented x 2, answers most questions appropriately denies chest pain, dyspnea, palpitations states he feels better than previous day has more strength, moving around more as per patient denies problems with voiding denies other symptoms Review of Systems Review of Systems: All systems reviewed & are unremarkable except as noted in HPI & below Physical Exam Physical Exam: General- oriented x 2, not in distress, speaks in sentences with no effort or accessory muscle use Eyes- anicteric Neck- no JVD Lungs- clear breath sounds bilaterally, no crackles, no wheezing Heart- normal rate, regular rhythm; no murmurs Abdomen- normal bowel sounds, nondistended, soft, nontender Extremities- no pretibial edema, no calf tenderness Neuro- alert, oriented x 32no gross focal neurologic deficits Skin- warm & dry Results & Data Vital Signs (Past 12 Hours) Vital Signs Temp Pulse Pulse Pulse Resp BP Pulse Ox 01/30/19 10:56 122 H 01/30/19 09:24 122 H 01/30/19 07:41 36.8 C 124 H 18 127/90 100 01/30/19 06:00 127 H 125/84 95 01/30/19 03:50 36.2 C L 128 H 19 119/78 91 01/30/19 01:25 120 H 18 97 01/29/19 23:03 36.6 C 129 H 17 126/83 95 Laboratory Results all noted and reviewed
[2019-01-31] MEDS ORDERED: predniSONE 20 MG TAB PO SCH (09:00)
[2019-02-02 08:12] LABS: ANCA Screen Negative
[2019-02-02 08:13] LABS: Proteinase-3 AB <1.0
[2019-02-02 08:14] LABS: Myeloperoxidase Ab <1.0
--- NOTE | 2019-02-04 12:57 | Discharge Summary ---
Date of Service February 04, 2019 Admission HPI Per Admitting Provider HISTORY OF PRESENT ILLNESS: This is a 68-year-old male with past medical history significant for COPD, not on any inhalers, history of peripheral artery disease, history of carotid arteries bilaterally, history of Raynaud's syndrome, history of bicuspid aortic valve status post aortic valve replacement with bioprosthetic valve, mitral regurgitation, hypertension, CAD, protein-calorie malnutrition, undifferentiated diffuse connective disease. The patient was recently in the hospital, admitted on on 12/31/2018 with epistaxis and pancytopenia requiring several PRBC transfusions and platelet transfusions during that admission. There is also a question of tick bite, but the studies came back negative. Hemolytic Anemia studies came back negative. Initially, it was thought to be methotrexate induced, which is held and he was also started on antibiotics at that time for sepsis and later it was determined he l might have had possible doxycycline drug-induced lupus. We do not know his baseline creatinine, but it looks like his creatinine is above 2 during the hospitalization and discharge creatinine of 2.2. He was discharged on prednisone 20 mg daily and supposed to follow with rheumatology for further continuation and tapering of the steroids and also supposed to follow hematology/oncology, discharged to [facility]. As per [facility] looks like he is going to have appointments in January with rheumatology and hematology/oncology. Last admission, he was also seen by ID, ENT and nephrology. Currently at [facility] rehab, he was brought in because he had a fall and hit his head, no loss of consciousness. The patient says felt he was slightly dizzy. Initial CAT scan was unremarkable. Hemodynamics are okay. Currently, his white count is 15K and hemoglobin is 8 and his platelets are 209. ABGs are okay. Creatinine is 2.8, discharge creatinine was 2.2, BUN is 80, troponin is 0.134, BNP was greater than 35,000. TSH 8.3, but free T4 is normal. Lipase is 660. Currently resting comfortably and hemodynamically stable. The patient seemed somewhat confused. He thinks he went to [place] and came back 2-3 days ago, the body was not adjusted and that caused him dizziness and he fell today. He can tell his name, knows his date of , knows this is December but could not tell year and also could not tell that he is in the hospital, obeys simple commands. Alert and awake. Denies any headache, no blurred visions, no runny nose, no sore throat. Denies any cough, denies any fever or chills. Denies chest pain, no shortness of breath, no nausea, no vomiting, no abdominal pain. He says his bowels and bladder are moving okay. Denies any blood in the stools or hematuria. No swelling in the legs. He says that he ambulates okay. He says his appetite is okay. Denies any difficulty swallowing. ALLERGIES: DOXYCYCLINE, HYDRALAZINE. PAST MEDICAL HISTORY: As mentioned above. PAST SURGICAL HISTORY: Aortic valve replacement and bypass with allograft, porcelain heart valve, CABG, colonoscopy, colonoscopy with biopsy, CAD, tonsillectomy. MEDICATIONS: Currently, he is on medications, Tylenol 1000 mg p.o. t.i.d., atorvastatin 80 mg p.o. daily, Colace 100 mg p.o. b.i.d., ferrous sulfate 325 mg p.o. b.i.d., folic acid 1 mg p.o. daily, Lasix 20 mg p.o. daily, hydrochlorothiazide 12.5 mg p.o. daily, metoprolol tartrate 25 mg p.o. b.i.d., Protonix 40 mg p.o. daily, MiraLax 17 g daily p.r.n., Senokot-S 1 tablet p.o. daily p.r.n., Flomax 0.4 mg p.o. daily, tramadol 50 mg p.o. b.i.d. p.r.n., triamcinolone topical cream t.i.d. p.r.n. FAMILY HISTORY: Significant for: Father had AL at age 54, mother had cancer. Paternal grandfather had heart disorder. SOCIAL HISTORY: , currently living at [facility]. Smoker, last around quit was 2016. Smoked half pack a day for 40 years. Alcohol rarely. No drug use. REVIEW OF SYMPTOMS: As per HPI. Rest of review of symptoms is negative. Admission Exam Per Admitting Provider PHYSICAL EXAMINATION: GENERAL: The patient is alert and oriented to name only, remote memory intact. VITAL SIGNS: Temperature 36.5, pulse 96, respiratory rate 16, blood pressure 142/95, oxygen 99% on 2 liters. HEENT: No pallor, no icterus. Pupils equal, round, and reactive to light. NECK: No JVD, no neck masses, no carotid bruits. CARDIOVASCULAR: S1, S2 heard, regular rate and rhythm, no murmur, no gallop. RESPIRATORY SYSTEM: Normal AP diameter. No accessory muscle use. Mild occasional wheezing, no crackles. ABDOMEN: Soft, bowel sounds present, nontender. No distention. CENTRAL NERVOUS SYSTEM: Cranial nerves II-XII grossly nonfocal. Principal Diagnosis ACUTE RENAL FAILURE Discharge Exam patient Discharge Data Allergies Allergy/AdvReac Type Severity Reaction Status Date / Time doxycycline AdvReac Severe Unknown Verified 01/23/19 23:27 hydralazine AdvReac Intermediate Unknown Verified 01/23/19 23:27 Consultations 01/24/19 00:59 ED Decision to Admit Stat 01/24/19 03:20 Consult Case Management - Discharge Planning Routine 01/24/19 15:28 Consult Cardiology Routine 01/24/19 17:23 Consult Prepress Manager Routine 01/25/19 09:00 Burn CD for patient Stat 01/29/19 13:22 Consult Nephrology Routine Consult Rheumatology Routine Ordered Studies 01/23/19 23:28 CT cervical spine wo con Urgent CT head/brain wo con Urgent 01/24/19 00:49 CT chest wo con Urgent 01/24/19 03:20 US venous doppler LE Routine Hospital Course (1) Acute kidney failure: ACUTE RENAL FAILURE Nephro consulted felt to be from hypotension, bradycardia crea still at 3.[address] Us- likely ATN secondary to above recommended to continue present management, monitor for improvement in the next few days VOLUME OVERLOAD IV Lasix ordered leg edema improved repeat Echo ordered BRADYCARDIA Metoprolol discontinued mild tachycardia noted, but asymptomatic requested re-evaluation from Dr. Contreras continued Telemetry monitoring LACTIC ACIDOSIS resolved HISTORY OF CONNECTIVE TISSUE DISEASE based on presentation, sugar coating hand entertaining possible Adult Still's Disease consulted Maitre D, discussed with Dr. Kevin- Still's Disease unlikely recommend to continue Prednisone 20mg po daily POSSIBLE DRUG INDUCED LUPUS on last month's admission, from Doxycycline? Prednisone 20mg po daily continued case discussed with patient and his Gudelia again over the phone- in detail and at length all questions answered she is comfortable with continuation of care in [facility] she is understanding, agreeable and comfortable with plan of care At around 245 pm, code [place] called Patient seen by RN at the bathroom, sitting down, had fallen, awake- led to bed while sitting up in bed, patient noted to be dyspneic, "gasping" when laid in bed, patient ceased breathing, was pulseless patient is DNR, hence no resuscitation efforts performed patient pronounced 3:00PM I called patient's immediately, she did confirm patient's DNR status offered condolences to her and the family in the evening, i have met with patient's Gudelia at the bedside again again offered condolences she was grateful for the care. Total Time Total Time Spent Total Time Spent (In Minutes): 60 minutes Discharge Plan Discharge Items Patient Disposition: Reason For Visit: FALL Discharge Diagnosis: METABOLIC ACIDOSIS /BRADYCARDIA /INTERMITTENT 3 RD DEGREE HEART BLOCK /ACUTE RENAL FAILURE [facility] - Alexandra Attending Provider Instructions: Patient is transferred to [facility] ICU accepting Physician Dr Cody Benites Prepress Manager Stand-Alone Forms: [facility] Admission Data Admit Date/Time: 01/24/19 02:08 Other DC Date/Time DO NOT enter until pt leaves facility: 01/30/19 18:32
--- NOTE | 2019-02-10 10:58 | Coding Query ---
SEPSIS To promote full compliance with coding requirements relating to patient care, physician participation is requested in all cases of cpc coder uncertainty. Please assist us with the question(s) below: In responding to this query, please exercise your independent professional judgement. The fact that a question is asked does not imply that any particular answer is desired or expected. We appreciate your clarification on this issue. Please clarify for coding purposes: Severe sepsis was was documeted only on 01/24 PN and then dropped off record. Please clarify if present. ( )Bacteremia (Nonspecific laboratory finding of bacteria in the blood) Specify Organism ( ) Present on Admission ( ) Not present on admission ( ) Unable to clinically determine ( ) Septicemia (Systemic disease associated with the presence of pathogenic microorganisms in the blood): Specify Organism ( ) Present on Admission ( ) Not present on admission ( ) Unable to clinically determine ( ) Sepsis Specify Organism Specify Associated Condition/Diagnosis ( ) Present on Admission ( ) Not present on admission ( ) Unable to clinically determine ( ) Severe Sepsis (Sepsis associated with acute organ dysfunction) Specify Organism Specify Associated Condition/Diagnosis ( ) Present on Admission ( ) Not present on admission ( ) Unable to clinically determine ( ) Septic Shock (Severe sepsis with acute circulatory failure, unexplained by other causes) ( ) Present on Admission ( ) Not present on admission ( ) Unable to clinically determine ( X ) Other, patient has: PLEASE FORWARD TO DR. ANTHONY INFANTE WHO DOCUMENTED THE SEVERE SEPSIS. THANK YOU. RAVEN
--- NOTE | 2019-02-27 13:28 | Coding Query ---
SEPSIS To promote full compliance with coding requirements relating to patient care, physician participation is requested in all cases of program manager transportation uncertainty. Please assist us with the question(s) below: In responding to this query, please exercise your independent professional judgement. The fact that a question is asked does not imply that any particular answer is desired or expected. We appreciate your clarification on this issue. Please clarify for coding purposes: Severe sepsis was was documeted only on 01/24 PN and then dropped off record. Please clarify if present. ( )Bacteremia (Nonspecific laboratory finding of bacteria in the blood) Specify Organism ( ) Present on Admission ( ) Not present on admission ( ) Unable to clinically determine ( ) Septicemia (Systemic disease associated with the presence of pathogenic microorganisms in the blood): Specify Organism ( ) Present on Admission ( ) Not present on admission ( ) Unable to clinically determine ( x) Sepsis Specify Organism :due to pneumonia Specify Associated Condition/Diagnosis xPresent on Admission ( ) Not present on admission ( ) Unable to clinically determine ( ) Severe Sepsis (Sepsis associated with acute organ dysfunction) Specify Organism Specify Associated Condition/Diagnosis ( ) Present on Admission ( ) Not present on admission ( ) Unable to clinically determine ( ) Septic Shock (Severe sepsis with acute circulatory failure, unexplained by other causes) ( ) Present on Admission ( ) Not present on admission ( ) Unable to clinically determine ( ) Other, patient has: MTDD
== END 2019-01-30 18:32 | disposition expired | DRG 308 ==
LOC: ED 22:58 → 2W 01-24 02:08 → SUATTDRO 01-24 02:08 → 2W 01-24 02:58 → 2S 01-24 13:46 → 1E 01-24 17:31 → 4W 01-25 11:51 → 2N 01-29 13:27